=== PATIENT | female | born 1940 | race Caucasian/White ===

== ENCOUNTER 2022-02-05 18:43 | Inpatient (IN) | payer OTHER ==
--- OUTSIDE RECORDS SUMMARY | 2022-02-05 19:01 | XMS REPORT | Continuity of Care Document ---
:1940 Author Organization [facility] t Address [address] [place] [address] Care Team Providers Name Role Phone Ashwin MURRY, Vadim Aaron Primary Care Physician [phone] Mally MURRY, Nidia Attending Clinician Doctor Unassigned, [place] Attending Clinician Unavailable Marysol Adamson RN Attending Clinician Unavailable ALBER MON Attending Clinician Unavailable Nadine Pate Attending Clinician Alber Mon MD Attending Clinician Frederick MURRY, Loren Attending Clinician Tyler Correa DO Attending Clinician TARI VÁZQUEZ Attending Clinician Unavailable Tari Vázquez DO Attending Clinician Yuval DIAMOND, Latha Cardona Attending Clinician CHERELLE COVARRUBIAS Attending Clinician Unavailable Giovanny Joseph DO Attending Clinician Cherelle Covarrubias MD Attending Clinician MARY ELLEN MAHMOOD K.HYassine Attending Clinician Unavailable Ela MURRY, Mary Ellen K.H. Attending Clinician Darrick DIAMOND, Salty Graves Attending Clinician Unavailable Delon Moralez MD Attending Clinician Navneet MURRY, Omar Attending Clinician Miller_S_AH Attending Clinician Unavailable Jennifer MURRY, Tray Attending Clinician Rangel DIAMOND, Kaila Attending Clinician Millie MURRY, Pema Attending Clinician Damien Mejia DO Attending Clinician Anne-Mbayo_A_AH Attending Clinician Unavailable Pob, Adc Lab Main Attending Clinician Unavailable Sugey MURRY, Leroy Cardona Attending Clinician LEROY MAYES Attending Clinician Unavailable Zan DIAMOND, Kaila Attending Clinician Unavailable Arie HARBOR TUG CAPTAIN, Christina Aaron Attending Clinician Unavailable Mauricio Ochoa MD, Herman Attending Clinician Tamara MURRY, Aldo Attending Clinician SHANNAN BARRIOS Attending Clinician Unavailable Uma MURRY, Shannan Cardona Attending Clinician Rene Charles APN Attending Clinician LOREN BRADSHAW Admitting Clinician Unavailable Frederick MURRY, Loren Admitting Clinician CHERELLE COVARRUBIAS Admitting Clinician Unavailable Marci MURRY, Cherelle Admitting Clinician Navneet MURRY, Omar Admitting Clinician Miller_S_AH Admitting Clinician Unavailable Millie MURRY, Pema Admitting Clinician Anne-Addisonayo_A_AH Admitting Clinician Unavailable Tamara MURRY, Aldo Admitting Clinician Payers Payer Name Policy Type Policy Number Effective Date Expiration Date Andrew pham [employer] [place] [id number] 2018 PLUS CLASSIC/VALUE 00:00:00 [employer] [place] - [id number] 2019 [place] 00:00:00 (MEDICARE REPLACEMENT/ADVANT AGE - HMO) Problems Condition Condition Condition Status Onset Resolution Last Treating Co mments Source Name Details Category Date Date Treatment Clinician Date Compressio Compressio Disease Active U nivers n fracture n fracture 5-05 it y of of body of of [place] thoracic thoracic 00 Medica l vertebra vertebra Branch Pneumonia Pneumonia Disease Active Uni vers 2-13 ity of 00:00: [place] [facility] Hyponatrem Hyponatrem Disease Active U nivers ia ia 7-05 ity of 00:00: [place] [facility] Hypertensi Hypertensi Disease Active U nivers ve urgency ve urgency 6-01 it y of 00:00: [place] [facility] Nonobstruc Nonobstruc Disease Active U nivers tive tive 6- ity of atheroscle atheroscle 00:[place] rosis of rosis of 00 Medica l coronary coronary Branch artery artery Syncope Syncope Disease Active Univers due to due to 5-31 ity of orthostati orthostati 00:[place] c c 00 Medical hypotensio hypotensio Br anch n n 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 Purpura 1-04 Family 00:00: Practic 00 e Iron Iron Problem Active 2019-06 Village deficiency Deficiency 1-25 Fa zohra anemia Anemia 00:00: Practic 00 e 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 1-25 Family coronary Coronary 00:00: Practi c artery Artery 00 e without without angina Angina pectoris Pectoris E44.0 E44.0 Disease Active 2019-06 Univers Moderate Moderate 0-31 ity of protein protein 00:00: [place] calorie calorie 00 Medical malnutriti malnutriti Br anch on on Uncontroll Uncontroll Disease Active 2019-06 U valerieers ed ed 0-30 ity of hypertensi hypertensi 00:[place] on on 00 Medical Branch MENDEZ MENDEZ Disease Active 2019-06 Univers (dyspnea (dyspnea 0-30 ity of on on 00:00: [place] exertion) exertion) 00 [facility] tonny Branch Elevated Elevated Disease Active 2019-06 Unive rs troponin I troponin I 0-30 it y of level level 00:00: [place] 00 Medical Branch NSTEMI NSTEMI Disease Active 2019-06 Univers (non-ST (non-ST 0-30 ity of elevated elevated 00:00: [place] myocardial myocardial 00 Me dical infarction infarction Br anch ) ) Elevated Elevated Disease Active 2020-1 Unive rs brain brain 0-30 ity of natriureti natriureti 00:00: [place] c peptide c peptide 00 Medi tonny (BNP) (BNP) Branch level level Essential Essential Disease Active 2019-06 Uni vers hypertensi hypertensi 0-30 it y of on on 00:00: [place] [facility] Hypertensi Hypertensi Disease Active 2019-06 U nivers ve ve 0-29 ity of encephalop encephalop 00:[place] athy athy Medical Branch Nicotine Nicotine Problem Active [place] ge dependence Dependence 7- Fa zohra 00:00: Practic 00 e At risk At Risk Problem Active [place] for falls for Falls 01-04 Fami ly 00:00: Practic 00 e Gastroesop Gastroesop Problem Active V illage hageal hageal 5- Family reflux Reflux 00:00: Practic disease Disease 00 e without without esophagiti Esophagiti s s Hyperchole Hyperchole Problem Active V illage sterolemia sterolemia 5- Fa zohra 00:00: Practic 00 e Essential Essential Problem Active Chel joaquina hypertensi Hypertensi 5-27 Fa zohra on on 00:00: Practic 00 e 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 527 Fa zohra e lung e Lung 00:00: Practic disease Disease 00 e Anemia Anemia Disease Active Univers 8-27 ity of 00:00: [place] [facility] Closed Closed Disease Active Univers fracture fracture 12-10 ity of of right of right 00:00: [place] hip hip 00 Medical Branch Allergies, Adverse Reactions, Alerts Allergy Allergy Status Severity Reaction(s) Onset Inactive Treating Comm ents Source Name Type Date Date Clinician IODINE DRUG Active ITCHING Univers INGREDI 5-04 ity of 00:00: [place] [facility] Iodine Propensi Active Itching Univers ty to 5-04 ity of adverse 00:00: [place] reaction 00 Medical s Branch Codeine Propensi Active Unknown - hallucina U nivers ty to See comments 12-10 tions ity of adverse 00:00: [place] reaction Medical s Branch CODEINE DRUG Active Unknown-Cmnt Uni vers INGREDI 7 ity of 00:00: [place] [facility] Social History Social Habit Start Date Stop Date Quantity Comments Source History of tobacco Cigarette Smoker University of use [facility] Branch History [facility] University o f Alcohol Std Drinks [place] [facility] History [facility] University o f Alcohol Binge [place] [facility] History [facility] o f Alcohol Comment [place] [facility] Alcohol intake 2021-10-16 2021-10-16 Lifetime University of 00:00:00 00:00:00 non-drinker [facility] (finding) Branch Exposure to 2021-10-03 2021-10-13 Not sure University of SARS-CoV-2 (event) 00:00:00 13:41:[address] [facility] Education 2021-07-23 2021-07-23 11 University of 00:00:00 00:00:[address] [facility] Tobacco Comment 2020-12-12 2020-12-12 half pack a day [facility] ersity of 00:00:00 00:00:[address] [facility] Cigarettes smoked 2019-02-03 2019-02-03 Univers ity of current (pack per 00:00:00 00:00:00 [facility]) - Reported Branch Cigarette 2019-02-03 2019-02-03 University of pack-years 00:00:00 00:00:[address] [facility] Tobacco use and 2019-02-03 2019-02-03 Never used Universit y of exposure 00:00:00 00:00:[address] [facility] History SDOH 2018-12-10 2018-12-10 1 University o f Alcohol Frequency 00:00:00 00:00:00 [facility] Sex Assigned At [birth year] Universit y of 00:00:00 00:00:[address] [facility] Smoking Status Start Date Stop Date Source Heavy Tobacco Smoker [facility] Current some day smoker 2019-02-03 00:00:00 [facility] Medications Ordered Filled Start Stop Current Ordering Indication Dosage Frequency Signature Comments Components Source Medication Medication Date Date Medication? Clinician (SIG) Name Name tiotropium Yes [id number] 18ug Inhale 1 Univers 18 mcg 5-09 capsule ity of inhalation 00:00: daily. [place] [facility] polyethylen Yes [id number] 17g Take 1 Univers e glycol 5-09 Packet by ity of 3350 17 00:00: mouth [place] gram powder [address] [facility] tiotropium Yes [id number] 18ug Inhale 1 Univers 18 mcg 5-09 capsule ity of inhalation 00:00: daily. Medical [place] polyethylen Yes [id number] 17g Take 1 Univers e glycol 5-09 Packet by ity of 3350 17 00:00: mouth [place] gram powder 00 daily. [facility] Branch tiotropium Yes [id number] 18ug Inhale 1 Univers 18 mcg 5-09 capsule ity of inhalation 00:00: daily. [facility] polyethylen Yes [id number] 17g Take 1 Univers e glycol 5-09 Packet by ity of 3350 17 00:00: mouth [place] gram powder 00 daily. [facility] Branch tiotropium Yes [id number] 18ug Inhale 1 Univers 18 mcg 5-09 capsule ity of inhalation 00:00: daily. [facility] polyethylen Yes [id number] 17g Take 1 Univers e glycol 5-09 Packet by ity of 3350 17 00:00: mouth [place] gram powder [address] [facility] tiotropium Yes [id number] 18ug Inhale 1 Univers 18 mcg 5-09 capsule ity of inhalation 00:00: daily. [facility] polyethylen Yes [id number] 17g Take 1 Univers e glycol 5-09 Packet by ity of 3350 17 00:00: mouth [place] gram powder [address] [facility] tiotropium Yes [id number] 18ug Inhale 1 Univers 18 mcg 5-09 capsule ity of inhalation 00:00: daily. [facility] polyethylen Yes [id number] 17g Take 1 Univers e glycol 5-09 Packet by ity of 3350 17 00:00: mouth [place] gram powder [address] [facility] Branch omeprazole 0 Yes 40mg Take 40 mg U nivers 40 mg 5-08 by mouth ity of capsule 18:58: every [place] [address] morning. Medical Branch simvastatin 2021-0 Yes 40mg Take 40 mg Univers 40 mg 5-08 by mouth ity of tablet 18:58: at [place] [address] bedtime. Medical Branch metoprolol 2021-0 Yes 50mg Take 50 mg U nivers tartrate 50 5-08 by mouth 2 it y of mg tablet 18:58: (two) [place] [address] times Medical daily. Branch levothyroxi 2021-0 Yes 100ug Take 100 U nivers ne 100 mcg 5-08 mcg by ity of tablet 18:58: mouth. [place] [address] Medical Branch aspirin 81 2021-0 Yes Take by Univ ers mg Cap 5-08 mouth. ity of 18:58: [place] [address] Medical Branch omeprazole 2-0 Yes 40mg Take 40 mg U nivers 40 mg 5-08 by mouth ity of capsule 18:58: every [place] [address] morning. Medical Branch simvastatin 2021-0 Yes 40mg Take 40 mg Univers 40 mg 5-08 by mouth ity of tablet 18:58: at [place] [address] bedtime. Medical Branch metoprolol 2021-0 Yes 50mg Take 50 mg U nivers tartrate 50 5-08 by mouth 2 it y of mg tablet 18:58: (two) [place] [address] times Medical daily. Branch levothyroxi 2021-0 Yes 100ug Take 100 U nivers ne 100 mcg 5-08 mcg by ity of tablet 18:58: mouth. [place] [address] Medical Branch aspirin 81 0 Yes Take by Univ ers mg Cap 5-08 mouth. ity of 18:58: [place] [address] Medical Branch omeprazole 2021-0 Yes 40mg Take 40 mg U nivers 40 mg 5-08 by mouth ity of capsule 18:58: every [place] [address] morning. Medical Branch simvastatin 2-0 Yes 40mg Take 40 mg Univers 40 mg 5-08 by mouth ity of tablet 18:58: at [place] [address] bedtime. Medical Branch metoprolol 2021-0 Yes 50mg Take 50 mg U nivers tartrate 50 5-08 by mouth 2 it y of mg tablet 18:58: (two) [place] [address] times Medical daily. Branch levothyroxi 2021-0 Yes 100ug Take 100 U nivers ne 100 mcg 5-08 mcg by ity of tablet 18:58: mouth. [place] [address] Medical Branch aspirin 81 2021-0 Yes Take by Univ ers mg Cap 5-08 mouth. ity of 18:58: [place] [address] Medical Branch omeprazole 2-0 Yes 40mg Take 40 mg U nivers 40 mg 5-08 by mouth ity of capsule 18:58: every morning. Medical Branch simvastatin 2021-0 Yes 40mg Take 40 mg Univers 40 mg 5-08 by mouth ity of tablet 18:58: at [place] [address] bedtime. Medical Branch metoprolol 2021-0 Yes 50mg Take 50 mg U nivers tartrate 50 5-08 by mouth 2 it y of mg tablet 18:58: (two) [place] [address] times Medical daily. Branch levothyroxi 2021-0 Yes 100ug Take 100 U nivers ne 100 mcg 5-08 mcg by ity of tablet 18:58: mouth. Medical Branch aspirin 81 0 Yes Take by Univ ers mg Cap 5-08 mouth. ity of 18:58: Medical Branch omeprazole 2021-0 Yes 40mg Take 40 mg U nivers 40 mg 5-08 by mouth ity of capsule 18:58: every [place] [address] morning. Medical Branch simvastatin 2021-0 Yes 40mg Take 40 mg Univers 40 mg 5-08 by mouth ity of tablet 18:58: at [place] [address] bedtime. Medical Branch metoprolol 2021-0 Yes 50mg Take 50 mg U nivers tartrate 50 5-08 by mouth 2 it y of mg tablet 18:58: (two) [place] [address] times Medical daily. Branch levothyroxi 2021-0 Yes 100ug Take 100 U nivers ne 100 mcg 5-08 mcg by ity of tablet 18:58: mouth. Medical Branch aspirin 81 0 Yes Take by Univ ers mg Cap 5-08 mouth. ity of 18:58: Medical Branch omeprazole 2021-0 Yes 40mg Take 40 mg U nivers 40 mg 5-08 by mouth ity of capsule 18:58: every [place] [address] morning. Medical Branch simvastatin 2021-0 Yes 40mg Take 40 mg Univers 40 mg 5-08 by mouth ity of tablet 18:58: at [place] [address] bedtime. Medical Branch metoprolol 2-0 Yes 50mg Take 50 mg U nivers tartrate 50 5-08 by mouth 2 it y of mg tablet 18:58: (two) [place] [address] times Medical daily. Branch levothyroxi 2-0 Yes 100ug Take 100 U nivers ne 100 mcg 5-08 mcg by ity of tablet 18:58: mouth. [place] [address] Medical Branch aspirin 81 2022-0 Yes Take by Univ ers mg Cap -08 mouth. ity of 18:58: [place] 26 [facility] Branch aspirin EC 0 Yes 81mg 81 mg, Unive rs tablet 81 -08 Oral, ity of mg 14:00: DAILY, [place] 00 First dose Medical on [place] Branch 10/15/21 at 0900, Until Discontinu ed, Routine sennosides- Yes 1{tbl} 1 tablet, Univers docusate 10-15 Oral, ity of sodium 14:00: DAILY, [place] (SENOKOT-S) 00 First dose Me dical 8.6-50 mg on [place] Branch per tablet 10/15/21 at 1 tablet 0900, Until Discontinu ed, Routine polyethylen Yes 17g 17 g, Unive rs e glycol 10-15 Oral, ity of 3350 powder 14:00: DAILY, [place] 17 g 00 First dose Medical on [facility] 10/15/21 at 0900, Until Discontinu ed, Routine omeprazole Yes 40mg 40 mg, Unive rs (PRILOSEC) 10-15 Oral, ity of capsule 40 14:00: DAILY, [place] mg 00 First dose Medical on [facility] 10/15/21 at 0900, Until Discontinu ed, Routine aspirin EC 2021- No 81mg 81 mg, Univ ers tablet 81 10-15- Oral, ity of mg 14:00: 01:58 DAILY, [place] 00 :30 First dose Medical on [facility] 10/15/21 at 0900, Until Discontinu ed, Routine sennosides- 2021- No 1{tbl} 1 tablet, Univers docusate 10-15 Oral, ity of sodium 14:00: 01:58 DAILY, [place] (SENOKOT-S) 00 :30 First dose Me dical 8.6-50 mg on [place] Branch per tablet 10/15/21 at 1 tablet 0900, Until Discontinu ed, Routine polyethylen 2021- No 17g 17 g, Univ ers e glycol 10-15 Oral, ity of 3350 powder 14:00: 01:58 DAILY, [place] 17 g 00 :30 First dose Medical on [place] [facility] 10/15/21 at 0900, Until Discontinu ed, Routine omeprazole No 40mg 40 mg, Univ ers (PRILOSEC) 5-08 05-09 Oral, ity of capsule 40 14:00: 01:58 DAILY, [place] mg 00 :30 First dose Medical on [place] Branch 10/15/21 at 0900, Until Discontinu ed, Routine ferrous 2021- No 325mg Take 325 Univ ers sulfate 325 5-08 05-08 mg by ity of mg (65 mg 13:02: 00:00 mouth [place] iron) 31 :00 daily. Medical tablet Branch ferrous 2021- No 325mg Take 325 Univ ers sulfate 325 5-08 05-08 mg by ity of mg (65 mg 13:02: 00:00 mouth [place] iron) 31 :00 daily. Medical tablet Branch metoprolol Yes 50mg 50 mg, Unive rs tartrate 5-08 Oral, BID, ity o f (LOPRESSOR) 01:00: First dose [place] tablet 50 00 on Sat Medical mg 10/14/21 at [place] 1999, Until Discontinu ed, Routine metoprolol 2021- No 50mg 50 mg, Univ ers tartrate 5-08 05-09 Oral, BID, ity of (LOPRESSOR) 01:00: 01:58 First dose [place] tablet 50 00 :30 on Sat Medical mg 10/14/21 at [place] 1999, Until Discontinu ed, Routine albuterol Yes [id number] 2{puff} Inhale 2 Univers 90 5-08 Puffs ity of mcg/actuati 00:00: every 6 [place] on inhaler 00 (six) Medical hours as Branch needed for Wheezing or Shortness of Breath. gabapentin Yes [id number] 100mg Take 1 Univers 100 mg 5-08 capsule by ity of capsule 00:00: mouth 3 [place] 00 (three) Medical times Branch daily. albuterol Yes [id number] 2{puff} Inhale 2 Univers 90 5-08 Puffs ity of mcg/actuati 00:00: every 6 [place] on inhaler 00 (six) Medical hours as Branch needed for Wheezing or Shortness of Breath. gabapentin Yes [id number] 100mg Take 1 Univers 100 mg 5-08 capsule by ity of capsule 00:00: mouth 3 (three) Medical times Branch daily. albuterol 2021-0 Yes [id number] 2{puff} Inhale 2 Univers 90 5-08 Puffs ity of mcg/actuati 00:00: every 6 [place] on inhaler 00 (six) Medical hours as Branch needed for Wheezing or Shortness of Breath. gabapentin 2021-0 Yes [id number] 100mg Take 1 Univers 100 mg 5-08 capsule by ity of capsule 00:00: mouth (three) Medical times Branch daily. albuterol 2021-0 Yes [id number] 2{puff} Inhale 2 Univers 90 5-08 Puffs ity of mcg/actuati 00:00: every 6 [place] on inhaler 00 (six) Medical hours as Branch needed for Wheezing or Shortness of Breath. gabapentin 2021-0 Yes [id number] 100mg Take 1 Univers 100 mg 5-08 capsule by ity of capsule 00:00: mouth (three) Medical times Branch daily. albuterol 2021-0 Yes [id number] 2{puff} Inhale 2 Univers 90 5-08 Puffs ity of mcg/actuati 00:00: every 6 [place] on inhaler 00 (six) Medical hours as Branch needed for Wheezing or Shortness of Breath. gabapentin 2021-0 Yes [id number] 100mg Take 1 Univers 100 mg 5-08 capsule by ity of capsule 00:00: mouth (three) Medical times Branch daily. albuterol 2021-0 Yes [id number] 2{puff} Inhale 2 Univers 90 5-08 Puffs ity of mcg/actuati 00:00: every 6 [place] on inhaler 00 (six) Medical hours as Branch needed for Wheezing or Shortness of Breath. gabapentin 2021-0 Yes [id number] 100mg Take 1 Univers 100 mg 5-08 capsule by ity of capsule 00:00: mouth (three) Medical times Branch daily. acetaminoph 2021-0 2022- No [id number] 650mg Take 2 Univers en 325 mg 5-08 05-09 tablets by ity of tablet 00:00: 04:59 mouth [place] 00 :00 every 6 Medical (six) Branch hours. acetaminoph 2022- No [id number] 650mg Take 2 Univers en 325 mg 10-15 05-09 tablets by ity of tablet 00:00: 04:59 mouth [place] 00 :00 every 6 Medical (six) Branch hours. acetaminoph 2021-2022- No [id number] 650mg Take 2 Univers en 325 mg 10-15 05-09 tablets by ity of tablet 00:00: 04:59 mouth [place] 00 :00 every 6 Medical (six) Branch hours. acetaminoph 2021-0 2022- No [id number] 650mg Take 2 Univers en 325 mg 10-15 05-09 tablets by ity of tablet 00:00: 04:59 mouth [place] 00 :00 every 6 Medical (six) Branch hours. acetaminoph 2021-2022- No [id number] 650mg Take 2 Univers en 325 mg 10-15 05-09 tablets by ity of tablet 00:00: 04:59 mouth [place] 00 :00 every 6 Medical (six) Branch hours. acetaminoph 2022- No [id number] 650mg Take 2 Univers en 325 mg 10-15 05-09 tablets by ity of tablet 00:00: 04:59 mouth [place] 00 :00 every 6 Medical (six) Branch hours. acetaminoph Yes 650mg 650 mg, Un moon en -07 Oral, Q6H, ity of (TYLENOL) 17:00: First dose [place] tablet 650 00 (after Medical mg last Branch modificati on) on 10/14/21 at 1200, Until Discontinu ed, Routine acetaminoph 202- No 650mg 650 mg, U nivers en 10-14 05-09 Oral, Q6H, ity of (TYLENOL) 17:00: 01:58 First dose [place] tablet 650 00 :30 (after Medical mg last Branch modificati on) on 10/14/21 at 1200, Until Discontinu ed, Routine gabapentin 2021-0 Yes 100mg 100 mg, Uni vers (NEURONTIN) 10-14 Oral, TID, it y of capsule 100 14:30: First dose [place] mg 00 on [facility] Medical 10/14/21 at Branch 0930, Until Discontinu ed, Routine gabapentin 202-0 2022- No 100mg 100 mg, Un moon (NEURONTIN) 10-14 Oral, TID, i ty of capsule 100 14:30: 01:58 First dose [place] mg 00 :30 on [facility] 10/14/21 at Branch 0930, Until Discontinu ed, Routine iron No 300mg 300 mg, IV Unive rs sucrose 10-14 Infusion, ity of (VENOFER) 14:30: 18:27 ONCE, [place] 300 mg in 00 :00 Administer Medi tonny NaCl 0.9% over 2.5 Branch (NS) 250 mL Hours, On infusion [facility] 10/14/21 at 0930, For 1 dose lidocaine 5 2021- No Topical, U nivers % ointment 10-14 ONCE, 1 ity o f 14:15: 18:38 dose, On [place] 00 :00 [facility] 10/14/21 Medical at 0915, Branch Routine albuterol Yes 2{puff} 2 Puff, Un moon (VENTOLIN) 10-14 Inhalation ity of inhaler 2 11:45: , Q6HPRN, [place] Puff [address] [facility] 10/14/21 at 0645, Until Discontinu ed, Routine, Wheezing, Shortness of Breath albuterol 2021- No 2{puff} 2 Puff, U nivers (VENTOLIN) 10-14 Inhalation it y of inhaler 2 11:45: 01:58 , Q6HPRN, [place] Puff 00 :[address] [facility] 10/14/21 at 0645, Until [place] 10/15/21 at 2058, Routine, Wheezing, Shortness of Breath guaiFENesin Yes 400mg 400 mg, Un moon (FENESIN - Oral, Q4H, ity o f IR) tablet 17:00: First dose [place] 400 mg 00 on Sat [facility] 10/13/21 at Branch 1200, Until Discontinu ed, Routine guaiFENesin 2021- No 400mg 400 mg, U nivers (FENESIN 10-13 05-09 Oral, Q4H, ity of IR) tablet 17:00: 01:58 First dose [place] 400 mg 00 :30 on Sat Medical 10/13/21 at Branch 1200, Until Discontinu ed, Routine albuterol 2021- No 2{puff} 2 Puff, U nivers (VENTOLIN) 10-13 Inhalation it y of inhaler 2 17:00: 11:33 , Q6H, [place] Puff 00 :42 First dose Medical on Sat Branch 10/13/21 at 1200, Until Discontinu ed, Routine tiotropium Yes 18ug 18 mcg, Univ ers (SPIRIVA) 10-13 Inhalation ity of inhalation 14:45: , DAILY, [place] 18 mcg 00 First dose Medical on Sat Branch 10/13/21 at 0945, Until Discontinu ed, Routine tiotropium 2021- No 18ug 18 mcg, Uni vers (SPIRIVA) 10-1309 Inhalation ity of inhalation 14:45: 01:58 , DAILY, [place] 18 mcg 00 :30 First dose Medical on Sat Branch 10/13/21 at 0945, Until Discontinu ed, Routine pantoprazol 2021- No 40mg 40 mg, Uni vers e 10-13 Slow IV ity of (PROTONIX) 13:00: 14:28 Push, [place] injection 00 :42 Q12H, Medical 40 mg First dose Branch (after last modificati on) on Sat10/13/21 at 0800, Until Discontinu ed magnesium 2021- No 2g 2 g, IV Univ ers sulfate in 10-13 Piggyback, it y of water 2 11:30: 12:23 Administer [place] as gram/50 mL 00 :00 over 60 Medica l (4 %) Minutes, Branch infusion 2 ONCE, 1 g dose, On Sat10/13/21 at 0630, Routine iron 2021- No 300mg 300 mg, IV Unive rs sucrose 10-13 Infusion, ity of (VENOFER) 03:00: 06:00 ONCE, [place] 300 mg in 00 :00 Administer Medi tonny NaCl 0.9% over 2.5 Branch (NS) 250 mL Hours, On infusion [place] 10/12/21 at 2200, For 1 dose simvastatin Yes 40mg 40 mg, Univ ers (ZOCOR) 10-13 Oral, QHS, ity of tablet 40 02:00: First dose [place] mg 00 on [facility] 10/12/21 at Branch 2100, Until Discontinu ed, Routine simvastatin No 40mg 40 mg, Uni vers (ZOCOR) 10-13 05-09 Oral, QHS, ity o f tablet 40 02:00: 01:58 First dose [place] mg 00 :30 on [facility] 10/12/21 at Branch 2100, Until Discontinu ed, Routine morpHINE Yes 2mg 2 mg, Slow Uni vers injection 2 -05 IV Push, ity of mg 18:28: Q6HPRN, 4 [place] 39 doses, Medical Starting Branch on [facility] 10/12/21 at 1328, Until Discontinu ed, Routine, Pain (scale 7-10) morpHINE 2021- No 2mg 2 mg, Slow Un moon injection 2 10-12 05-09 IV Push, ity of mg 18:28: 01:58 Q6HPRN, 4 [place] 39 :30 doses, Medical Starting Branch on [facility] 10/12/21 at 1328, Until 10/15/21 at 2057, Routine, Pain (scale 7-10) HYDROcodone Yes 1{tbl} 1 tablet, Univers -acetaminop 5-05 Oral, ity of hen (NORCO 18:28: Q6HPRN, [place] 5) 5-325 mg 03 Starting Medi tonny tablet 1 on [facility] tablet 10/12/21 at 1328, Until Discontinu ed, Routine, Pain (scale 4-6) HYDROcodone 2021- No 1{tbl} 1 tablet, Univers -acetaminop -10 12- Oral, ity of hen (NORCO 18:28: 01:58 Q6HPRN, [place] as 5) 5-325 mg 03 :30 Starting Medi tonny tablet 1 on [facility] tablet 10/12/21 at 1328, Until 10/15/21 at 2057, Routine, Pain (scale 4-6) omeprazole 2021-2021- No 40mg 40 mg, Univ ers (PRILOSEC) 10-12- Oral, QAM, it y of capsule 40 14:00: 01:47 First dose [place] mg 00 :29 on [facility] 10/12/21 at Branch 0900, Until Discontinu ed ipratropium 2021- No 3mL 3 mL, Univ ers -albuteroL 10-12-05 Inhalation it y of (DUONEB) 13:00: 18:27 , QID, [place] 0.5 mg-3 00 :17 First dose Medic al mg(2.5 mg on [place] [facility] base)/3 mL 10/12/21 at nebulizer 0800, solution 3 Until mL Discontinu ed, Routine levothyroxi Yes 100ug 100 mcg, U nivers ne 5-05 Oral, ity of (SYNTHROID) 11:00: QAM-0600, [place] tablet 100 00 First dose Med ical mcg on [place] [facility] 10/12/21 at 0600, Until Discontinu ed, Routine levothyroxi 2021- No 100ug 100 mcg, Univers ne 10-12 05-09 Oral, ity of (SYNTHROID) 11:00: 01:58 QAM-0600, [place] tablet 100 00 :30 First dose Med ical mcg on [place] [facility] 10/12/21 at 0600, Until Discontinu ed, Routine ondansetron Yes 4mg 4 mg, Slow Univers (ZOFRAN 5-05 IV Push, ity of (PF)) 09:31: Q6HPRN, [place] injection 4 42 Nausea and Me dical mg Vomiting Branch (N/V), Starting on [facility] 10/12/21 at 0431
Do ses of ondansetro n 16 mg and above need to be administer ed via IV piggyback. For Dose >=24mg ECG monitoring is advisable.
ondansetron 2021- No 4mg 4 mg, Slow Univers (ZOFRAN 5-05 05-09 IV Push, ity of (PF)) 09:31: 01:58 Q6HPRN, [place] injection 4 42 :30 Nausea and Me dical mg Vomiting Branch (N/V), Starting on [place] 10/12/21 at 0431
Do ses of ondansetro n 16 mg and above need to be administer ed via IV piggyback. For Dose >=24mg ECG monitoring is advisable.
ondansetron No 4mg 4 mg, Slow Univers (ZOFRAN 10-12 IV Push, ity of (PF)) 03:30: 02:16 ONCE, 1 [place] injection 4 00 :00 dose, On Medi tonny mg Sat10/11/21 Branch at 2230, OSWALDO ipratropium 2021- No 3mL 3 mL, Univ ers -albuteroL 10-12 Inhalation it y of (DUONEB) 00:30: 23:33 , ONCE, 1 [place] 0.5 mg-3 00 :00 dose, On Medical mg(2.5 mg Sat10/11/21 Bran ch base)/3 mL at 1930, nebulizer Routine solution 3 mL traMADoL 2021- No 50mg 50 mg, Univer s (ULTRAM) 10-11 Oral, ity of tablet 50 21:45: 20:38 ONCE, 1 [place] mg 00 :00 dose, On Medical Sat10/11/21 Branch at 1645, Routine acetaminoph 2021- No 650mg 650 mg, U nivers en 08-28 Oral, ity of (TYLENOL) 21:00: 19:50 ONCE, 1 [place] tablet 650 00 :00 dose, On Medic al mg [facility] 08/28/21 at 1600, OSWAL[place] acetaminoph 2021- No 650mg 650 mg, U nivers en 08-28 Oral, ity of (TYLENOL) 21:00: 19:50 ONCE, 1 [place] tablet 650 00 :00 dose, On Medic al mg [facility] 08/28/21 at 1600, OSWAL[place] aspirin 81 2021- No [id number] 81mg Take 1 Univers mg chewable 2-18 - tablet by it y of tablet 00:00: 04:59 mouth [place] 00 :00 daily for Medical 30 days. Branch aspirin 81 2021- No [id number] 81mg Take 1 Univers mg chewable 2-18 - tablet by it y of tablet 00:00: 04:59 mouth [place] 00 :00 daily for Medical 30 days. Branch simvastatin 2022-0 Yes 40mg Take 40 mg Univers 40 mg 2-17 by mouth ity of tablet 17:33: at [place] 07 bedtime. Medical Branch metoprolol 2021-0 Yes 50mg Take 50 mg U nivers tartrate 50 2-17 by mouth 2 it y of mg tablet 17:33: (two) [place] 07 times Medical daily. Branch levothyroxi 2021-0 Yes 100ug Take 100 U nivers ne 100 mcg 2-17 mcg by ity of tablet 17:33: mouth. Medical Branch omeprazole 2021-0 Yes 40mg Take 40 mg U nivers 40 mg 2-17 by mouth ity of capsule 17:33: every [place] 07 morning. Medical Branch ferrous 2021-0 Yes 325mg Take 325 Unive rs sulfate 325 2-17 mg by ity of mg (65 mg 17:33: mouth [place] iron) 07 daily. Medical tablet Branch simvastatin 2021-0 Yes 40mg Take 40 mg Univers 40 mg 2-17 by mouth ity of tablet 17:33: at [place] 07 bedtime. Medical Branch metoprolol 2021-0 Yes 50mg Take 50 mg U nivers tartrate 50 2-17 by mouth 2 it y of mg tablet 17:33: (two) [place] 07 times Medical daily. Branch levothyroxi 2021-0 Yes 100ug Take 100 U nivers ne 100 mcg 2-17 mcg by ity of tablet 17:33: mouth. Medical Branch omeprazole 2021-0 Yes 40mg Take 40 mg U nivers 40 mg 2-17 by mouth ity of capsule 17:33: every [place] 07 morning. Medical Branch ferrous 2021-0 Yes 325mg Take 325 Unive rs sulfate 325 2-17 mg by ity of mg (65 mg 17:33: mouth [place] iron) 07 daily. Medical tablet Branch simvastatin 2021-0 Yes 40mg Take 40 mg Univers 40 mg 2-17 by mouth ity of tablet 17:33: at [place] 07 bedtime. Medical Branch metoprolol 2021-0 Yes 50mg Take 50 mg U nivers tartrate 50 2-17 by mouth 2 it y of mg tablet 17:33: (two) [place] 07 times Medical daily. Branch levothyroxi 2021-0 Yes 100ug Take 100 U nivers ne 100 mcg 2-17 mcg by ity of tablet 17:33: mouth. Medical Branch omeprazole Yes 40mg Take 40 mg U nivers 40 mg 2-17 by mouth ity of capsule 17:33: every [place] 07 morning. Medical Branch ferrous Yes 325mg Take 325 Unive rs sulfate 325 2-17 mg by ity of mg (65 mg 17:33: mouth [place] iron) 07 daily. Medical tablet Branch simvastatin Yes 40mg Take 40 mg Univers 40 mg 2-17 by mouth ity of tablet 17:33: at [place] 07 bedtime. Medical Branch metoprolol Yes 50mg Take 50 mg U nivers tartrate 50 2-17 by mouth 2 it y of mg tablet 17:33: (two) [place] 07 times Medical daily. Branch levothyroxi Yes 100ug Take 100 U nivers ne 100 mcg 2-17 mcg by ity of tablet 17:33: mouth. Medical Branch omeprazole Yes 40mg Take 40 mg U nivers 40 mg 2-17 by mouth ity of capsule 17:33: every [place] morning. Medical Branch ferrous Yes 325mg Take 325 Unive rs sulfate 325 2-17 mg by ity of mg (65 mg 17:33: mouth [place] iron) 07 daily. Medical tablet Branch furosemide Yes 40mg 40 mg, Unive rs (LASIX) 2-17 Oral, ity of tablet 40 15:00: DAILY, [place] mg 00 First dose Medical on [place] [facility] 07/27/21 at 0900, [facility] benzoc[facility]- Yes [id number] 1{lozen Take 1 Univers menthoL 2-17 ge} Lozenge by ity of lozenge 00:00: mouth [place] 00 every 6 Medical (six) Branch hours as needed for Sore throat. benzonatate Yes [id number] 100mg Take 1 [facility] 100 mg 2-17 capsule by ity of capsule 00:00: mouth [place] 00 every 8 Medical (eight) Branch hours. benzocaine- Yes [id number] 1{lozen Take 1 Univers menthoL 2-17 ge} Lozenge by ity of lozenge 00:00: mouth [place] 00 every 6 Medical (six) Branch hours as needed for Sore throat. benzonatate Yes [id number] 100mg Take 1 [facility] 100 mg 2-17 capsule by ity of capsule 00:00: mouth [place] 00 every 8 Medical (eight) Branch hours. benzocaine- 0 Yes [id number] 1{lozen Take 1 Univers menthoL 2-17 ge} Lozenge by ity of lozenge 00:00: mouth [place] 00 every 6 Medical (six) Branch hours as needed for Sore throat. benzonatate 0 Yes [id number] 100mg Take 1 [facility] 100 mg 2-17 capsule by ity of capsule 00:00: mouth [place] 00 every 8 Medical (eight) Branch hours. benzocaine- 0 Yes [id number] 1{lozen Take 1 Univers menthoL 2-17 ge} Lozenge by ity of lozenge 00:00: mouth [place] 00 every 6 Medical (six) Branch hours as needed for Sore throat. benzonatate Yes [id number] 100mg Take 1 Univers 100 mg 2-17 capsule by ity of capsule 00:00: mouth [place] 00 every 8 Medical (eight) Branch hours. benzocaine- 2021- No [id number] 1{lozen Take 1 Univers menthoL 2-17 05-04 ge} Lozenge by ity o f lozenge 00:00: 00:00 mouth [place] 00 :00 every 6 Medical (six) Branch hours as needed for Sore throat. benzonatate 202- No [id number] 100mg Take 1 Univers 100 mg 2-17 05-04 capsule by ity of capsule 00:00: 00:00 mouth [place] 00 :00 every 8 Medical (eight) Branch hours. benzocaine- 0 202- No [id number] 1{lozen Take 1 Univers menthoL 2-17 05-04 ge} Lozenge by ity o f lozenge 00:00: 00:00 mouth [place] 00 :00 every 6 Medical (six) Branch hours as needed for Sore throat. benzonatate 0 2022- No [id number] 100mg Take 1 Univers 100 mg 2-17 05-04 capsule by ity of capsule 00:00: 00:00 mouth [place] 00 :00 every 8 Medical (eight) Branch hours. predniSONE 2021- No [id number] Take 4 Univers 10 mg 07-27 tablets by ity of tablet 00:00: 05:59 mouth [place] 00 :00 daily for Medical 3 days, Branch THEN 3 tablets daily for 3 days, THEN 2 tablets daily for 3 days, THEN 1 tablet daily for 3 days, THEN 0.5 tablets daily for 3 days. predniSONE 2021- No [id number] Take 4 Univers 10 mg 07-27 tablets by ity of tablet 00:00: 05:59 mouth [place] 00 :00 daily for Medical 3 days, Branch THEN 3 tablets daily for 3 days, THEN 2 tablets daily for 3 days, THEN 1 tablet daily for 3 days, THEN 0.5 tablets daily for 3 days. levoFLOXaci 2021- No [id number] 750mg Take 1 Univers n 750 mg 07-27 tablet by ity o f tablet 00:00: 05:59 mouth [place] 00 :00 every 48 Medical ([facility]) hours for 12 days. levoFLOXaci 2021- No [id number] 750mg Take 1 Univers n 750 mg 07-27 tablet by ity o f tablet 00:00: 05:59 mouth [place] 00 :00 every 48 Medical ([facility]) hours for 12 days. furosemide 2021- No [id number] 20mg Take 1 Univers (LASIX) 20 07-27-25 tablet by ity of mg tablet 00:00: 05:59 mouth [place] 00 :00 daily for Medical 7 days. [place] furosemide 2021- No [id number] 20mg Take 1 Univers (LASIX) 20 07-27-25 tablet by ity of mg tablet 00:00: 05:59 mouth [place] 00 :00 daily for Medical 7 days. [place] furosemide 2021- No 40mg 40 mg, Univ ers (LASIX) 07-26 02-16 Slow IV ity of injection 15:15: 15:34 Push, [place] 40 mg 00 :00 ONCE, 1 Medical dose, On Branch 07/26/21 at 0915, Routine levoFLOXaci Yes 750mg 750 mg, Un moon n 2-16 Oral, Q48H ity of (LEVAQUIN) 15:00: ABX, First [place] tablet 750 00 dose Medical mg (after Branch last modificati on) on Sat07/26/21 at 0900, Until Discontinu ed, OSWALDO
Re ason for Anti-Infec tive: Documented Infection< br>Documen dallin Infection Site: Respirator y
Durat ion of Therapy: Other (see Comments) furosemide 2021- No 20mg 20 mg, Univ ers (LASIX) 2-15 02-15 Slow IV ity of injection 20:30: 20:11 Push, [place] 20 mg 00 :00 ONCE, 1 Medical dose, On Branch Sat07/25/21 at 1430, Routine benzonatate 0 Yes 100mg 100 mg, Un moon (TESSALON 2-15 Oral, Q8H, ity of PERLES) 17:30: First dose [place] capsule 100 00 on Medica l mg 07/25/21 at Branch 1130, Until Discontinu ed, Routine benzocaine- 0 Yes 1{lozen 1 Lozenge, Univers menthoL 2-15 ge} Oral, ity of (CEPACOL 01:51: Q6HPRN, [place] SORE THROAT 46 Starting Medi tonny (MASON-MEN)) on Sat lozenge 1 07/24/21 at Lozenge 1951, Until Discontinu ed, Routine, Sore throat predniSONE 2021-0 Yes 40mg 40 mg, Unive rs (DELTASONE) 2-14 Oral, ity of tablet 40 15:00: DAILY, [place] mg 00 First dose Medical on Sat07/24/21 at 0900, Until Discontinu ed, Routine aspirin 2021-0 Yes 81mg 81 mg, Univers chewable 2-14 Oral, ity of tablet 81 15:00: DAILY, [place] mg 00 First dose Medical on Sat07/24/21 at 0900, Until Discontinu ed, Routine omeprazole 2021-0 Yes 40mg 40 mg, Unive rs (PRILOSEC) 2-14 Oral, ity of capsule 40 15:00: DAILY, [place] mg 00 First dose Medical on Sat07/24/21 at 0900, Until Discontinu ed, Routine levoFLOXaci 2021-0 202- No 750mg 750 mg, U nivers n 2-14 02-14 Oral, ity of (LEVAQUIN) 15:00: 16:29 DAILY, [place] tablet 750 00 :55 First dose Med ical mg on [facility] 07/24/21 at 0900, Until Discontinu ed, OSWALDO
Re ason for Anti-Infec tive: Documented Infection< br>Documen dallin Infection Site: Respirator y
Durat ion of Therapy: Other (see Comments) levothyroxi 2021-0 Yes 100ug 100 mcg, U nivers ne 2-14 Oral, ity of (SYNTHROID) 12:00: QAM-0600, [place] tablet 100 00 First dose Med ical mcg on Sat [place] 07/24/21 at 0600, Until Discontinu ed, Routine simvastatin 2021-0 Yes 40mg 40 mg, Univ ers (ZOCOR) 2-14 Oral, QHS, ity of tablet 40 03:00: First dose [place] mg 00 on [facility] 07/23/21 at Branch 2100, Until Discontinu ed, Routine metoprolol 2021-0 Yes 50mg 50 mg, Unive rs tartrate 2-14 Oral, BID, ity o f (LOPRESSOR) 02:00: First dose [place] tablet 50 00 on [facility] mg 07/23/21 at Branch 2000, Until Discontinu ed, Routine ipratropium 2021-0 Yes 3mL 3 mL, Unive rs -albuteroL 2-14 Inhalation ity of (DUONEB) 00:00: , Q6H, [place] 0.5 mg-3 00 First dose Medic al mg(2.5 mg on [facility] base)/3 mL 07/23/21 at nebulizer 1800, solution 3 Until mL Discontinu ed, Routine enoxaparin 2021-0 Yes 40mg 40 mg, Unive rs (LOVENOX) 2-13 Subcutaneo ity of injection 23:00: us, DAILY, [place] 40 mg 00 First dose Medical on [facility] 07/23/21 at 1700, Until Discontinu ed, Routine methylpredn 2022-0 2022- No 60mg 60 mg, Uni vers isolone sod 2-13 -14 Slow IV ity of succ 22:00: 00:02 [place] (SOLU-MEDRO 00 :00 ONCE, 1 Medic al L) dose, On Branch injection [place] 60 mg 07/23/21 at 1600, Routine aspirin 2021- No 325mg 325 mg, Unive rs tablet 325 07-23 Oral, ity of mg 21:00: 00:02 ONCE, 1 [place] 00 :00 dose, On Medical [place] [facility] 07/23/21 at 1500, Routine ondansetron Yes 4mg 4 mg, Slow Univers (ZOFRAN 07-23 IV Push, ity of (PF)) 20:49: Q6HPRN, [place] injection 4 22 Starting Medi tonny mg on [place] Branch 07/23/21 at 1449, Until Discontinu ed, Routine, Nausea and Vomiting (N/V) acetaminoph Yes 650mg 650 mg, Un moon en 07-23 Oral, ity of (TYLENOL) 20:49: Q6HPRN, [place] tablet 650 04 Starting Medic al mg on [place] Branch 07/23/21 at 1449, Until Discontinu ed, Routine, Pain (scale 1-3), Temp > 38.5 C magnesium 2021- No 2g 2 g, IV Univ ers sulfate in 07-23 Piggyback, it y of water 2 20:45: 20:46 ONCE, 1 [place] gram/50 mL 00 :00 dose, On Medic al (4 %) [place] [facility] infusion 2 07/23/21 at g 1500, Routine azithromyci 2021- No 500mg 500 mg, IV Univers n 07-23 Piggyback, ity of (ZITHROMAX) 20:00: 21:21 Q24H ABX, [place] 500 mg in 00 :13 First dose Medi tonny NaCl 0.9% on [place] Branch (NS) 250 mL 07/23/21 at VIAL-MATE 1400, IV Until piggyback Discontinu ed, Administer over 60 Minutes, 250 mL
Reas on for Anti-Infec tive: Empiric Therapy for Suspected Infection< br>Empiric Therapy Site: Respirator y
Durat ion of therapy: 72 hours cefTRIAXone 2021- No 1000mg 1,000 mg, Univers (ROCEPHIN) 07-23 IV ity of 1,000 mg in 20:00: 19[facility] [place] NaCl 0.9% 00 :00 ONCE, 1 Medical (NS) 50 mL dose, On Bran h MINI-BAG 07/23/21 at 1400, Administer over 30 Minutes, 50 mL
Reas on for Anti-Infec tive: Empiric Therapy for Suspected Infection< br>Empiric Therapy Site: Respirator y
Durat ion of therapy: 72 hours aspirin 81 0 2020- No [id number] 81mg Take 1 [facility] mg chewable 12-15 tablet by it y of tablet 00:00: 04:59 mouth [place] 00 :00 daily for Medical 30 days. Branch cholecalcif 2020- No [id number] 5000U Take 5 [facility] [place], 12-15 tablets by ity of vitamin D3, 00:00: 04:59 mouth [place] 25 mcg 00 :00 daily for Medical (1,000 30 days. Branch unit) tablet aspirin 81 2020- No [id number] 81mg Take 1 [facility] mg chewable 12-15 tablet by it y of tablet 00:00: 04:59 mouth [place] 00 :00 daily for Medical 30 days. Branch cholecalcif 2020- No [id number] 5000U Take 5 Univers [place], 12-15 tablets by ity of vitamin D3, 00:00: 04:59 mouth [place] 25 mcg 00 :00 daily for Medical (1,000 30 days. Branch unit) tablet omeprazole Yes 40mg Take 40 mg U nivers 40 mg 7-07 by mouth ity of capsule 19:49: every [place] 41 morning. Medical Branch ferrous Yes 325mg Take 325 Unive rs sulfate 325 7-07 mg by ity of mg (65 mg 19:49: mouth [place] iron) 41 daily. Medical tablet Branch omeprazole Yes 40mg Take 40 mg U nivers 40 mg 7-07 by mouth ity of capsule 19:49: every [place] 41 morning. Medical Branch ferrous Yes 325mg Take 325 Unive rs sulfate 325 7-07 mg by ity of mg (65 mg 19:49: mouth [place] iron) 41 daily. Medical tablet Branch omeprazole 2021-0 Yes 40mg Take 40 mg U nivers 40 mg 7-07 by mouth ity of capsule 19:49: every [place] 41 morning. Medical Branch ferrous Yes 325mg Take 325 Unive rs sulfate 325 7-07 mg by ity of mg (65 mg 19:49: mouth [place] iron) 41 daily. Medical tablet Branch omeprazole Yes 40mg Take 40 mg U nivers 40 mg 7-07 by mouth ity of capsule 19:49: every [place] 41 morning. Medical Branch ferrous Yes 325mg Take 325 Unive rs sulfate 325 7-07 mg by ity of mg (65 mg 19:49: mouth [place] iron) 41 daily. Medical tablet Branch omeprazole Yes 40mg Take 40 mg U nivers 40 mg 7-07 by mouth ity of capsule 19:49: every [place] 41 morning. Medical Branch ferrous Yes 325mg Take 325 Unive rs sulfate 325 7-07 mg by ity of mg (65 mg 19:49: mouth [place] iron) 41 daily. Medical tablet Branch aspirin 81 2020- No 81mg Take 81 mg Univers mg chewable 12-14-07 by mouth ity of tablet 17:55: 00:00 daily. [place] 03 :00 Medical Branch cholecalcif Yes 5000U 5,000 Univ ers [place] 7-07 Units, ity of (vitamin 14:00: Oral, [place] D3) tablet 00 DAILY, Medical 5,000 Units First dose Br anch on Sat12/14/20 at 0900, Until Discontinu ed, Routine carvediloL Yes 6.25mg 6.25 mg, U nivers (COREG) - Oral, BID ity of tablet 6.25 13:00: MEALS, [place] mg 00 First dose Medical on Sat Branch 12/14/20 at 0800, Until Discontinu ed, Routine demeclocycl Yes 300mg 300 mg, Un moon ine 7-07 Oral, BID, ity of (DECLOMYCIN 13:00: First dose [place] ) tablet 00 (after Medical 300 mg last Branch modificati on) on Sat12/14/20 at 0800, Until Discontinu ed, OSWALDO
Re ason for Anti-Infec tive: Empiric Therapy for Suspected Infection< br>Empiric Therapy Site: Other
O ther site: n/a
Dur ation of therapy: 7 days metoprolol 2020- No 50mg 50 mg, Univ ers tartrate 12-14 Oral, BID, ity of (LOPRESSOR) 01:45: 12:08 First dose [place] tablet 50 00 :53 on Tue Medical mg 12/13/20 at Branch 2044, Until Discontinu ed, Routine levothyroxi 2020- No [id number] 125ug Take 1 Univers ne 125 mcg 12-14 tablet by ity of tablet 00:00: 04:59 mouth [place] 00 :00 every Medical morning Branch for 30 days. carvediloL 2020- No [id number] 6.25mg Take 1 Univers 6.25 mg 12-14 tablet by ity of tablet 00:00: 04:59 mouth 2 [place] 00 :00 (two) Medical times Branch daily with meals for 30 days. levothyroxi 2020- No [id number] 125ug Take 1 Univers ne 125 mcg 12-14 tablet by ity of tablet 00:00: 04:59 mouth [place] 00 :00 every Medical morning Branch for 30 days. carvediloL 2020- No [id number] 6.25mg Take 1 Univers 6.25 mg 12-14 tablet by ity of tablet 00:00: 04:59 mouth 2 [place] 00 :00 (two) Medical times Branch daily with meals for 30 days. demeclocycl 2020- No [id number] 300mg Take 1 Univers ine 300 mg 12-14 tablet by ity of tablet 00:00: 04:59 mouth 2 [place] 00 :00 (two) Medical times Branch daily for 10 days. demeclocycl 2020- No [id number] 300mg Take 1 Univers ine 300 mg 12-14 tablet by ity of tablet 00:00: 04:59 mouth 2 [place] 00 :00 (two) Medical times Branch daily for 10 days. demeclocycl 2020- No 150mg 150 mg, U nivers ine 12-13 Oral, BID, ity of (DECLOMYCIN 22:15: 12:10 First dose [place] ) tablet 00 :27 on [facility] 150 mg 12/13/20 at Branch 1715, Until Discontinu ed, OSWALDO
Re ason for Anti-Infec tive: Empiric Therapy for Suspected Infection< br>Empiric Therapy Site: Other
O ther site: n/a
Dur ation of therapy: 7 days traMADoL 0 Yes 50mg 50 mg, Univers (ULTRAM) 12-13 Oral, ity of tablet 50 19:04: Q6HPRN, [place] mg 16 Starting Medical [facility] 12/13/20 Branch at 1404, Until Discontinu ed, Routine, Pain (scale 4-6) aspirin 0 Yes 81mg 81 mg, Univers chewable 12-13 Oral, ity of tablet 81 14:00: DAILY, [place] mg 00 First dose Medical on [facility] 12/13/20 at 0900, Until Discontinu ed, Routine enoxaparin Yes 40mg 40 mg, Unive rs (LOVENOX) 12-13 Subcutaneo ity of injection 14:00: us, DAILY, [place] 40 mg 00 First dose Medical on [facility] 12/13/20 at 0900, Until Discontinu ed, Routine pantoprazol 0 Yes 40mg 40 mg, Univ ers e 12-13 Oral, ity of (PROTONIX) 14:00: DAILY, [place] EC tablet 00 First dose Medi tonny 40 mg on [facility] 12/13/20 at 0900, Until Discontinu ed, Routine losartan Yes 50mg 50 mg, Univers (COZAAR) 12-13 Oral, ity of tablet 50 14:00: DAILY, [place] mg 00 First dose Medical on [facility] 12/13/20 at 0900, Until Discontinu ed, Routine ferrous 2020-0 Yes 325mg 325 mg, Univer s sulfate 12-13 Oral, ity of tablet 325 14:00: DAILY, [place] mg 00 First dose Medical on [facility] 12/13/20 at 0900, Until Discontinu ed, Routine iron 2020-0 202- No 300mg 300 mg, IV Unive rs sucrose 12-13 07-10 Infusion, ity of (VENOFER) 14:00: 13:59 DAILY, [place] 300 mg in 00 :00 First dose Medi tonny NaCl 0.9% on Sat Branch (NS) 250 mL 12/13/20 at infusion 0900, For 4 doses levothyroxi Yes 125ug 125 mcg, U nivers ne 12-13 Oral, ity of (SYNTHROID) 11:00: QAM-0600, [place] tablet 125 00 First dose Med ical mcg on Sat [place] 12/13/20 at 0600, Until Discontinu ed, Routine atorvastati Yes 40mg 40 mg, Univ ers n (LIPITOR) 12-13 Oral, QHS, it y of tablet 40 02:00: First dose [place] mg 00 on [facility] 12/12/20 at Branch 2100, Until Discontinu ed, Routine NaCl 0.9% 2020- No 1000mL at 80 [facility] ers (NS) IV 12-13 07-06 mL/hr, IV ity of infusion 01:00: 22:21 Infusion, [place] 1,000 mL 00 :51 CONTINUOUS Medic al , Starting Branch [facility] 12/12/20 at 2000, Until Sat12/13/20 at 1721, Routine ondansetron Yes 4mg 4 mg, Slow Univers (ZOFRAN 12-13 IV Push, ity of (PF)) 00:56: Q6HPRN, [place] injection 4 14 Starting Medi tonny mg [facility] 12/12/20 Branch at 195, Until Discontinu ed, Routine, Nausea and Vomiting (N/V) acetaminoph Yes 650mg 650 mg, Un moon en 12-13 Oral, ity of (TYLENOL) 00:56: Q6HPRN, [place] tablet 650 00 Starting Medic al mg [facility] 12/12/20 Branch at 1956, Until Discontinu ed, Routine, Pain (scale 1-3) omeprazole 0 Yes 40mg Take 40 mg U nivers 40 mg 6-02 by mouth ity of capsule 23:35: every [place] 22 morning. Medical Branch ferrous 2020-0 Yes 325mg Take 325 Unive rs sulfate 325 6-02 mg by ity of mg (65 mg 23:35: mouth [place] iron) 22 daily. Medical tablet Branch omeprazole 0 Yes 40mg Take 40 mg U nivers 40 mg 6-02 by mouth ity of capsule 23:35: every [place] 22 morning. Medical Branch ferrous 0 Yes 325mg Take 325 Unive rs sulfate 325 6-02 mg by ity of mg (65 mg 23:35: mouth [place] iron) 22 daily. Medical tablet Branch omeprazole Yes 40mg Take 40 mg U nivers 40 mg 6-02 by mouth ity of capsule 23:35: every [place] 22 morning. Medical Branch ferrous 0 Yes 325mg Take 325 Unive rs sulfate 325 6-02 mg by ity of mg (65 mg 23:35: mouth [place] iron) 22 daily. Medical tablet Branch omeprazole Yes 40mg Take 40 mg U nivers 40 mg 6-02 by mouth ity of capsule 23:35: every [place] 22 morning. Medical Branch ferrous Yes 325mg Take 325 Unive rs sulfate 325 6-02 mg by ity of mg (65 mg 23:35: mouth [place] iron) 22 daily. Medical tablet Branch atorvastati Yes 40mg 40 mg, Univ ers n (LIPITOR) 11-09 Oral, QHS, it y of tablet 40 02:00: First dose [place] mg 00 on [facility] 11/08/20 at Branch 2100, Until Discontinu ed, Routine albuterol Yes 2.5mg 2.5 mg, Univ ers (PROVENTIL) 11-09 Inhalation it y of 2.5 mg /3 01:00: , QID, [place] mL (0.083 00 First dose Medi tonny %) on [facility] nebulizer 11/08/20 at solution 2000, 2.5 mg Until Discontinu ed, Routine ipratropium 2020- No .5mg 0.5 mg, Un moon (ATROVENT) 11-09 06-02 Inhalation it y of 0.02 % 00:15: 01:16 , ONCE, 1 [place] nebulizer 00 :00 dose, [facility] al solution 11/08/20 at [place] 0.5 mg 1915, Routine omeprazole Yes 40mg 40 mg, Unive rs (PRILOSEC) 11-08 Oral, QAM, ity of capsule 40 14:00: First dose [place] mg 00 on [facility] 11/08/20 at Branch 0900, Until Discontinu ed losartan Yes 50mg 50 mg, Univers (COZAAR) 11-08 Oral, ity of tablet 50 14:00: DAILY, [place] mg 00 First dose Medical on [facility] 11/08/20 at 0900, Until Discontinu ed, Routine enoxaparin Yes 40mg 40 mg, Unive rs (LOVENOX) 11-08 Subcutaneo ity of injection 14:00: us, DAILY, [place] 40 mg 00 First dose Medical on [facility] 11/08/20 at 0900, Until Discontinu ed, Routine metoprolol Yes [facility]mg [facility] Oral, BID, ity o f (LOPRESSOR) 13:00: First dose [place] tablet 25 00 on [facility] mg 11/08/20 at Branch 0800, Until Discontinu ed, Routine levothyroxi Yes 125ug 125 mcg, U nivers ne 11-08 Oral, ity of (SYNTHROID) 11:00: QAM-0600, [place] tablet 125 00 First dose Med ical mcg on [facility] 11/08/20 at 0600, Until Discontinu ed, Routine NaCl 0.9% 2020- No 1000mL at 100 Uni vers (NS) IV 11-08 0601 mL/hr, IV ity of infusion 05:45: 07:13 Infusion, [place] as 1,000 mL 00 :00 ONCE, 1 Medical dose, [facility] 11/08/20 at 0045, Routine ondansetron Yes 4mg 4 mg, Slow Univers (ZOFRAN 11-08 IV Push, ity of (PF)) 03:03: Q6HPRN, [place] injection 4 33 Starting Medi tonny mg [facility] 11/07/20 at 2203, Until Discontinu ed, Routine, Nausea and Vomiting (N/V) acetaminoph Yes 650mg 650 mg, Un moon en 11-08 Oral, ity of (TYLENOL) 03:03: Q6HPRN, [place] tablet 650 11 Starting Medic al mg [facility] 11/07/20 at 2203, Until Discontinu ed, Routine, Pain (scale 1-3) NaCl 0.9% 2020- No 500mL at 999 Univ ers (NS) bolus 11-08 mL/hr, 500 it y of infusion 02:30: 02:00 mL, IV [place] 500 mL 00 :00 Infusion, Medical ONCE, 1 Branch dose, [facility] 11/07/20 at 2130, STAT ondansetron 2020- No 4mg 4 mg, Slow Univers (ZOFRAN 11-08 IV Push, ity of (PF)) 00:30: 23:47 ONCE, 1 [place] injection 4 00 :00 dose, Mon Med ical mg 11/07/20 at Branch 1930, OSWALDO hydralAZINE 2020- No 10mg 10 mg, Uni vers (APRESOLINE 11-08 Slow IV ity of ) injection 00:30: 23:46 [place] 10 mg 00 :00 ONCE, 1 Medical dose, [facility] 11/07/20 at 1930, Routine
Indicatio n: Hypertensi ve Emergency losartan 50 Yes [id number] 50mg Take 1 [facility] mg tablet 5-17 tablet by ity o f 00:00: mouth [place] 00 daily. Medical Branch losartan 50 0 Yes [id number] 50mg Take 1 [facility] mg tablet 5-17 tablet by ity o f 00:00: mouth [place] 00 daily. Medical Branch losartan 50 0 Yes [id number] 50mg Take 1 [facility] mg tablet 5-17 tablet by ity o f 00:00: mouth [place] 00 daily. Medical Branch losartan 50 0 Yes [id number] 50mg Take 1 [facility] mg tablet 5-17 tablet by ity o f 00:00: mouth [place] 00 daily. Medical Branch losartan 50 0 Yes [id number] 50mg Take 1 [facility] mg tablet 5-17 tablet by ity o f 00:00: mouth [place] 00 daily. Medical Branch losartan 50 0 Yes [id number] 50mg Take 1 [facility] mg tablet 5-17 tablet by ity o f 00:00: mouth [place] 00 daily. Medical Branch losartan 50 0 Yes [id number] 50mg Take 1 [facility] mg tablet 5-17 tablet by ity o f 00:00: mouth [place] 00 daily. Medical Branch losartan 50 0 Yes [id number] 50mg Take 1 [facility] mg tablet 5-17 tablet by ity o f 00:00: mouth [place] 00 daily. Medical Branch losartan 50 0 Yes [id number] 50mg Take 1 [facility] mg tablet 5-17 tablet by ity o f 00:00: mouth [place] 00 daily. Medical Branch losartan 50 0 Yes [id number] 50mg Take 1 [facility] mg tablet 5-17 tablet by ity o f 00:00: mouth [place] 00 daily. Medical Branch losartan 50 0 Yes [id number] 50mg Take 1 [facility] mg tablet 5-17 tablet by ity o f 00:00: mouth [place] 00 daily. Medical Branch losartan 50 0 Yes [id number] 50mg Take 1 [facility] mg tablet 5-17 tablet by ity o f 00:00: mouth [place] 00 daily. Medical Branch losartan 50 0 2021- No [id number] 50mg Take 1 [facility] mg tablet 5-17 02-17 tablet by ity of 00:00: 00:00 mouth [place] 00 :00 daily. Medical Branch omeprazole Yes 40mg Take 40 mg U nivers 40 mg 4-20 by mouth ity of capsule 18:47: every [place] 59 morning. Medical Branch ferrous Yes 325mg Take 325 Unive rs sulfate 325 4-20 mg by ity of mg (65 mg 18:47: mouth [place] iron) 59 daily. Medical tablet Branch omeprazole 0 Yes 40mg Take 40 mg U nivers 40 mg 4-20 by mouth ity of capsule 18:47: every [place] 59 morning. Medical Branch ferrous Yes 325mg Take 325 Unive rs sulfate 325 4-20 mg by ity of mg (65 mg 18:47: mouth [place] iron) 59 daily. Medical tablet Branch omeprazole 0 Yes 40mg Take 40 mg U nivers 40 mg 4-20 by mouth ity of capsule 18:47: every [place] 59 morning. Medical Branch ferrous 0 Yes 325mg Take 325 Unive rs sulfate 325 4-20 mg by ity of mg (65 mg 18:47: mouth [place] iron) 59 daily. Medical tablet Branch omeprazole 0 Yes 40mg Take 40 mg U nivers 40 mg 4-20 by mouth ity of capsule 18:47: every [place] 59 morning. Medical Branch ferrous 0 Yes 325mg Take 325 Unive rs sulfate 325 4-20 mg by ity of mg (65 mg 18:47: mouth [place] iron) 59 daily. Medical tablet Branch omeprazole Yes 40mg Take 40 mg U nivers 40 mg 4-20 by mouth ity of capsule 18:47: every [place] 59 morning. Medical Branch ferrous Yes 325mg Take 325 Unive rs sulfate 325 4-20 mg by ity of mg (65 mg 18:47: mouth [place] iron) 59 daily. Medical tablet Branch omeprazole Yes 40mg Take 40 mg U nivers 40 mg 4-20 by mouth ity of capsule 18:47: every [place] 59 morning. Medical Branch ferrous Yes 325mg Take 325 Unive rs sulfate 325 4-20 mg by ity of mg (65 mg 18:47: mouth [place] iron) 59 daily. Medical tablet Branch omeprazole Yes 40mg Take 40 mg U nivers 40 mg 4-20 by mouth ity of capsule 18:47: every [place] 59 morning. Medical Branch ferrous Yes 325mg Take 325 Unive rs sulfate 325 4-20 mg by ity of mg (65 mg 18:47: mouth [place] iron) 59 daily. Medical tablet Branch omeprazole Yes 40mg Take 40 mg U nivers 40 mg 4-20 by mouth ity of capsule 18:47: every [place] 59 morning. Medical Branch ferrous Yes 325mg Take 325 Unive rs sulfate 325 4-20 mg by ity of mg (65 mg 18:47: mouth [place] iron) 59 daily. Medical tablet Branch omeprazole Yes 40mg Take 40 mg U nivers 40 mg 4-20 by mouth ity of capsule 18:47: every [place] 59 morning. Medical Branch ferrous Yes 325mg Take 325 Unive rs sulfate 325 4-20 mg by ity of mg (65 mg 18:47: mouth [place] iron) 59 daily. Medical tablet Branch omeprazole 0 Yes 40mg Take 40 mg U nivers 40 mg 4-20 by mouth ity of capsule 18:47: every [place] 59 morning. Medical Branch ferrous Yes 325mg Take 325 Unive rs sulfate 325 4-20 mg by ity of mg (65 mg 18:47: mouth [place] iron) 59 daily. Medical tablet Branch omeprazole 2021-0 Yes 40mg Take 40 mg U nivers 40 mg 4-20 by mouth ity of capsule 18:47: every [place] 59 morning. Medical Branch ferrous Yes 325mg Take 325 Unive rs sulfate 325 4-20 mg by ity of mg (65 mg 18:47: mouth [place] iron) 59 daily. Medical tablet Branch ferrous 2019-06 Yes 325mg Take 325 Unive rs sulfate 325 2-11 mg by ity of mg (65 mg 19:41: mouth [place] iron) 00 daily. Medical tablet Branch omeprazole 2019-06 Yes 40mg Take 40 mg U nivers 40 mg 2-11 by mouth ity of capsule 19:41: every [place] 00 morning. Medical Branch ferrous 2019-06 Yes 325mg Take 325 Unive rs sulfate 325 2-11 mg by ity of mg (65 mg 19:41: mouth [place] iron) 00 daily. Medical tablet Branch omeprazole 2019-06 Yes 40mg Take 40 mg U nivers 40 mg 2-11 by mouth ity of capsule 19:41: every [place] 00 morning. Medical Branch ferrous 2019-06 Yes 325mg Take 325 Unive rs sulfate 325 2-11 mg by ity of mg (65 mg 19:41: mouth [place] iron) 00 daily. Medical tablet Branch omeprazole 2019-06 Yes 40mg Take 40 mg U nivers 40 mg 2-11 by mouth ity of capsule 19:41: every [place] 00 morning. Medical Branch ferrous 2019-06 Yes 325mg Take 325 Unive rs sulfate 325 2-11 mg by ity of mg (65 mg 19:41: mouth [place] iron) 00 daily. Medical tablet Branch omeprazole 2019-06 Yes 40mg Take 40 mg U nivers 40 mg 2-11 by mouth ity of capsule 19:41: every [place] 00 morning. Medical Branch ferrous 2019-06 Yes 325mg Take 325 Unive rs sulfate 325 2-11 mg by ity of mg (65 mg 19:41: mouth [place] iron) 00 daily. Medical tablet Branch omeprazole 2019-06 Yes 40mg Take 40 mg U nivers 40 mg 2-11 by mouth ity of capsule 19:41: every [place] 00 morning. Medical Branch amLODIPine 2019-06 Yes [id number] 10mg Take 1 U nivers 10 mg 1-04 tablet by ity of tablet 00:00: mouth [place] 00 daily. Medical Branch aspirin 81 2019-06 Yes [id number] 81mg Take 1 U nivers mg EC 1-04 tablet by ity of tablet 00:00: mouth [place] 00 daily. Medical Branch losartan 50 2019-06 Yes [id number] 50mg Take 1 [facility] mg tablet 1-04 tablet by ity o f 00:00: mouth [place] 00 daily. Medical Branch predniSONE 2019-06 Yes [id number] 40mg Take 2 U nivers 20 mg 1-04 tablets by ity of tablet 00:00: mouth [place] 00 daily. Medical Branch amLODIPine 2019-06 Yes [id number] 10mg Take 1 U nivers 10 mg 1-04 tablet by ity of tablet 00:00: mouth [place] 00 daily. Medical Branch aspirin 81 2019-06 Yes [id number] 81mg Take 1 U nivers mg EC 1-04 tablet by ity of tablet 00:00: mouth [place] 00 daily. Medical Branch losartan 50 2019-06 Yes [id number] 50mg Take 1 [facility] mg tablet 1-04 tablet by ity o f 00:00: mouth [place] 00 daily. Medical Branch predniSONE 2019-06 Yes [id number] 40mg Take 2 U nivers 20 mg 1-04 tablets by ity of tablet 00:00: mouth [place] 00 daily. Medical Branch amLODIPine 2019-06 Yes [id number] 10mg Take 1 U nivers 10 mg 1-04 tablet by ity of tablet 00:00: mouth [place] 00 daily. Medical Branch aspirin 81 2019-06 Yes [id number] 81mg Take 1 U nivers mg EC 1-04 tablet by ity of tablet 00:00: mouth [place] 00 daily. Medical Branch losartan 50 2019-06 Yes [id number] 50mg Take 1 [facility] mg tablet 1-04 tablet by ity o f 00:00: mouth [place] 00 daily. Medical Branch predniSONE 2019-06 Yes [id number] 40mg Take 2 U nivers 20 mg 1-04 tablets by ity of tablet 00:00: mouth [place] 00 daily. Medical Branch amLODIPine 2019-06 Yes [id number] 10mg Take 1 U nivers 10 mg 1-04 tablet by ity of tablet 00:00: mouth [place] 00 daily. Medical Branch aspirin 81 2019-06 Yes [id number] 81mg Take 1 U nivers mg EC 1-04 tablet by ity of tablet 00:00: mouth [place] 00 daily. Medical Branch losartan 50 2019-06 Yes [id number] 50mg Take 1 Univers mg tablet 1-04 tablet by ity o f 00:00: mouth [place] 00 daily. Medical Branch predniSONE 2020- Yes [id number] 40mg Take 2 U nivers 20 mg 1-04 tablets by ity of tablet 00:00: mouth [place] 00 daily. Medical Branch amLODIPine 2019-06 Yes [id number] 10mg Take 1 U nivers 10 mg 1-04 tablet by ity of tablet 00:00: mouth [place] 00 daily. Medical Branch aspirin 81 2019-06 Yes [id number] 81mg Take 1 U nivers mg EC 1-04 tablet by ity of tablet 00:00: mouth [place] 00 daily. Medical Branch losartan 50 2019-06 Yes [id number] 50mg Take 1 Univers mg tablet 1-04 tablet by ity o f 00:00: mouth [place] 00 daily. Medical Branch amLODIPine 2019-06 Yes [id number] 10mg Take 1 U nivers 10 mg 1-04 tablet by ity of tablet 00:00: mouth [place] 00 daily. Medical Branch aspirin 81 2019-06 Yes [id number] 81mg Take 1 U nivers mg EC 1-04 tablet by ity of tablet 00:00: mouth [place] 00 daily. Medical Branch losartan 50 2019-06 Yes [id number] 50mg Take 1 [facility] mg tablet 1-04 tablet by ity o f 00:00: mouth [place] 00 daily. Medical Branch amLODIPine 2019-06 Yes [id number] 10mg Take 1 U nivers 10 mg 1-04 tablet by ity of tablet 00:00: mouth [place] 00 daily. Medical Branch aspirin 81 2019-06 Yes [id number] 81mg Take 1 U nivers mg EC 1-04 tablet by ity of tablet 00:00: mouth [place] 00 daily. Medical Branch losartan 50 2019-06 Yes [id number] 50mg Take 1 [facility] mg tablet 1-04 tablet by ity o f 00:00: mouth [place] 00 daily. Medical Branch amLODIPine 2019-06 Yes [id number] 10mg Take 1 U nivers 10 mg 1-04 tablet by ity of tablet 00:00: mouth [place] 00 daily. Medical Branch aspirin 81 2019-06 Yes [id number] 81mg Take 1 U nivers mg EC 1-04 tablet by ity of tablet 00:00: mouth [place] 00 daily. Medical Branch losartan 50 2019-06 Yes [id number] 50mg Take 1 [facility] mg tablet 1-04 tablet by ity o f 00:00: mouth [place] 00 daily. Medical Branch amLODIPine 2019-06 Yes [id number] 10mg Take 1 U nivers 10 mg 1-04 tablet by ity of tablet 00:00: mouth [place] 00 daily. Medical Branch aspirin 81 2019-06 Yes [id number] 81mg Take 1 U nivers mg EC 1-04 tablet by ity of tablet 00:00: mouth [place] 00 daily. Medical Branch losartan 50 2019-06 Yes [id number] 50mg Take 1 [facility] mg tablet 1-04 tablet by ity o f 00:00: mouth [place] 00 daily. Medical Branch amLODIPine 2019-06 Yes [id number] 10mg Take 1 U nivers 10 mg 1-04 tablet by ity of tablet 00:00: mouth [place] 00 daily. Medical Branch aspirin 81 2019-06 Yes [id number] 81mg Take 1 U nivers mg EC 1-04 tablet by ity of tablet 00:00: mouth [place] 00 daily. Medical Branch losartan 50 2019-06 Yes [id number] 50mg Take 1 Univers mg tablet 1-04 tablet by ity o f 00:00: mouth [place] 00 daily. Medical Branch amLODIPine 2019-06 Yes [id number] 10mg Take 1 U nivers 10 mg 1-04 tablet by ity of tablet 00:00: mouth [place] 00 daily. Medical Branch aspirin 81 2019-06 Yes [id number] 81mg Take 1 U nivers mg EC 1-04 tablet by ity of tablet 00:00: mouth [place] 00 daily. Medical Branch losartan 50 2019-06 Yes [id number] 50mg Take 1 Univers mg tablet 1-04 tablet by ity o f 00:00: mouth [place] 00 daily. Medical Branch amLODIPine 2019-06 Yes [id number] 10mg Take 1 U nivers 10 mg 1-04 tablet by ity of tablet 00:00: mouth [place] 00 daily. Medical Branch aspirin 81 2019-06 Yes [id number] 81mg Take 1 U nivers mg EC 1-04 tablet by ity of tablet 00:00: mouth [place] 00 daily. Medical Branch losartan 50 2019-06 Yes [id number] 50mg Take 1 Univers mg tablet 1-04 tablet by ity o f 00:00: mouth [place] 00 daily. Medical Branch amLODIPine 2019-06 Yes [id number] 10mg Take 1 U nivers 10 mg 1-04 tablet by ity of tablet 00:00: mouth [place] 00 daily. Medical Branch aspirin 81 2019-06 Yes [id number] 81mg Take 1 U nivers mg EC 1-04 tablet by ity of tablet 00:00: mouth [place] 00 daily. Medical Branch losartan 50 2019-06 Yes [id number] 50mg Take 1 Univers mg tablet 1-04 tablet by ity o f 00:00: mouth [place] 00 daily. Medical Branch amLODIPine 2019-06 Yes [id number] 10mg Take 1 U nivers 10 mg 1-04 tablet by ity of tablet 00:00: mouth [place] 00 daily. Medical Branch aspirin 81 2019-06 Yes [id number] 81mg Take 1 U nivers mg EC 1-04 tablet by ity of tablet 00:00: mouth [place] 00 daily. Medical Branch losartan 50 2019-06 Yes [id number] 50mg Take 1 Univers mg tablet 1-04 tablet by ity o f 00:00: mouth [place] 00 daily. Medical Branch amLODIPine 2019-06 Yes [id number] 10mg Take 1 U nivers 10 mg 1-04 tablet by ity of tablet 00:00: mouth [place] 00 daily. Medical Branch aspirin 81 2019-06 Yes [id number] 81mg Take 1 U nivers mg EC 1-04 tablet by ity of tablet 00:00: mouth [place] 00 daily. Medical Branch losartan 50 2019-06 Yes [id number] 50mg Take 1 [facility] mg tablet 1-04 tablet by ity o f 00:00: mouth [place] 00 daily. Medical Branch amLODIPine 2019-06 Yes [id number] 10mg Take 1 U nivers 10 mg 1-04 tablet by ity of tablet 00:00: mouth [place] 00 daily. Medical Branch aspirin 81 2019-06 Yes [id number] 81mg Take 1 U nivers mg EC 1-04 tablet by ity of tablet 00:00: mouth [place] 00 daily. Medical Branch losartan 50 2019-06 Yes [id number] 50mg Take 1 [facility] mg tablet 1-04 tablet by ity o f 00:00: mouth [place] 00 daily. Medical Branch amLODIPine 2019-06 Yes [id number] 10mg Take 1 U nivers 10 mg 1-04 tablet by ity of tablet 00:00: mouth [place] 00 daily. Medical Branch aspirin 81 2019-06 Yes [id number] 81mg Take 1 U nivers mg EC 1-04 tablet by ity of tablet 00:00: mouth [place] 00 daily. Medical Branch losartan 50 2019-06 Yes [id number] 50mg Take 1 [facility] mg tablet 1-04 tablet by ity o f 00:00: mouth [place] 00 daily. Medical Branch amLODIPine 2019-06 Yes [id number] 10mg Take 1 U nivers 10 mg 1-04 tablet by ity of tablet 00:00: mouth [place] 00 daily. Medical Branch aspirin 81 2019-06 Yes [id number] 81mg Take 1 U nivers mg EC 1-04 tablet by ity of tablet 00:00: mouth [place] 00 daily. Medical Branch amLODIPine 2019-06 Yes [id number] 10mg Take 1 U nivers 10 mg 1-04 tablet by ity of tablet 00:00: mouth [place] 00 daily. Medical Branch aspirin 81 2019-06 Yes [id number] 81mg Take 1 U nivers mg EC 1-04 tablet by ity of tablet 00:00: mouth [place] 00 daily. Medical Branch amLODIPine 2019-06 Yes [id number] 10mg Take 1 U nivers 10 mg 1-04 tablet by ity of tablet 00:00: mouth [place] 00 daily. Medical Branch aspirin 81 2019-06 Yes [id number] 81mg Take 1 U nivers mg EC 1-04 tablet by ity of tablet 00:00: mouth [place] 00 daily. Medical Branch amLODIPine 2019-06- No [id number] 10mg Take 1 [facility] 10 mg - 05-31 tablet by ity of tablet 00:00: 00:00 mouth [place] 00 :00 daily. Medical Branch aspirin 81 2019-06- No [id number] 81mg Take 1 [facility] mg EC -04 05-31 tablet by ity of tablet 00:00: 00:00 mouth [place] 00 :00 daily. Medical Branch losartan 50 2019-06- No [id number] 50mg Take 1 [facility] mg tablet - 05-17 tablet by ity of 00:00: 00:00 mouth [place] 00 :00 daily. [facility] Branch predniSONE 2019-06- No [id number] 40mg Take 2 [facility] 20 mg 1-04 12-11 tablets by ity of tablet 00:00: 00:00 mouth [place] 00 :00 daily. Medical Branch predniSONE 2019-06- No [id number] 40mg Take 2 [facility] 20 mg 1-04 12-11 tablets by ity of tablet 00:00: 00:00 mouth [place] 00 :00 daily. [facility] Branch predniSONE 2019-06- No [id number] 40mg Take 2 [facility] 20 mg 1-04 12-11 tablets by ity of tablet 00:00: 00:00 mouth [place] 00 :00 daily. Medical Branch predniSONE 2019-06 2020- No [id number] 40mg Take 2 [facility] 20 mg 1-04 12-11 tablets by ity of tablet 00:00: 00:00 mouth [place] 00 :00 daily. Medical Branch predniSONE 2019-06 2020- No [id number] 40mg Take 2 [facility] 20 mg 1-04 12-11 tablets by ity of tablet 00:00: 00:00 mouth [place] 00 :00 daily. Medical Branch omeprazole 2019-06 Yes 40mg Take 40 mg U nivers 40 mg 1-03 by mouth ity of capsule 21:46: every [place] 01 morning. Medical Branch ferrous 2019-06 Yes 325mg Take 325 Unive rs sulfate 325 1-03 mg by ity of mg (65 mg 21:46: mouth [place] iron) 01 daily. Medical tablet Branch omeprazole 2019-06 Yes 40mg Take 40 mg U nivers 40 mg 1-03 by mouth ity of capsule 21:46: every [place] 01 morning. Medical Branch ferrous 2019-06 Yes 325mg Take 325 Unive rs sulfate 325 1-03 mg by ity of mg (65 mg 21:46: mouth [place] iron) daily. Medical tablet Branch omeprazole 2019-06 Yes 40mg Take 40 mg U nivers 40 mg 1-03 by mouth ity of capsule 21:46: every [place] 01 morning. Medical Branch ferrous 2019-06 Yes 325mg Take 325 Unive rs sulfate 325 1-03 mg by ity of mg (65 mg 21:46: mouth [place] iron) 01 daily. Medical tablet Branch omeprazole 2019-06 Yes 40mg Take 40 mg U nivers 40 mg 1-03 by mouth ity of capsule 21:46: every [place] 01 morning. Medical Branch ferrous 2019-06 Yes 325mg Take 325 Unive rs sulfate 325 1-03 mg by ity of mg (65 mg 21:46: mouth [place] iron) 01 daily. Medical tablet Branch simvastatin 2019-06- No 40mg Take 40 mg [facility] 40 mg 06-1203 by mouth ity of tablet 16:51: 00:00 at [place] 30 :00 bedtime. Medical Branch metoprolol 2019-06- No 50mg Take 50 mg [facility] tartrate 50 06-12- by mouth 2 i ty of mg tablet 16:51: 00:00 (two) [place] 30 :00 times Medical daily. Branch Levothyroxi 2019-06- No 100ug Take 100 Univers ne 100 mcg - 11-03 mcg by ity of capsule 16:51: 00:00 mouth [place] 30 :00 every Medical morning. Branch irbesartan 2019-06- No 300mg Take 300 U nivers 150 mg - 11-03 mg by ity of tablet 16:51: 00:00 mouth [place] 30 :00 every Medical morning. Branch losartan 2019-06 Yes 50mg 50 mg, Univers (COZAAR) 1-03 Oral, ity of tablet 50 15:00: DAILY, [place] mg 00 First dose Medical (after Branch last modificati on) on Sat04/12/20 at 0900, Until Discontinu ed, Routine atorvastati 2019-06 Yes [id number] 40mg Take 1 [facility] n 40 mg 1-03 tablet by ity of tablet 00:00: mouth at [place] 00 bedtime. Medical Branch atorvastati 2019-06 Yes [id number] 40mg Take 1 [facility] n 40 mg 1-03 tablet by ity of tablet 00:00: mouth at [place] 00 bedtime. Medical Branch atorvastati 2019-06 Yes [id number] 40mg Take 1 [facility] n 40 mg 1-03 tablet by ity of tablet 00:00: mouth at [place] 00 bedtime. Medical Branch atorvastati 2019-06 Yes [id number] 40mg Take 1 [facility] n 40 mg 1-03 tablet by ity of tablet 00:00: mouth at [place] 00 bedtime. Medical Branch levothyroxi 2019-06 Yes [id number] 125ug Take 1 [facility] ne 125 mcg 1-03 tablet by ity of tablet 00:00: mouth [place] 00 every Medical morning. Branch metoprolol 2019-06 Yes [id number] 25mg Take 1 U nivers tartrate 25 1-03 tablet by ity of mg tablet 00:00: mouth 2 [place] 00 (two) Medical times Branch daily. atorvastati 2019-06 Yes [id number] 40mg Take 1 [facility] n 40 mg 1-03 tablet by ity of tablet 00:00: mouth at [place] 00 bedtime. Medical Branch levothyroxi 2019-06 Yes [id number] 125ug Take 1 [facility] ne 125 mcg 1-03 tablet by ity of tablet 00:00: mouth [place] 00 every Medical morning. Branch metoprolol 2019-06 Yes [id number] 25mg Take 1 U nivers tartrate 25 1-03 tablet by ity of mg tablet 00:00: mouth 2 (two) Medical times Branch daily. atorvastati 2019-06 Yes [id number] 40mg Take 1 [facility] n 40 mg 1-03 tablet by ity of tablet 00:00: mouth at [place] 00 bedtime. Medical Branch levothyroxi 2019- Yes [id number] 125ug Take 1 [facility] ne 125 mcg 1-03 tablet by ity of tablet 00:00: mouth [place] 00 every Medical morning. Branch metoprolol 2019-06 Yes [id number] 25mg Take 1 U nivers tartrate 25 1-03 tablet by ity of mg tablet 00:00: mouth 2 (two) Medical times Branch daily. atorvastati 2019-06 Yes [id number] 40mg Take 1 [facility] n 40 mg 1-03 tablet by ity of tablet 00:00: mouth at [place] 00 bedtime. Medical Branch levothyroxi 2019- Yes [id number] 125ug Take 1 [facility] ne 125 mcg 1-03 tablet by ity of tablet 00:00: mouth [place] 00 every Medical morning. Branch metoprolol 2019-06 Yes [id number] 25mg Take 1 U nivers tartrate 25 1-03 tablet by ity of mg tablet 00:00: mouth 2 [place] (two) Medical times Branch daily. atorvastati 2019-06 Yes [id number] 40mg Take 1 [facility] n 40 mg 1-03 tablet by ity of tablet 00:00: mouth at [place] 00 bedtime. Medical Branch levothyroxi 2019- Yes [id number] 125ug Take 1 [facility] ne 125 mcg 1-03 tablet by ity of tablet 00:00: mouth [place] 00 every Medical morning. Branch metoprolol 2019-06 Yes [id number] 25mg Take 1 U nivers tartrate 25 1-03 tablet by ity of mg tablet 00:00: mouth 2 [place] (two) Medical times Branch daily. atorvastati 2019-06 Yes [id number] 40mg Take 1 [facility] n 40 mg 1-03 tablet by ity of tablet 00:00: mouth at [place] 00 bedtime. Medical Branch levothyroxi 2019- Yes [id number] 125ug Take 1 [facility] ne 125 mcg 1-03 tablet by ity of tablet 00:00: mouth [place] 00 every Medical morning. Branch metoprolol 2019- Yes [id number] 25mg Take 1 U nivers tartrate 25 1-03 tablet by ity of mg tablet 00:00: mouth 2 (two) Medical times Branch daily. atorvastati 2019-06 Yes [id number] 40mg Take 1 [facility] n 40 mg 1-03 tablet by ity of tablet 00:00: mouth at [place] 00 bedtime. Medical Branch levothyroxi 2019- Yes [id number] 125ug Take 1 [facility] ne 125 mcg 1-03 tablet by ity of tablet 00:00: mouth [place] 00 every Medical morning. Branch metoprolol 2019-06 Yes [id number] 25mg Take 1 U nivers tartrate 25 1-03 tablet by ity of mg tablet 00:00: mouth 2 [place] (two) Medical times Branch daily. atorvastati 2019-06 Yes [id number] 40mg Take 1 [facility] n 40 mg 1-03 tablet by ity of tablet 00:00: mouth at [place] 00 bedtime. Medical Branch levothyroxi 2019- Yes [id number] 125ug Take 1 [facility] ne 125 mcg 1-03 tablet by ity of tablet 00:00: mouth [place] 00 every Medical morning. Branch metoprolol 2019-06 Yes [id number] 25mg Take 1 U nivers tartrate 25 1-03 tablet by ity of mg tablet 00:00: mouth 2 [place] (two) Medical times Branch daily. atorvastati 2019-06 Yes [id number] 40mg Take 1 [facility] n 40 mg 1-03 tablet by ity of tablet 00:00: mouth at [place] 00 bedtime. Medical Branch levothyroxi 2019- Yes [id number] 125ug Take 1 [facility] ne 125 mcg 1-03 tablet by ity of tablet 00:00: mouth [place] 00 every Medical morning. Branch metoprolol 2019-06 Yes [id number] 25mg Take 1 U nivers tartrate 25 1-03 tablet by ity of mg tablet 00:00: mouth 2 [place] (two) Medical times Branch daily. atorvastati 2019-06 Yes [id number] 40mg Take 1 [facility] n 40 mg 1-03 tablet by ity of tablet 00:00: mouth at [place] 00 bedtime. Medical Branch levothyroxi 2019- Yes [id number] 125ug Take 1 [facility] ne 125 mcg 1-03 tablet by ity of tablet 00:00: mouth [place] 00 every Medical morning. Branch metoprolol 2019- Yes [id number] 25mg Take 1 U nivers tartrate 25 1-03 tablet by ity of mg tablet 00:00: mouth 2 (two) Medical times Branch daily. atorvastati 2019- Yes [id number] 40mg Take 1 [facility] n 40 mg 1-03 tablet by ity of tablet 00:00: mouth at [place] 00 bedtime. Medical Branch levothyroxi 2019- Yes [id number] 125ug Take 1 [facility] ne 125 mcg 1-03 tablet by ity of tablet 00:00: mouth [place] 00 every Medical morning. Branch metoprolol 2019- Yes [id number] 25mg Take 1 U nivers tartrate 25 1-03 tablet by ity of mg tablet 00:00: mouth 2 (two) Medical times Branch daily. atorvastati 2019-06 Yes [id number] 40mg Take 1 [facility] n 40 mg 1-03 tablet by ity of tablet 00:00: mouth at [place] 00 bedtime. Medical Branch levothyroxi 2019- Yes [id number] 125ug Take 1 [facility] ne 125 mcg 1-03 tablet by ity of tablet 00:00: mouth [place] 00 every Medical morning. Branch metoprolol 2019-06 Yes [id number] 25mg Take 1 U nivers tartrate 25 1-03 tablet by ity of mg tablet 00:00: mouth 2 [place] (two) Medical times Branch daily. atorvastati 2019-06 Yes [id number] 40mg Take 1 [facility] n 40 mg 1-03 tablet by ity of tablet 00:00: mouth at [place] 00 bedtime. Medical Branch levothyroxi 2019- Yes [id number] 125ug Take 1 [facility] ne 125 mcg 1-03 tablet by ity of tablet 00:00: mouth [place] 00 every Medical morning. Branch metoprolol 2019-06 Yes [id number] 25mg Take 1 U nivers tartrate 25 1-03 tablet by ity of mg tablet 00:00: mouth 2 [place] (two) Medical times Branch daily. atorvastati 2019- Yes [id number] 40mg Take 1 [facility] n 40 mg 1-03 tablet by ity of tablet 00:00: mouth at [place] 00 bedtime. Medical Branch levothyroxi 2019- Yes [id number] 125ug Take 1 [facility] ne 125 mcg 1-03 tablet by ity of tablet 00:00: mouth [place] 00 every Medical morning. Branch metoprolol 2019- Yes [id number] 25mg Take 1 U nivers tartrate 25 1-03 tablet by ity of mg tablet 00:00: mouth 2 (two) Medical times Branch daily. atorvastati 2019-06 Yes [id number] 40mg Take 1 [facility] n 40 mg 1-03 tablet by ity of tablet 00:00: mouth at [place] 00 bedtime. Medical Branch levothyroxi 2019- Yes [id number] 125ug Take 1 [facility] ne 125 mcg 1-03 tablet by ity of tablet 00:00: mouth [place] 00 every Medical morning. Branch metoprolol 2019-06 Yes [id number] 25mg Take 1 U nivers tartrate 25 1-03 tablet by ity of mg tablet 00:00: mouth 2 [place] (two) Medical times Branch daily. atorvastati 2019-06 Yes [id number] 40mg Take 1 [facility] n 40 mg 1-03 tablet by ity of tablet 00:00: mouth at [place] 00 bedtime. Medical Branch levothyroxi 2019- Yes [id number] 125ug Take 1 [facility] ne 125 mcg 1-03 tablet by ity of tablet 00:00: mouth [place] 00 every Medical morning. Branch metoprolol 2019-06 Yes [id number] 25mg Take 1 U nivers tartrate 25 1-03 tablet by ity of mg tablet 00:00: mouth 2 [place] (two) Medical times Branch daily. atorvastati 2019-06 Yes [id number] 40mg Take 1 [facility] n 40 mg 1-03 tablet by ity of tablet 00:00: mouth at [place] 00 bedtime. Medical Branch levothyroxi 2019- Yes [id number] 125ug Take 1 [facility] ne 125 mcg 1-03 tablet by ity of tablet 00:00: mouth [place] 00 every Medical morning. Branch metoprolol 2019-06 Yes [id number] 25mg Take 1 U nivers tartrate 25 1-03 tablet by ity of mg tablet 00:00: mouth 2 [place] (two) Medical times Branch daily. atorvastati 2019-06 Yes [id number] 40mg Take 1 [facility] n 40 mg 1-03 tablet by ity of tablet 00:00: mouth at [place] 00 bedtime. Medical Branch levothyroxi 2019- Yes [id number] 125ug Take 1 [facility] ne 125 mcg 1-03 tablet by ity of tablet 00:00: mouth [place] 00 every Medical morning. Branch metoprolol 2020- Yes [id number] 25mg Take 1 U nivers tartrate 25 1-03 tablet by ity of mg tablet 00:00: mouth 2 (two) Medical times Branch daily. atorvastati 2020- Yes [id number] 40mg Take 1 [facility] n 40 mg 1-03 tablet by ity of tablet 00:00: mouth at [place] 00 bedtime. Medical Branch levothyroxi 2020- Yes [id number] 125ug Take 1 [facility] ne 125 mcg 1-03 tablet by ity of tablet 00:00: mouth [place] 00 every Medical morning. Branch metoprolol 2019- Yes [id number] 25mg Take 1 U nivers tartrate 25 1-03 tablet by ity of mg tablet 00:00: mouth 2 [place] (two) Medical times Branch daily. atorvastati 2019- Yes [id number] 40mg Take 1 [facility] n 40 mg 1-03 tablet by ity of tablet 00:00: mouth at [place] 00 bedtime. Medical Branch levothyroxi 2020- Yes [id number] 125ug Take 1 [facility] ne 125 mcg 1-03 tablet by ity of tablet 00:00: mouth [place] 00 every Medical morning. Branch metoprolol 2019- Yes [id number] 25mg Take 1 U nivers tartrate 25 1-03 tablet by ity of mg tablet 00:00: mouth 2 [place] (two) Medical times Branch daily. atorvastati 2019- Yes [id number] 40mg Take 1 [facility] n 40 mg 1-03 tablet by ity of tablet 00:00: mouth at [place] 00 bedtime. Medical Branch levothyroxi 2020- Yes [id number] 125ug Take 1 [facility] ne 125 mcg 1-03 tablet by ity of tablet 00:00: mouth [place] 00 every Medical morning. Branch metoprolol 2020- Yes [id number] 25mg Take 1 U nivers tartrate 25 1-03 tablet by ity of mg tablet 00:00: mouth 2 [place] (two) Medical times Branch daily. atorvastati 2020- Yes [id number] 40mg Take 1 [facility] n 40 mg 1-03 tablet by ity of tablet 00:00: mouth at [place] 00 bedtime. Medical Branch levothyroxi 2020- Yes [id number] 125ug Take 1 [facility] ne 125 mcg 1-03 tablet by ity of tablet 00:00: mouth [place] every Medical morning. Branch metoprolol 2019-06 Yes [id number] 25mg Take 1 U nivers tartrate 25 1-03 tablet by ity of mg tablet 00:00: mouth 2 (two) Medical times Branch daily. atorvastati 2019-06 Yes [id number] 40mg Take 1 [facility] n 40 mg 1-03 tablet by ity of tablet 00:00: mouth at [place] bedtime. Medical Branch levothyroxi 2019- Yes [id number] 125ug Take 1 [facility] ne 125 mcg 1-03 tablet by ity of tablet 00:00: mouth every Medical morning. Branch metoprolol 2019-06 Yes [id number] 25mg Take 1 U nivers tartrate 25 1-03 tablet by ity of mg tablet 00:00: mouth 2 (two) Medical times Branch daily. atorvastati 2019-06 Yes [id number] 40mg Take 1 [facility] n 40 mg 1-03 tablet by ity of tablet 00:00: mouth at [place] [address] bedtime. Medical Branch levothyroxi 2019- Yes [id number] 125ug Take 1 [facility] ne 125 mcg 1-03 tablet by ity of tablet 00:00: mouth [place] every Medical morning. Branch metoprolol 2019-06 Yes [id number] 25mg Take 1 U nivers tartrate 25 1-03 tablet by ity of mg tablet 00:00: mouth 2 [place] (two) Medical times Branch daily. atorvastati 2019- Yes [id number] 40mg Take 1 [facility] n 40 mg 1-03 tablet by ity of tablet 00:00: mouth at [place] [address] bedtime. Medical Branch atorvastati 2019- Yes [id number] 40mg Take 1 [facility] n 40 mg 1-03 tablet by ity of tablet 00:00: mouth at [place] [address] bedtime. Medical Branch atorvastati 2019- Yes [id number] 40mg Take 1 [facility] n 40 mg 1-03 tablet by ity of tablet 00:00: mouth at [place] [address] bedtime. Medical Branch atorvastati 2019- Yes [id number] 40mg Take 1 [facility] n 40 mg 1-03 tablet by ity of tablet 00:00: mouth at [place] [address] bedtime. Medical Branch atorvastati 2019 Yes [id number] 40mg Take 1 [facility] n 40 mg -03 tablet by ity of tablet 00:00: mouth at [place] 00 bedtime. Medical Branch atorvastati 2019-06 Yes [id number] 40mg Take 1 [facility] n 40 mg 1-03 tablet by ity of tablet 00:00: mouth at [place] 00 bedtime. Medical Branch atorvastati 2019-06- No [id number] 40mg Take 1 [facility] n 40 mg 06-12-04 tablet by ity of tablet 00:00: 00:00 mouth at [place] 00 :00 bedtime. Medical Branch atorvastati 2019-06- No [id number] 40mg Take 1 [facility] n 40 mg 06-12- tablet by ity of tablet 00:00: 00:00 mouth at [place] 00 :00 bedtime. Medical Branch levothyroxi 2019-06- No [id number] 125ug Take 1 [facility] ne 125 mcg 06-12 tablet by ity of tablet 00:00: 00:00 mouth [place] 00 :00 every Medical morning. Branch metoprolol 2019-06- No [id number] 25mg Take 1 [facility] tartrate 25 06-12 tablet by it y of mg tablet 00:00: 00:00 mouth 2 [place] 00 :[place] (two) Medical times Branch daily. NaCl 0.9% 2019-06- No 1000mL at 75 Univ ers (NS) IV 06-11 mL/hr, IV ity of infusion 18:00: 23:59 Infusion, [place] 1,000 mL 00 :00 CONTINUOUS Medic al , Starting Branch Sat04/11/20 at 1200, Until Sat04/11/20 at 1759, Routine lidocaine 2019-06- No Infiltrati U nivers 1% (PF) 06-11 on, ity of (XYLOCAINE) 17:06: 17:06 TITRATE - [place] injection 19 :19 FOR Medical PROCEDURE Branch USE, 1 dose, Starting Sat04/11/20 at 1106, Until Sat04/11/20 at 1106, Routine FENTanyl PF 2019-06- No Slow IV Un moon (SUBLIMAZE 06-11 Push, ity of (PF)) 17:03: 17:03 TITRATE - [place] injection 56 :56 FOR Medical PROCEDURE Branch USE, 1 dose, Starting Sat04/11/20 at 1103, Until Sat04/11/20 at 1103, Routine midazolam 2019-06 2020- No IV Push, Uni vers (VERSED) 06-11 TITRATE - ity o f injection 17:03: 17:03 FOR [place] 39 :39 PROCEDURE Medical USE, 1 Branch dose, Starting Sat04/11/20 at 1103, Until Sat04/11/20 at 1103, Routine amLODIPine 2019-06 Yes 10mg 10 mg, Unive rs (NORVASC) 06-11 Oral, ity of tablet 10 15:00: DAILY, [place] mg 00 First dose Medical (after Branch last modificati on) on Sat04/11/20 at 0900, Until Discontinu ed, Routine predniSONE 2019-06- No 40mg 40 mg, Univ ers (DELTASONE) 06-11 Oral, ity of tablet 40 15:00: 14:59 DAILY, 3 [place] mg 00 :00 doses, Medical First dose Branch on Sat04/11/20 at 0900, Last dose on Sat04/13/20 at 0900, Routine enoxaparin 2019-06 Yes 40mg 40 mg, Unive rs (LOVENOX) 06-11 Subcutaneo ity of injection 02:00: us, Q12H, [place] 40 mg 00 First dose Medical (after Branch last modificati on) on [place] 04/10/20 at 2000, Until Discontinu ed, Routine amLODIPine 2019-06 2020- No 5mg 5 mg, Unive rs (NORVASC) 06-10 Oral, ONCE ity of tablet 5 mg 17:00: 18:05 NOW, 1 [place] 00 :00 dose, [facility] 04/10/20 at Branch 1100, Routine atorvastati 2019-06 Yes 40mg 40 mg, Univ ers n (LIPITOR) 06-10 Oral, QHS, it y of tablet 40 02:00: First dose [place] mg 00 on [facility] Medical 04/09/20 Branch at 2100, Until Discontinu ed, Routine metoprolol 2019-06 Yes 25mg 25 mg, Unive rs tartrate 0-31 Oral, BID, ity o f (LOPRESSOR) 17:15: First dose [place] tablet 25 00 on [facility] Medical mg 04/09/20 Branch at 1215, Until Discontinu ed, Routine aspirin EC 2019-06 Yes 81mg 81 mg, Unive rs tablet 81 Oral, ity of mg 14:45: DAILY, [place] 00 First dose Medical on Sat Branch 04/09/20 at 0945, Until Discontinu ed, Routine losartan 2019-06 No 50mg 50 mg, Univer s (COZAAR) 03 Oral, ity of tablet 50 14:00: 13:58 DAILY, [place] mg 00 :37 First dose Medical (after Branch last modificati on) on 04/09/20 at 0900, Until Discontinu ed, Routine levothyroxi 2019-06 Yes 125ug 125 mcg, U nivers ne Oral, ity of (SYNTHROID) 11:00: QAM-0600, [place] tablet 125 00 First dose Med ical mcg (after Branch last modificati on) on 04/09/20 at 0600, Until Discontinu ed cefTRIAXone 2019-06 No 1000mg 1,000 mg, Univers (ROCEPHIN) 04-11 IV ity of 1,000 mg in 04:15: 16:10 [facility], [place] NaCl 0.9% 00 :35 Q24H ABX, Medic al (NS) 50 mL 7 doses, Branc h MINI-BAG First dose on Sat04/08/20 at 2315, Last dose on [place] 04/14/20 at 2315, 50 mL
Reas on for Anti-Infec tive: Documented Infection< br>Documen dallin Infection Site: Urine
D uration of Therapy: 7 days magnesium 2019-06 2g 2 g, IV Univ ers sulfate in 04-09 Piggyback, it y of water 2 03:15: 04:10 ONCE, 1 [place] gram/50 mL 00 :00 dose, Fri Medi tonny (4 %) 04/08/20 Branch infusion 2 at 2215, g Routine methylPREDN 2019-06 No 40mg 40 mg, Uni vers ISolone sod 04-11 Slow IV ity of succ 03:00: 14:31 Push, Q8H, [place] (SOLU-MEDRO 00 :44 First dose Me dical L (PF)) on Sat Branch injection 04/08/20 40 mg at 2200, Until Discontinu ed, Routine ipratropium 2019-06 Yes 3mL 3 mL, Unive rs -albuteroL 0-31 Inhalation ity of (DUONEB) 02:15: , Q6HPRN, [place] 0.5 mg-3 01 Starting Medical mg(2.5 mg Sat Branch base)/3 mL 04/08/20 nebulizer at 2115, solution 3 Until mL Discontinu ed, Routine, Wheezing, Shortness of Breath, Bronchospa sm, Chest tightness proCHLORper 2019-06 Yes 10mg 10 mg, Univ ers azine 0-31 Slow IV ity of (COMPAZINE) 02:14: Push, [place] injection 00 Q6HPRN, Medical 10 mg Starting Branch Sat04/08/20 at 2114, Until Discontinu ed, Routine, Nausea and Vomiting (N/V) aspirin 2019-06- No 325mg 325 mg, Unive rs tablet 325 0-30 10-30 Oral, ity of mg 17:00: 16:07 ONCE, 1 00 :00 dose, Sat Medical 04/08/20 Branch at 1200, Routine heparin 2019-06 2020- No 12U/kg/ 12 Univer s 25,000 0-30 11-01 h Units/kg/h ity of Units/250 16:56: 15:55 r ?52 kg [place] mL 28 :24 (6.24 Medical (Premixed mL/hr), IV Bran ch Bag) in Infusion, 0.45 % NS TITRATE, Parameters in Admin. Instr., Starting Sat04/08/20 at 1156
CA UTION - If LMWH given in ER, AVOID bolus and start next dose/drip 12 hrs after ER dosage.&nb sp; M ust program rate using programmab le infusion pump.&nbsp ; [place] ck with the ordering provider first prior to any administra tion should the patient be on existing/a dditional anticoagul ant therapy. Rang e, Dosing and Testing: &nbs p;[facility], AND [facility] ONLY &nbs p; - aPTT < 35: & nbsp;Bolus 5000 units, increase rate 300 units/hr&n bsp; - aPTT 35-44:&nbs p; Ankur valente 3000 units, increase rate 200 units/hr&a mp;nbsp; - aPTT 45-54:&nbs p; In crease rate 100 units/hr&n bsp; - aPTT 55-85:&nbs p;&nbs p;NO CHANGE&nbs p; - aPTT 86-95:&nbs p; De crease rate 100 units/hr&n bsp; - aPTT 96-120:&nb sp; H old 30 minutes, decrease rate 150 units/hr&n bsp; - aPTT > 120: Hold 60 minutes, decrease rate 200 units/hr&n bsp; Check aPTT 6 hours after initiation , then Q6H after every change, aPTT Q12H once therapeuti c levels are reached.&a mp;nbsp;&n bsp; ____ &nbs p; [facility] ONLY - aPTT < 40: & nbsp;Bolus 5000 units, increase rate 300 units/hr&n bsp; - aPTT 40-49:&nbs p; Ankur valente 3000 units, increase rate 200 units/hr&n bsp; - aPTT 50-59:&nbs p; In crease rate 100 units/hr&n bsp; - aPTT 60-85:&nbs p; NO CHANGE&nbs p; - aPTT 86-95:&nbs p; De crease rate 100 units/hr&n bsp; - aPTT 96-120:&nb sp; H old 30 minutes, decrease rate 150 units/hr&n bsp; - aPTT > 120: Hold 60 minutes, decrease rate 200 units/hr&n bsp; Check aPTT 6 hours after initiation , then Q6H after every change, aPTT Q12H once therapeuti c levels are reached.&n bsp; DO NOT ADJUST INITIAL BOLUS OR INITIAL INFUSION RATE.
heparin 2019-06- No 60U/kg 3,120 Univer s 1000 0-30 10-30 Units (60 ity of unit/mL 16:00: 16:08 Units/kg [place] injection 00 :00 ?52 kg), Medica l Soln 3,120 IV Push, Branc h Units ONCE, 1 dose, 04/08/20 at 1100, Routine heparin 2019-06- No 3000U FOR Univers (1,000 0-30 04-10 REBOLUSING ity of unit/mL, 10 15:56: 15:55 , Starting [place] mL vial) 28 :24 Fri Medical for 04/08/20 Branch Rebolusing at 1056, Until 04/10/20 at 0955, Routine
Dosing based on aPTT testing parameters (refer to continuous heparin drip order).
omeprazole 2019-06 Yes 40mg 40 mg, Unive rs (PRILOSEC) 0-30 Oral, QAM, ity of capsule 40 14:00: First dose [place] mg 00 on Fri Medical 04/08/20 Branch at 0900, Until Discontinu ed ferrous 2019-06 Yes 325mg 325 mg, Univer s sulfate 0-30 Oral, ity of tablet 325 14:00: DAILY, [place] mg 00 First dose Medical on Sat Branch 04/08/20 at 0900, Until Discontinu ed, Routine levothyroxi 2019-06 2020- No 100ug 100 mcg, Univers ne 0-30 31 Oral, ity of (SYNTHROID) 11:00: 02:18 QAM-0600, [place] tablet 100 00 :05 First dose Med ical mcg on Fri Branch 04/08/20 at 0600, Until Discontinu ed losartan 2019-06 No 50mg 50 mg, Univer s (COZAAR) 030 Oral, BID, ity of tablet 50 01:00: 17:38 First dose [place] mg 00 :12 (after Medical last Branch modificati on) on [facility] 04/07/20 at 2000, Until Discontinu ed, Routine amLODIPine 2019-06 No 5mg 5 mg, Unive rs (NORVASC) 0 11 Oral, ity of tablet 5 mg 00:30: 15:50 DAILY, [place] 00 :49 First dose Medical on [facility] Branch 04/07/20 at 1930, Until Discontinu ed, Routine hydralAZINE 2019-06 No 20mg 20 mg, Uni vers (APRESOLINE 004-09 Slow IV ity of ) injection 00:25: 22:56 Push, [place] 20 mg 07 :17 Q4HPRN, Medical Starting Branch [facility] 04/07/20 at 1925, Until 04/09/20 at 1756, Routine, DBP=>100; SBP=>180<b r>Indicati on: Hypertensi ve Emergency ipratropium 2019-06 No 3mL 3 mL, Univ ers -albuteroL 04-09 Inhalation it y of (DUONEB) 00:00: 02:17 , TID, 9 [place] 0.5 mg-3 00 :01 doses, Medical mg(2.5 mg First dose Bran ch base)/3 mL on [facility] nebulizer 04/07/20 solution 3 at 1900, mL Last dose on 04/10/20 at 0800, Routine acetaminoph 2019-06 Yes 650mg 650 mg, Un moon en 0 Oral, ity of (TYLENOL) 23:04: Q6HPRN, [place] tablet 650 54 Starting Medic al mg [facility] Branch 04/07/20 at 1804, Until Discontinu ed, Routine, Pain (scale 1-3) hydralAZINE 2019-06 No 10mg 10 mg, Uni vers (APRESOLINE 030 Slow IV ity of ) injection 22:57: 00:25 Push, [place] 10 mg 17 :28 Q4HPRN, Medical Starting Branch [facility] 04/07/20 at 1757, Until [facility] 04/07/20 at 1925, Routine, DBP=>100; SBP=>180<b r>Indicati on: Hypertensi ve Emergency ondansetron 2019-06 2020- No 4mg 4 mg, Slow Univers (ZOFRAN 0-29 10-30 IV Push, ity of (PF)) 21:45: 04:41 ONCE, 1 [place] injection 4 00 :00 dose, [facility] Med ical mg 04/07/20 Branch at 1645, OSWALDO omeprazole 2019-0 Yes 40mg Take 40 mg U nivers 40 mg 8-29 by mouth ity of capsule 18:17: every [place] 19 morning. Medical Branch simvastatin 2019-0 Yes 40mg Take 40 mg Univers 40 mg 8-29 by mouth ity of tablet 18:17: at [place] 19 bedtime. Medical Branch ferrous 2018- Yes 325mg Take 325 Unive rs sulfate 325 8-29 mg by ity of mg (65 mg 18:17: mouth [place] iron) 19 daily. Medical tablet Branch metoprolol 0 Yes 50mg Take 50 mg U nivers tartrate 50 8-29 by mouth 2 it y of mg tablet 18:17: (two) [place] 19 times Medical daily. Branch Levothyroxi 0 Yes 100ug Take 100 U nivers ne 100 mcg 8-29 mcg by ity of capsule 18:17: mouth [place] 19 every Medical morning. Branch omeprazole Yes 40mg Take 40 mg U nivers 40 mg 8-29 by mouth ity of capsule 18:17: every [place] 19 morning. Medical Branch simvastatin 2019-0 Yes 40mg Take 40 mg Univers 40 mg 8-29 by mouth ity of tablet 18:17: at [place] 19 bedtime. Medical Branch ferrous 2019-0 Yes 325mg Take 325 Unive rs sulfate 325 8-29 mg by ity of mg (65 mg 18:17: mouth [place] iron) 19 daily. Medical tablet Branch metoprolol 0 Yes 50mg Take 50 mg U nivers tartrate 50 8-29 by mouth 2 it y of mg tablet 18:17: (two) [place] 19 times Medical daily. Branch Levothyroxi 2019 Yes 100ug Take 100 U nivers ne 100 mcg 8-29 mcg by ity of capsule 18:17: mouth [place] 19 every Medical morning. Branch omeprazole Yes 40mg Take 40 mg U nivers 40 mg 8-29 by mouth ity of capsule 18:17: every [place] 19 morning. Medical Branch simvastatin 2019-0 Yes 40mg Take 40 mg Univers 40 mg 8-29 by mouth ity of tablet 18:17: at [place] 19 bedtime. Medical Branch ferrous 2019-0 Yes 325mg Take 325 Unive rs sulfate 325 8-29 mg by ity of mg (65 mg 18:17: mouth [place] iron) 19 daily. Medical tablet Branch metoprolol 2018-0 Yes 50mg Take 50 mg U nivers tartrate 50 8-29 by mouth 2 it y of mg tablet 18:17: (two) [place] 19 times Medical daily. Branch Levothyroxi 0 Yes 100ug Take 100 U nivers ne 100 mcg 8-29 mcg by ity of capsule 18:17: mouth [place] 19 every Medical morning. Branch omeprazole Yes 40mg Take 40 mg U nivers 40 mg 8-29 by mouth ity of capsule 18:17: every [place] 19 morning. Medical Branch simvastatin 2018- Yes 40mg Take 40 mg Univers 40 mg 8-29 by mouth ity of tablet 18:17: at [place] 19 bedtime. Medical Branch ferrous 2018- Yes 325mg Take 325 Unive rs sulfate 325 8-29 mg by ity of mg (65 mg 18:17: mouth [place] iron) 19 daily. Medical tablet Branch metoprolol Yes 50mg Take 50 mg U nivers tartrate 50 8-29 by mouth 2 it y of mg tablet 18:17: (two) [place] 19 times Medical daily. Branch Levothyroxi Yes 100ug Take 100 U nivers ne 100 mcg 8-29 mcg by ity of capsule 18:17: mouth [place] 19 every Medical morning. Branch omeprazole 0 Yes 40mg 40 mg, Unive rs (PRILOSEC) 8-29 Oral, ity of capsule 40 16:30: DAILY, [place] mg 00 First dose Medical on [place] Branch 02/05/19 at 1130, Until Discontinu ed, Routine iohexol 2018- 2019- No 50mL 50 mL, Univers (OMNIPAQUE 02-04 Intravenou it y of 300-50 mL)) 20:45: 20:45 s, ONCE, 1 [place] injection 00 :00 dose, Wed Medic al 50 mL 02/04/19 at Branch 1545, Routine ferrous 2019- Yes 325mg 325 mg, Univer s sulfate 02-04 Oral, ity of tablet 325 14:00: DAILY, [place] mg 00 First dose Medical on Sat [place] 02/04/19 at 0900, Until Discontinu ed, Routine lactated 2019- No 1000mL at 20 [facility] rs ringers IV 02-04 mL/hr, ity of infusion 14:00: 13:49 1,000 mL, [place] 1,000 mL 00 :00 IV Medical Infusion, [place] ONCE, 1 dose, Sat02/04/19 at 0900, Routine, DSU Pre-op levothyroxi 2018- Yes 100ug 100 mcg, U nivers ne 02-04 Oral, ity of (SYNTHROID) 11:00: QAM-0600, [place] tablet 100 00 First dose Med ical mcg on Sat [place] 02/04/19 at 0600, Until Discontinu ed simvastatin 2018- Yes 40mg 40 mg, Univ ers (ZOCOR) 02-04 Oral, QHS, ity of tablet 40 02:00: First dose [place] mg 00 on [facility] 02/03/19 at Branch 2100, Until Discontinu ed, Routine metoprolol Yes 50mg 50 mg, [facility] rs tartrate 02-04 Oral, BID, ity o f (LOPRESSOR) 01:00: First dose [place] tablet 50 00 on [facility] mg 02/03/19 at Branch 2000, Until Discontinu ed, Routine aspirin 81 2019- No 81mg Take 81 mg Univers mg chewable 02-03 by mouth ity of tablet 19:27: 00:00 daily. [place] 35 :00 [facility] ondansetron 2018- Yes 4mg 4 mg, Slow Univers (ZOFRAN 02-03 IV Push, ity of (PF)) 19:15: Q6HPRN, [place] injection 4 38 Starting Medi tonny mg [facility] 02/03/19 at 1415, Until Discontinu ed, Routine, Nausea and Vomiting (N/V) acetaminoph 2018- Yes 650mg 650 mg, Un moon en 02-03 Oral, ity of (TYLENOL) 19:15: Q6HPRN, [place] tablet 650 05 Starting Medic al mg Tue Branch 02/03/19 at 1415, Until Discontinu ed, Routine, Pain (scale 1-3) pantoprazol 2019- No 8mg/h 8 mg/hr U nivers e 02-03 (50 ity of (PROTONIX) 18:15: 17:10 mL/hr), IV [place] 80 mg in 00 :38 Piggyback, Medic al NaCl 0.9% CONTINUOUS Bran ch (NS) 500 mL , Starting infusion 02/03/19 at 1315, Until 02/04/19 at 1210, 500 mL pantoprazol 2018- No 80mg 80 mg, IV Univers e 02-03 Push, ity of (PROTONIX) 18:15: 17:41 ONCE, 1 [place] 80 mg in 00 :00 dose, Tue Medica l NaCl 0.9% 02/03/19 at Bran ch (NS) 20 mL 1315, 20 syringe mL proMETHazin 2018- No 12.5mg 12.5 mg, Univers e 02-03 IV ity of (PHENERGAN) 17:00: 17:00 Piggyback, [place] 12.5 mg in 00 :00 ONCE, 1 Medica l [facility].9[facility] 02/03/19 at piggyback 1200, 50 mL NaCl 0.9% 2019- No 500mL at 999 Univ ers (NS) bolus 02-03 mL/hr, 500 it y of infusion 17:00: 16:10 mL, IV [place] 500 mL 00 :00 Infusion, Medical ONCE, 1 Branch dose, [facility] 02/03/19 at 1200, STAT hydroCHLORO 2019- No 12.5mg Take 1 U nivers thiazide 12-16 capsule by ity of 12.5 mg 00:00: 00:00 mouth [place] capsule 00 :00 daily. Medical Branch lisinopril 2019- No 2.5mg Take 1 Uni vers 2.5 mg 12-16 tablet by ity of tablet 00:00: 00:00 mouth [place] 00 :00 daily. Medical Branch traMADOL 50 2019- No 50mg Take 1 Uni vers mg tablet 12-15 tablet by ity of 00:00: 00:00 mouth [place] 00 :00 every 6 Medical (six) Branch hours as needed for Pain (scale 1-3). albuterol albuterol No 2puff(s Q4H albuterol [facility] sulf 90 sulf 90 ) sulf 90 Family mcg/actuati mcg/actuati mcg/actuat Pract[facility] on breath on breath ion breath e activated activated activated powder powder powder inhaler,sen inhaler,sen inhaler,se sor Inhale sor Inhale nsor 2 puffs 2 puffs Inhale 2 every 4 every 4 puffs hours by hours by every 4 inhalation inhalation hours by route. route. inhalation route. amlodipine amlodipine No 1 Q1D amlodipine [facility] 10 mg 10 mg 10 mg Family tablet Take tablet Take tablet Practic 1 tablet 1 tablet Take 1 e every day every day tablet by oral by oral every day route. route. by oral route. Asprin Ec Asprin Ec No 1 Q1D Asprin Ec [facility] Low Dose 81 Low Dose 81 Low Dose Family mg mg 81 mg Practic tablet,mae tablet,mae tablet,del e yed release yed release ayed Take 1 Take 1 release tablet tablet Take 1 every day every day tablet by oral by oral every day route. route. by oral route. atorvastati atorvastati No 1 Q1D atorvastat [facility] n 40 mg n 40 mg in 40 mg Famil y tablet Take tablet Take tablet Practic 1 tablet 1 tablet Take 1 e every day every day tablet by oral by oral every day route. route. by oral route. ferrous ferrous No 1mg Q1D ferrous [place] sulfate 325 sulfate 325 sulfate Family mg (65 mg mg (65 mg 325 mg (65 Practic iron) iron) mg iron) e tablet,mae tablet,mae tablet,del yed release yed release ayed Take 1 mg Take 1 mg release every day every day Take 1 mg by oral by oral every day route. route. by oral route. levothyroxi levothyroxi No 1 Q1D levothyrox [facility] ne 125 mcg ne 125 mcg ine 125 Family tablet Take tablet Take mcg tablet [facility] 1 tablet 1 tablet Take 1 e every day every day tablet by oral by oral every day route. route. by oral route. losartan 50 losartan 50 No 1 Q1D losartan [place] mg tablet mg tablet 50 mg Fami ly Take 1 Take 1 tablet Practic tablet tablet Take 1 e every day every day tablet by oral by oral every day route. route. by oral route. metoprolol metoprolol No 1 BID metoprolol [place] tartrate 25 tartrate 25 tartrate Family mg tablet mg tablet 25 mg Prac tic Take 1 Take 1 tablet e tablet tablet Take 1 twice a day twice a day tablet by oral by oral twice a route. route. day by oral route. omeprazole omeprazole No 1capsul Q1D omeprazole [facility] 40 mg 40 mg e(s) 40 mg Family capsule,del capsule,del capsule,de Practic ayed ayed layed e release release release Take 1 Take 1 Take 1 capsule capsule capsule every day every day every day by oral by oral by oral route. route. route. simvastatin simvastatin No 1 Q1D simvastati [facility] 40 mg 40 mg n 40 mg Family tablet Take tablet Take tablet Practic 1 tablet 1 tablet Take 1 e every day every day tablet by oral by oral every day route. route. by oral route. Immunizations Ordered Filled Immunization Date Status Comments [facility] e Immunization Name Name Influenza High Dose 2020-05-20 Completed [facility] 00[facility] [facility] Influenza High Dose 2020-05-20 Completed [facility] 00:[facility] [facility] Influenza High Dose 2020-05-20 Completed [facility] 00[facility]00:[address] [facility] Influenza High Dose 2020-05-20 Completed [facility] 00:00:[address] [facility] Influenza High Dose 2020-05-20 Completed [facility] 00:00:[address] [facility] Influenza High Dose 2020-05-20 Completed [facility] 00[facility]00:[address] [facility] Influenza High Dose 2020-05-20 Completed [facility] 00:00:[address] [facility] Influenza High Dose 2020-05-20 Completed [facility] 00[facility]00:[address] [facility] Influenza High Dose 2020-05-20 Completed [facility] 00:00:[address] [facility] Influenza High Dose 2020-05-20 Completed [facility] 00:00:[address] [facility] Influenza High Dose 2020-05-20 Completed [facility] 00:00:[address] [facility] Influenza High Dose 2020-05-20 Completed [facility] 00:00:00 [facility] Influenza High Dose 2020-05-20 Completed [facility] 00:00:00 [facility] Influenza High Dose 2020-05-20 Completed [facility] 00:00:00 [facility] Influenza High Dose 2020-05-20 Completed [facility] 00:00:00 [facility] Influenza High Dose 2020-05-20 Completed [facility] 00:00:00 [facility] Influenza High Dose 2020-05-20 Completed [facility] 00:00:00 [facility] Influenza High Dose 2020-05-20 Completed [facility] 00:00:00 [facility] Influenza High Dose 2020-05-20 Completed [facility] 00:00:00 [facility] Influenza High Dose 2020-05-20 Completed [facility] 00:00:00 [facility] Influenza High Dose 2020-05-20 Completed [facility] 00:00:[address] [facility] Influenza High Dose 2020-05-20 Completed [facility] 00:00:00 [facility] Influenza High Dose 2020-05-20 Completed [facility] 00:00:00 [facility] Influenza High Dose 2020-05-20 Completed [facility] 00:00:00 [facility] Influenza High Dose 2020-05-20 Completed [facility] 00:00:00 [facility] Influenza High Dose 2020-05-20 Completed [facility] 00:00:[address] [facility] Influenza High Dose 2020-05-20 Completed [facility] 00:00:00 [facility] Influenza High Dose 2020-05-20 Completed [facility] 00:00:00 [facility] Influenza High Dose 2020-05-20 Completed [facility] 00:00:00 [facility] Influenza High Dose 2020-05-20 Completed [facility] 00:00:00 [facility] Influenza High Dose 2020-05-20 Completed [facility] 00:00:00 [facility] Influenza High Dose 2020-05-20 Completed [facility] 00:00:00 [facility] Influenza High Dose 2020-05-20 Completed [facility] 00:00:00 [facility] Influenza High Dose 2020-05-20 Completed [facility] 00:00:[address] [facility] Influenza High Dose 2020-05-20 Completed [facility] 00:00:[address] [facility] Vital Signs Vital Name Observation Time Observation Value Comments Source Systolic blood 2021-10-15 21:03:00 150 mm[Hg] [facility] Diastolic blood 2021-10-15 21:03:00 68 mm[Hg] [facility] rsity of pressure [facility] Heart rate 2021-10-15 21:03:00 57 /min [facility] Body temperature 2021-10-15 21:03:00 35.94 Thao [facility] Respiratory rate 2021-10-15 21:03:00 18 /min [facility] Oxygen saturation in 2021-10-15 21:03:00 92 /min [facility] blood by [place] [employer] Pulse [facility]xim[facility] Body height 2021-10-13 18:53:00 165.1 cm [facility] Body weight 2021-10-13 18:53:00 46.267 kg [facility] BMI 2021-10-13 18:53:00 16.97 kg/m2 [facility] Systolic blood 2021-10-13 17:44:00 180 mm[Hg] Univer [facility]ity of pressure [facility] Diastolic blood 2021-10-13 17:44:00 76 mm[Hg] [facility] pressure [facility] Heart rate 2021-10-13 17:44:00 63 /min [facility] Body temperature 2021-10-13 17:44:00 36.28 Thao [facility] Respiratory rate 2021-10-13 17:44:00 18 /min [facility] Oxygen saturation in 2021-10-13 17:44:00 97 /min [facility] [place] [employer] Pulse oximetry Branch Body height 2021-10-12 04:06:00 165.1 cm [facility] Body weight 2021-10-12 04:06:00 46.494 kg [facility] BMI 2021-10-12 04:06:00 16.97 kg/m2 [facility] Systolic blood 2021-08-28 19:00:00 123 mm[Hg] [facility] pressure [facility] Diastolic blood 2021-08-28 19:00:00 55 mm[Hg] [facility] pressure [facility] Heart rate 2021-08-28 19:00:00 60 /min [facility] Respiratory rate 2021-08-28 19:00:00 22 /min [facility] Oxygen saturation in 2021-08-28 19:00:00 94 /min [facility] [place] [employer] Pulse oximetry [facility] Body temperature 2021-08-28 17:52:00 36.72 Thao [facility] Body weight 2021-08-28 17:52:00 50.349 kg [facility] BMI 2021-08-28 17:52:00 18.47 kg/m2 [facility] Systolic blood 2021-07-27 21:53:00 116 mm[Hg] [facility] Diastolic blood 2021-07-27 21:53:00 62 mm[Hg] [facility] of pressure [facility] Heart rate 2021-07-27 21:53:00 88 /min [facility] Body temperature 2021-07-27 21:53:00 36.06 Thao [facility] Respiratory rate 2021-07-27 21:53:00 16 /min [facility] Oxygen saturation in 2021-07-27 21:53:00 93 /min [facility] [place] [employer] Pulse oxim[facility] Body weight 2021-07-27 09:24:00 49.986 kg [facility] BMI 2021-07-27 09:24:00 18.34 kg/m2 [facility] Body height 2021-07-24 17:27:00 165.1 cm [facility] Systolic blood 2020-12-14 16:00:00 142 mm[Hg] [facility] pressure [facility] Diastolic blood 2020-12-14 16:00:00 64 mm[Hg] [facility] pressure [facility] Heart rate 2020-12-14 16:00:00 56 /min [facility] Body temperature 2020-12-14 16:00:00 36.44 Thao [facility] Respiratory rate 2020-12-14 16:00:00 18 /min [facility] Oxygen saturation in 2020-12-14 16:00:00 92 /min [facility]terial blood by [facility] Pulse oximetry Branch Body weight 2020-12-14 08:39:00 50.485 kg [facility] BMI 2020-12-14 08:39:00 18.52 kg/m2 [facility] Respiratory rate 2020-11-09 20:44:00 20 /min [facility] Oxygen saturation in 2020-11-09 20:44:00 94 /min [facility]terial blood by [facility] Pulse oximetry Branch Systolic blood 2020-11-09 16:51:00 171 mm[Hg] [facility] of pressure [facility] Diastolic blood 2020-11-09 16:51:00 68 mm[Hg] [facility] pressure [facility] Heart rate 2020-11-09 16:51:00 70 /min [facility] Body temperature 2020-11-09 16:51:00 36.67 Thao [facility] Body weight 2020-11-09 08:25:00 52.98 kg [facility] BMI 2020-11-09 08:25:00 19.44 kg/m2 [facility] Body height 2020-11-07 23:25:00 165.1 cm [facility] Height 2020-11-01 00:00:00 65 [in_i] [facility] Systolic blood 2020-09-27 18:50:00 154 mm[Hg] [facility]iver [facility] of pressure [facility] Diastolic blood 2020-09-27 18:50:00 77 mm[Hg] [facility] pressure [facility] Heart rate 2020-09-27 18:50:00 56 /min [facility] Respiratory rate 2020-09-27 18:45:00 19 /min [facility] Body height 2020-09-27 18:45:00 165.1 cm [facility] Body weight 2020-09-27 18:45:00 51.03 kg [facility] BMI 2020-09-27 18:45:00 18.72 kg/m2 [facility] Oxygen saturation in 2020-09-27 18:45:00 90 /min [facility] blood by [facility] Pulse oximetry Branch Systolic blood 2020-05-20 19:39:00 145 mm[Hg] [facility] pressure [facility] Diastolic blood 2020-05-20 19:39:00 68 mm[Hg] [facility] pressure [facility] Heart rate 2020-05-20 19:39:00 69 /min [facility] Body height 2020-05-20 19:39:00 165.1 cm [facility] Body weight 2020-05-20 19:39:00 51.801 kg [facility] BMI 2020-05-20 19:39:00 19.00 kg/m2 [facility] Oxygen saturation in 2020-05-20 19:39:00 97 /min [facility]terial blood by [facility] Pulse oximetry Branch Height 2020-05-04 00:00:00 65 [in_i] [facility] BMI (Body Mass 2020-05-04 00:00:00 20 kg/m2 [facility] Body Weight 2020-05-04 00:00:00 120 [lb_av] [facility] Systolic blood 2020-04-12 16:53:00 135 mm[Hg] Univer [facility]ity of pressure [facility] Diastolic blood 2020-04-12 16:53:00 65 mm[Hg] Unive rsity of pressure [facility] Heart rate 2020-04-12 16:53:00 60 /min [facility] Body temperature 2020-04-12 16:53:00 36.61 Thao [facility] Respiratory rate 2020-04-12 16:53:00 17 /min [facility] Oxygen saturation in 2020-04-12 16:53:00 92 /min [facility] blood by [facility] Pulse oximetry Branch Body weight 2020-04-12 02:00:00 56.654 kg [facility] BMI 2020-04-12 02:00:00 20.78 kg/m2 [facility] Body height 2020-04-11 16:26:30 165.1 cm Universi ty of [facility] Height 2020-01-06 00:00:00 65 [in_i] [facility] Height 2019-11-04 00:00:00 65 [in_i] [facility] Practice BMI (Body Mass 2019-11-04 00:00:00 21.6 kg/m2 [facility] Body Weight 2019-11-04 00:00:00 130 [lb_av] [facility] Systolic blood 2019-02-05 17:00:00 172 mm[Hg] Univer sity of pressure [facility] Diastolic blood 2019-02-05 17:00:00 74 mm[Hg] Unive rsity of pressure [facility] Heart rate 2019-02-05 17:00:00 54 /min [facility] Body temperature 2019-02-05 17:00:00 36.78 Thao [facility] Respiratory rate 2019-02-05 17:00:00 18 /min [facility] Oxygen saturation in 2019-02-05 17:00:00 94 /min [facility] Arterial blood by [facility] Pulse oximetry [place] Body height 2019-02-03 18:58:00 165.1 cm Universi ty [facility] Body weight 2019-02-03 18:58:00 52.98 kg [facility] BMI 2019-02-03 18:58:00 19.44 kg/m2 General acute hospital Procedures Procedure Date / Time Performing Source Performed Clinician DNR 2021-10-31 [facility] 05:01:00 Unassigned, No [facility] INTACT PTH CALCIUM GROUP 2021-10-14 Mally [facility] sity of 20:36:[address] [facility] INTACT PTH CALCIUM GROUP 2021-10-14 [facility] sity of 20:36:[address] [facility] VITAMIN D, 25-OH 2021-10-14 Mally [facility] of 20:36:[address] [facility] CBC WITH DIFF 2021-10-14 Mally [facility] of 11:08:[address] [facility] CBC WITH DIFF 2021-10-14 Mally [facility] of 11:08:[address] [facility] OSMOLALITY URINE 2021-10-14 Mckinley Gamez [facility] of 08:45:[address] [facility] OSMOLALITY URINE 2021-10-14 Franco [facility] of 08:45:[address] [facility] ESOPHAGOGASTRODUODENOSCOPY 2021-10-13 Tyler Correa [facility] ersity of 18:58:[address] [facility] MAGNESIUM 2021-10-13 Franco [facility] of 09:38:[address] [facility] BASIC METABOLIC PANEL (NA, K, CL, 2021-10-13 Franco, [facility] of CO2, GLUCOSE, BUN, CREATININE, CA) 09:38:[address] [facility] CBC WITH DIFF 2021-10-13 Franco [facility] of 09:38:[address] [facility] MAGNESIUM 2021-10-13 Franco, [facility] of 09:38:[address] [facility] BASIC METABOLIC PANEL (NA, K, CL, 2021-10-13 Franco, [facility] of CO2, GLUCOSE, BUN, CREATININE, CA) 09:38:[address] [facility] CBC WITH DIFF 2021-10-13 Franco [facility] of 09:38:[address] [facility] CBC WITH DIFF 2021-10-13 Franco [facility] of 02:00:[address] [facility] CBC WITH DIFF 2021-10-13 Franco [facility] of 02:00:[address] [facility] PREPARE PACKED RBC 2021-10-12 Karon [facility] of 18:08:[address] [facility] PREPARE PACKED RBC 2021-10-12 [facility] of 18:08:[address] [facility] COVID-19 (ID NOW RAPID TESTING) 2021-10-12 Jacky Gomez [facility] of 16:49:[address] [facility] LAB ONLY COVID INTERPRETATION 2021-10-12 Jacky Gomez iversity of 16:49:[address] [facility] COVID-19 (ID NOW RAPID TESTING) 2021-10-12 Jacky Gomez [facility] of 16:49:[address] [facility] LAB ONLY COVID INTERPRETATION 2021-10-12 Jacky Gomez iversity of 16:49:[address] [facility] HB ABO GROUPING 2021-10-12 Karon [facility] of 11:12:[address] [facility] HB ABO GROUPING 2021-10-12 Karon [facility] of 11:12:[address] [facility] MAGNESIUM 2021-10-12 Karon [facility] of 08:38:[address] [facility] FERRITIN SERUM 2021-10-12 [facility] of 08:38:[address] [facility] OSMOLALITY, SERUM OR PLASMA 2021-10-12 Mckinley Gamez [facility] ersity of 08:38:[address] [facility] THYROID STIMULATING HORMONE 2021-10-12 [facility] ersity of 08:38:[address] [facility] BASIC METABOLIC PANEL (NA, K, CL, 2021-10-12 [facility] of CO2, GLUCOSE, BUN, CREATININE, CA) 08:38:[address] [facility] CBC WITH DIFF 2021-10-12 [facility] of 08:38:[address] [facility] MAGNESIUM 2021-10-12 [facility] of 08:38:[address] [facility] FERRITIN SERUM 2021-10-12 Karon [facility] of 08:38:[address] [facility] OSMOLALITY, SERUM OR PLASMA 2021-10-12 Franco [facility] ersity of 08:38:[address] [facility] THYROID STIMULATING HORMONE 2021-10-12 Karon [facility] ersity of 08:38:[address] [facility] BASIC METABOLIC PANEL (NA, K, CL, 2021-10-12 [facility] of CO2, GLUCOSE, BUN, CREATININE, CA) 08:38:[address] [facility] CBC WITH DIFF 2021-10-12 Karon [facility] of 08:38:[address] [facility] DUPLEX VENOUS LEGS BILATERAL - BY 2021-10-12 Nadine Crow [facility] VASCULAR LAB 00:46:[address] [facility] DUPLEX VENOUS LEGS BILATERAL - BY 2021-10-12 Nadine Crow [facility] VASCULAR LAB 00:46:[address] [facility] HB ECG ROUTINE & RHYTHM STRIP 2021-10-11 Nadine Crow Un iversity of 21:53:[address] [facility] HB ECG ROUTINE & RHYTHM STRIP 2021-10-11 Nadine Crow Un iversity of 21:53:[address] [facility] URINALYSIS 2021-10-11 Nadine Crow [facility] of 21:45:[address] [facility] SODIUM, URINE RANDOM 2021-10-11 Franco [facility] of 21:45:[address] [facility] URINALYSIS 2021-10-11 Nadine Crow [facility] of 21:45:[address] [facility] SODIUM, URINE RANDOM 2021-10-11 Mckinley Gamez [facility] of 21:45:[address] [facility] XR CHEST 1 VW 2021-10-11 Nadine Crow [facility] of 21:37:[address] [facility] XR CHEST 1 VW 2021-10-11 Nadine Crow [facility] of 21:37:[address] [facility] CT LUMBAR SPINE WO CONTRAST 2021-10-11 Nadine Crow [facility] ersity of 21:30:[address] [facility] CT THORACIC SPINE WO CONTRAST 2021-10-11 Nadine Crow Un iversity of 21:30:[address] [facility] CT LUMBAR SPINE WO CONTRAST 2021-10-11 Nadine Crow [facility] ersity of 21:30:[address] [facility] CT THORACIC SPINE WO CONTRAST 2021-10-11 Nadine Crow Un iversity of 21:30:[address] [facility] MAGNESIUM 2021-10-11 Nadine Crow [facility] of 20:52:[address] [facility] TROPONIN I 2021-10-11 Nadine Crow [facility] of 20:52:[address] [facility] FREE T4 2021-10-11 Karon [facility] of 20:52:[address] [facility] COMP. METABOLIC PANEL (63362) 2021-10-11 Nadine Crow Un iversity of 20:52:[address] [facility] IRON PANEL 2021-10-11 Karon [facility] of 20:52:[address] [facility] CBC WITH DIFF 2021-10-11 Nadine Crow [facility] of 20:52:[address] [facility] N-TERMINAL PRO-BNP 2021-10-11 Nadine Crow [facility] of 20:52:[address] [facility] MAGNESIUM 2021-10-11 Nadine Crow [facility] of 20:52:[address] [facility] TROPONIN I 2021-10-11 Nadine Crow [facility] of 20:52:[address] [facility] FREE T4 2021-10-11 Karon [facility] of 20:52:[address] [facility] COMP. METABOLIC PANEL ([id number]) 2021-10-11 Nadine Crow iversity of 20:52:[address] [facility] IRON PANEL 2021-10-11 Lesa Brantley [facility] of 20:52:[address] [facility] CBC WITH DIFF 2021-10-11 Nadine Crow [facility] of 20:52:[address] [facility] N-TERMINAL PRO-BNP 2021-10-11 Nadine Crow [facility] of 20:52:[address] [facility] HOSPITAL ADMISSION 2021-10-11 [facility] of 05:01:00 Unassigned, No [facility] HOSPITAL ADMISSION 2021-10-11 [facility] of 05:01:00 Unassigned, No [facility] TROPONIN I 2021-08-28 Tari Vázquez [facility] of 18:14:00 [facility] COMP. METABOLIC PANEL ([id number]) 2021-08-28 Tari Vázquez [facility] of 18:14:00 [facility] CBC WITH DIFF 2021-08-28 Tari Vázquez [facility] of 18:14:00 [facility] N-TERMINAL PRO-BNP 2021-08-28 Gurpreet Tari [facility] f 18:14:00 [facility] BASIC METABOLIC PANEL (NA, K, CL, 2021-07-27 Carlo Martinez [facility] of CO2, GLUCOSE, BUN, CREATININE, CA) 09:38:[address] [facility] CBC WITH DIFF 2021-07-27 Fly Martinez [facility] of 09:38:[address] [facility] N-TERMINAL PRO-BNP 2021-07-27 Ela [facility] of 09:38:[address] [facility] BASIC METABOLIC PANEL (NA, K, CL, 2021-07-26 Tamara Lew [facility] of CO2, GLUCOSE, BUN, CREATININE, CA) 09:43:00 [facility] N-TERMINAL PRO-BNP 2021-07-26 Tamara Lew [facility] of 09:43:00 [facility] BASIC METABOLIC PANEL (NA, K, CL, 2021-07-25 Tamara Lew [facility] of CO2, GLUCOSE, BUN, CREATININE, CA) 10:03:00 [facility] CBC WITH DIFF 2021-07-25 Tamara Lew [facility] of 10:03:00 [facility] N-TERMINAL PRO-BNP 2021-07-25 [facility] of 10:03:[address] [facility] BASIC METABOLIC PANEL (NA, K, CL, 2021-07-24 [facility] of CO2, GLUCOSE, BUN, CREATININE, CA) 18:31:[address] [facility] N-TERMINAL PRO-BNP 2021-07-24 [facility] of 18:31:[address] [facility] LEGIONELLA URINARY ANTIGEN TST 2021-07-24 [facility] niversity of 18:13:[address] [facility] PNEUMOCOCCAL ANTIGEN 2021-07-24 [facility] of 18:12:[address] [facility] SPUTUM CULTURE 2021-07-24 [facility] of 18:10:[address] [facility] TRANSTHORACIC ECHO (TTE) COMPLETE 2021-07-24 [facility] of 16:12:[address] [facility] MAGNESIUM 2021-07-24 [facility] 10:05:[address] [facility] [facility] TROPONIN I 2021-07-24 [facility] 10:05:[address] [facility] BASIC METABOLIC PANEL (NA, K, CL, 2021-07-24 [facility] of CO2, GLUCOSE, BUN, CREATININE, CA) 10:05:[address] [facility] LIPID PANEL (79852)(TOTAL 2021-07-24 [facility] sit of CHOLESTEROL, TRIGLYCERIDES, HDL) 10:05:[address] [facility] CBC WITH DIFF 2021-07-24 [facility] of 10:05:[address] [facility] TROPONIN I 2021-07-24 [facility] 03:01:[address] [facility] CT THORAX WO CONTRAST 2021-07-24 [facility] of 02:56:[address] [facility] URINALYSIS 2021-07-23 Joseph, [facility] of 23:39:[address] [facility] EKG-12 LEAD 2021-07-23 Singer [facility] of 20:45:[address] [facility] COVID-19 (ID NOW RAPID TESTING) 2021-07-23 Singer Giovannymark Arauz of 19:21:[address] [facility] LAB ONLY COVID INTERPRETATION 2021-07-23 Giovanny Joseph iversity of 19:21:[address] [facility] XR HUMERUS 2 VW RIGHT 2021-07-23 Singer [facility] of 18:41:[address] [facility] XR CHEST 1 VW 2021-07-23 Singer [facility] of 18:40:[address] [facility] HB ECG ROUTINE & RHYTHM STRIP 2021-07-23 Giovanny Joseph iversity of 18:19:[address] [facility] MAGNESIUM 2021-07-23 Singer [facility] of 18:19:[address] [facility] TROPONIN I 2021-07-23 Singer [facility] of 18:19:[address] [facility] THYROID STIMULATING HORMONE 2021-07-23 Cherelle Covarr[facility]ias [facility] ersity of 18:19:[address] [facility] COMP. METABOLIC PANEL (25080) 2021-07-23 Giovanny Joseph iversity of 18:19:[address] [facility] CBC WITH DIFF 2021-07-23 Singer [facility] of 18:19:[address] [facility] GLYCOSYLATED HEMOGLOBIN (A1C) 2021-07-23 Cehrelle Covarrubias iversity of 18:19:[address] [facility] N-TERMINAL PRO-BNP 2021-07-23 Singer [facility] of 18:19:[address] [facility] EMERGENCY DEPARTMENT DOCUMENTS 2021-07-23 Doctor Yasmin niversity of 06:01:00 Unassigned, No [facility] HOSPITAL ADMISSION MISC - MEDICARE 2021-07-23 [place] of PATIENTS RIGHTS IMPORTANT MESSAGE 06:01:00 Unassigned, No [facility] CONSENT/REFUSAL FOR DIAGNOSIS AND 2021-01-26 [place] of TREATMENT 15:57:53 Unassigned, No [facility] POCT GLUCOSE (AUTOMATED) 2020-12-14 Omar Toth ity of 12:36:[address] [facility] COMP. METABOLIC PANEL (34726) 2020-12-14 Oly Barrett iversity of 09:48:[address] [facility] CBC WITH DIFF 2020-12-14 Oly Barrett of 09:48:[address] [facility] URIC ACID 2020-12-13 Mika Herrera of 19:26:[address] [facility] OSMOLALITY, SERUM OR PLASMA 2020-12-13 [facility] ersity of 19:26:[address] [facility] OSMOLALITY URINE 2020-12-13 [facility] of 19:26:[address] [facility] TROPONIN I 2020-12-13 [facility] of 19:26:[address] [facility] ELECTROLYTES PANEL ([id number])(NA, K, 2020-12-13 [facility], [facility] of CL, CO2) 19:26:[address] [facility] N-TERMINAL PRO-BNP 2020-12-13 [facility] of 19:26:[address] [facility] CREATININE, URINE RANDOM 2020-12-13 [facility], [facility] ity of :26:[address] [facility] POTASSIUM, URINE RANDOM 2020-12-13 [facility], [facility] ty of 19:26:[address] [facility] SODIUM, URINE RANDOM 2020-12-13 [facility], [facility] of 19:26:[address] [facility] URIC ACID, URIC RANDOM 2020-12-13 [facility]:26[facility] [facility] URINALYSIS 2020-12-13 Delon Moralez [place] of 19:01:[address] [facility] CORTISOL AM 2020-12-13 [facility] of 10:04:[address] [facility] VITAMIN B12, LEVEL 2020-12-13 [facility] of 10:04:[address] [facility] FOLATE 2020-12-13 [facility] of 10:04:[address] [facility] HEPATIC FUNCTION PANEL ([id number]) 2020-12-13 Cherelle Covarrubias niversity of (ALB,T.PRO,BILI 10:04:00 [facility],BU/BC,ALT,AST,ALK PHOS) Branch BASIC METABOLIC PANEL (NA, K, CL, 2020-12-13 [facility] of CO2, GLUCOSE, BUN, CREATININE, CA) 10:04:[address] [facility] LIPID PANEL ([id number])(TOTAL 2020-12-13 Cherelle Covarrubias [facility] sity of CHOLESTEROL, TRIGLYCERIDES, HDL) 10:04:[address] [facility] IRON PANEL 2020-12-13 [facility] of 10:04:[address] [facility] CBC WITHOUT DIFF 2020-12-13 Cherelle Covarrubias of 10:04:[address] [facility] GLYCOSYLATED HEMOGLOBIN (A1C) 2020-12-13 Cherelle Covarrubias iversity of 10:04:[address] [facility] VITAMIN D, 25-OH 2020-12-13 Omar Toth [place] of 10:04:[address] [facility] HB ECG ROUTINE & RHYTHM STRIP 2020-12-12 Delon Moralez iversity of 23:30:[address] [facility] CT HEAD WO CONTRAST 2020-12-12 Delon Moralez o f 23:22:[address] [facility] FERRITIN SERUM 2020-12-12 Navneet [facility] of 23:07:[address] [facility] TROPONIN I 2020-12-12 Delon Moralez of 23:07:[address] [facility] THYROID STIMULATING HORMONE 2020-12-12 Koby [facility] ersity of 23:07:[address] [facility] HEPATIC FUNCTION PANEL ([id number]) 2020-12-12 Delon Moralez niversity of (ALB,T.PRO,BILI 23:07:00 [facility],BU/BC,ALT,AST,ALK PHOS) [place] BASIC METABOLIC PANEL (NA, K, CL, 2020-12-12 Eric Moralez [place] of CO2, GLUCOSE, BUN, CREATININE, CA) 23:07:[address] [facility] DIFF CONSULT INTERPRETATION 2020-12-12 Omar Toth [facility] ersity of 23:07:[address] [facility] CBC WITH DIFF 2020-12-12 Delon Moralez of 23:07:[address] [facility] RETICULOCYTES AUTOMATED 2020-12-12 [facility] of 23:07:[address] [facility] COVID-19 (ID NOW RAPID TESTING) 2020-12-12 Delon Moralez [place] of 23:07:[address] [facility] LAB ONLY COVID INTERPRETATION 2020-12-12 Delon Moralez iversity of 23:07:[address] [facility] BASIC METABOLIC PANEL (NA, K, CL, 2020-11-09 Tamara Lew [place] of CO2, GLUCOSE, BUN, CREATININE, CA) 08:31:[address] [facility] CAROTID DUPLEX BILATERAL - BY 2020-11-08 Edionwe, [facility] iversity of VASCULAR LAB 20:18:[address] [facility] US ABDOMEN LIMITED 2020-11-08 [facility] of 16:56:[address] [facility] HEPATITIS B SURFACE ANTIBODY 2020-11-08 [facility] versity of 15:37:[address] [facility] HEPATITIS B SURFACE ANTIGEN 2020-11-08 [facility] ersity of 15:37:[address] [facility] HCV ANTIBODY 2020-11-08 [facility] of 15:37:[address] [facility] HEPATITIS B CORE ANTIBODY IGM 2020-11-08 [facility] Un iversity of 15:37:[address] [facility] TRANSTHORACIC ECHO (TTE) COMPLETE 2020-11-08 [facility] of 15:16:[address] [facility] HEPATIC FUNCTION PANEL ([id number]) 2020-11-08 [facility] niversity of (ALB,T.PRO,BILI 07:13:00 [facility],BU/BC,ALT,AST,ALK PHOS) [place] BASIC METABOLIC PANEL (NA, K, CL, 2020-11-08 [facility] of CO2, GLUCOSE, BUN, CREATININE, CA) 07:13:[address] [facility] CBC WITH DIFF 2020-11-08 [facility] of 07:13:[address] [facility] HB ECG ROUTINE & RHYTHM STRIP 2020-11-08 Nadine Crow Un iversity of 01:44:[address] [facility] COVID-19 (ID NOW RAPID TESTING) 2020-11-08 Nadine Crow [place] of 01:11:[address] [facility] LAB ONLY COVID INTERPRETATION 2020-11-08 Nadine Crow Un iversity of 01:11:[address] [facility] URINALYSIS 2020-11-08 Nadine Crow of 01:05:[address] [facility] CT HEAD WO CONTRAST 2020-11-08 Nadine Crow o f 00:03:[address] [facility] XR CHEST 1 VW 2020-11-07 Nadine Crow of 23:47:[address] [facility] MAGNESIUM 2020-11-07 Nadine Crow of 23:35:[address] [facility] TROPONIN I 2020-11-07 Nadine Crow [place] of 23:35:[address] [facility] COMP. METABOLIC PANEL (08039) 2020-11-07 Nadine Crow Un iversity of 23:35:[address] [facility] CBC WITH DIFF 2020-11-07 Nadine Crow [facility] 23:35:[address] [facility] PHYSICIAN ORDERS 2020-10-27 [facility] 05:01:00 Unassigned, No [facility] FLU VACC(),65+ 2020-05-20 Ela, [facility] of YRS,IM,HIGH DOSE QUAD 19:44:12 K.HYassine [facility] OSMOLALITY SERUM 2020-04-12 [facility] 15:06:[address] [facility] BASIC METABOLIC PANEL (NA, K, CL, 2020-04-12 [facility] of CO2, GLUCOSE, BUN, CREATININE, CA) 15:06:[address] [facility] CATH PROCEDURE LOG 2020-04-11 [facility] 17:06:59 Unassigned, No [facility] BASIC METABOLIC PANEL (NA, K, CL, 2020-04-11 [facility] of CO2, GLUCOSE, BUN, CREATININE, CA) 15:20:[address] [facility] CBC WITH DIFF 2020-04-11 [facility] 15:20:[address] [facility] MAGNESIUM 2020-04-[address] [facility] 11:05:[address] [facility] BASIC METABOLIC PANEL (NA, K, CL, 2020-04-10 ArnoldFernanda jimenez [facility] of CO2, GLUCOSE, BUN, CREATININE, CA) 11:05:[address] [facility] LIPID PANEL ([id number])(TOTAL 2020-04-10 Caprice'Josi Lewis of CHOLESTEROL, TRIGLYCERIDES, HDL) 11:05:[address] [facility] CBC WITH DIFF 2020-04-10 Arnold [facility] of 11:05:[address] [facility] ACTIVATED PARTIAL THRMPLAS SIMON 2020-04-10 Omar Toth niversity of 11:05:[address] [facility] N-TERMINAL PRO-BNP 2020-04-10 Arnold [facility] of 11:05:[address] [facility] ACTIVATED PARTIAL THRMPLAS SIMON 2020-04-10 Abdullah, Omar U niversity of 05:12:[address] [facility] TROPONIN I 2020-04-10 [facility] 02:23:00 [facility] BASIC METABOLIC PANEL (NA, K, CL, 2020-04-10 [facility] CO2, GLUCOSE, BUN, CREATININE, CA) 02:23:00 [facility] HEMOGLOBIN 2020-04-10 [facility] 02:23:00 [facility] ACTIVATED PARTIAL THRMPLAS SIMON 2020-04-09 [facility] niversity of 22:06:00 [facility] SODIUM, URINE RANDOM 2020-04-09 [facility] 21:08:00 [facility] OSMOLALITY SERUM 2020-04-09 [facility] 20:46:00 [facility] PROLACTIN 2020-04-09 [facility] 20:41:00 [facility] PHOSPHORUS 2020-04-09 Terrie Barrettherine [facility] 10:29: [facility] CREATINE KINASE 2020-04-09 [facility] 10:29:00 [facility] MAGNESIUM 2020-04-[address] [facility] 10:29:[address] [facility] TROPONIN I 2020-04-09 Cody [facility] 10:29: [facility] BASIC METABOLIC PANEL (NA, K, CL, 2020-04-09 Fernanda Barrett [facility] CO2, GLUCOSE, BUN, CREATININE, CA) 10:29:[address] [facility] CBC WITH DIFF 2020-04-09 Oly Barrett [facility] 10:29:[address] [facility] ACTIVATED PARTIAL THRMPLAS SIMON 2020-04-09 Omar Toth U niversity of 10:29: [facility] N-TERMINAL PRO-BNP 2020-04-09 Oly Barrett [facility] 10:29: [facility] TROPONIN I 2020-04-09 Cody [facility] 04:05: [facility] HEMOGLOBIN 2020-04-09 Cody [facility] 04:05:[address] [facility] MRSA / MSSA SCREEN BY THEA BROWNE 2020-04-09 Cody [facility] 04:05:[address] [facility] HB ECG ROUTINE & RHYTHM STRIP 2020-04-09 Mauricio Ochoa Un iversity of 00:47:[address] [facility] TROPONIN I 2020-04-08 [facility] of 22:29:[address] [facility] ACTIVATED PARTIAL THRMPLAS SIMON 2020-04-08 Omar Toth niversity of 22:28:[address] [facility] TROPONIN I 2020-04-08 Koby [facility] of 18:50:[address] [facility] RENAL ARTERY DUPLEX BY VASCULAR 2020-04-08 [facility] of LAB 16:40:[address] [facility] CAROTID DUPLEX BILATERAL BY 2020-04-08 [facility], [facility] ersity of VASCULAR LAB 16:14:[address] [facility] ECHO ROUTINE W/DOPPLER COLOR 2020-04-08 [facility], [facility] versity of 14:36:[address] [facility] TROPONIN I 2020-04-08 [facility] of 14:09:[address] [facility] HB ECG ROUTINE & RHYTHM STRIP 2020-04-08 Pema Pinto Un iversity of 11:07:[address] [facility] PHOSPHORUS 2020-04-08 Arnold [facility] of 07:38:[address] [facility] MAGNESIUM 2020-04-08 Arnold, [facility] of 07:38:[address] [facility] TROPONIN I 2020-04-08 Arnold, [facility] of 07:38:[address] [facility] THYROID STIMULATING HORMONE 2020-04-08 [facility] ersity of 07:38:[address] [facility] BASIC METABOLIC PANEL (NA, K, CL, 2020-04-08 Fernanda Barrett [facility] CO2, GLUCOSE, BUN, CREATININE, CA) 07:38:[address] [facility] CBC WITH DIFF 2020-04-08 Arnold, [facility] of 07:38:[address] [facility] N-TERMINAL PRO-BNP 2020-04-08 Arnold, [facility] of 07:38:[address] [facility] PHOSPHORUS 2020-04-08 Arnold [facility] of 01:46:[address] [facility] TROPONIN I 2020-04-08 Arnold, [facility] of 01:46:[address] [facility] HB ECG ROUTINE & RHYTHM STRIP 2020-04-07 Delon Moralez Un iversity of 22:24:[address] [facility] URINALYSIS 2020-04-07 Delon Moralez of 22:12:[address] [facility] XR CHEST 1 VW 2020-04-07 Delon Moralez [place] of 21:19:[address] [facility] CT HEAD WO CONTRAST 2020-04-07 Delon Moralez o f 21:19:[address] [facility] COVID-19 (ID NOW RAPID TESTING) 2020-04-07 Delon Moralez of 20:53:[address] [facility] LIPASE 2020-04-07 Delon Moralez [place] of 20:52:[address] [facility] TROPONIN I 2020-04-07 Delon Moralez [place] of 20:52:[address] [facility] HEPATIC FUNCTION PANEL ([id number]) 2020-04-07 Delon Moralez niversity of (ALB,T.PRO,BILI 20:52:00 [facility],BU/BC,ALT,AST,ALK PHOS) [place] BASIC METABOLIC PANEL (NA, K, CL, 2020-04-07 Eric Moralez [place] of CO2, GLUCOSE, BUN, CREATININE, CA) 20:52:[address] [facility] CBC WITH DIFF 2020-04-07 Delon Moralez [place] of 20:52:[address] [facility] PROTHROMBIN TIME / INR 2020-04-07 [facility] 20:52:[address] [facility] ACTIVATED PARTIAL THRMPLAS SIMON 2020-04-07 Delon Moralez niversity of 20:52:[address] [facility] N-TERMINAL PRO-BNP 2020-04-07 Delon Moralez of 20:52:[address] [facility] EMERGENCY DEPARTMENT DOCUMENTS 2020-04-07 niversity of 05:01:00 Unassigned, No [facility] HOSPITAL ADMISSION 2020-04-07 [facility] of 05:01:00 Unassigned, No [facility] CONSENT/REFUSAL FOR DIAGNOSIS AND 2020-01-19 [facility] of TREATMENT 17:42:42 Unassigned, No [facility] BASIC METABOLIC PANEL (NA, K, CL, 2019-02-05 Tamara Lew [place] of CO2, GLUCOSE, BUN, CREATININE, CA) 10:00:00 [facility] CBC WITH DIFFERENTIAL 2019-02-05 Tamara Lew [place] of 10:00:00 [facility] IR IVC FILTER INSERTION 2019-02-04 Omar Toth [facility] ty of 20:33:[address] [facility] EGD (ENDO) 2019-02-04 [facility] 15:53:[address] [facility] ESOPHAGOGASTRODUODENOSCOPY 2019-02-04 [facility] of 15:51:[address] [facility] BASIC METABOLIC PANEL (NA, K, CL, 2019-02-04 [facility] of CO2, GLUCOSE, BUN, CREATININE, CA) 09:58:00 [facility] CBC WITH DIFFERENTIAL 2019-02-04 [facility] of 09:58:00 [facility] TRANSFUSE PACKED RBC 2019-02-04 Rene Charles [facility] 06:30:[address] [facility] TRANSFUSE PACKED RBC 2019-02-04 Rene Charles [facility] 03:19:[address] [facility] PREPARE PACKED RBC 2019-02-04 Mildred Godfrey [place] of 03:11:[address] [facility] HEMOGLOBIN 2019-02-04 [facility] of 01:30:[address] [facility] PREPARE PACKED RBC 2019-02-03 Rene Charles [place] o f 21:38:[address] [facility] URINALYSIS 2019-02-03 Rene Charles [facility] 17:58:[address] [facility] TYPE AND SCREEN 2019-02-03 eRne Charles [facility] 17:22:[address] [facility] EKG-12 LEAD 2019-02-03 Rene Charles [facility] 16:25:[address] [facility] CT HEAD WO CONTRAST 2019-02-03 Rene Charles [facility] 16:22:[address] [facility] XR CHEST 1 VW 2019-02-03 Rene Charels [facility] 16:13:[address] [facility] MAGNESIUM 2019-02-03 [facility] of 16:09:00 [facility] TROPONIN I 2019-02-03 Rene Charles [facility] 16:09:[address] [facility] THYROID STIMULATING HORMONE 2019-02-03 [facility] ersity of 16:09:[address] [facility] COMP. METABOLIC PANEL (08033) 2019-02-03 Rene Charles U niversity of 16:09:[address] [facility] CBC WITH DIFFERENTIAL 2019-02-03 Rene Charles Universit y of 16:09:[address] [facility] EKG-12 LEAD 2019-02-03 Rene Charles University of 15:51:[address] [facility] EMERGENCY DEPARTMENT DOCUMENTS 2019-02-03 Doctor Yasmin wyman of 05:01:00 Unassigned, No [facility] Plan of Care Planned Activity Planned Date Details Comments Source Instructions [facility] Practice Encounters Start End Encounter Admission Attending Care Care Encounter Source Date/Time Date/Time Type Type Clinicians Facility Department ID 2021-04-10 Emergency [facility] [id number] Univers 06:06:[address] [facility] 2021-04-09 Emergency [facility] [id number] Univers 22:14:[address] [facility] 2021-04-08 Emergency [facility] [id number] Univers 01:55:[address] [facility] 2021-11-07 2021-11-07 [facility] [id number] Univers 00:00:00 00:00:00 Nidia PRIMARY [id number] it y [id number] [id number] [facility] [address] [place] 2021-10-31 2021-10-31 Orders Doctor HOFF [id number] Univers 00:00:00 00:00:00 Only Unassigned, MARLYN [id number] ity of [place] [facility] [id number] [place] as [id number] [place] [id number] [place] 2021-10-23 2021-10-23 [facility] [id number] Univers 00:00:00 00:00:00 Nidia PRIMARY [id number] it y of [id number] [id number] Vt dicct [address] 2021-10-17 2021-10-17 Transition KHUSHBU Adamson [id number] Univers 00:00:00 00:00:00 of Care Marysol B ADKINS [id number] it y [id number] [id number] [facility] [address] 2021-10-11 2021-10-15 Outpatient [facility] [id number] Univers 14:47:00 18:45:00 ALBER ity [facility] 2021-10-11 2021-10-15 [facility] Tristin, K Giuliana LOPEZ [id number] Univers 14:47:00 18:45:00 Encounter lGennmartín Alber Caitlin CLINE [id number] 10 ity of [facility] [id number] [place] [phone] [facility] [address] 2021-10-13 2021-10-13 Surgery Madeline [facility] [id number] Univers 13:00:00 13:38:00 Tyler FERNANDESL [id number] ity of SCIENCES [id number] [place] as BLDG [id number] [facility] [address] 2021-08-28 2021-08-28 Emergency X [facility] ERT [id number] Univers 12:47:00 15:08:00 TARI [facility] 2021-08-28 2021-08-28 Emergency [facility] [id number] Univers 12:47:00 15:08:00 Tari MERINO [id number] ity of [id number] [id number] [facility] [address] 2021-07-28 2021-07-28 Transition KHUSHBU Barakat [id number] Univers 00:00:00 00:00:00 of Care Latha ADKINS [id number] i ty of [id number] [id number] [facility] [address] 2021-07-23 2021-07-27 Outpatient X MARCI [facility] CLARITA [id number] Univers 12:03:00 17:30:00 [facility]23 2021-07-27 [facility] Giovanny Joseph [facility] 1.2.840.1 14 [id number] Univers 12:03:00 17:30:00 Encounter Cherelle Covarrubias 350.1.13.10 ity of [place] [phone] [facility] [address] 2021-02-01 2021-02-01 [facility] [id number] -20 Univers 11:30:00 11:30:00 SENDIL [id number] ity [facility] 2021-02-01 2021-02-01 Outpatient R [facility] [id number] Univers 11:30:00 11:30:00 SENDIL ity [facility] 2021-01-31 2021-01-31 Telephone [facility] 1.2.981.399 [id number] Univers 00:00:00 00:00:00 Sendil Jon Merino 350.1.13.10 ity [facility] 4.2.7.2.686 [facility] [phone] Vt dical [facility] 059 [facility] 2021-01-26 2021-01-26 Outpatient R [facility] [id number] -20 Univers 11:00:00 11:00:00 SENDIL [id number] ity [facility] 2021-01-26 2021-01-26 Outpatient R [facility] [id number] Univers 11:00:00 11:00:00 SENDIL ity [facility] 2021-01-26 2021-01-26 Orders Doctor KAVYA 1.2.840.114 [id number] Univers 00:00:00 00:00:00 Only Unassigned, MARLYN 350.1.13.10 ity of [place] [facility] 4.2.7.2.686 [place] [phone] [facility] [address] 2020-12-15 2020-12-15 Transition Khushbu Hollingsworth 1.2.840.114 [id number] Univers 00:00:00 00:00:00 of Care Salty Adkins 350.1.13.10 [place] [phone] [facility] [address] 2020-12-12 2020-12-14 Emergency KirtDelon [facility] 1.2.840. 114 [id number] Univers 17:07:00 14:40:00 Omar Toth 350.1.13.10 [place] [id number] [facility] [address] 2020-11-29 2020-11-29 Outpatient Miller_S_AH VFP VFP 798 [facility]202 [facility] 04:30:00 04:30:00 [id number] Family Practic e 2020-11-24 2020-11-24 Outpatient Galen [facility] [id number] -20 Univers 11:00:00 11:00:00 SENDIL [id number] [facility] 2020-11-24 2020-11-24 Outpatient Galen [facility] [id number] Univers 11:00:00 11:00:00 SENDIL [facility] 2020-11-22 2020-11-22 [facility]dan [facility] 1.2.840.114 [id number] Univers 00:00:00 00:00:00 [facility] 350.1.13.10 it y [place] [phone] [address] ([facility]) 2020-11-22 2020-11-22 Sol [facility] 1.2.840.114 [id number] Univers 00:00:00 00:00:00 [facility] 350.1.13.10 it [place] [id number] [address] ([facility]) 2020-11-11 2020-11-11 Transition Khushbu Multani 1.2.840.114 [id number] Univers 00:00:00 00:00:00 of Care Kailarachell Streetery 350.1.13.10 it y of [place] [id number] [facility] [address] 2020-11-07 2020-11-09 Emergency Nadine Crow [facility] 1.2.840. 114 [id number] Univers 18:20:00 18:35:00 JasbirPema burgos Yunier 350.1.13.10 ity of [place] 4.2.7.2.686 [facility] [phone] [facility] [address] [place] 2020-11-03 2020-11-03 Outpatient Anne-Mbayo VFP VFP 798 400-202 [place] 06:41:00 06:41:00 _A_AH 87544 Family Practic e 2020-11-02 2020-11-02 Outpatient Anne-Mbayo VFP VFP 798 400-202 [facility] 09:16:00 09:16:00 _A_AH 59707 Family Practic e 2020-11-01 2020-11-01 Marybeth VF [place] - [id number] V illage 00:00:00 00:00:00 Anne-Romana [facility] Fam benny o, CRUSHER TENDER: Medical - Practi c [address] [email or web address]_V@H_ e [facility], [address] [address], [place] [address] , Ph. 2020-10-27 2020-10-27 Technical Sales Representative Andrew, Miriam Lab Main [facility] 1.2.8 40.114 [id number] Univers 09:50:51 10:05:51 Visit Leroy Mayes 350.1.13.10 ity sindy [place] 4.2.7.2.686 Flaco Boyer [id number] Vt dical [facility] 353 [facility] 2020-10-27 2020-10-27 Outpatient R [facility] [id number] -20 Univers 09:45:00 09:45:00 [id number] ity [facility] 2020-10-27 2020-10-27 Outpatient R SUGEY [facility] [id number] Univers 09:45:00 09:45:00 LEROY ity [facility] 2020-10-27 2020-10-27 Orders Doctor HOFF 1.2.840.114 [id number] Univers 00:00:00 00:00:00 Only Unassigned, MARLYN 350.1.13.10 ity of [place] [facility] 4.2.7.2.686 [place] as [phone] [facility] [address] 2020-10-22 2020-10-22 Outpatient Kenneth [facility] 798 400202 [facility] 07:48:00 07:48:00 _A_ 06529 Family Practic e 2020-10-21 2020-10-21 Telephone Shahramdiaz NEADDISON 1.2.840.114 [id number] Univers 00:00:00 00:00:00 Kaila Merino 350.1.13.10 i ty [place] [phone] Vt dical [facility] 059 [facility] 2020-10-17 2020-10-17 Refjourdan Rodriguez, UTADDISON 1.2.840.114 [id number] Univers 00:00:00 00:00:00 [facility] 350.1.13.10 it [place]2.[place] [id number] [facility] [address] [place] ([facility]) 2020-10-17 2020-10-17 Case Khushbu Sargent 1.2.840.114 [id number] Univers 00:00:00 00:00:00 Management Christina Adkins 350.1.13.10 it[place] of [place].7.2.[place] [id number] [facility] [address] 2020-10-11 2020-10-11 Refjourdan Rodriguez, NEADDISON 1.2.840.114 [id number] Univers 00:00:00 00:00:00 [facility] 350.1.13.10 it [place] [phone] [address] ([facility]) 2020-10-07 2020-10-07 Refill Jennifer, NEADDISON 1.2.840.114 [id number] Univers 00:00:00 00:00:00 [facility] 350.1.13.10 it [place] [id number] [address] ([facility]) 2020-10-07 2020-10-07 Refill [facility] 1.2.840.114 [id number] Univers 00:00:00 00:00:00 [facility] 350.1.13.10 it [place] of [place].2.[place] [phone] [address] ([facility]) 2020-10-07 2020-10-07 Ref[facility]dan [facility] 1.2.840.114 [id number] Univers 00:00:00 00:00:00 [facility] 350.1.13.10 it [place] [phone] [address] ([facility]) 2020-09-27 2020-09-27 Office [facility] 1.2.840.114 [id number] Univers 13:13:31 14:07:08 Visit Mary Ellen Merino 350.1.13.10 it[place] [phone] [address] 2020-09-27 2020-09-27 Outpatient R [facility] [id number] -[id number] Univers 13:30:00 13:30:00 SENDIL [id number] [facility] 2020-09-27 2020-09-27 Outpatient R [facility] [id number] Univers 13:30:00 13:30:00 SENDIL [facility] 2020-07-11 2020-07-11 [facility] 798 400-202 [facility] 10:07:00 10:07:00 _A_ 00959 Family Practic e 2020-05-20 2020-05-20 Office [facility] 1.2.840.114 [id number] Univers 13:22:49 14:00:53 Visit Mary Ellen Merino 350.1.13.10 [place] [id number] Vt dicct nal 9 [facility] 2020-05-20 2020-05-20 Outpatient R [facility] [id number] -20 Univers 13:30:00 13:30:00 SENDIL [id number] ity of [facility] 2020-05-20 2020-05-20 Outpatient R ELA [facility] [id number] Univers 13:30:00 13:30:00 SENDIL ity of [facility] 2020-05-09 2020-05-09 Outpatient Anne[facility] 798 400-202 [place] 09:42:00 09:42:00 _A_ [id number] Family Practic e 2020-05-04 2020-05-04 [facility] [place] - [id number] V illage 00:00:00 00:00:00 Isabel Rivera Famil y CRUSHER TENDER: 9235 Medical - Pract ic Nida Garcia, VM_HOU_V@_ e [address], [facility] [address] , Ph. 2020-04-25 2020-04-25 Refill [facility] 1.2.840.114 [id number] Univers 00:00:00 00:00:00 Sendil Jon Merino 350.1.13.10 [place] [phone] Vt dical nal 9 [facility] 2020-04-15 2020-04-15 Telephone Ela [facility] 1.2.068.948 [id number] Univers 00:00:00 00:00:00 Sendil Jon Merino 350.1.13.10 it[place] [phone] Vt dical nal [address] [place] [address] 2020-04-14 2020-04-14 Transition Khushbu Multani 1.2.840.114 [id number] Univers 00:00:00 00:00:00 of Care Kaila Adkins 350.1.13.10 it y of [place].2.[place] [id number] [place] [address] [address] 2020-04-07 2020-04-12 [facility] Delon Moralez [facility] 1.2.840.1 14 [id number] Univers 15:33:00 15:35:00 Encounter Omar Toth [facility] 350.1.13.10 ity of [place] 4.2.7.2.686 Tray Alexandre [phone] [facility] [address] ([facility]) 2020-02-12 2020-02-12 Outpatient R [facility] [id number] -20 Univers 13:15:00 13:15:[id number] of [facility] 2020-01-22 2020-01-22 Outpatient [facility] 798 400-202 [facility] 09:45:00 09:45:00 _A_AH 40338 Family Practic e 2020-01-19 2020-01-19 Outpatient R MOEJaidaSHANNAN [facility] [id number] Univers 13:00:00 13:00:[address] [facility] 2020-01-19 2020-01-19 Technical Sales Representative Andrew, Miriam [facility] Main [facility] 1.2.8 40.114 [id number] Univers 12:41:50 12:56:50 Visit Shannan Barrioston 350.1.13.10 it[place] of [place] [phone] Vt dical [facility] 353 [facility] 2020-01-19 2020-01-19 Orders Doctor KAVYA 1.2.840.114 [id number] Univers 00:00:00 00:00:00 Only Unassigned, MARLYN 350.1.13.10 ity of [place] [facility] 4.2.7.2.686 [place] as [phone] [address] 2020-01-12 2020-01-12 Outpatient Anne-Romanao [facility] 798 400-202 [facility] 09:32:00 09:32:00 _A_AH 18516 Family Practic e 2020-01-06 2020-01-06 Marybeth [facility] [place] - [id number] V illage 00:00:00 00:00:00 [facility] Mat castellanos CRUSHER TENDER: Medical - Practi javier [address] VM_HOU_V@_ e [facility], [place] [address], [place] [address] , Ph. 2019-12-02 2019-12-02 Outpatient Kenneth P [facility] 798 400-202 [facility] 09:05:00 09:05:00 _A_AH 15228 Family Practic e 2019-11-10 2019-11-10 Outpatient Kenneth P P [phone] [facility] 06:55:00 06:55:00 _A_AH 48694 Family Practic e 2019-11-04 2019-11-04 Marybeth P [place] - [id number] V illage 00:00:00 00:00:00 Milli [facility] Fam benny castellanos, CRUSHER TENDER: Medical - Practi c [address] VM_HOU_V@H_ e [facility], [address], [place] [address] , Ph. 2019-09-25 2019-09-25 Outpatient Kenneth P [facility] 798 [id number] [facility] 11:15:00 11:15:00 _A_AH 17971 Family Practic e 2019-02-06 2019-02-06 Transition Khushbu Barakat 1.2.840.114 [id number] Univers 00:00:00 00:00:00 of Care Latha Adkins 350.1.13.10 i ty of [place] 4.2.7.2.686 [facility] [phone] [place] [address] Branch 2019-02-03 2019-02-05 Hospital Rene Charles [facility] 1.2.840. 114 [id number] Univers 10:49:49 12:38:00 Encounter Omar Toth 350.1.13.10 ity of [place] 4.2.7.2.686 [facility] [phone] [address] Results Test Description Test Time Test Comments Results Result Comments Source VITAMIN D, 25-OH 2021-10-16 15:38:59 Test Item Value Reference Range Interpretation Comme nts VIT D 25OH (test code = 02410-7) 37 ng/mL 25-80 ZELALEM (test code = ZELALEM) Deficiency: <20 ng/mLInsufficiency: 20-24 ng/mLOptimal: 25-80 ng/mL Lab Interpretation (test code = 53473-9) [facility] [id number] 00:24:13 Test Item Value Reference Range Interpretation Comments PTH-INTACT (test code = 99.2 pg/mL 12.0-88.0 H 1639149869) PTH-CA Interpretation Furthe r clinical (test code = 3484608645) jennifer a needed for interpretation. CALCIUM (test code = 8.8 mg/dL 8.6-10.6 7346425480) Lab Interpretation (test Abnormal code = 81518-2) [facility] [id number] 00:24:13 Test Item Value Reference Range Interpretation Comments PTH-INTACT (test code = 99.2 pg/mL 12.0-88.0 H 8808950635) PTH-CA Interpretation Furthe r clinical (test code = 7348689063) jennifer a needed for interpretation. CALCIUM (test code = 8.8 mg/dL 8.6-10.6 9425584397) Lab Interpretation (test Abnormal code = 00118-5) [facility] WITH [id number] 11:33:06 Test Item Value Reference Range Interpretation Comments WBC (test code = See_Comment [Automated 6690-2) message] The sy stem which generated this result transmitted reference range : 4.30 - 11.10 10*3/?L. The reference range was not used to interpret this result as normal/abnormal . RBC (test code = See_Comment L [Automated 789-8) message] The sy stem which generated this result transmitted reference range : 3.93 - 5.25 10*6/?L. The reference range was not used to interpret this result as normal/abnormal . HGB (test code = 7.6 g/dL 11.6-15.0 L 718-7) HCT (test code = 25.4 % 35.7-45.2 L 4544-3) MCV (test code = 79.4 fL 80.6-95.5 L 787-2) MCH (test code = 23.8 pg 25.9-32.8 L 785-6) MCHC (test code = 29.9 g/dL 31.6-35.1 L 786-4) RDW-SD (test code = 47.9 fL 39.0-49.9 72179-9) RDW-CV (test code = 16.5 % 12.0-15.5 H 788-0) PLT (test code = See_Comment [Automated 777-3) message] The sy stem which generated this result transmitted reference range : 166 - 358 10*3/ ?L. The reference r alison was not used to interpret this result as normal/abnormal . MPV (test code = 9.2 fL 9.5-12.9 L 04832-4) NRBC/100 WBC (test See_Comment [Automat ed code = 7228327364) message] The system which generated this result transmitted reference range : 0.0 - 10.0 /100 WBCs. The refer ence range was not u sed to interpret th is result as normal/abnormal . NRBC x10^3 (test code <0.01 See_Comment [Auto mated = 4733192377) message] The s ystem which generated this result transmitted reference range : 10*3/?L. The reference range was not used to interpret this result as normal/abnormal . GRAN MAT (NEUT) % 61.5 % (test code = 770-8) IMM GRAN % (test code 0.20 % = 4598252313) LYMPH % (test code = 17.1 % 736-9) MONO % (test code = 16.5 % 5905-5) EOS % (test code = 3.6 % 713-8) BASO % (test code = 1.1 % 706-2) GRAN MAT x10^3(ANC) 2.76 10*3/uL 1.88-7.09 (test code = 1033556811) IMM GRAN x10^3 (test <0.03 0.00-0.06 code = 9441172221) LYMPH x10^3 (test code 0.77 10*3/uL 1.32-3.29 L = 731-0) MONO x10^3 (test code 0.74 10*3/uL 0.33-0.92 = 742-7) EOS x10^3 (test code = 0.16 10*3/uL 0.03-0.39 711-2) BASO x10^3 (test code 0.05 10*3/uL 0.01-0.07 = 704-7) Lab Interpretation Abnormal (test code = 79865-6) [facility] WITH [id number] 11:33:06 Test Item Value Reference Range Interpretation Comments WBC (test code = See_Comment [Automated 6690-2) message] The sy stem which generated this result transmitted reference range : 4.30 - 11.10 10*3/?L. The reference range was not used to interpret this result as normal/abnormal . RBC (test code = See_Comment L [Automated 789-8) message] The sy stem which generated this result transmitted reference range : 3.93 - 5.25 10*6/?L. The reference range was not used to interpret this result as normal/abnormal . HGB (test code = 7.6 g/dL 11.6-15.0 L 718-7) HCT (test code = 25.4 % 35.7-45.2 L 4544-3) MCV (test code = 79.4 fL 80.6-95.5 L 787-2) MCH (test code = 23.8 pg 25.9-32.8 L 785-6) MCHC (test code = 29.9 g/dL 31.6-35.1 L 786-4) RDW-SD (test code = 47.9 fL 39.0-49.9 37210-9) RDW-CV (test code = 16.5 % 12.0-15.5 H 788-0) PLT (test code = See_Comment [Automated 777-3) message] The sy stem which generated this result transmitted reference range : 166 - 358 10*3/ ?L. The reference r alison was not used to interpret this result as normal/abnormal . MPV (test code = 9.2 fL 9.5-12.9 L 69303-5) NRBC/100 WBC (test See_Comment [Automat ed code = 8012389925) message] The system which generated this result transmitted reference range : 0.0 - 10.0 /100 WBCs. The refer ence range was not u sed to interpret th is result as normal/abnormal . NRBC x10^3 (test code <0.01 See_Comment [Auto mated = 1288961306) message] The s ystem which generated this result transmitted reference range : 10*3/?L. The reference range was not used to interpret this result as normal/abnormal . GRAN MAT (NEUT) % 61.5 % (test code = 770-8) IMM GRAN % (test code 0.20 % = 9618719116) LYMPH % (test code = 17.1 % 736-9) MONO % (test code = 16.5 % 5905-5) EOS % (test code = 3.6 % 713-8) BASO % (test code = 1.1 % 706-2) GRAN MAT x10^3(ANC) 2.76 10*3/uL 1.88-7.09 (test code = 6244270580) IMM GRAN x10^3 (test <0.03 0.00-0.06 code = 4051871947) LYMPH x10^3 (test code 0.77 10*3/uL 1.32-3.29 L = 731-0) MONO x10^3 (test code 0.74 10*3/uL 0.33-0.92 = 742-7) EOS x10^3 (test code = 0.16 10*3/uL 0.03-0.39 711-2) BASO x10^3 (test code 0.05 10*3/uL 0.01-0.07 = 704-7) Lab Interpretation Abnormal (test code = 14464-5) [facility] METABOLIC PANEL (NA, K, CL, CO2, GLUCOSE, BUN, CREATININE, CA)2021-10-13 10:22:44 Test Item Value Reference Range Interpretation Comments NA (test code = 128 mmol/L 135-145 L 9680921534) K (test code = 4.8 mmol/L 3.5-5.0 1003839490) CL (test code = 101 mmol/L 98-108 2263508059) CO2 TOTAL (test code = 27 mmol/L 23-31 7435644164) AGAP (test code = <1 2-16 L 7181748786) BUN (test code = 14 mg/dL 7-23 6608844016) GLUCOSE (test code = 93 mg/dL 70-110 4131509069) CREATININE (test code = 0.71 mg/dL 0.50-1.04 8557984955) CALCIUM (test code = 8.5 mg/dL 8.6-10.6 L 0889233821) eGFR (test code = mL/min/1.73m2 9636441152) ZELALEM (test code = ZELALEM) Association of Glomerular Filtration Rate (GFR) and Staging of Kidney Disease* + --+ --+ ------+| GFR (mL/min/1.73 m2) ?| With Kidney Damage ?| ?Without Kidney Damage+ --------+ --------+ +| ?>90 ?| ?Stage one ?| ? Normal ?+ ---+ ---+ -------+| ?60-89 ?| ?Stage two ?| ? Decreased GFR ? + --+ --+ ------+| ?30-59 ?| ?Stage three ?| ? Stage three ? + --+ --+ ------+| ?15-29 ?| ?Stage four ? | ? Stage four ?+ ---+ ---+ -------+| ?<15 (or dialysis) ? ?| ?Stage five ? | ? Stage five ?+ ---+ ---+ -------+ *Each stage assumes the associated GFR level has been in effect for at least three months. ?Stages 1 to 5, with or without kidney disease, indicate chronic kidney disease. Notes: Determination of stages one and two (with eGFR >59mL/min/1.73 m2) requires estimation of kidney damage for at least three months as defined by structural or functional abnormalities of the kidney, manifested by either:Pathological abnormalities or Markers of kidney damage (including abnormalities in the composition of the blood or urine or abnormalities in imaging tests). Lab Interpretation Abnormal (test code = 37224-3) [facility] (NA, K, CL, CO2, GLUCOSE, BUN, CREATININE, CA)2021-10-13 10:22:44 Test Item Value Reference Range Interpretation Comments NA (test code = 128 mmol/L 135-145 L 1509426169) K (test code = 4.8 mmol/L 3.5-5.0 9256016949) CL (test code = 101 mmol/L 98-108 6359701855) CO2 TOTAL (test code = 27 mmol/L 23-31 1041865600) AGAP (test code = <1 2-16 L 1472162983) BUN (test code = 14 mg/dL 7-23 3612435737) GLUCOSE (test code = 93 mg/dL 70-110 4792300338) CREATININE (test code = 0.71 mg/dL 0.50-1.04 7173040567) CALCIUM (test code = 8.5 mg/dL 8.6-10.6 L 6691736096) eGFR (test code = mL/min/1.73m2 6575535895) ZELALEM (test code = ZELALEM) Association of Glomerular Filtration Rate (GFR) and Staging of Kidney Disease* + --+ --+ ------+| GFR (mL/min/1.73 m2) ?| With Kidney Damage ?| ?Without Kidney Damage+ --------+ --------+ +| ?>90 ?| ?Stage one ?| ? Normal ?+ ---+ ---+ -------+| ?60-89 ?| ?Stage two ?| ? Decreased GFR ? + --+ --+ ------+| ?30-59 ?| ?Stage three ?| ? Stage three ? + --+ --+ ------+| ?15-29 ?| ?Stage four ? | ? Stage four ?+ ---+ ---+ -------+| ?<15 (or dialysis) ? ?| ?Stage five ? | ? Stage five ?+ ---+ ---+ -------+ *Each stage assumes the associated GFR level has been in effect for at least three months. ?Stages 1 to 5, with or without kidney disease, indicate chronic kidney disease. Notes: Determination of stages one and two (with eGFR >59mL/min/1.73 m2) requires estimation of kidney damage for at least three months as defined by structural or functional abnormalities of the kidney, manifested by either:Pathological abnormalities or Markers of kidney damage (including abnormalities in the composition of the blood or urine or abnormalities in imaging tests). Lab Interpretation Abnormal (test code = 65016-6) [facility]2022-05-06 10:10:00 Test Item Value Reference Range Interpretation Comments MAGNESIUM (test code = 4401273313) 1.8 mg/dL 1.7-2.4 Lab Interpretation (test code = Normal 50914-6) [facility]2022-05-06 10:10:00 Test Item Value Reference Range Interpretation Comments MAGNESIUM (test code = 9477169390) 1.8 mg/dL 1.7-2.4 Lab Interpretation (test code = Normal 49974-3) [facility] WITH [id number] 09:59:22 Test Item Value Reference Range Interpretation Comments WBC (test code = See_Comment [Automated 6690-2) message] The sy stem which generated this result transmitted reference range : 4.30 - 11.10 10*3/?L. The reference range was not used to interpret this result as normal/abnormal . RBC (test code = See_Comment L [Automated 789-8) message] The sy stem which generated this result transmitted reference range : 3.93 - 5.25 10*6/?L. The reference range was not used to interpret this result as normal/abnormal . HGB (test code = 8.2 g/dL 11.6-15.0 L 718-7) HCT (test code = 27.2 % 35.7-45.2 L 4544-3) MCV (test code = 78.8 fL 80.6-95.5 L 787-2) MCH (test code = 23.8 pg 25.9-32.8 L 785-6) MCHC (test code = 30.1 g/dL 31.6-35.1 L 786-4) RDW-SD (test code = 46.1 fL 39.0-49.9 09014-4) RDW-CV (test code = 16.1 % 12.0-15.5 H 788-0) PLT (test code = See_Comment H [Automated 777-3) message] The sy stem which generated this result transmitted reference range : 166 - 358 10*3/ ?L. The reference r alison was not used to interpret this result as normal/abnormal . MPV (test code = 8.8 fL 9.5-12.9 L 52992-9) NRBC/100 WBC (test See_Comment [Automat ed code = [id number]) message] The system which generated this result transmitted reference range : 0.0 - 10.0 /100 WBCs. The refer ence range was not u sed to interpret th is result as normal/abnormal . NRBC x10^3 (test code <0.01 See_Comment [Auto mated = [id number]) message] The s ystem which generated this result transmitted reference range : 10*3/?L. The reference range was not used to interpret this result as normal/abnormal . GRAN MAT (NEUT) % 68.2 % (test code = 770-8) IMM GRAN % (test code 0.20 % = [id number]) LYMPH % (test code = 15.0 % 736-9) MONO % (test code = 13.1 % 5905-5) EOS % (test code = 2.4 % 713-8) BASO % (test code = 1.1 % 706-2) GRAN MAT x10^3(ANC) 3.18 10*3/uL 1.88-7.09 (test code = [id number]) IMM GRAN x10^3 (test <0.03 0.00-0.06 code = [id number]) LYMPH x10^3 (test code 0.70 10*3/uL 1.32-3.29 L = 731-0) MONO x10^3 (test code 0.61 10*3/uL 0.33-0.92 = 742-7) EOS x10^3 (test code = 0.11 10*3/uL 0.03-0.39 711-2) BASO x10^3 (test code 0.05 10*3/uL 0.01-0.07 = 704-7) Lab Interpretation Abnormal (test code = 46493-5) [facility] WITH [id number] 09:59:22 Test Item Value Reference Range Interpretation Comments WBC (test code = See_Comment [Automated 0368-2) message] The sy stem which generated this result transmitted reference range : 4.30 - 11.10 10*3/?L. The reference range was not used to interpret this result as normal/abnormal . RBC (test code = See_Comment L [Automated 976-8) message] The sy stem which generated this result transmitted reference range : 3.93 - 5.25 10*6/?L. The reference range was not used to interpret this result as normal/abnormal . HGB (test code = 8.2 g/dL 11.6-15.0 L 718-7) HCT (test code = 27.2 % 35.7-45.2 L 4544-3) MCV (test code = 78.8 fL 80.6-95.5 L 787-2) MCH (test code = 23.8 pg 25.9-32.8 L 785-6) MCHC (test code = 30.1 g/dL 31.6-35.1 L 786-4) RDW-SD (test code = 46.1 fL 39.0-49.9 04918-4) RDW-CV (test code = 16.1 % 12.0-15.5 H 788-0) PLT (test code = See_Comment H [Automated 777-3) message] The sy stem which generated this result transmitted reference range : 166 - 358 10*3/ ?L. The reference r alison was not used to interpret this result as normal/abnormal . MPV (test code = 8.8 fL 9.5-12.9 L 09516-0) NRBC/100 WBC (test See_Comment [Automat ed code = 1062002798) message] The system which generated this result transmitted reference range : 0.0 - 10.0 /100 WBCs. The refer ence range was not u sed to interpret th is result as normal/abnormal . NRBC x10^3 (test code <0.01 See_Comment [Auto mated = 2826221579) message] The s ystem which generated this result transmitted reference range : 10*3/?L. The reference range was not used to interpret this result as normal/abnormal . GRAN MAT (NEUT) % 68.2 % (test code = 770-8) IMM GRAN % (test code 0.20 % = 8478542211) LYMPH % (test code = 15.0 % 736-9) MONO % (test code = 13.1 % 5905-5) EOS % (test code = 2.4 % 713-8) BASO % (test code = 1.1 % 706-2) GRAN MAT x10^3(ANC) 3.18 10*3/uL 1.88-7.09 (test code = 3112137298) IMM GRAN x10^3 (test <0.03 0.00-0.06 code = 2433775016) LYMPH x10^3 (test code 0.70 10*3/uL 1.32-3.29 L = 731-0) MONO x10^3 (test code 0.61 10*3/uL 0.33-0.92 = 742-7) EOS x10^3 (test code = 0.11 10*3/uL 0.03-0.39 711-2) BASO x10^3 (test code 0.05 10*3/uL 0.01-0.07 = 704-7) Lab Interpretation Abnormal (test code = 80049-2) [facility] WITH [id number] 02:14:48 Test Item Value Reference Range Interpretation Comments WBC (test code = See_Comment [Automated 6690-2) message] The sy stem which generated this result transmitted reference range : 4.30 - 11.10 10*3/?L. The reference range was not used to interpret this result as normal/abnormal . RBC (test code = See_Comment L [Automated 789-8) message] The sy stem which generated this result transmitted reference range : 3.93 - 5.25 10*6/?L. The reference range was not used to interpret this result as normal/abnormal . HGB (test code = 7.7 g/dL 11.6-15.0 L 718-7) HCT (test code = 25.5 % 35.7-45.2 L 4544-3) MCV (test code = 78.7 fL 80.6-95.5 L 787-2) MCH (test code = 23.8 pg 25.9-32.8 L 785-6) MCHC (test code = 30.2 g/dL 31.6-35.1 L 786-4) RDW-SD (test code = 45.2 fL 39.0-49.9 59195-7) RDW-CV (test code = 15.9 % 12.0-15.5 H 788-0) PLT (test code = See_Comment H [Automated 777-3) message] The sy stem which generated this result transmitted reference range : 166 - 358 10*3/ ?L. The reference r alison was not used to interpret this result as normal/abnormal . MPV (test code = 9.2 fL 9.5-12.9 L 43848-6) NRBC/100 WBC (test See_Comment [Automat ed code = 0882704922) message] The system which generated this result transmitted reference range : 0.0 - 10.0 /100 WBCs. The refer ence range was not u sed to interpret th is result as normal/abnormal . NRBC x10^3 (test code <0.01 See_Comment [Auto mated = 4685349840) message] The s ystem which generated this result transmitted reference range : 10*3/?L. The reference range was not used to interpret this result as normal/abnormal . GRAN MAT (NEUT) % 66.4 % (test code = 770-8) IMM GRAN % (test code 0.40 % = 7049414119) LYMPH % (test code = 15.9 % 736-9) MONO % (test code = 14.3 % 5905-5) EOS % (test code = 1.9 % 713-8) BASO % (test code = 1.1 % 706-2) GRAN MAT x10^3(ANC) 3.59 10*3/uL 1.88-7.09 (test code = 6707631805) IMM GRAN x10^3 (test <0.03 0.00-0.06 code = 1620135823) LYMPH x10^3 (test code 0.86 10*3/uL 1.32-3.29 L = 731-0) MONO x10^3 (test code 0.77 10*3/uL 0.33-0.92 = 742-7) EOS x10^3 (test code = 0.10 10*3/uL 0.03-0.39 711-2) BASO x10^3 (test code 0.06 10*3/uL 0.01-0.07 = 704-7) Lab Interpretation Abnormal (test code = 21045-3) [facility] WITH [id number] 02:14:48 Test Item Value Reference Range Interpretation Comments WBC (test code = See_Comment [Automated 1890-2) message] The sy stem which generated this result transmitted reference range : 4.30 - 11.10 10*3/?L. The reference range was not used to interpret this result as normal/abnormal . RBC (test code = See_Comment L [Automated 789-8) message] The sy stem which generated this result transmitted reference range : 3.93 - 5.25 10*6/?L. The reference range was not used to interpret this result as normal/abnormal . HGB (test code = 7.7 g/dL 11.6-15.0 L 718-7) HCT (test code = 25.5 % 35.7-45.2 L 4544-3) MCV (test code = 78.7 fL 80.6-95.5 L 787-2) MCH (test code = 23.8 pg 25.9-32.8 L 785-6) MCHC (test code = 30.2 g/dL 31.6-35.1 L 786-4) RDW-SD (test code = 45.2 fL 39.0-49.9 33628-5) RDW-CV (test code = 15.9 % 12.0-15.5 H 788-0) PLT (test code = See_Comment H [Automated 777-3) message] The sy stem which generated this result transmitted reference range : 166 - 358 10*3/ ?L. The reference r alison was not used to interpret this result as normal/abnormal . MPV (test code = 9.2 fL 9.5-12.9 L 21226-9) NRBC/100 WBC (test See_Comment [Automat ed code = 2384319043) message] The system which generated this result transmitted reference range : 0.0 - 10.0 /100 WBCs. The refer ence range was not u sed to interpret th is result as normal/abnormal . NRBC x10^3 (test code <0.01 See_Comment [Auto mated = 5825440716) message] The s ystem which generated this result transmitted reference range : 10*3/?L. The reference range was not used to interpret this result as normal/abnormal . GRAN MAT (NEUT) % 66.4 % (test code = 770-8) IMM GRAN % (test code 0.40 % = 7903097456) LYMPH % (test code = 15.9 % 736-9) MONO % (test code = 14.3 % 5905-5) EOS % (test code = 1.9 % 713-8) BASO % (test code = 1.1 % 706-2) GRAN MAT x10^3(ANC) 3.59 10*3/uL 1.88-7.09 (test code = 1817383362) IMM GRAN x10^3 (test <0.03 0.00-0.06 code = 3225967389) LYMPH x10^3 (test code 0.86 10*3/uL 1.32-3.29 L = 731-0) MONO x10^3 (test code 0.77 10*3/uL 0.33-0.92 = 742-7) EOS x10^3 (test code = 0.10 10*3/uL 0.03-0.39 711-2) BASO x10^3 (test code 0.06 10*3/uL 0.01-0.07 = 704-7) Lab Interpretation Abnormal (test code = 12355-5) [facility], SERUM OR [id number] 19:42:19 Test Item Value Reference Range Interpretation Comments OSMOLALITY (test code = See_Comment L [Au tomated message] 2692-2) The system [employer] generated this result transmitted ref erence range: 278 - 30 5 mOsm/kg. The reference range was not used to int erpret this result as normal/abnormal . Lab Interpretation (test Abnormal code = 99328-5) [facility], SERUM OR [id number] 19:42:19 Test Item Value Reference Range Interpretation Comments OSMOLALITY (test code = See_Comment L [Au tomated message] 2692-2) The system [employer] generated this result transmitted ref erence range: 278 - 30 5 mOsm/kg. The reference range was not used to int erpret this result as normal/abnormal . Lab Interpretation (test Abnormal code = 02348-1) [facility] Packed RBC (in units), 1 Units 2021-10-12 18:08:49 Test Item Value Reference Range Interpretation Comments Cross Match Result Compatible (test code = 4409) ISBT Blood Type Code (test code = 516347) Unit Blood Type (test A Pos code = 4410) Unit Number (test [id number] code = 4411) Blood Expiration Date & Time (test code = 712975) Status Information Issued (test code = 4412) Product Red Blood Cells Identification (test code = 4413) Product Code (test K9917O14 Performed at [facility] code = 4414) Laboratory [facility] Blood [address] [address]Rqvx Free: [phone] A No. [id number] [facility] (in units), 1 Units 2021-10-12 18:08:49 Test Item Value Reference Range Interpretation Comments Cross Match Result Compatible (test code = 4409) ISBT Blood Type Code (test code = 669652) Unit Blood Type (test A Pos code = 4410) Unit Number (test [id number] code = 4411) Blood Expiration Date & Time (test code = 346080) Status Information Issued (test code = 4412) Product Red Blood Cells Identification (test code = 4413) Product Code (test V8079E25 Performed at [facility] code = 4414) Laboratory [facility] Blood [address] [address]Bwdf Free: [phone] A No. [id number] [facility] and Screen - ONCE [id number] 12:09:28 Test Item Value Reference Range Interpretation Comments ABO & RH (test code A POSITIVE Performe d at [facility] = 20) Laboratory [facility] Blood [address] [address]Nnol Free: [phone] A No. [id number] IAT (test code = Negative Performed a t [facility] 1185) Laboratory [facility] Blood [address] [address]Xoxz Free: [phone] A No. [id number] [facility] and Screen - ONCE [id number] 12:09:28 Test Item Value Reference Range Interpretation Comments ABO & RH (test code A POSITIVE Performe d at [facility] = 20) Laboratory [facility] Blood [facility] [address] [place] [address] s [address]Oecu Free: [phone] A No. [id number] IAT (test code = Negative Performed a t [facility] 1185) Laboratory [facility] Blood [address] [place], [place] [address]suri santoyo [address]Yklg Free: [phone] A No. [id number] [facility] [id number] 12:09:08 Test Item Value Reference Range Interpretation Comments FREE T4 (test code = See_Comment [Autom ated message] 8514007617) The system [employer] generated this result transmitted ref erence range: 0.78 - 2 .20 ng/dL:. The ref erence range was not u sed to interpret this result as normal/abnor mal. Lab Interpretation (test Normal code = 36113-2) [facility] [id number] 12:09:08 Test Item Value Reference Range Interpretation Comments FREE T4 (test code = See_Comment [Autom ated message] 0890820234) The system [employer] generated this result transmitted ref erence range: 0.78 - 2 .20 ng/dL:. The ref erence range was not u sed to interpret this result as normal/abnor mal. Lab Interpretation (test Normal code = 17722-2) [facility] [id number] 12:06:27 Test Item Value Reference Range Interpretation Comments FERRITIN (test code = 13.7 ng/mL 11.0-264.0 8818158386) ZELALEM (test code = ZELALEM) Biotin has been reported to cause a negative bias, interpret results relative to patient's use of biotin. Lab Interpretation (test Normal code = 81140-2) [facility] [id number] 12:06:27 Test Item Value Reference Range Interpretation Comments FERRITIN (test code = 13.7 ng/mL 11.0-264.0 0794396931) ZELALEM (test code = ZELALEM) Biotin has been reported to cause a negative bias, interpret results relative to patient's use of biotin. Lab Interpretation (test Normal code = 75827-9) [facility] [id number] 12:02:45 Test Item Value Reference Range Interpretation Comments TSH (test code = See_Comment Biotin has been 5005652771) reported to cau se a negative bias, interpret resul ts relative to pat ient's use of biotin. [Automated mess age] The system [employer] generated this result transmitted ref erence range: 0.45 - 4 .70 mIU/L. The refe rence range was not u sed to interpret this result as normal/abnor mal. Lab Interpretation (test Normal code = 08947-4) [facility] [id number] 12:02:45 Test Item Value Reference Range Interpretation Comments TSH (test code = See_Comment Biotin has been 3503609926) reported to cau se a negative bias, interpret resul ts relative to pat ient's use of biotin. [Automated mess age] The system [employer] generated this result transmitted ref erence range: 0.45 - 4 .70 mIU/L. The refe rence range was not u sed to interpret this result as normal/abnor mal. Lab Interpretation (test Normal code = 70451-4) [facility] [id number] 11:59:27 Test Item Value Reference Range Interpretation Comments IRON (test code = 2441799237) 67 ug/dL 50-160 TIBC (test code = 5897535536) 436 ug/dL 250-410 H % FE SAT (test code = 5179916493) 15 % 20-50 L Lab Interpretation (test code = Abnormal 68212-8) [facility] [id number] 11:59:27 Test Item Value Reference Range Interpretation Comments IRON (test code = 4104413835) 67 ug/dL 50-160 TIBC (test code = 0571472639) 436 ug/dL 250-410 H % FE SAT (test code = 9860977521) 15 % 20-50 L Lab Interpretation (test code = Abnormal 17924-4) [facility] Metabolic Panel (NA, K, CL, CO2, GLUCOSE, BUN, CREATININE, CA)2021-10-12 09:16:42 Test Item Value Reference Range Interpretation Comments NA (test code = 128 mmol/L 135-145 L 0273205260) K (test code = 5.0 mmol/L 3.5-5.0 3338515314) CL (test code = 98 mmol/L 98-108 8294800953) CO2 TOTAL (test code = 26 mmol/L 23-31 7733018603) AGAP (test code = 2-16 4263382905) BUN (test code = 20 mg/dL 7-23 5405946497) GLUCOSE (test code = 98 mg/dL 70-110 8164463884) CREATININE (test code = 0.66 mg/dL 0.50-1.04 1453270406) CALCIUM (test code = 9.2 mg/dL 8.6-10.6 3798584183) eGFR (test code = mL/min/1.73m2 7251640143) ZELALEM (test code = ZELALEM) Association of Glomerular Filtration Rate (GFR) and Staging of Kidney Disease* + --+ --+ ------+| GFR (mL/min/1.73 m2) ?| With Kidney Damage ?| ?Without Kidney Damage+ --------+ --------+ +| ?>90 ?| ?Stage one ?| ? Normal ?+ ---+ ---+ -------+| ?60-89 ?| ?Stage two ?| ? Decreased GFR ? + --+ --+ ------+| ?30-59 ?| ?Stage three ?| ? Stage three ? + --+ --+ ------+| ?15-29 ?| ?Stage four ? | ? Stage four ?+ ---+ ---+ -------+| ?<15 (or dialysis) ? ?| ?Stage five ? | ? Stage five ?+ ---+ ---+ -------+ *Each stage assumes the associated GFR level has been in effect for at least three months. ?Stages 1 to 5, with or without kidney disease, indicate chronic kidney disease. Notes: Determination of stages one and two (with eGFR >59mL/min/1.73 m2) requires estimation of kidney damage for at least three months as defined by structural or functional abnormalities of the kidney, manifested by either:Pathological abnormalities or Markers of kidney damage (including abnormalities in the composition of the blood or urine or abnormalities in imaging tests). Lab Interpretation Abnormal (test code = 41651-5) [facility] [id number] 09:16:42 Test Item Value Reference Range Interpretation Comments MAGNESIUM (test code = 1579211533) 1.9 mg/dL 1.7-2.4 Lab Interpretation (test code = Normal 65654-2) [facility] Metabolic Panel (NA, K, CL, CO2, GLUCOSE, BUN, CREATININE, CA)2021-10-12 09:16:42 Test Item Value Reference Range Interpretation Comments NA (test code = 128 mmol/L 135-145 L 2638869958) K (test code = 5.0 mmol/L 3.5-5.0 8254893274) CL (test code = 98 mmol/L 98-108 8378364952) CO2 TOTAL (test code = 26 mmol/L 23-31 1145981145) AGAP (test code = 2-16 8521366533) BUN (test code = 20 mg/dL 7-23 9489557835) GLUCOSE (test code = 98 mg/dL 70-110 9917287784) CREATININE (test code = 0.66 mg/dL 0.50-1.04 1672246865) CALCIUM (test code = 9.2 mg/dL 8.6-10.6 2518384146) eGFR (test code = mL/min/1.73m2 0540331602) ZELALEM (test code = ZELALEM) Association of Glomerular Filtration Rate (GFR) and Staging of Kidney Disease* + --+ --+ ------+| GFR (mL/min/1.73 m2) ?| With Kidney Damage ?| ?Without Kidney Damage+ --------+ --------+ +| ?>90 ?| ?Stage one ?| ? Normal ?+ ---+ ---+ -------+| ?60-89 ?| ?Stage two ?| ? Decreased GFR ? + --+ --+ ------+| ?30-59 ?| ?Stage three ?| ? Stage three ? + --+ --+ ------+| ?15-29 ?| ?Stage four ? | ? Stage four ?+ ---+ ---+ -------+| ?<15 (or dialysis) ? ?| ?Stage five ? | ? Stage five ?+ ---+ ---+ -------+ *Each stage assumes the associated GFR level has been in effect for at least three months. ?Stages 1 to 5, with or without kidney disease, indicate chronic kidney disease. Notes: Determination of stages one and two (with eGFR >59mL/min/1.73 m2) requires estimation of kidney damage for at least three months as defined by structural or functional abnormalities of the kidney, manifested by either:Pathological abnormalities or Markers of kidney damage (including abnormalities in the composition of the blood or urine or abnormalities in imaging tests). Lab Interpretation Abnormal (test code = 01803-3) [facility] [id number] 09:16:42 Test Item Value Reference Range Interpretation Comments MAGNESIUM (test code = 1294503613) 1.9 mg/dL 1.7-2.4 Lab Interpretation (test code = Normal 94819-2) [facility] with [id number] 08:50:39 Test Item Value Reference Range Interpretation Comments WBC (test code = See_Comment [Automated 6690-2) message] The sy stem which generated this result transmitted reference range : 4.30 - 11.10 10*3/?L. The reference range was not used to interpret this result as normal/abnormal . RBC (test code = See_Comment L [Automated 789-8) message] The sy stem which generated this result transmitted reference range : 3.93 - 5.25 10*6/?L. The reference range was not used to interpret this result as normal/abnormal . HGB (test code = 6.8 g/dL 11.6-15.0 L 718-7) HCT (test code = 23.5 % 35.7-45.2 L 4544-3) MCV (test code = 78.6 fL 80.6-95.5 L 787-2) MCH (test code = 22.7 pg 25.9-32.8 L 785-6) MCHC (test code = 28.9 g/dL 31.6-35.1 L 786-4) RDW-SD (test code = 45.2 fL 39.0-49.9 57578-7) RDW-CV (test code = 15.8 % 12.0-15.5 H 788-0) PLT (test code = See_Comment H [Automated 777-3) message] The sy stem which generated this result transmitted reference range : 166 - 358 10*3/ ?L. The reference r alison was not used to interpret this result as normal/abnormal . MPV (test code = 9.0 fL 9.5-12.9 L 14129-9) NRBC/100 WBC (test See_Comment [Automat ed code = 8073618453) message] The system which generated this result transmitted reference range : 0.0 - 10.0 /100 WBCs. The refer ence range was not u sed to interpret th is result as normal/abnormal . NRBC x10^3 (test code <0.01 See_Comment [Auto mated = 9982450143) message] The s ystem which generated this result transmitted reference range : 10*3/?L. The reference range was not used to interpret this result as normal/abnormal . GRAN MAT (NEUT) % 77.5 % (test code = 770-8) IMM GRAN % (test code 0.50 % = 0768707312) LYMPH % (test code = 11.5 % 736-9) MONO % (test code = 8.9 % 5905-5) EOS % (test code = 0.7 % 713-8) BASO % (test code = 0.9 % 706-2) GRAN MAT x10^3(ANC) 4.24 10*3/uL 1.88-7.09 (test code = 7682024382) IMM GRAN x10^3 (test 0.03 10*3/uL 0.00-0.06 code = 0148018574) LYMPH x10^3 (test code 0.63 10*3/uL 1.32-3.29 L = 731-0) MONO x10^3 (test code 0.49 10*3/uL 0.33-0.92 = 742-7) EOS x10^3 (test code = 0.04 10*3/uL 0.03-0.39 711-2) BASO x10^3 (test code 0.05 10*3/uL 0.01-0.07 = 704-7) Lab Interpretation Abnormal (test code = 16592-6) [facility] with [id number] 08:50:39 Test Item Value Reference Range Interpretation Comments WBC (test code = See_Comment [Automated 6690-2) message] The sy stem which generated this result transmitted reference range : 4.30 - 11.10 10*3/?L. The reference range was not used to interpret this result as normal/abnormal . RBC (test code = See_Comment L [Automated 789-8) message] The sy stem which generated this result transmitted reference range : 3.93 - 5.25 10*6/?L. The reference range was not used to interpret this result as normal/abnormal . HGB (test code = 6.8 g/dL 11.6-15.0 L 718-7) HCT (test code = 23.5 % 35.7-45.2 L 4544-3) MCV (test code = 78.6 fL 80.6-95.5 L 787-2) MCH (test code = 22.7 pg 25.9-32.8 L 785-6) MCHC (test code = 28.9 g/dL 31.6-35.1 L 786-4) RDW-SD (test code = 45.2 fL 39.0-49.9 43121-6) RDW-CV (test code = 15.8 % 12.0-15.5 H 788-0) PLT (test code = See_Comment H [Automated 777-3) message] The sy stem which generated this result transmitted reference range : 166 - 358 10*3/ ?L. The reference r alison was not used to interpret this result as normal/abnormal . MPV (test code = 9.0 fL 9.5-12.9 L 42560-1) NRBC/100 WBC (test See_Comment [Automat ed code = 0208125637) message] The system which generated this result transmitted reference range : 0.0 - 10.0 /100 WBCs. The refer ence range was not u sed to interpret th is result as normal/abnormal . NRBC x10^3 (test code <0.01 See_Comment [Auto mated = 5031159449) message] The s ystem which generated this result transmitted reference range : 10*3/?L. The reference range was not used to interpret this result as normal/abnormal . GRAN MAT (NEUT) % 77.5 % (test code = 770-8) IMM GRAN % (test code 0.50 % = 0726930727) LYMPH % (test code = 11.5 % 736-9) MONO % (test code = 8.9 % 5905-5) EOS % (test code = 0.7 % 713-8) BASO % (test code = 0.9 % 706-2) GRAN MAT x10^3(ANC) 4.24 10*3/uL 1.88-7.09 (test code = 7325800393) IMM GRAN x10^3 (test 0.03 10*3/uL 0.00-0.06 code = 8641569210) LYMPH x10^3 (test code 0.63 10*3/uL 1.32-3.29 L = 731-0) MONO x10^3 (test code 0.49 10*3/uL 0.33-0.92 = 742-7) EOS x10^3 (test code = 0.04 10*3/uL 0.03-0.39 711-2) BASO x10^3 (test code 0.05 10*3/uL 0.01-0.07 = 704-7) Lab Interpretation Abnormal (test code = 84649-7) [facility] [id number] 21:30:22 Test Item Value Reference Interpretation Comments Range TROPONIN I (test 0.004 ng/mL See_Comment [Automated code = 7132063828) message] The system which generated this result transmitted reference range : <=0.034. The reference range was not used to interpret this result as normal/abnormal . ZELALEM (test code = Reference (Normal) ZELALEM) Range (defined by the 99th percentile reference limit): <= 0.034 ng/mL Note: Cardiac troponin begins to rise 3-4 hours after the onset of ischemia. Repeat in 4-6 hours if the sample was drawn within 3-4 hours of the onset of the symptom and found normal. Diagnosis of myocardial injury is made with acute changes in cTn concentrations with at least one serial sample above the 99th percentile upper reference limit (URL), taken together with the patient's clinical presentation. Biotin has been reported to cause a negative bias, interpret results relative to patient's use of biotin. Lab Interpretation Normal (test code = 09549-4) [facility] [id number] 21:30:22 Test Item Value Reference Interpretation Comments Range TROPONIN I (test 0.004 ng/mL See_Comment [Automated code = 7563190703) message] The system which generated this result transmitted reference range : <=0.034. The reference range was not used to interpret this result as normal/abnormal . ZELALEM (test code = Reference (Normal) ZELALEM) Range (defined by the 99th percentile reference limit): <= 0.034 ng/mL Note: Cardiac troponin begins to rise 3-4 hours after the onset of ischemia. Repeat in 4-6 hours if the sample was drawn within 3-4 hours of the onset of the symptom and found normal. Diagnosis of myocardial injury is made with acute changes in cTn concentrations with at least one serial sample above the 99th percentile upper reference limit (URL), taken together with the patient's clinical presentation. Biotin has been reported to cause a negative bias, interpret results relative to patient's use of biotin. Lab Interpretation Normal (test code = 70239-8) [id number] 21:27:03 Test Item Value Reference Range Interpretation Comments NT-proBNP (test code 777 pg/mL See_Comment H [Autom ated = 5053260313) message] The system which generated this result transmitted reference range : <=450. The reference range was not used to interpret this result as normal/abnormal . ZELALEM (test code = ZELALEM) Biotin has been reported to cause a negative bias, interpret results relative to patient's use of biotin. Lab Interpretation Abnormal (test code = 82584-7) [id number]:03 Test Item Value Reference Range Interpretation Comments NT-proBNP (test code 777 pg/mL See_Comment H [Autom ated = 5023414213) message] The system which generated this result transmitted reference range : <=450. The reference range was not used to interpret this result as normal/abnormal . ZELALEM (test code = ZELALEM) Biotin has been reported to cause a negative bias, interpret results relative to patient's use of biotin. Lab Interpretation Abnormal (test code = 94409-8) [facility]. METABOLIC PANEL ([id number])2021-10-11 21:18:18 Test Item Value Reference Range Interpretation Comments NA (test code = 126 mmol/L 135-145 L 1205970211) K (test code = 5.2 mmol/L 3.5-5.0 H 2276961557) CL (test code = 96 mmol/L 98-108 L 1929298759) CO2 TOTAL (test code = 23 mmol/L 23-31 5270410138) AGAP (test code = 2-16 5289679288) BUN (test code = 19 mg/dL 7-23 7571556455) GLUCOSE (test code = 88 mg/dL 70-110 8098771079) CREATININE (test code = 0.62 mg/dL 0.50-1.04 5919636927) TOTAL BILI (test code = 0.4 mg/dL 0.1-1.5 9705467781) CALCIUM (test code = 9.2 mg/dL 8.6-10.6 5688180163) T PROTEIN (test code = 6.9 g/dL 6.3-8.2 7141481911) ALBUMIN (test code = 3.5 g/dL 3.5-5.0 9779626232) ALK PHOS (test code = 123 U/L 34-122 H 3023277617) ALTv (test code = 62 U/L 5-35 H 1742-6) AST(SGOT) (test code = 87 U/L 13-40 H 6212848650) eGFR (test code = mL/min/1.73m2 1992577780) ZELALEM (test code = ZELALEM) Association of Glomerular Filtration Rate (GFR) and Staging of Kidney Disease* + --+ --+ ------+| GFR (mL/min/1.73 m2) ?| With Kidney Damage ?| ?Without Kidney Damage+ --------+ --------+ +| ?>90 ?| ?Stage one ?| ? Normal ?+ ---+ ---+ -------+| ?60-89 ?| ?Stage two ?| ? Decreased GFR ? + --+ --+ ------+| ?30-59 ?| ?Stage three ?| ? Stage three ? + --+ --+ ------+| ?15-29 ?| ?Stage four ? | ? Stage four ?+ ---+ ---+ -------+| ?<15 (or dialysis) ? ?| ?Stage five ? | ? Stage five ?+ ---+ ---+ -------+ *Each stage assumes the associated GFR level has been in effect for at least three months. ?Stages 1 to 5, with or without kidney disease, indicate chronic kidney disease. Notes: Determination of stages one and two (with eGFR >59mL/min/1.73 m2) requires estimation of kidney damage for at least three months as defined by structural or functional abnormalities of the kidney, manifested by either:Pathological abnormalities or Markers of kidney damage (including abnormalities in the composition of the blood or urine or abnormalities in imaging tests). Lab Interpretation Abnormal (test code = 61960-4) [facility] Test Item Value Reference Range Interpretation Comments MAGNESIUM (test code = 8785673515) 1.8 mg/dL 1.7-2.4 Lab Interpretation (test code = Normal 05797-3) [facility] ([id number])2021-10-11 21:18:18 Test Item Value Reference Range Interpretation Comments NA (test code = 126 mmol/L 135-145 L 4981514543) K (test code = 5.2 mmol/L 3.5-5.0 H 9600129504) CL (test code = 96 mmol/L 98-108 L 4532439448) CO2 TOTAL (test code = 23 mmol/L 23-31 7468310283) AGAP (test code = 2-16 2151253270) BUN (test code = 19 mg/dL 7-23 3687062693) GLUCOSE (test code = 88 mg/dL 70-110 1684821404) CREATININE (test code = 0.62 mg/dL 0.50-1.04 4214581773) TOTAL BILI (test code = 0.4 mg/dL 0.1-1.3 1226976048) CALCIUM (test code = 9.2 mg/dL 8.6-10.6 0766322314) T PROTEIN (test code = 6.9 g/dL 6.3-8.2 8775351139) ALBUMIN (test code = 3.5 g/dL 3.5-5.0 4093276642) ALK PHOS (test code = 123 U/L 34-122 H 2314095240) ALTv (test code = 62 U/L 5-35 H 1742-6) AST(SGOT) (test code = 87 U/L 13-40 H 4672800369) eGFR (test code = mL/min/1.73m2 2777246289) ZELALEM (test code = ZELALEM) Association of Glomerular Filtration Rate (GFR) and Staging of Kidney Disease* + --+ --+ ------+| GFR (mL/min/1.73 m2) ?| With Kidney Damage ?| ?Without Kidney Damage+ --------+ --------+ +| ?>90 ?| ?Stage one ?| ? Normal ?+ ---+ ---+ -------+| ?60-89 ?| ?Stage two ?| ? Decreased GFR ? + --+ --+ ------+| ?30-59 ?| ?Stage three ?| ? Stage three ? + --+ --+ ------+| ?15-29 ?| ?Stage four ? | ? Stage four ?+ ---+ ---+ -------+| ?<15 (or dialysis) ? ?| ?Stage five ? | ? Stage five ?+ ---+ ---+ -------+ *Each stage assumes the associated GFR level has been in effect for at least three months. ?Stages 1 to 5, with or without kidney disease, indicate chronic kidney disease. Notes: Determination of stages one and two (with eGFR >59mL/min/1.73 m2) requires estimation of kidney damage for at least three months as defined by structural or functional abnormalities of the kidney, manifested by either:Pathological abnormalities or Markers of kidney damage (including abnormalities in the composition of the blood or urine or abnormalities in imaging tests). Lab Interpretation Abnormal (test code = 03997-6) [facility]18 Test Item Value Reference Range Interpretation Comments MAGNESIUM (test code = 4753714619) 1.8 mg/dL 1.7-2.4 Lab Interpretation (test code = Normal 03375-2) [facility] WITH [id number] 21:07:15 Test Item Value Reference Range Interpretation Comments WBC (test code = See_Comment [Automated 6190-2) message] The sy stem which generated this result transmitted reference range : 4.30 - 11.10 10*3/?L. The reference range was not used to interpret this result as normal/abnormal . RBC (test code = See_Comment L [Automated 789-8) message] The sy stem which generated this result transmitted reference range : 3.93 - 5.25 10*6/?L. The reference range was not used to interpret this result as normal/abnormal . HGB (test code = 7.4 g/dL 11.6-15.0 L 718-7) HCT (test code = 26.0 % 35.7-45.2 L 4544-3) MCV (test code = 78.1 fL 80.6-95.5 L 787-2) MCH (test code = 22.2 pg 25.9-32.8 L 785-6) MCHC (test code = 28.5 g/dL 31.6-35.1 L 786-4) RDW-SD (test code = 45.4 fL 39.0-49.9 47422-2) RDW-CV (test code = 15.9 % 12.0-15.5 H 788-0) PLT (test code = See_Comment H [Automated 777-3) message] The sy stem which generated this result transmitted reference range : 166 - 358 10*3/ ?L. The reference r alison was not used to interpret this result as normal/abnormal . MPV (test code = 9.0 fL 9.5-12.9 L 47435-7) NRBC/100 WBC (test See_Comment [Automat ed code = 7841213160) message] The system which generated this result transmitted reference range : 0.0 - 10.0 /100 WBCs. The refer ence range was not u sed to interpret th is result as normal/abnormal . NRBC x10^3 (test code <0.01 See_Comment [Auto mated = 8149405008) message] The s ystem which generated this result transmitted reference range : 10*3/?L. The reference range was not used to interpret this result as normal/abnormal . GRAN MAT (NEUT) % 63.5 % (test code = 770-8) IMM GRAN % (test code 0.20 % = 4160306494) LYMPH % (test code = 18.2 % 736-9) MONO % (test code = 14.6 % 5905-5) EOS % (test code = 2.1 % 713-8) BASO % (test code = 1.4 % 706-2) GRAN MAT x10^3(ANC) 3.25 10*3/uL 1.88-7.09 (test code = 5690463640) IMM GRAN x10^3 (test <0.03 0.00-0.06 code = 5102944508) LYMPH x10^3 (test code 0.93 10*3/uL 1.32-3.29 L = 731-0) MONO x10^3 (test code 0.75 10*3/uL 0.33-0.92 = 742-7) EOS x10^3 (test code = 0.11 10*3/uL 0.03-0.39 711-2) BASO x10^3 (test code 0.07 10*3/uL 0.01-0.07 = 704-7) Lab Interpretation Abnormal (test code = 82245-3) [facility] WITH [id number] 21:07:15 Test Item Value Reference Range Interpretation Comments WBC (test code = See_Comment [Automated 6690-2) message] The sy stem which generated this result transmitted reference range : 4.30 - 11.10 10*3/?L. The reference range was not used to interpret this result as normal/abnormal . RBC (test code = See_Comment L [Automated 789-8) message] The sy stem which generated this result transmitted reference range : 3.93 - 5.25 10*6/?L. The reference range was not used to interpret this result as normal/abnormal . HGB (test code = 7.4 g/dL 11.6-15.0 L 718-7) HCT (test code = 26.0 % 35.7-45.2 L 4544-3) MCV (test code = 78.1 fL 80.6-95.5 L 787-2) MCH (test code = 22.2 pg 25.9-32.8 L 785-6) MCHC (test code = 28.5 g/dL 31.6-35.1 L 786-4) RDW-SD (test code = 45.4 fL 39.0-49.9 43850-0) RDW-CV (test code = 15.9 % 12.0-15.5 H 788-0) PLT (test code = See_Comment H [Automated 777-3) message] The sy stem which generated this result transmitted reference range : 166 - 358 10*3/ ?L. The reference r alison was not used to interpret this result as normal/abnormal . MPV (test code = 9.0 fL 9.5-12.9 L 38654-5) NRBC/100 WBC (test See_Comment [Automat ed code = 8803912306) message] The system which generated this result transmitted reference range : 0.0 - 10.0 /100 WBCs. The refer ence range was not u sed to interpret th is result as normal/abnormal . NRBC x10^3 (test code <0.01 See_Comment [Auto mated = 6062435180) message] The s ystem which generated this result transmitted reference range : 10*3/?L. The reference range was not used to interpret this result as normal/abnormal . GRAN MAT (NEUT) % 63.5 % (test code = 770-8) IMM GRAN % (test code 0.20 % = 5863663867) LYMPH % (test code = 18.2 % 736-9) MONO % (test code = 14.6 % 5905-5) EOS % (test code = 2.1 % 713-8) BASO % (test code = 1.4 % 706-2) GRAN MAT x10^3(ANC) 3.25 10*3/uL 1.88-7.09 (test code = 2715972425) IMM GRAN x10^3 (test <0.03 0.00-0.06 code = 8011563939) LYMPH x10^3 (test code 0.93 10*3/uL 1.32-3.29 L = 731-0) MONO x10^3 (test code 0.75 10*3/uL 0.33-0.92 = 742-7) EOS x10^3 (test code = 0.11 10*3/uL 0.03-0.39 711-2) BASO x10^3 (test code 0.07 10*3/uL 0.01-0.07 = 704-7) Lab Interpretation Abnormal (test code = 06019-4) [facility] [id number] 19:07:24 Test Item Value Reference Interpretation Comments Range TROPONIN I (test 0.002 ng/mL See_Comment [Automated code = 9107513281) message] The system which generated this result transmitted reference range : <=0.034. The reference range was not used to interpret this result as normal/abnormal . ZELALEM (test code = Reference (Normal) ZELALEM) Range (defined by the 99th percentile reference limit): <= 0.034 ng/mL Note: Cardiac troponin begins to rise 3-4 hours after the onset of ischemia. Repeat in 4-6 hours if the sample was drawn within 3-4 hours of the onset of the symptom and found normal. Diagnosis of myocardial injury is made with acute changes in cTn concentrations with at least one serial sample above the 99th percentile upper reference limit (URL), taken together with the patient's clinical presentation. Biotin has been reported to cause a negative bias, interpret results relative to patient's use of biotin. Lab Interpretation Normal (test code = 47482-7) [facility] [id number] 19:07:24 Test Item Value Reference Interpretation Comments Range TROPONIN I (test 0.002 ng/mL See_Comment [Automated code = 9089140550) message] The system which generated this result transmitted reference range : <=0.034. The reference range was not used to interpret this result as normal/abnormal . ZELALEM (test code = Reference (Normal) ZELALEM) Range (defined by the 99th percentile reference limit): <= 0.034 ng/mL Note: Cardiac troponin begins to rise 3-4 hours after the onset of ischemia. Repeat in 4-6 hours if the sample was drawn within 3-4 hours of the onset of the symptom and found normal. Diagnosis of myocardial injury is made with acute changes in cTn concentrations with at least one serial sample above the 99th percentile upper reference limit (URL), taken together with the patient's clinical presentation. Biotin has been reported to cause a negative bias, interpret results relative to patient's use of biotin. Lab Interpretation Normal (test code = 57961-8) [id number] 19:04:03 Test Item Value Reference Range Interpretation Comments NT-proBNP (test code 844 pg/mL See_Comment H [Autom ated = 1382246447) message] The system which generated this result transmitted reference range : <=450. The reference range was not used to interpret this result as normal/abnormal . ZELALEM (test code = ZELALEM) Biotin has been reported to cause a negative bias, interpret results relative to patient's use of biotin. Lab Interpretation Abnormal (test code = 73900-8) [facility] [id number] 19:04:03 Test Item Value Reference Range Interpretation Comments NT-proBNP (test code 844 pg/mL See_Comment H [Autom ated = 2753001406) message] The system which generated this result transmitted reference range : <=450. The reference range was not used to interpret this result as normal/abnormal . ZELALEM (test code = ZELALEM) Biotin has been reported to cause a negative bias, interpret results relative to patient's use of biotin. Lab Interpretation Abnormal (test code = 50162-0) [facility] ([id number])2021-08-28 18:55:44 Test Item Value Reference Range Interpretation Comments NA (test code = 130 mmol/L 135-145 L 9287204239) K (test code = 4.5 mmol/L 3.5-5.0 8967224681) CL (test code = 99 mmol/L 98-108 4610435279) CO2 TOTAL (test code = 28 mmol/L 23-31 3900704696) AGAP (test code = 2-16 2772209893) BUN (test code = 17 mg/dL 7-23 2048914062) GLUCOSE (test code = 80 mg/dL 70-110 7186302265) CREATININE (test code = 0.62 mg/dL 0.50-1.04 7530793785) TOTAL BILI (test code = 0.3 mg/dL 0.1-1.9 6657912124) CALCIUM (test code = 9.1 mg/dL 8.6-10.6 5929315067) T PROTEIN (test code = 6.7 g/dL 6.3-8.2 4011871158) ALBUMIN (test code = 3.5 g/dL 3.5-5.0 3096300316) ALK PHOS (test code = 76 U/L 34-122 1473856660) ALTv (test code = 13 U/L 5-35 1742-6) AST(SGOT) (test code = 33 U/L 13-40 6449730671) eGFR (test code = mL/min/1.73m2 3309116988) ZELALEM (test code = ZELALEM) Association of Glomerular Filtration Rate (GFR) and Staging of Kidney Disease* + --+ --+ ------+| GFR (mL/min/1.73 m2) ?| With Kidney Damage ?| ?Without Kidney Damage+ --------+ --------+ +| ?>90 ?| ?Stage one ?| ? Normal ?+ ---+ ---+ -------+| ?60-89 ?| ?Stage two ?| ? Decreased GFR ? + --+ --+ ------+| ?30-59 ?| ?Stage three ?| ? Stage three ? + --+ --+ ------+| ?15-29 ?| ?Stage four ? | ? Stage four ?+ ---+ ---+ -------+| ?<15 (or dialysis) ? ?| ?Stage five ? | ? Stage five ?+ ---+ ---+ -------+ *Each stage assumes the associated GFR level has been in effect for at least three months. ?Stages 1 to 5, with or without kidney disease, indicate chronic kidney disease. Notes: Determination of stages one and two (with eGFR >59mL/min/1.73 m2) requires estimation of kidney damage for at least three months as defined by structural or functional abnormalities of the kidney, manifested by either:Pathological abnormalities or Markers of kidney damage (including abnormalities in the composition of the blood or urine or abnormalities in imaging tests). Lab Interpretation Abnormal (test code = 09685-0) [facility]. METABOLIC PANEL ([id number])2021-08-28 18:55:44 Test Item Value Reference Range Interpretation Comments NA (test code = 130 mmol/L 135-145 L 2268773192) K (test code = 4.5 mmol/L 3.5-5.0 1010406651) CL (test code = 99 mmol/L 98-108 0083147293) CO2 TOTAL (test code = 28 mmol/L 23-31 4945341319) AGAP (test code = 2-16 9679548532) BUN (test code = 17 mg/dL 7-23 2765153445) GLUCOSE (test code = 80 mg/dL 70-110 8435821475) CREATININE (test code = 0.62 mg/dL 0.50-1.04 2346547141) TOTAL BILI (test code = 0.3 mg/dL 0.1-1.8 6273567716) CALCIUM (test code = 9.1 mg/dL 8.6-10.6 4898854331) T PROTEIN (test code = 6.7 g/dL 6.3-8.2 1093201194) ALBUMIN (test code = 3.5 g/dL 3.5-5.0 5925598446) ALK PHOS (test code = 76 U/L 34-122 2610027231) ALTv (test code = 13 U/L 5-35 2-6) AST(SGOT) (test code = 33 U/L 13-40 0801081194) eGFR (test code = mL/min/1.73m2 8811932495) ZELALEM (test code = ZELALEM) Association of Glomerular Filtration Rate (GFR) and Staging of Kidney Disease* + --+ --+ ------+| GFR (mL/min/1.73 m2) ?| With Kidney Damage ?| ?Without Kidney Damage+ --------+ --------+ +| ?>90 ?| ?Stage one ?| ? Normal ?+ ---+ ---+ -------+| ?60-89 ?| ?Stage two ?| ? Decreased GFR ? + --+ --+ ------+| ?30-59 ?| ?Stage three ?| ? Stage three ? + --+ --+ ------+| ?15-29 ?| ?Stage four ? | ? Stage four ?+ ---+ ---+ -------+| ?<15 (or dialysis) ? ?| ?Stage five ? | ? Stage five ?+ ---+ ---+ -------+ *Each stage assumes the associated GFR level has been in effect for at least three months. ?Stages 1 to 5, with or without kidney disease, indicate chronic kidney disease. Notes: Determination of stages one and two (with eGFR >59mL/min/1.73 m2) requires estimation of kidney damage for at least three months as defined by structural or functional abnormalities of the kidney, manifested by either:Pathological abnormalities or Markers of kidney damage (including abnormalities in the composition of the blood or urine or abnormalities in imaging tests). Lab Interpretation Abnormal (test code = 02062-7) [facility] WITH [id number] 18:39:22 Test Item Value Reference Range Interpretation Comments WBC (test code = See_Comment [Automated 6690-2) message] The sy stem which generated this result transmitted reference range : 4.30 - 11.10 10*3/?L. The reference range was not used to interpret this result as normal/abnormal . RBC (test code = See_Comment L [Automated 789-8) message] The sy stem which generated this result transmitted reference range : 3.93 - 5.25 10*6/?L. The reference range was not used to interpret this result as normal/abnormal . HGB (test code = 8.6 g/dL 11.6-15.0 L 718-7) HCT (test code = 28.3 % 35.7-45.2 L 4544-3) MCV (test code = 86.3 fL 80.6-95.5 787-2) MCH (test code = 26.2 pg 25.9-32.8 785-6) MCHC (test code = 30.4 g/dL 31.6-35.1 L 786-4) RDW-SD (test code = 48.5 fL 39.0-49.9 56934-1) RDW-CV (test code = 15.4 % 12.0-15.5 788-0) PLT (test code = See_Comment H [Automated 777-3) message] The sy stem which generated this result transmitted reference range : 166 - 358 10*3/ ?L. The reference r alison was not used to interpret this result as normal/abnormal . MPV (test code = 9.1 fL 9.5-12.9 L 96274-6) NRBC/100 WBC (test See_Comment [Automat ed code = 0165331362) message] The system which generated this result transmitted reference range : 0.0 - 10.0 /100 WBCs. The refer ence range was not u sed to interpret th is result as normal/abnormal . NRBC x10^3 (test code <0.01 See_Comment [Auto mated = 3373173807) message] The s ystem which generated this result transmitted reference range : 10*3/?L. The reference range was not used to interpret this result as normal/abnormal . GRAN MAT (NEUT) % 61.6 % (test code = 770-8) IMM GRAN % (test code 1.10 % = 9926089535) LYMPH % (test code = 20.8 % 736-9) MONO % (test code = 14.9 % 5905-5) EOS % (test code = 0.7 % 713-8) BASO % (test code = 0.9 % 706-2) GRAN MAT x10^3(ANC) 3.31 10*3/uL 1.88-7.09 (test code = 8094494232) IMM GRAN x10^3 (test 0.06 10*3/uL 0.00-0.06 code = 9748532389) LYMPH x10^3 (test code 1.12 10*3/uL 1.32-3.29 L = 731-0) MONO x10^3 (test code 0.80 10*3/uL 0.33-0.92 = 742-7) EOS x10^3 (test code = 0.04 10*3/uL 0.03-0.39 711-2) BASO x10^3 (test code 0.05 10*3/uL 0.01-0.07 = 704-7) Lab Interpretation Abnormal (test code = 90944-5) [facility] WITH [id number] 18:39:22 Test Item Value Reference Range Interpretation Comments WBC (test code = See_Comment [Automated 5390-2) message] The sy stem which generated this result transmitted reference range : 4.30 - 11.10 10*3/?L. The reference range was not used to interpret this result as normal/abnormal . RBC (test code = See_Comment L [Automated 959-8) message] The sy stem which generated this result transmitted reference range : 3.93 - 5.25 10*6/?L. The reference range was not used to interpret this result as normal/abnormal . HGB (test code = 8.6 g/dL 11.6-15.0 L 718-7) HCT (test code = 28.3 % 35.7-45.2 L 4544-3) MCV (test code = 86.3 fL 80.6-95.5 787-2) MCH (test code = 26.2 pg 25.9-32.8 785-6) MCHC (test code = 30.4 g/dL 31.6-35.1 L 786-4) RDW-SD (test code = 48.5 fL 39.0-49.9 35998-2) RDW-CV (test code = 15.4 % 12.0-15.5 788-0) PLT (test code = See_Comment H [Automated 777-3) message] The sy stem which generated this result transmitted reference range : 166 - 358 10*3/ ?L. The reference r alison was not used to interpret this result as normal/abnormal . MPV (test code = 9.1 fL 9.5-12.9 L 46472-3) NRBC/100 WBC (test See_Comment [Automat ed code = 1508742814) message] The system which generated this result transmitted reference range : 0.0 - 10.0 /100 WBCs. The refer ence range was not u sed to interpret th is result as normal/abnormal . NRBC x10^3 (test code <0.01 See_Comment [Auto mated = 0413100950) message] The s ystem which generated this result transmitted reference range : 10*3/?L. The reference range was not used to interpret this result as normal/abnormal . GRAN MAT (NEUT) % 61.6 % (test code = 770-8) IMM GRAN % (test code 1.10 % = 8553865652) LYMPH % (test code = 20.8 % 736-9) MONO % (test code = 14.9 % 5905-5) EOS % (test code = 0.7 % 713-8) BASO % (test code = 0.9 % 706-2) GRAN MAT x10^3(ANC) 3.31 10*3/uL 1.88-7.09 (test code = 5529212162) IMM GRAN x10^3 (test 0.06 10*3/uL 0.00-0.06 code = 5310814784) LYMPH x10^3 (test code 1.12 10*3/uL 1.32-3.29 L = 731-0) MONO x10^3 (test code 0.80 10*3/uL 0.33-0.92 = 742-7) EOS x10^3 (test code = 0.04 10*3/uL 0.03-0.39 711-2) BASO x10^3 (test code 0.05 10*3/uL 0.01-0.07 = 704-7) Lab Interpretation Abnormal (test code = 31081-3) [id number] 10:32:35 Test Item Value Reference Range Interpretation Comments NT-proBNP (test code 4750 pg/mL See_Comment H [Autom ated = 4719015633) message] The system which generated this result transmitted reference range : <=450. The reference range was not used to interpret this result as normal/abnormal . ZELALEM (test code = ZELALEM) Biotin has been reported to cause a negative bias, interpret results relative to patient's use of biotin. Lab Interpretation Abnormal (test code = 55320-5) [facility] (NA, K, CL, CO2, GLUCOSE, BUN, CREATININE, CA)2021-07-27 10:24:12 Test Item Value Reference Range Interpretation Comments NA (test code = 128 mmol/L 135-145 L 0659516457) K (test code = 4.8 mmol/L 3.5-5.0 9829277264) CL (test code = 100 mmol/L 98-108 1408521243) CO2 TOTAL (test code = 27 mmol/L 23-31 0257197942) AGAP (test code = 2-16 L 9681703204) BUN (test code = 41 mg/dL 7-23 H 4423627060) GLUCOSE (test code = 107 mg/dL 70-110 5422208374) CREATININE (test code = 0.95 mg/dL 0.50-1.04 3598068311) CALCIUM (test code = 9.3 mg/dL 8.6-10.6 2287132566) eGFR (test code = mL/min/1.73m2 4205090278) ZELALEM (test code = ZELALEM) Association of Glomerular Filtration Rate (GFR) and Staging of Kidney Disease* + --+ --+ ------+| GFR (mL/min/1.73 m2) ?| With Kidney Damage ?| ?Without Kidney Damage+ --------+ --------+ +| ?>90 ?| ?Stage one ?| ? Normal ?+ ---+ ---+ -------+| ?60-89 ?| ?Stage two ?| ? Decreased GFR ? + --+ --+ ------+| ?30-59 ?| ?Stage three ?| ? Stage three ? + --+ --+ ------+| ?15-29 ?| ?Stage four ? | ? Stage four ?+ ---+ ---+ -------+| ?<15 (or dialysis) ? ?| ?Stage five ? | ? Stage five ?+ ---+ ---+ -------+ *Each stage assumes the associated GFR level has been in effect for at least three months. ?Stages 1 to 5, with or without kidney disease, indicate chronic kidney disease. Notes: Determination of stages one and two (with eGFR >59mL/min/1.73 m2) requires estimation of kidney damage for at least three months as defined by structural or functional abnormalities of the kidney, manifested by either:Pathological abnormalities or Markers of kidney damage (including abnormalities in the composition of the blood or urine or abnormalities in imaging tests). Lab Interpretation Abnormal (test code = 65838-1) [facility] WITH [id number] 10:16:49 Test Item Value Reference Range Interpretation Comments WBC (test code = See_Comment [Automated 2778-2) message] The sy stem which generated this result transmitted reference range : 4.30 - 11.10 10*3/?L. The reference range was not used to interpret this result as normal/abnormal . RBC (test code = See_Comment L [Automated 042-4) message] The sy stem which generated this result transmitted reference range : 3.93 - 5.25 10*6/?L. The reference range was not used to interpret this result as normal/abnormal . HGB (test code = 10.6 g/dL 11.6-15.0 L 718-7) HCT (test code = 32.7 % 35.7-45.2 L 4544-3) MCV (test code = 86.1 fL 80.6-95.5 787-2) MCH (test code = 27.9 pg 25.9-32.8 785-6) MCHC (test code = 32.4 g/dL 31.6-35.1 786-4) RDW-SD (test code = 45.7 fL 39.0-49.9 66005-3) RDW-CV (test code = 14.6 % 12.0-15.5 788-0) PLT (test code = See_Comment H [Automated 777-3) message] The sy stem which generated this result transmitted reference range : 166 - 358 10*3/ ?L. The reference r alison was not used to interpret this result as normal/abnormal . MPV (test code = 9.2 fL 9.5-12.9 L 27296-7) NRBC/100 WBC (test See_Comment [Automat ed code = 3444333994) message] The system which generated this result transmitted reference range : 0.0 - 10.0 /100 WBCs. The refer ence range was not u sed to interpret th is result as normal/abnormal . NRBC x10^3 (test code <0.01 See_Comment [Auto mated = 8242979332) message] The s ystem which generated this result transmitted reference range : 10*3/?L. The reference range was not used to interpret this result as normal/abnormal . GRAN MAT (NEUT) % 80.2 % (test code = 770-8) IMM GRAN % (test code 0.70 % = 3031195750) LYMPH % (test code = 7.9 % 736-9) MONO % (test code = 11.1 % 5905-5) EOS % (test code = 0.0 % 713-8) BASO % (test code = 0.1 % 706-2) GRAN MAT x10^3(ANC) 6.64 10*3/uL 1.88-7.09 (test code = 9952797878) IMM GRAN x10^3 (test 0.06 10*3/uL 0.00-0.06 code = 8545452543) LYMPH x10^3 (test code 0.65 10*3/uL 1.32-3.29 L = 731-0) MONO x10^3 (test code 0.92 10*3/uL 0.33-0.92 = 742-7) EOS x10^3 (test code = <0.03 0.03-0.39 L 711-2) BASO x10^3 (test code <0.03 0.01-0.07 = 704-7) Lab Interpretation Abnormal (test code = 20409-4) [facility] METABOLIC PANEL (NA, K, CL, CO2, GLUCOSE, BUN, CREATININE, CA)2021-07-26 12:08:31 Test Item Value Reference Range Interpretation Comments NA (test code = 130 mmol/L 135-145 L 8975864931) K (test code = 4.2 mmol/L 3.5-5.0 4050774147) CL (test code = 99 mmol/L 98-108 6254790270) CO2 TOTAL (test code = 28 mmol/L 23-31 1632143181) AGAP (test code = 2-16 3005205737) BUN (test code = 36 mg/dL 7-23 H 1399476706) GLUCOSE (test code = 98 mg/dL 70-110 8932158803) CREATININE (test code = 0.96 mg/dL 0.50-1.04 6643600510) CALCIUM (test code = 9.4 mg/dL 8.6-10.6 0799830320) eGFR (test code = mL/min/1.73m2 2111411272) ZELALEM (test code = ZELALEM) Association of Glomerular Filtration Rate (GFR) and Staging of Kidney Disease* + --+ --+ ------+| GFR (mL/min/1.73 m2) ?| With Kidney Damage ?| ?Without Kidney Damage+ --------+ --------+ +| ?>90 ?| ?Stage one ?| ? Normal ?+ ---+ ---+ -------+| ?60-89 ?| ?Stage two ?| ? Decreased GFR ? + --+ --+ ------+| ?30-59 ?| ?Stage three ?| ? Stage three ? + --+ --+ ------+| ?15-29 ?| ?Stage four ? | ? Stage four ?+ ---+ ---+ -------+| ?<15 (or dialysis) ? ?| ?Stage five ? | ? Stage five ?+ ---+ ---+ -------+ *Each stage assumes the associated GFR level has been in effect for at least three months. ?Stages 1 to 5, with or without kidney disease, indicate chronic kidney disease. Notes: Determination of stages one and two (with eGFR >59mL/min/1.73 m2) requires estimation of kidney damage for at least three months as defined by structural or functional abnormalities of the kidney, manifested by either:Pathological abnormalities or Markers of kidney damage (including abnormalities in the composition of the blood or urine or abnormalities in imaging tests). Lab Interpretation Abnormal (test code = 42054-3) [id number] 11:37:30 Test Item Value Reference Range Interpretation Comments NT-proBNP (test code 6010 pg/mL See_Comment H [Autom ated = 3040919230) message] The system which generated this result transmitted reference range : <=450. The reference range was not used to interpret this result as normal/abnormal . ZELALEM (test code = ZELALEM) Biotin has been reported to cause a negative bias, interpret results relative to patient's use of biotin. Lab Interpretation Abnormal (test code = 09956-6) [facility]-TERMIN[facility] [id number] 04:47:30 Test Item Value Reference Range Interpretation Comments NT-proBNP (test code 6150 pg/mL See_Comment H [Autom ated = 0652538376) message] The system which generated this result transmitted reference range : <=450. The reference range was not used to interpret this result as normal/abnormal . ZELALEM (test code = ZELALEM) Biotin has been reported to cause a negative bias, interpret results relative to patient's use of biotin. Lab Interpretation Abnormal (test code = 64914-0) [facility]-TERMINAL [id number] 16:33:32 Test Item Value Reference Range Interpretation Comments NT-proBNP (test code 5570 pg/mL See_Comment H [Autom ated = 6412983665) message] The system which generated this result transmitted reference range : <=450. The reference range was not used to interpret this result as normal/abnormal . ZELALEM (test code = ZELALEM) Biotin has been reported to cause a negative bias, interpret results relative to patient's use of biotin. Lab Interpretation Abnormal (test code = 36142-1) [facility] WITH [id number] 14:39:19 Test Item Value Reference Range Interpretation Comments WBC (test code = See_Comment [Automated 6690-2) message] The sy stem which generated this result transmitted reference range : 4.30 - 11.10 10*3/?L. The reference range was not used to interpret this result as normal/abnormal . RBC (test code = See_Comment L [Automated 789-8) message] The sy stem which generated this result transmitted reference range : 3.93 - 5.25 10*6/?L. The reference range was not used to interpret this result as normal/abnormal . HGB (test code = 9.7 g/dL 11.6-15.0 L 718-7) HCT (test code = 30.3 % 35.7-45.2 L 4544-3) MCV (test code = 87.8 fL 80.6-95.5 787-2) MCH (test code = 28.1 pg 25.9-32.8 785-6) MCHC (test code = 32.0 g/dL 31.6-35.1 786-4) RDW-SD (test code = 46.6 fL 39.0-49.9 76806-1) RDW-CV (test code = 14.6 % 12.0-15.5 788-0) PLT (test code = See_Comment [Automated 777-3) message] The sy stem which generated this result transmitted reference range : 166 - 358 10*3/ ?L. The reference r alison was not used to interpret this result as normal/abnormal . MPV (test code = 10.6 fL 9.5-12.9 52192-1) NRBC/100 WBC (test See_Comment [Automat ed code = 5926376526) message] The system which generated this result transmitted reference range : 0.0 - 10.0 /100 WBCs. The refer ence range was not u sed to interpret th is result as normal/abnormal . NRBC x10^3 (test code <0.01 See_Comment [Auto mated = 9254421415) message] The s ystem which generated this result transmitted reference range : 10*3/?L. The reference range was not used to interpret this result as normal/abnormal . GRAN MAT (NEUT) % 87.9 % (test code = 770-8) IMM GRAN % (test code 0.50 % = 5056553294) LYMPH % (test code = 4.4 % 736-9) MONO % (test code = 6.9 % 5905-5) EOS % (test code = 0.2 % 713-8) BASO % (test code = 0.1 % 706-2) GRAN MAT x10^3(ANC) 9.53 10*3/uL 1.88-7.09 H (test code = 2386727363) IMM GRAN x10^3 (test 0.05 10*3/uL 0.00-0.06 code = 5554766125) LYMPH x10^3 (test code 0.48 10*3/uL 1.32-3.29 L = 731-0) MONO x10^3 (test code 0.75 10*3/uL 0.33-0.92 = 742-7) EOS x10^3 (test code = <0.03 0.03-0.39 L 711-2) BASO x10^3 (test code <0.03 0.01-0.07 = 704-7) ALANA CELLS (test code 2+ See_Comment A [Auto mated = 8808-3) message] The sy stem which generated this result transmitted reference range : (none). The reference range was not used to interpret this result as normal/abnormal . PLT ESTIMATE (test Normal Normal code = 9317-9) Lab Interpretation Abnormal (test code = 83920-8) [facility] METABOLIC PANEL (NA, K, CL, CO2, GLUCOSE, BUN, CREATININE, CA)2021-07-25 13:30:35 Test Item Value Reference Range Interpretation Comments NA (test code = 126 mmol/L 135-145 L 4928101778) K (test code = 4.3 mmol/L 3.5-5.0 1090422571) CL (test code = 100 mmol/L 98-108 5866519251) CO2 TOTAL (test code = 25 mmol/L 23-31 0495955284) AGAP (test code = 2-16 L 5929941663) BUN (test code = 32 mg/dL 7-23 H 7248053726) GLUCOSE (test code = 108 mg/dL 70-110 7343786631) CREATININE (test code = 0.72 mg/dL 0.50-1.04 8779271327) CALCIUM (test code = 9.2 mg/dL 8.6-10.6 8335129289) eGFR (test code = mL/min/1.73m2 1512501083) ZELALEM (test code = ZELALEM) Association of Glomerular Filtration Rate (GFR) and Staging of Kidney Disease* + --+ --+ ------+| GFR (mL/min/1.73 m2) ?| With Kidney Damage ?| ?Without Kidney Damage+ --------+ --------+ +| ?>90 ?| ?Stage one ?| ? Normal ?+ ---+ ---+ -------+| ?60-89 ?| ?Stage two ?| ? Decreased GFR ? + --+ --+ ------+| ?30-59 ?| ?Stage three ?| ? Stage three ? + --+ --+ ------+| ?15-29 ?| ?Stage four ? | ? Stage four ?+ ---+ ---+ -------+| ?<15 (or dialysis) ? ?| ?Stage five ? | ? Stage five ?+ ---+ ---+ -------+ *Each stage assumes the associated GFR level has been in effect for at least three months. ?Stages 1 to 5, with or without kidney disease, indicate chronic kidney disease. Notes: Determination of stages one and two (with eGFR >59mL/min/1.73 m2) requires estimation of kidney damage for at least three months as defined by structural or functional abnormalities of the kidney, manifested by either:Pathological abnormalities or Markers of kidney damage (including abnormalities in the composition of the blood or urine or abnormalities in imaging tests). Lab Interpretation Abnormal (test code = 27426-0) [id number] 01:34:51 Test Item Value Reference Range Interpretation Comments SPUTUM CULTURE (test Specimen cellular code = 622-1) elements do not represent lower respiratory tract. Specimen rejected for routine bacterial culture. Suggest reorder and recollection. Gram stain (test code Moderate Epithelial = 664-3) cells [facility]20[facility] 22:57:32 Test Item Value Reference Range Interpretation Comments EF(Teich) (test code = 60.10 % 9592209188) LVIDD (test code = 2.80 cm 5874991806) LVIDS (test code = 1.93 cm 4168602327) LVPWD (test code = 1.35 cm 5295191449) LVOT diameter (test code 1.90 cm = 0139742262) FS (test code = 31 % 3596389065) LA size (test code = 3.9 cm 3233754192) Ao root annulus (test 3.3 cm code = 9941493038) Ao root diam (test code = 3.30 cm 9873015997) Aortic root (test code = 3.3 cm 4486639008) PW (test code = 1.35 cm 0.6-1.3 3545947002) EF - 2D (test code = 60.10 % 88420894) IVS (test code = 1.35 cm 3760479706) Interventricular Septum 1.35 cm Diastolic Thickness by 2D (test code = 1585801) TR Peak Blaine (test code = 241.5 cm/s 6267732010) Triscuspid Valve mmHg Regurgitation Peak Gradient (test code = 1839139565) LAV(MOD-sp4) (test code = 47.10 mL 6563183362) MV Peak E Blaine (test code 135.4 cm/s = 7688043709) E wave decelartion time 0.17 s (test code = 5905086416) MV stenosis pressure 1/2 47.2 ms time (test code = 2577720580) MV Peak A Blaine (test code 71.1 cm/s = 9777927398) E/A ratio (test code = ratio 7947690668) MV Prop V (test code = 84.80 cm/s 0815965776) MV E/e' septal (test code 9.1 cm/s = 3880851684) Tapse (test code = 0.96 cm 7572969844) LVOT stroke volume (test 68.60 cm3 code = 2217229324) LVOT peak blaine (test code 182.5 cm/s = 8447735981) LVOT mn grad (test code = mmHg 2389946384) AV LVOT peak gradient mmHg (test code = 4218112200) LVOT peak VTI (test code 24.2 cm = 0366858599) LV V1 mean (test code = 140.80 cm/s 0804588554) Aortic valve mean 156.8 cm/s velocity (test code = 9279897808) Ao peak blaine (test code = 244.3 cm/s 1067808861) Ao VTI (test code = 32.3 cm 0666657794) AV area by cont VTI (test 2.1 cm2 code = 3348183766) AV area peak blaine (test 2.1 cm2 code = 8604308156) Ao max PG (test code = 23.90 mm[Hg] 5371668241) AV peak gradient (test mmHg code = 5809333908) AV valve area (test code 2.12 cm2 = 2938702291) AV mean gradient (test mmHg code = 6244124741) LA Volume Index (BP) 28.8 mL/m2 (test code = 6920882542) LA volume (BP) (test code 42.8 mL = 9669222927) LAV(MOD-sp2) (test code = 27.80 mL 9973717299) Radiology Study observation (narrative) (test code = 60089-1) ZELALEM (test code = ZELALEM) ?Left ventricle is normal in size and function. Mildly increased wall thickness. ?Right ventricular systolic pressure is normal. VitalsHeight Weight BSA (Calculated - sq m) BP Pulse 5' 5" (1.651 m) 102 lb (46.3 kg) 1.46 sq meters 127/75 102 [facility] METABOLIC PANEL (NA, K, CL, CO2, GLUCOSE, BUN, CREATININE, CA)2021-07-24 19:02:42 Test Item Value Reference Range Interpretation Comments NA (test code = 127 mmol/L 135-145 L 5136401399) K (test code = 4.5 mmol/L 3.5-5.0 4298736547) CL (test code = 100 mmol/L 98-108 0512377653) CO2 TOTAL (test code = 24 mmol/L 23-31 5595910102) AGAP (test code = 2-16 5558775499) BUN (test code = 34 mg/dL 7-23 H 6807038619) GLUCOSE (test code = 132 mg/dL 70-110 H 3807476293) CREATININE (test code = 0.78 mg/dL 0.50-1.04 3152904537) CALCIUM (test code = 9.1 mg/dL 8.6-10.6 5154465616) eGFR (test code = mL/min/1.73m2 6403101573) ZELALEM (test code = ZELALEM) Association of Glomerular Filtration Rate (GFR) and Staging of Kidney Disease* + --+ --+ ------+| GFR (mL/min/1.73 m2) ?| With Kidney Damage ?| ?Without Kidney Damage+ --------+ --------+ +| ?>90 ?| ?Stage one ?| ? Normal ?+ ---+ ---+ -------+| ?60-89 ?| ?Stage two ?| ? Decreased GFR ? + --+ --+ ------+| ?30-59 ?| ?Stage three ?| ? Stage three ? + --+ --+ ------+| ?15-29 ?| ?Stage four ? | ? Stage four ?+ ---+ ---+ -------+| ?<15 (or dialysis) ? ?| ?Stage five ? | ? Stage five ?+ ---+ ---+ -------+ *Each stage assumes the associated GFR level has been in effect for at least three months. ?Stages 1 to 5, with or without kidney disease, indicate chronic kidney disease. Notes: Determination of stages one and two (with eGFR >59mL/min/1.73 m2) requires estimation of kidney damage for at least three months as defined by structural or functional abnormalities of the kidney, manifested by either:Pathological abnormalities or Markers of kidney damage (including abnormalities in the composition of the blood or urine or abnormalities in imaging tests). Lab Interpretation Abnormal (test code = 48452-2) [facility] [id number] 10:39:11 Test Item Value Reference Interpretation Comments Range TROPONIN I (test 0.033 ng/mL See_Comment [Automated code = 9498029392) message] The system which generated this result transmitted reference range : <=0.034. The reference range was not used to interpret this result as normal/abnormal . ZELALEM (test code = Reference (Normal) ZELALEM) Range (defined by the 99th percentile reference limit): <= 0.034 ng/mL Note: Cardiac troponin begins to rise 3-4 hours after the onset of ischemia. Repeat in 4-6 hours if the sample was drawn within 3-4 hours of the onset of the symptom and found normal. Diagnosis of myocardial injury is made with acute changes in cTn concentrations with at least one serial sample above the 99th percentile upper reference limit (URL), taken together with the patient's clinical presentation. Biotin has been reported to cause a negative bias, interpret results relative to patient's use of biotin. Lab Interpretation Normal (test code = 73149-1) [facility] (Total Cholesterol, Triglycerides, HDL)2021-07-24 10:28:48 Test Item Value Reference Range Interpretation Comments CHOL (test code = 144 mg/dL 120-200 3658958152) HDL (test code = 28 mg/dL >50 L 1786082399) HDLC RATIO (test code = See_Comment H [Au tomated message] 0885615149) The system [employer] generated this result transmit dallin reference range : <=4.5. The refe rence range was not u sed to interpret th is result as normal/abnormal . TRIG (test code = 62 mg/dL 30-170 5753458704) LDL CHOL (test code = 104 mg/dL See_Comment [Auto mated message] 07528-1) The system [employer] generated this result transmit dallin reference range : <=160. The refe rence range was not u sed to interpret th is result as normal/abnormal . VLDL (test code = 12 mg/dL 5-60 3670071677) Lab Interpretation (test Abnormal code = 03112-0) [facility] (NA, K, CL, CO2, GLUCOSE, BUN, CREATININE, CA)2021-07-24 10:28:28 Test Item Value Reference Range Interpretation Comments NA (test code = 128 mmol/L 135-145 L 0937659719) K (test code = 4.5 mmol/L 3.5-5.0 1992042664) CL (test code = 98 mmol/L 98-108 3051266295) CO2 TOTAL (test code = 29 mmol/L 23-31 0122695495) AGAP (test code = 2-16 L 9784494122) BUN (test code = 28 mg/dL 7-23 H 2550933698) GLUCOSE (test code = 167 mg/dL 70-110 H 2307933352) CREATININE (test code = 0.85 mg/dL 0.50-1.04 8302637735) CALCIUM (test code = 9.1 mg/dL 8.6-10.6 1878224391) eGFR (test code = mL/min/1.73m2 5789140741) ZELALEM (test code = ZELALEM) Association of Glomerular Filtration Rate (GFR) and Staging of Kidney Disease* + --+ --+ ------+| GFR (mL/min/1.73 m2) ?| With Kidney Damage ?| ?Without Kidney Damage+ --------+ --------+ +| ?>90 ?| ?Stage one ?| ? Normal ?+ ---+ ---+ -------+| ?60-89 ?| ?Stage two ?| ? Decreased GFR ? + --+ --+ ------+| ?30-59 ?| ?Stage three ?| ? Stage three ? + --+ --+ ------+| ?15-29 ?| ?Stage four ? | ? Stage four ?+ ---+ ---+ -------+| ?<15 (or dialysis) ? ?| ?Stage five ? | ? Stage five ?+ ---+ ---+ -------+ *Each stage assumes the associated GFR level has been in effect for at least three months. ?Stages 1 to 5, with or without kidney disease, indicate chronic kidney disease. Notes: Determination of stages one and two (with eGFR >59mL/min/1.73 m2) requires estimation of kidney damage for at least three months as defined by structural or functional abnormalities of the kidney, manifested by either:Pathological abnormalities or Markers of kidney damage (including abnormalities in the composition of the blood or urine or abnormalities in imaging tests). Lab Interpretation Abnormal (test code = 15230-5) [facility] [id number] 10:28:28 Test Item Value Reference Range Interpretation Comments MAGNESIUM (test code = 5456941958) 2.0 mg/dL 1.7-2.4 Lab Interpretation (test code = Normal 70148-1) [facility] with [id number] 10:22:10 Test Item Value Reference Range Interpretation Comments WBC (test code = See_Comment H [Automated 6690-2) message] The system which generated this result transmit dallin reference range : 4.30 - 11.10 10*3/?L. The reference range was not used to interpret this result as normal/abnormal . RBC (test code = See_Comment L [Automated 789-8) message] The system which generated this result transmit dallin reference range : 3.93 - 5.25 10*6/?L. The reference range was not used to interpret this result as normal/abnormal . HGB (test code = 10.9 g/dL 11.6-15.0 L 718-7) HCT (test code = 32.6 % 35.7-45.2 L 4544-3) MCV (test code = 86.0 fL 80.6-95.5 787-2) MCH (test code = 28.8 pg 25.9-32.8 785-6) MCHC (test code = 33.4 g/dL 31.6-35.1 786-4) RDW-SD (test code = 44.9 fL 39.0-49.9 92136-9) RDW-CV (test code = 14.4 % 12.0-15.5 788-0) PLT (test code = See_Comment [Automated 777-3) message] The system which generated this result transmit dallin reference range : 166 - 358 10*3/ ?L. The reference range was not u sed to interpret th is result as normal/abnormal . MPV (test code = 9.3 fL 9.5-12.9 L 33310-2) NRBC/100 WBC (test See_Comment [Automat ed code = 6964133626) message] The system which generated this result transmit dallin reference range : 0.0 - 10.0 /100 WBCs. The reference range was not used to interpret this result as normal/abnormal . NRBC x10^3 (test code <0.01 See_Comment [Auto mated = 5712770005) message] The system which generated this result transmit dallin reference range : 10*3/?L. The reference range was not used to interpret this result as normal/abnormal . GRAN MAT (NEUT) % 94.6 % (test code = 770-8) IMM GRAN % (test code 1.20 % = 1595312982) LYMPH % (test code = 2.2 % 736-9) MONO % (test code = 1.8 % 5905-5) EOS % (test code = 0.0 % 713-8) BASO % (test code = 0.2 % 706-2) GRAN MAT x10^3(ANC) 11.64 10*3/uL 1.88-7.09 H (test code = 2342707718) IMM GRAN x10^3 (test 0.15 10*3/uL 0.00-0.06 H code = 6313411191) LYMPH x10^3 (test code 0.27 10*3/uL 1.32-3.29 L = 731-0) MONO x10^3 (test code 0.22 10*3/uL 0.33-0.92 L = 742-7) EOS x10^3 (test code = <0.03 0.03-0.39 L 711-2) BASO x10^3 (test code <0.03 0.01-0.07 = 704-7) Lab Interpretation Abnormal (test code = 84225-0) [facility] [id number] 04:07:44 Test Item Value Reference Interpretation Comments Range TROPONIN I (test 0.016 ng/mL See_Comment [Automated code = 1556111447) message] The system which generated this result transmitted reference range : <=0.034. The reference range was not used to interpret this result as normal/abnormal . ZELALEM (test code = Reference (Normal) ZELALEM) Range (defined by the 99th percentile reference limit): <= 0.034 ng/mL Note: Cardiac troponin begins to rise 3-4 hours after the onset of ischemia. Repeat in 4-6 hours if the sample was drawn within 3-4 hours of the onset of the symptom and found normal. Diagnosis of myocardial injury is made with acute changes in cTn concentrations with at least one serial sample above the 99th percentile upper reference limit (URL), taken together with the patient's clinical presentation. Biotin has been reported to cause a negative bias, interpret results relative to patient's use of biotin. Lab Interpretation Normal (test code = 63453-4) [facility] Brook[facility]yroid Stimulating Hormone (TSH)2021-07-23 22:55:09 Test Item Value Reference Range Interpretation Comments TSH (test code = See_Comment [Automated message] 4926591988) The system [employer] generated this result transmitted ref erence range: 0.45 - 4 .70 mIU/L. The refe rence range was not u sed to interpret this result as normal/abnor mal. Lab Interpretation (test Normal code = 72057-3) [facility]cosylated Hemoglobin (A1C)2021-07-23 21:46:28 Test Item Value Reference Range Interpretation Comments HGB A1C (test code = 5.3 % 4.0-5.7 4548-4) ZELALEM (test code = ZELALEM) Reference RangesNormal: <5.7%Prediabetes: 5.7 - 6.4%Diabetes: > 6.5% Lab Interpretation (test Normal code = 74750-3) [facility]TR[facility] [id number] 19:16:56 Test Item Value Reference Interpretation Comments Range TROPONIN I (test 0.052 ng/mL See_Comment H [Automated code = 0541877044) message] The system which generated this result transmitted reference range : <=0.034. The reference range was not used to interpret this result as normal/abnormal . ZELALEM (test code = Reference (Normal) ZELALEM) Range (defined by the 99th percentile reference limit): <= 0.034 ng/mL Note: Cardiac troponin begins to rise 3-4 hours after the onset of ischemia. Repeat in 4-6 hours if the sample was drawn within 3-4 hours of the onset of the symptom and found normal. Diagnosis of myocardial injury is made with acute changes in cTn concentrations with at least one serial sample above the 99th percentile upper reference limit (URL), taken together with the patient's clinical presentation. Biotin has been reported to cause a negative bias, interpret results relative to patient's use of biotin. Lab Interpretation Abnormal (test code = 15705-9) [facility] [id number] 19:13:54 Test Item Value Reference Range Interpretation Comments NT-proBNP (test code 2870 pg/mL See_Comment H [Autom ated = 2333606101) message] The system which generated this result transmitted reference range : <=450. The reference range was not used to interpret this result as normal/abnormal . ZELALEM (test code = ZELALEM) Biotin has been reported to cause a negative bias, interpret results relative to patient's use of biotin. Lab Interpretation Abnormal (test code = 02676-7) [facility] WITH [id number] 19:13:04 Test Item Value Reference Range Interpretation Comments WBC (test code = See_Comment H [Automated 6690-2) message] The system which generated this result transmit dallin reference range : 4.30 - 11.10 10*3/?L. The reference range was not used to interpret this result as normal/abnormal . RBC (test code = See_Comment L [Automated 789-8) message] The system which generated this result transmit dallin reference range : 3.93 - 5.25 10*6/?L. The reference range was not used to interpret this result as normal/abnormal . HGB (test code = 10.9 g/dL 11.6-15.0 L 718-7) HCT (test code = 32.9 % 35.7-45.2 L 4544-3) MCV (test code = 87.5 fL 80.6-95.5 787-2) MCH (test code = 29.0 pg 25.9-32.8 785-6) MCHC (test code = 33.1 g/dL 31.6-35.1 786-4) RDW-SD (test code = 45.0 fL 39.0-49.9 12639-0) RDW-CV (test code = 14.2 % 12.0-15.5 788-0) PLT (test code = See_Comment [Automated 777-3) message] The system which generated this result transmit dallin reference range : 166 - 358 10*3/ ?L. The reference range was not u sed to interpret th is result as normal/abnormal . MPV (test code = 9.0 fL 9.5-12.9 L 40514-1) NRBC/100 WBC (test See_Comment [Automat ed code = 2513482982) message] The system which generated this result transmit dallin reference range : 0.0 - 10.0 /100 WBCs. The reference range was not used to interpret this result as normal/abnormal . NRBC x10^3 (test code <0.01 See_Comment [Auto mated = 1681718104) message] The system which generated this result transmit dallin reference range : 10*3/?L. The reference range was not used to interpret this result as normal/abnormal . GRAN MAT (NEUT) % 88.6 % (test code = 770-8) IMM GRAN % (test code 1.20 % = 7733663558) LYMPH % (test code = 2.2 % 736-9) MONO % (test code = 7.8 % 5905-5) EOS % (test code = 0.0 % 713-8) BASO % (test code = 0.2 % 706-2) GRAN MAT x10^3(ANC) 15.90 10*3/uL 1.88-7.09 H (test code = 4168606428) IMM GRAN x10^3 (test 0.22 10*3/uL 0.00-0.06 H code = 9522141171) LYMPH x10^3 (test code 0.39 10*3/uL 1.32-3.29 L = 731-0) MONO x10^3 (test code 1.39 10*3/uL 0.33-0.92 H = 742-7) EOS x10^3 (test code = <0.03 0.03-0.39 L 711-2) BASO x10^3 (test code 0.03 10*3/uL 0.01-0.07 = 704-7) TOXIC CHANGES (test Present A code = 803-7) Lab Interpretation Abnormal (test code = 05740-9) [facility] Test Item Value Reference Range Interpretation Comments MAGNESIUM (test code = 2886220062) 1.6 mg/dL 1.7-2.4 L Lab Interpretation (test code = Abnormal 17292-8) [facility] METABOLIC PAN[facility] ([id number])2021-07-23 19:05:17 Test Item Value Reference Range Interpretation Comments NA (test code = 125 mmol/L 135-145 L 6317554882) K (test code = 4.4 mmol/L 3.5-5.0 7012413773) CL (test code = 97 mmol/L 98-108 L 0871980529) CO2 TOTAL (test code = 27 mmol/L 23-31 1887581269) AGAP (test code = 2-16 L 5070065863) BUN (test code = 17 mg/dL 7-23 3511621112) GLUCOSE (test code = 102 mg/dL 70-110 1801655333) CREATININE (test code = 0.59 mg/dL 0.50-1.04 8558359070) TOTAL BILI (test code = 0.5 mg/dL 0.1-1.9 0746872322) CALCIUM (test code = 9.2 mg/dL 8.6-10.6 1073955712) T PROTEIN (test code = 6.8 g/dL 6.3-8.2 3368414018) ALBUMIN (test code = 3.2 g/dL 3.5-5.0 L 8916532596) ALK PHOS (test code = 90 U/L 34-122 4713792152) ALTv (test code = 23 U/L 5-35 1742-6) AST(SGOT) (test code = 32 U/L 13-40 5202989740) eGFR (test code = mL/min/1.73m2 4444256801) ZELALEM (test code = ZELALEM) Association of Glomerular Filtration Rate (GFR) and Staging of Kidney Disease* + --+ --+ ------+| GFR (mL/min/1.73 m2) ?| With Kidney Damage ?| ?Without Kidney Damage+ --------+ --------+ +| ?>90 ?| ?Stage one ?| ? Normal ?+ ---+ ---+ -------+| ?60-89 ?| ?Stage two ?| ? Decreased GFR ? + --+ --+ ------+| ?30-59 ?| ?Stage three ?| ? Stage three ? + --+ --+ ------+| ?15-29 ?| ?Stage four ? | ? Stage four ?+ ---+ ---+ -------+| ?<15 (or dialysis) ? ?| ?Stage five ? | ? Stage five ?+ ---+ ---+ -------+ *Each stage assumes the associated GFR level has been in effect for at least three months. ?Stages 1 to 5, with or without kidney disease, indicate chronic kidney disease. Notes: Determination of stages one and two (with eGFR >59mL/min/1.73 m2) requires estimation of kidney damage for at least three months as defined by structural or functional abnormalities of the kidney, manifested by either:Pathological abnormalities or Markers of kidney damage (including abnormalities in the composition of the blood or urine or abnormalities in imaging tests). Lab Interpretation Abnormal (test code = 25881-1) [facility] [id number] 15:24:42 LEUKOCYTES IN NORMAL AMOUNT AND MORPHOLOGY. 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 PLATELETS ADEQUATE. [facility] BrookPOWI GLUCOSE (AUTOMATED)2020-12-14 13:50:23 Test Item Value Reference Range Interpretation Comments POCT GLU (test code = 8268513331) 94 mg/dL 70-110 Lab Interpretation (test code = Normal 67954-4) [facility]. METABOLIC PANEL ([id number])2020-12-14 11:02:10 Test Item Value Reference Range Interpretation Comments NA (test code = 129 mmol/L 135-145 L 1534576927) K (test code = 4.5 mmol/L 3.5-5.0 4914854564) CL (test code = 99 mmol/L 98-108 5823436332) CO2 TOTAL (test code = 26 mmol/L 23-31 2729223401) AGAP (test code = 2-16 9026399358) BUN (test code = 15 mg/dL 7-23 8532413756) GLUCOSE (test code = 91 mg/dL 70-110 7426587607) CREATININE (test code = 0.59 mg/dL 0.50-1.04 7924654385) TOTAL BILI (test code = 0.3 mg/dL 0.1-1.2 8575535311) CALCIUM (test code = 9.6 mg/dL 8.6-10.6 6765293947) T PROTEIN (test code = 6.3 g/dL 6.3-8.2 5755068631) ALBUMIN (test code = 2.9 g/dL 3.5-5.0 L 7909052963) ALK PHOS (test code = 147 U/L 34-122 H 3890352163) ALTv (test code = 52 U/L 5-35 H 2-6) AST(SGOT) (test code = 67 U/L 13-40 H 8985814368) eGFR (test code = mL/min/1.73m2 2982830607) ZELALEM (test code = ZELALEM) Association of Glomerular Filtration Rate (GFR) and Staging of Kidney Disease* + --+ --+ ------+| GFR (mL/min/1.73 m2) ?| With Kidney Damage ?| ?Without Kidney Damage+ --------+ --------+ +| ?>90 ?| ?Stage one ?| ? Normal ?+ ---+ ---+ -------+| ?60-89 ?| ?Stage two ?| ? Decreased GFR ? + --+ --+ ------+| ?30-59 ?| ?Stage three ?| ? Stage three ? + --+ --+ ------+| ?15-29 ?| ?Stage four ? | ? Stage four ?+ ---+ ---+ -------+| ?<15 (or dialysis) ? ?| ?Stage five ? | ? Stage five ?+ ---+ ---+ -------+ *Each stage assumes the associated GFR level has been in effect for at least three months. ?Stages 1 to 5, with or without kidney disease, indicate chronic kidney disease. Notes: Determination of stages one and two (with eGFR >59mL/min/1.73 m2) requires estimation of kidney damage for at least three months as defined by structural or functional abnormalities of the kidney, manifested by either:Pathological abnormalities or Markers of kidney damage (including abnormalities in the composition of the blood or urine or abnormalities in imaging tests). Lab Interpretation Abnormal (test code = 21507-3) [facility] WITH [id number] 10:21:48 Test Item Value Reference Range Interpretation Comments WBC (test code = See_Comment [Automated 6690-2) message] The sy stem which generated this result transmitted reference range : 4.30 - 11.10 10*3/?L. The reference range was not used to interpret this result as normal/abnormal . RBC (test code = See_Comment L [Automated 789-8) message] The sy stem which generated this result transmitted reference range : 3.93 - 5.25 10*6/?L. The reference range was not used to interpret this result as normal/abnormal . HGB (test code = 8.9 g/dL 11.6-15.0 L 718-7) HCT (test code = 27.9 % 35.7-45.2 L 4544-3) MCV (test code = 90.3 fL 80.6-95.5 787-2) MCH (test code = 28.8 pg 25.9-32.8 785-6) MCHC (test code = 31.9 g/dL 31.6-35.1 786-4) RDW-SD (test code = 53.4 fL 39.0-49.9 H 47270-7) RDW-CV (test code = 16.0 % 12.0-15.5 H 788-0) PLT (test code = See_Comment H [Automated 777-3) message] The sy stem which generated this result transmitted reference range : 166 - 358 10*3/ ?L. The reference r alison was not used to interpret this result as normal/abnormal . MPV (test code = 9.4 fL 9.5-12.9 L 26111-0) NRBC/100 WBC (test See_Comment [Automat ed code = 5501383434) message] The system which generated this result transmitted reference range : 0.0 - 10.0 /100 WBCs. The refer ence range was not u sed to interpret th is result as normal/abnormal . NRBC x10^3 (test code <0.01 See_Comment [Auto mated = 5339841734) message] The s ystem which generated this result transmitted reference range : 10*3/?L. The reference range was not used to interpret this result as normal/abnormal . GRAN MAT (NEUT) % 70.0 % (test code = 770-8) IMM GRAN % (test code 0.40 % = 2803635502) LYMPH % (test code = 13.0 % 736-9) MONO % (test code = 13.7 % 5905-5) EOS % (test code = 1.7 % 713-8) BASO % (test code = 1.2 % 706-2) GRAN MAT x10^3(ANC) 3.38 10*3/uL 1.88-7.09 (test code = 8279078999) IMM GRAN x10^3 (test <0.03 0.00-0.06 code = 9232113948) LYMPH x10^3 (test code 0.63 10*3/uL 1.32-3.29 L = 731-0) MONO x10^3 (test code 0.66 10*3/uL 0.33-0.92 = 742-7) EOS x10^3 (test code = 0.08 10*3/uL 0.03-0.39 711-2) BASO x10^3 (test code 0.06 10*3/uL 0.01-0.07 = 704-7) Lab Interpretation Abnormal (test code = 66422-7) [facility] ACID, URIC [id number] 00:16:31 Test Item Value Reference Range Interpretation Comments URIC AC U (test code = 0679794688) 27.7 mg/dL [facility] BrookOSMOLALITY [id number] 23:10:44 Test Item Value Reference Range Interpretation Comments OSMO U (test code = See_Comment [Automa dallin message] 9480611173) The system [employer] generated this result transmitted ref erence range: 50-1,100 mOsm/kg. The re ference range was not u sed to interpret this result as normal/abnor mal. Lab Interpretation (test Normal code = 35285-1) [facility] BrookOSMOLALITY, SERUM OR [id number] 23:10:29 Test Item Value Reference Range Interpretation Comments OSMOLALITY (test code = See_Comment L [Au tomated message] 3063811958) The system [employer] generated this result transmitted ref erence range: 278 - 30 5 mOsm/kg. The reference range was not used to int erpret this result as normal/abnormal . Lab Interpretation (test Abnormal code = 81843-9) [facility] BrookCREATININE, URINE [id number] 20:29:23 Test Item Value Reference Range Interpretation Comments CREAT U (test code = 0133868707) 37.2 mg/dL [facility] BrookTROPONIN [id number] 20:29:02 Test Item Value Reference Interpretation Comments Range TROPONIN I (test 0.001 ng/mL See_Comment [Automated code = 1002578981) message] The system which generated this result transmitted reference range : <=0.034. The reference range was not used to interpret this result as normal/abnormal . ZELALEM (test code = Reference (Normal) ZELALEM) Range (defined by the 99th percentile reference limit): <= 0.034 ng/mL Note: Cardiac troponin begins to rise 3-4 hours after the onset of ischemia. Repeat in 4-6 hours if the sample was drawn within 3-4 hours of the onset of the symptom and found normal. Diagnosis of myocardial injury is made with acute changes in cTn concentrations with at least one serial sample above the 99th percentile upper reference limit (URL), taken together with the patient's clinical presentation. Biotin has been reported to cause a negative bias, interpret results relative to patient's use of biotin. Lab Interpretation Normal (test code = 70826-6) [facility] BrookURINALYSIS2021-07-06 20:26:16 Test Item Value Reference Range Interpretation Comments APPEARANCE (test code = Clear Clear 6685559490) COLOR (test code = Yellow Yellow 5628400769) PH (test code = 4.8-8.0 3468571885) SP GRAVITY (test code = 1.003-1.030 2423741007) GLU U QUAL (test code = Normal Normal 0766568461) BLOOD (test code = 2+ Negative A 3632255594) KETONES (test code = Negative Negative 6848470738) PROTEIN (test code = Negative Negative 2887-8) UROBILIN (test code = Normal Normal 9512282535) BILIRUBIN (test code = Negative Negative 2754624731) NITRITE (test code = Negative Negative 9007956625) LEUK DARBY (test code = Negative Negative 4372251748) RBC/HPF (test code = See_Comment [Autom ated message] 9048508110) The system [employer] generated this result transmitted ref erence range: 0 - 3 HP F. The reference range was not used to int erpret this result as normal/abnormal . WBC/HPF (test code = See_Comment [Autom ated message] 8638447196) The system [employer] generated this result transmitted ref erence range: 0 - 5 HP F. The reference range was not used to int erpret this result as normal/abnormal . BACTERIA (test code = Few Negative A 7394229487) SQ EPITH (test code = HPF 4848483119) Lab Interpretation (test Abnormal code = 67158-6) [facility] BrookN-TERMINAL [id number] 20:25:40 Test Item Value Reference Range Interpretation Comments NT-proBNP (test code 535 pg/mL See_Comment H [Autom ated = 3742983420) message] The system which generated this result transmitted reference range : <=450. The reference range was not used to interpret this result as normal/abnormal . ZELALEM (test code = ZELALEM) Biotin has been reported to cause a negative bias, interpret results relative to patient's use of biotin. Lab Interpretation Abnormal (test code = 90684-7) [facility] BrookPOTASSIUM, URINE [id number] 20:25:20 Test Item Value Reference Range Interpretation Comments K URINE (test code = 8995149616) 16.4 mmol/L [facility] BrookSODIUM, URINE [id number] 20:25:20 Test Item Value Reference Range Interpretation Comments NA URINE (test code = 5596258755) 65 mmol/L [facility] BrookELECTROLYTES PANEL (36912)(NA, K, CL, CO2) 2020-12-13 20:21:10 Test Item Value Reference Range Interpretation Comments NA (test code = 3226978853) 129 mmol/L 135-145 L K (test code = 2740927817) 4.2 mmol/L 3.5-5.0 CL (test code = 3551713483) 98 mmol/L 98-108 CO2 TOTAL (test code = 3379608937) 26 mmol/L 23-31 AGAP (test code = 2022699436) 2-16 Lab Interpretation (test code = Abnormal 64563-6) [facility] BrookURIC [id number] 20:16:38 Test Item Value Reference Range Interpretation Comments URIC ACID (test code = 8734818969) 3.6 mg/dL 2.9-6.0 Lab Interpretation (test code = Normal 33755-7) [facility] BrookVITAMIN B12, [id number] 18:54:01 Test Item Value Reference Range Interpretation Comments VIT B12 (test code = 655 pg/mL 240-930 2751773624) ZELALEM (test code = ZELALEM) Biotin has been reported to cause a positive bias, interpret results relative to patient's use of biotin. Lab Interpretation (test Normal code = 15532-9) [facility] BrookCORTISOL [id number] 18:35:56 Test Item Value Reference Range Interpretation Comments INES AM (test code = 15.6 ug/dL 4.5-23.0 8480895595) ZELALEM (test code = ZELALEM) Biotin has been reported to cause a positive bias, interpret results relative to patient's use of biotin. Lab Interpretation (test Normal code = 82962-3) [facility] BrookFOLATE2021-07-06 16:31:34 Test Item Value Reference Range Interpretation Comments FOLATE SER (test code = 10.2 ng/mL 3.0-20.0 Biot in has been 4954884365) reported to cau se a positive bias, interpret resul ts relative to patient's use o f biotin. Lab Interpretation (test Normal code = 25434-0) [facility] BrookVITAMIN D, [id number] 15:41:11 Test Item Value Reference Range Interpretation Comments VIT D 25OH (test code = 14 ng/mL 25-80 L 52135-3) ZELALEM (test code = ZELALEM) Deficiency: <20 ng/mLInsufficiency: 20-24 ng/mLOptimal: 25-80 ng/mL Lab Interpretation (test Abnormal code = 47700-1) [facility] ONLY COVID [id number] 15:16:20COVID DMT InterpretationInterpretation/Recommendations:Molecular NAAT Tests for Active Infection with the SARS-CoV-2 Virus:The patient has currently tested negative for the SARS-CoV-2 virus that causesCOVID-19 illness. This most likely indicates that the patient does not have an active infection withthe SARS-CoV-2 virus. However, infection is not completely ruled out as the false negative rate for molecular NAAT testing using a nasopharyngeal sample can be up to 30%, mostly dependent on the timingof sample collection in relation to illness onset and any deficiencies in sampling techniques. If the patient has symptoms concerning for COVID-19 illness, a repeat NAAT test (PCR, Rapid ID Now, etc.) should be performed, at which time the SARS-CoV-2 virus - if present - may have reached a detectable viral load (usually peaking by the end of the first week of symptoms). Tests for IgM and/or IgG Antibodies to the SARS-CoV-2 Virus:If the patient develops COVID-19 illness in the future, testing for IgMand IgG antibodies approximately 3 weeks after illness onset will likely indicate if the patient hasproduced antibodies to the SARS-CoV-2 virus. However, some patients may take longer to develop detectable antibodies, while some patients who were infected with SARS-CoV-2 may never develop antibodies.While antibodies to SARS-CoV-2 may provide some degree of immunity, at this time the strength and duration of the antibody response is unknown. Interpretation Result Comments:These interpretation comments are based upon all COVID-19 testing the patient has had at [facility], including molecular NAAT testing (more commonly known as PCRtesting and Rapid ID Now testing) and antibody testing. It does not take into account any testing that a patient has had outside of the [facility] medical record. [facility] LABORATORY SERVICESCOVID [id number] Rapid ID NOW (no units) ? ? Date ? Value ? 12/12/2020 ?Not Detected ? ? ? 11/07/2020 ? Not Detected ? ? ? 04/07/2020 ? Not Detected? [facility] SERVICESUn[facility] AzleGLYCOSYLATED HEMOGLOBIN (A1C)2020-12-13 15:13:51 Test Item Value Reference Range Interpretation Comments HGB A1C (test code = 4.9 % 4.0-5.7 4548-4) ZELALEM (test code = ZELALEM) Reference RangesNormal: <5.7%Prediabetes: 5.7 - 6.4%Diabetes: > 6.5% Lab Interpretation (test Normal code = 04205-1) [facility] BrookLIPID PANEL (15875)(TOTAL CHOLESTEROL, TRIGLYCERIDES, HDL)2020-12-13 14:09:16 Test Item Value Reference Range Interpretation Comments CHOL (test code = 99 mg/dL 120-200 L 0557360361) HDL (test code = 27 mg/dL >50 L 5413826835) HDLC RATIO (test code = See_Comment [Au tomated message] 1389608507) The system [employer] generated this result transmitted ref erence range: <=4.5. T he reference range was not used to int erpret this result as normal/abnormal . TRIG (test code = 81 mg/dL 30-170 9783708219) LDL CHOL (test code = 56 mg/dL See_Comment [Auto mated message] 67111-6) The system [employer] generated this result transmitted ref erence range: <=160. T he reference range was not used to int erpret this result as normal/abnormal . VLDL (test code = 16 mg/dL 5-60 0533637904) Lab Interpretation (test Abnormal code = 32881-3) [facility] BrookIRON [id number] 11:47:09 Test Item Value Reference Range Interpretation Comments IRON (test code = 1533778677) 40 ug/dL 50-160 L TIBC (test code = 3630719623) 362 ug/dL 250-410 % FE SAT (test code = 3130902814) 11 % 20-50 L Lab Interpretation (test code = Abnormal 09326-5) [facility] BrookHEPATIC FUNCTION PANEL (41165) (ALB,T.PRO,BILI T,BU/BC,ALT,AST,ALK PHOS)2020-12-13 11:38:29 Test Item Value Reference Range Interpretation Comments TOTAL BILI (test code = 0647505516) 0.5 mg/dL 0.1-1.1 BILI UNCON (test code = 6877713584) 0.2 mg/dL 0.1-1.1 BILI CONJ (test code = 1003817409) 0.0 mg/dL 0.0-0.3 T PROTEIN (test code = 9267749931) 6.4 g/dL 6.3-8.2 ALBUMIN (test code = 8886780849) 2.8 g/dL 3.5-5.0 L ALK PHOS (test code = 2507728331) 129 U/L 34-122 H ALTv (test code = 1742-6) 43 U/L 5-35 H AST(SGOT) (test code = 9734717728) 71 U/L 13-40 H Lab Interpretation (test code = Abnormal 61339-0) [facility] Metabolic Panel (NA, K, CL, CO2, GLUCOSE, BUN, CREATININE, CA)2020-12-13 11:38:04 Test Item Value Reference Range Interpretation Comments NA (test code = 128 mmol/L 135-145 L 8743085924) K (test code = 5.0 mmol/L 3.5-5.0 9808689628) CL (test code = 98 mmol/L 98-108 2960918064) CO2 TOTAL (test code = 26 mmol/L 23-31 5014478308) AGAP (test code = 2-16 1879583925) BUN (test code = 18 mg/dL 7-23 2003793310) GLUCOSE (test code = 86 mg/dL 70-110 4050555664) CREATININE (test code = 0.54 mg/dL 0.50-1.04 8838554466) CALCIUM (test code = 9.3 mg/dL 8.6-10.6 4880100063) eGFR (test code = mL/min/1.73m2 9949510571) ZELALEM (test code = ZELALEM) Association of Glomerular Filtration Rate (GFR) and Staging of Kidney Disease* + --+ --+ ------+| GFR (mL/min/1.73 m2) ?| With Kidney Damage ?| ?Without Kidney Damage+ --------+ --------+ +| ?>90 ?| ?Stage one ?| ? Normal ?+ ---+ ---+ -------+| ?60-89 ?| ?Stage two ?| ? Decreased GFR ? + --+ --+ ------+| ?30-59 ?| ?Stage three ?| ? Stage three ? + --+ --+ ------+| ?15-29 ?| ?Stage four ? | ? Stage four ?+ ---+ ---+ -------+| ?<15 (or dialysis) ? ?| ?Stage five ? | ? Stage five ?+ ---+ ---+ -------+ *Each stage assumes the associated GFR level has been in effect for at least three months. ?Stages 1 to 5, with or without kidney disease, indicate chronic kidney disease. Notes: Determination of stages one and two (with eGFR >59mL/min/1.73 m2) requires estimation of kidney damage for at least three months as defined by structural or functional abnormalities of the kidney, manifested by either:Pathological abnormalities or Markers of kidney damage (including abnormalities in the composition of the blood or urine or abnormalities in imaging tests). Lab Interpretation Abnormal (test code = 72208-3) [facility] WITHOUT [id number] 10:55:03 Test Item Value Reference Range Interpretation Comments WBC (test code = 6690-2) See_Comment [A utomated message] The system [employer] generated this result transmit dallin reference range : 4.30 - 11.10 10*3/?L. The reference range was not used to interpret this result as normal/abnormal . RBC (test code = 789-8) See_Comment L [Au tomated message] The system [employer] generated this result transmit dallin reference range : 3.93 - 5.25 10* 6/?L. The reference r alison was not used to interpret this result as normal/abnormal . HGB (test code = 718-7) 8.8 g/dL 11.6-15.0 L HCT (test code = 4544-3) 26.6 % 35.7-45.2 L MCH (test code = 785-6) 29.4 pg 25.9-32.8 MCV (test code = 787-2) 89.0 fL 80.6-95.5 MCHC (test code = 786-4) 33.1 g/dL 31.6-35.1 PLT (test code = 777-3) See_Comment [Au tomated message] The system [employer] generated this result transmit dallin reference range : 166 - 358 10*3/?L. The reference range was not used to interpret this result as normal/abnormal . MPV (test code = 9.7 fL 9.5-12.9 19851-6) RDW-CV (test code = 16.0 % 12.0-15.5 H 788-0) RDW-SD (test code = 52.2 fL 39.0-49.9 H 47637-1) NRBC x10^3 (test code = <0.01 See_Comment [Au tomated message] 8785394734) The system [employer] generated this result transmit dallin reference range : 10*3/?L. The reference range was not used to interpret this result as normal/abnormal . NRBC/100 WBC (test code See_Comment [Au tomated message] = 7834094245) The system [facility] generated this result transmit dallin reference range : 0.0 - 10.0 /100 WBC s. The reference r alison was not used to interpret this result as normal/abnormal . IPF % (test code = 7905397938) Lab Interpretation (test Abnormal code = 70733-0) [facility] BrookFERRITIN [id number] 01:24:57 Test Item Value Reference Range Interpretation Comments FERRITIN (test code = 17.3 ng/mL 11.0-264.0 6056625621) ZELALEM (test code = ZELALEM) Biotin has been reported to cause a negative bias, interpret results relative to patient's use of biotin. Lab Interpretation (test Normal code = 61902-4) [facility]UL[facility] [id number] 01:20:58 Test Item Value Reference Range Interpretation Comments TSH (test code = See_Comment Biotin has been [id number]) reported to cau se a negative bias, interpret resul ts relative to pat ient's use of biotin. [Automated mess age] The system [employer] generated this result transmitted ref erence range: 0.45 - 4 .70 mIU/L. The refe rence range was not u sed to interpret this result as normal/abnor mal. Lab Interpretation (test Normal code = 38492-2) [facility] BrookRETICULOCYTES [id number] 00:43:09 Test Item Value Reference Range Interpretation Comments RETIC Count Automated 2.17 % 0.51-1.90 H (test code = 1073656649) RETIC Absolute Count See_Comment [Autom ated message] (test code = 5248924949) The system which generated this result transmitted ref erence range: 0.0230 - 0.0950 10*6/?L. The reference range was not used to int erpret this result as normal/abnormal . IRF % (test code = 14.20 % 2.10-12.60 H 0029105992) RETIC-HE (test code = 33.7 pg 28.1-35.8 4721003239) Lab Interpretation (test Abnormal code = 37571-5) [facility] HEAD WO [id number] 00:35:53 No acute intracranial abnormality. Grossly unchanged 2.2 cm left superior frontoparietal convexity calcifiedmeningioma. Paranasal inflammatory changes in the left anterior ethmoid air cells andleft frontal sinus. Preliminary Report Dictated by Resident: Jay Bermudez MD., have reviewed this study and agree with theabove report.CT HEAD WO CONTRAST HISTORY: Headache, new or worsening (Age >= 50y) COMPARISON: 11/07/2020 TECHNIQUE: Noncontrast CT of the brain was obtained with coronal andsagittal reconstructions. FINDINGS: The ventricles and cerebral sulci are normal in caliber and configuration.No hydrocephalus, midline shift or pathological extra-axial fluidcollection is pre sent. The basal cisterns are unremarkable. There is no acute intraparenchymal hemorrhage or significant mass effect.Periventricular/deep white matter hypodensities are nonspecific, but likelysmall vessel ischemic changes. Intracranial atherosclerosis. Unchanged calcified left parietal meningioma measuring 2.2 x 1.1 cm. Mucoperiosteal thickening/opacification of the left anterior ethmoid aircells and left frontal sinus. The sphenoid sinuses and mastoid air cellsare clear. The maxillary sinuses are not imaged. No calvarial fractures. [facility], Radiant Results Inft User - 12/12/2020 7:[address] HEAD WO CONTRASTHISTORY: Headache, new or worsening (Age >= 50y) COMPARISON: 11/07/2020TECHNIQUE: Noncontrast CT of the brain was obtained with coronal andsagittal reconstructions.FINDINGS:The ventricles and cerebral sulci are normal in caliber andconfiguration.No hydrocephalus, midline shift or pathological extra-axial fluidcollection is present. The basal cisterns are unremarkable.There is no acute intraparenchymal hemorrhage or significant mass effect.Periventricular/deep white matter hypodensities are nonspecific, but likelysmall vessel ischemic changes. Intracranial atherosclerosis. Unchanged calcified left parietal meningioma measuring 2.2 x 1.1 cm.Mucoperiosteal thickening/opacification of the left anterior ethmoid aircells and left frontal sinus. The sphenoid sinuses and mastoid air cellsare clear. The maxillary sinuses are not imaged. No calvarial fractures.IMPRESSIONNo acute intracranial abnormality.Grossly unchanged 2.2 cm left superior frontoparietal convexity calcifiedmeningioma.Paranasal inflammatory changes in the left anterior ethmoid air cells andleft frontal sinus.Preliminary Report Dictated by Resident: Jay Lynch MD., have reviewed this study and agree with theabove report.[facility] [id number] 23:39:52 Test Item Value Reference Interpretation Comments Range TROPONIN I (test 0.003 ng/mL See_Comment [Automated code = 0404353275) message] The system which generated this result transmitted reference range : <=0.034. The reference range was not used to interpret this result as normal/abnormal . ZELALEM (test code = Reference (Normal) ZELALEM) Range (defined by the 99th percentile reference limit): <= 0.034 ng/mL Note: Cardiac troponin begins to rise 3-4 hours after the onset of ischemia. Repeat in 4-6 hours if the sample was drawn within 3-4 hours of the onset of the symptom and found normal. Diagnosis of myocardial injury is made with acute changes in cTn concentrations with at least one serial sample above the 99th percentile upper reference limit (URL), taken together with the patient's clinical presentation. Biotin has been reported to cause a negative bias, interpret results relative to patient's use of biotin. Lab Interpretation Normal (test code = 29144-1) [facility] (ID NOW RAPID TESTING)2020-12-12 23:31:10 Test Item Value Reference Range Interpretation Comments SARS-CoV-2 Rapid ID NOW Not Detected Not Detected (test code = 43085-1) ZELALEM (test code = ZELALEM) ID NOW COVID-19 Assay is an isothermal nucleic acid amplification test intended for the qualitative detection of nucleic acid from SARS-CoV-2 viral RNA in nasopharyngeal (CRUS[employer]ER) specimens. It is used under Emergency Use Authorization (EUA) by FDA. The limit of detection (LOD) of the assay is 125 Genome Equivalents/mL. A positive result is indicative of the presence of SARS-CoV-2 RNA. ?Clinical correlation with patient history and other diagnostic information is necessary to determine patient infection status. A negative (Not Detected) result does not preclude SARS-CoV-2 infection. In patients with clinical symptoms and other tests that are consistent with SARS-CoV-2 infection, negative results should be treated as presumptive negative and a new specimen should be tested with alternative PCR molecular test. Invalid: Please collect a new specimen for repeat patient testing if clinically indicated. Lab Interpretation Normal (test code = 14047-4) [facility] Metabolic Panel (NA, K, CL, CO2, GLUCOSE, BUN, CREATININE, CA)2020-12-12 23:30:13 Test Item Value Reference Range Interpretation Comments NA (test code = 124 mmol/L 135-145 L 3306313870) K (test code = 4.4 mmol/L 3.5-5.0 9435850129) CL (test code = 94 mmol/L 98-108 L 4649086158) CO2 TOTAL (test code = 25 mmol/L 23-31 6283842650) AGAP (test code = 2-16 0070798103) BUN (test code = 19 mg/dL 7-23 9738497149) GLUCOSE (test code = 92 mg/dL 70-110 0775045539) CREATININE (test code = 0.58 mg/dL 0.50-1.04 9292353141) CALCIUM (test code = 9.4 mg/dL 8.6-10.6 1874994830) eGFR (test code = mL/min/1.73m2 5512237334) ZELALEM (test code = ZELALEM) Association of Glomerular Filtration Rate (GFR) and Staging of Kidney Disease* + --+ --+ ------+| GFR (mL/min/1.73 m2) ?| With Kidney Damage ?| ?Without Kidney Damage+ --------+ --------+ +| ?>90 ?| ?Stage one ?| ? Normal ?+ ---+ ---+ -------+| ?60-89 ?| ?Stage two ?| ? Decreased GFR ? + --+ --+ ------+| ?30-59 ?| ?Stage three ?| ? Stage three ? + --+ --+ ------+| ?15-29 ?| ?Stage four ? | ? Stage four ?+ ---+ ---+ -------+| ?<15 (or dialysis) ? ?| ?Stage five ? | ? Stage five ?+ ---+ ---+ -------+ *Each stage assumes the associated GFR level has been in effect for at least three months. ?Stages 1 to 5, with or without kidney disease, indicate chronic kidney disease. Notes: Determination of stages one and two (with eGFR >59mL/min/1.73 m2) requires estimation of kidney damage for at least three months as defined by structural or functional abnormalities of the kidney, manifested by either:Pathological abnormalities or Markers of kidney damage (including abnormalities in the composition of the blood or urine or abnormalities in imaging tests). Lab Interpretation Abnormal (test code = 76165-3) [facility] (ALB, T.PRO, BILI T, BU/BC, ALT, AST, ALK PHOS)2020-12-12 23:30:13 Test Item Value Reference Range Interpretation Comments TOTAL BILI (test code = 6709896441) 0.3 mg/dL 0.1-1.1 BILI UNCON (test code = 8069653975) 0.1 mg/dL 0.1-1.1 BILI CONJ (test code = 6619102719) 0.0 mg/dL 0.0-0.3 T PROTEIN (test code = 2879369039) 6.9 g/dL 6.3-8.2 ALBUMIN (test code = 9601026984) 3.3 g/dL 3.5-5.0 L ALK PHOS (test code = 9876300883) 159 U/L 34-122 H ALTv (test code = 1742-6) 48 U/L 5-35 H AST(SGOT) (test code = 8755782412) 69 U/L 13-40 H Lab Interpretation (test code = Abnormal 63895-6) [facility] with [id number] 23:16:07 Test Item Value Reference Range Interpretation Comments WBC (test code = See_Comment [Automated 6690-2) message] The sy stem which generated this result transmitted reference range : 4.30 - 11.10 10*3/?L. The reference range was not used to interpret this result as normal/abnormal . RBC (test code = See_Comment L [Automated 789-8) message] The sy stem which generated this result transmitted reference range : 3.93 - 5.25 10*6/?L. The reference range was not used to interpret this result as normal/abnormal . HGB (test code = 8.9 g/dL 11.6-15.0 L 718-7) HCT (test code = 27.2 % 35.7-45.2 L 4544-3) MCV (test code = 88.3 fL 80.6-95.5 787-2) MCH (test code = 28.9 pg 25.9-32.8 785-6) MCHC (test code = 32.7 g/dL 31.6-35.1 786-4) RDW-SD (test code = 51.5 fL 39.0-49.9 H 41836-3) RDW-CV (test code = 15.9 % 12.0-15.5 H 788-0) PLT (test code = See_Comment [Automated 777-3) message] The sy stem which generated this result transmitted reference range : 166 - 358 10*3/ ?L. The reference r alison was not used to interpret this result as normal/abnormal . MPV (test code = 8.6 fL 9.5-12.9 L 43394-2) NRBC/100 WBC (test See_Comment [Automat ed code = 0391285451) message] The system which generated this result transmitted reference range : 0.0 - 10.0 /100 WBCs. The refer ence range was not u sed to interpret th is result as normal/abnormal . NRBC x10^3 (test code <0.01 See_Comment [Auto mated = 5342817591) message] The s ystem which generated this result transmitted reference range : 10*3/?L. The reference range was not used to interpret this result as normal/abnormal . GRAN MAT (NEUT) % 67.3 % (test code = 770-8) IMM GRAN % (test code 0.60 % = 7993770468) LYMPH % (test code = 15.4 % 736-9) MONO % (test code = 14.7 % 5905-5) EOS % (test code = 0.9 % 713-8) BASO % (test code = 1.1 % 706-2) GRAN MAT x10^3(ANC) 3.57 10*3/uL 1.88-7.09 (test code = 6215688002) IMM GRAN x10^3 (test 0.03 10*3/uL 0.00-0.06 code = 0606383312) LYMPH x10^3 (test code 0.82 10*3/uL 1.32-3.29 L = 731-0) MONO x10^3 (test code 0.78 10*3/uL 0.33-0.92 = 742-7) EOS x10^3 (test code = 0.05 10*3/uL 0.03-0.39 711-2) BASO x10^3 (test code 0.06 10*3/uL 0.01-0.07 = 704-7) Lab Interpretation Abnormal (test code = 15861-0) [facility] METABOLIC PANEL (NA, K, CL, CO2, GLUCOSE, BUN, CREATININE, CA)2020-11-09 08:59:46 Test Item Value Reference Range Interpretation Comments NA (test code = 130 mmol/L 135-145 L 5962425214) K (test code = 4.6 mmol/L 3.5-5.0 2607677965) CL (test code = 101 mmol/L 98-108 9579499473) CO2 TOTAL (test code = 27 mmol/L 23-31 3310644934) AGAP (test code = 2-16 0408163230) BUN (test code = 18 mg/dL 7-23 4217363452) GLUCOSE (test code = 90 mg/dL 70-110 3059290267) CREATININE (test code = 0.59 mg/dL 0.50-1.04 2561130800) CALCIUM (test code = 9.1 mg/dL 8.6-10.6 3261855222) eGFR (test code = mL/min/1.73m2 1077725116) ZELALEM (test code = ZELALEM) Association of Glomerular Filtration Rate (GFR) and Staging of Kidney Disease* + --+ --+ ------+| GFR (mL/min/1.73 m2) ?| With Kidney Damage ?| ?Without Kidney Damage+ --------+ --------+ +| ?>90 ?| ?Stage one ?| ? Normal ?+ ---+ ---+ -------+| ?60-89 ?| ?Stage two ?| ? Decreased GFR ? + --+ --+ ------+| ?30-59 ?| ?Stage three ?| ? Stage three ? + --+ --+ ------+| ?15-29 ?| ?Stage four ? | ? Stage four ?+ ---+ ---+ -------+| ?<15 (or dialysis) ? ?| ?Stage five ? | ? Stage five ?+ ---+ ---+ -------+ *Each stage assumes the associated GFR level has been in effect for at least three months. ?Stages 1 to 5, with or without kidney disease, indicate chronic kidney disease. Notes: Determination of stages one and two (with eGFR >59mL/min/1.73 m2) requires estimation of kidney damage for at least three months as defined by structural or functional abnormalities of the kidney, manifested by either:Pathological abnormalities or Markers of kidney damage (including abnormalities in the composition of the blood or urine or abnormalities in imaging tests). Lab Interpretation Abnormal (test code = 16217-4) [facility] COVID [id number] 07:52:14COVID DMT InterpretationInterpretation/Recommendations: Molecular NAAT Tests for Active Infection with the SARS-CoV-2 Virus: The patient has currently tested negative for the SARS-CoV-2 virus that causes COVID-19 illness. This most likely indicates that the patient does not have an active infection with the SARS-CoV-2 virus. However, infection is not completely ruled out as the false negative rate for molecular NAAT testing using a nasopharyngeal sample can be up to 30%, mostly dependent on the timing of sample collection in relation to illness onset and any deficiencies in sampling techniques. If the patient has symptoms concerning for COVID-19 illness, a repeat NAAT test (PCR, Rapid ID Now, etc.) should be performed, at which time the SARS-CoV-2 virus - if present - may have reached a detectable viral load (usually peaking by the end of the first week of symptoms). Tests for IgM and/or IgG Antibodies to the SARS-CoV-2 Virus: If the patient develops COVID-19 illness in the future, testing for IgM and IgG antibodies approximately 3 weeks after illness onset will likely indicate if the patient has produced antibodies to the SARS-CoV-2 virus. However, some patients may take longer to develop detectable antibodies, while some patients who were infected with SARS-CoV-2 may never develop antibodies. While antibodies to SARS-CoV-2 may provide some degree of immunity, at this time the strength and duration of the antibody response is unknown. Interpretation Result Comments:These interpretation comments are based upon all COVID-19 testing the patient has had at [facility], including molecular NAAT testing (more commonly known as PCR testing and Rapid ID Now testing) and antibody testing. It does not take into account any testingthat a patient has had outside of the [facility] medical record. [facility] LABORATORY SERVICESCOVID SfbfpciFWWQ-WfR-1 Rapid ID NOW (no units) ? ? Date ? Value ? 11/07/2020 ? Not Detected ? ? ? 04/07/2020 ? Not Detected ? [facility]Un[facility] SURFACE [id number] 21:40:17 Test Item Value Reference Range Interpretation Comments HBsAB (test code = Negative 4736052249) HBsAb mIU/mL Semi-Quantitative (test code = 5309559126) ZELALEM (test code = Interpretation: ZELALEM) ?Hepatitis B Surface Antibody ? Negative - Patient is considered to be not immune to infection with HBV. ? ? Positive - Anti-HBs detected at greater than or equal to 12 mIU/mL. ?Patient is considered to be immune to infection with HBV. ? [facility] BrookHCV [id number] 21:40:17 Test Item Value Reference Range Interpretation Comments HCV Ab (test code = 80532-3) Negative HCV Semi-Quantitative (test code = 63167-0) [facility] BrookHEPATITIS B CORE ANTIBODY [id number] 21:29:30 Test Item Value Reference Range Interpretation Comments HBCM Negative Semi-Quantitative (test code = 84181-9) ZELALEM (test code = Biotin has been reported ZELALEM) to cause a negative bias, interpret results relative to patient's use of biotin. [facility] B SURFACE [id number] 21:29:30 Test Item Value Reference Range Interpretation Comments HBsAg Semi-Quantitative (test code = Negative Negative 5195-3) [facility]US ABDOMEN [id number] 17:12:45HISTORY: Transaminitis. COMPARISON: None TECHNIQUE: Liver was evaluated in multiple planes without and with colorimaging. FINDINGS: Liver is approximately 16.10 cm and showed normal homogeneousechotexture. Hepatic/portal venous systems appear patent with hepatopedalportal venous flow confirmed. No fluid is seen in the right upper abdomen.No dilatation of the intrahepatic biliary ducts. Gallbladder has been removed. Common hepatic duct is 4.2 mm. Incidentalnote of moderate atherosclerosis in the upper abdominal aorta. Right kidneyshowed no gross pathology. CONCLUSIONS: Normal ultrasound study of theliver.[facility], Radiant Results Inft User - 11/08/2020 12:13 PM CDT HISTORY: Transaminitis.COMPARISON: NoneTECHNIQUE: Liver was evaluated in multiple planes without and with colorimaging.FINDINGS: Liver is approximately 16.10 cm and showed normalhomogeneousechotexture. Hepatic/portal venous systems appear patent with hepatopedalportal venous flow confirmed. No fluid is seen in the right upper abdomen.No dilatation of the intrahepatic biliary ducts.Gallbladder has been removed. Common hepatic duct is 4.2 mm. Incidentalnote of moderate atherosclerosis in the upper abdominal aorta. Right kidneyshowed no gross pathology.CONCLUSIONS: Normal ultrasound study of the liver.[facility] WO [id number] 13:58:05 No acute intracranial abnormality. Left occipital scalp hematoma measures up to 1.0 cm in thickness. Preliminary Report Dictated by Resident: Shon Skinner MD., have reviewed this study and agree with theabove report.CT HEAD WO CONTRAST HISTORY: Head trauma, mod-severe COMPARISON: 04/07/2020 TECHNIQUE: Contiguous axial imaging to the base of skull was obtained with2.5 mm sliceswithout intravenous contrast. 5 mm axial, coronal, andsagittal reformats were obtained. FINDINGS: The ventricles and cerebral sulci are normal in caliber and configuration.No hydrocephalus, midline shift or pathological extra-axial fluidcollection is present. The basal cisterns are unremarkable. Thereis no acute intracranial hemorrhage or significant mass effect. Deepwhite matter and periventricularhypoattenuating foci are present, likelyrepresent small vessel ischemic changes. . The bhandari-white matterdifferentiation is preserved. Partial opacification of the left frontal sinus and left ethmoidal a ircells. Left occipital scalp mixed density hematoma. Calcified left parietalmeningioma measures 2.2x 1.2 cm (6:16). The calvarium and central skullbase are unremarkable. [facility], Radiant Results Inft User - 11/08/2020 8:[address] HEAD WO CON TRASTHISTORY: Head trauma, mod-severe COMPARISON: 04/07/2020TECHNIQUE: Contiguous axial imaging to the base of skull was obtained with2.5 mm slices without intravenous contrast. 5 mm axial, coronal, andsagittal reformats were obtained.FINDINGS:The ventricles and cerebral sulci are normal in caliber and configuration.No hydrocephalus, midline shift or pathological extra-axial fluidcollection is present. The basal cisterns are unremarkable.There is no acute intracranial hemorrhage or significant mass effect. Deepwhite matter and periventricular hypoattenuating foci are present, likelyrepresent small vessel ischemic changes. . The bhandari-white matterdifferentiation is preserved.Partial opacification ofthe left frontal sinus and left ethmoidal aircells. Left occipital scalp mixed density hematoma. Calcified left parietalmeningioma measures 2.2 x 1.2 cm (6:16). The calvarium and central skullbase are u nremarkable.IMPRESSIONNo acute intracranial abnormality.Left occipital scalp hematoma measures up to1.0 cm in thickness.Preliminary Report Dictated by Resident: Shon Sebastian MD., have reviewed this study and agree with theabove report.[facility] BrookXR CHEST 1 VW 2020-11-08 13:05:35 No acute cardiopulmonary abnormality. Preliminary Report Dictated by Resident: Maribel Skinner MD., have reviewed this study and agree with theabove report.EXAM: XR CHEST 1 VW CLINICAL INDICATION: syncope COMPARISON: 04/07/2020 FINDINGS: The lungs are mildly hyper inflated but clear without focal consolidation,pleural effusion, or pneumothorax. Calcified granulomas in the right lowerlobe. The cardiac silhouette is normal in size. Calcifications are seen withinthe aortic arch. No acute osseous abnormality. [facility], Radiant Results Inft User - 11/08/2020 8:06 AM CDT EXAM: XR CHEST 1 VWCLINICAL INDICATION: syncope COMPARISON: 04/07/2020FINDINGS:The lungs are mildly hyper inflated but clear without focal consolidation,pleural effusion, or pneumothorax. Calcified granulomas in the right lowerlobe.The cardiac silhouette is normal in size. Calcifications are seen withinthe aortic arch.No acute osseous abnormality. IMPRESSIONNo acute cardiopulmonary abnormality.Preliminary Report Dictated by Resident: Maribel Sebastian MD., have reviewed this study and agree with theabove report.[facility] Met[facility] Panel (NA, K, CL, CO2, GLUCOSE, BUN, CREATININE, CA) 2020-11-08 09:01:31 Test Item Value Reference Range Interpretation Comments NA (test code = 130 mmol/L 135-145 L 1363219920) K (test code = 4.6 mmol/L 3.5-5.0 2009380970) CL (test code = 98 mmol/L 98-108 6857583088) CO2 TOTAL (test code = 26 mmol/L 23-31 3230258617) AGAP (test code = 2-16 5983984336) BUN (test code = 18 mg/dL 7-23 8584811162) GLUCOSE (test code = 86 mg/dL 70-110 6181732096) CREATININE (test code = 1.12 mg/dL 0.50-1.04 H 2131224421) CALCIUM (test code = 9.3 mg/dL 8.6-10.6 5114716425) eGFR (test code = mL/min/1.73m2 1167960175) ZELALEM (test code = ZELALEM) Association of Glomerular Filtration Rate (GFR) and Staging of Kidney Disease* + --+ --+ ------+| GFR (mL/min/1.73 m2) ?| With Kidney Damage ?| ?Without Kidney Damage+ --------+ --------+ +| ?>90 ?| ?Stage one ?| ? Normal ?+ ---+ ---+ -------+| ?60-89 ?| ?Stage two ?| ? Decreased GFR ? + --+ --+ ------+| ?30-59 ?| ?Stage three ?| ? Stage three ? + --+ --+ ------+| ?15-29 ?| ?Stage four ? | ? Stage four ?+ ---+ ---+ -------+| ?<15 (or dialysis) ? ?| ?Stage five ? | ? Stage five ?+ ---+ ---+ -------+ *Each stage assumes the associated GFR level has been in effect for at least three months. ?Stages 1 to 5, with or without kidney disease, indicate chronic kidney disease. Notes: Determination of stages one and two (with eGFR >59mL/min/1.73 m2) requires estimation of kidney damage for at least three months as defined by structural or functional abnormalities of the kidney, manifested by either:Pathological abnormalities or Markers of kidney damage (including abnormalities in the composition of the blood or urine or abnormalities in imaging tests). Lab Interpretation Abnormal (test code = 92719-9) [facility]343[facility] (ALB,T.PRO,BILI T,BU/BC,ALT,AST,ALK PHOS)2020-11-08 09:01:11 Test Item Value Reference Range Interpretation Comments TOTAL BILI (test code = 9224113682) 0.3 mg/dL 0.1-1.1 BILI UNCON (test code = 4880097650) 0.2 mg/dL 0.1-1.1 BILI CONJ (test code = 5647169976) 0.0 mg/dL 0.0-0.3 T PROTEIN (test code = 6857714169) 6.7 g/dL 6.3-8.2 ALBUMIN (test code = 5186375143) 3.1 g/dL 3.5-5.0 L ALK PHOS (test code = 4569558239) 139 U/L 34-122 H ALTv (test code = 1742-6) 66 U/L 5-35 H AST(SGOT) (test code = 3701505211) 84 U/L 13-40 H Lab Interpretation (test code = Abnormal 38227-3) [facility] with [id number] 07:24:24 Test Item Value Reference Range Interpretation Comments WBC (test code = See_Comment [Automated 6590-2) message] The sy stem which generated this result transmitted reference range : 4.30 - 11.10 10*3/?L. The reference range was not used to interpret this result as normal/abnormal . RBC (test code = See_Comment L [Automated 789-8) message] The sy stem which generated this result transmitted reference range : 3.93 - 5.25 10*6/?L. The reference range was not used to interpret this result as normal/abnormal . HGB (test code = 9.1 g/dL 11.6-15.0 L 718-7) HCT (test code = 28.0 % 35.7-45.2 L 4544-3) MCV (test code = 87.5 fL 80.6-95.5 787-2) MCH (test code = 28.4 pg 25.9-32.8 785-6) MCHC (test code = 32.5 g/dL 31.6-35.1 786-4) RDW-SD (test code = 54.5 fL 39.0-49.9 H 39399-0) RDW-CV (test code = 17.2 % 12.0-15.5 H 788-0) PLT (test code = See_Comment [Automated 777-3) message] The sy stem which generated this result transmitted reference range : 166 - 358 10*3/ ?L. The reference r alison was not used to interpret this result as normal/abnormal . MPV (test code = 9.1 fL 9.5-12.9 L 07960-9) NRBC/100 WBC (test See_Comment [Automat ed code = 6095185016) message] The system which generated this result transmitted reference range : 0.0 - 10.0 /100 WBCs. The refer ence range was not u sed to interpret th is result as normal/abnormal . NRBC x10^3 (test code <0.01 See_Comment [Auto mated = 0046829913) message] The s ystem which generated this result transmitted reference range : 10*3/?L. The reference range was not used to interpret this result as normal/abnormal . GRAN MAT (NEUT) % 70.7 % (test code = 770-8) IMM GRAN % (test code 0.30 % = 7311989784) LYMPH % (test code = 11.8 % 736-9) MONO % (test code = 14.6 % 5905-5) EOS % (test code = 1.6 % 713-8) BASO % (test code = 1.0 % 706-2) GRAN MAT x10^3(ANC) 5.20 10*3/uL 1.88-7.09 (test code = 3400587513) IMM GRAN x10^3 (test <0.03 0.00-0.06 code = 5237065483) LYMPH x10^3 (test code 0.87 10*3/uL 1.32-3.29 L = 731-0) MONO x10^3 (test code 1.07 10*3/uL 0.33-0.92 H = 742-7) EOS x10^3 (test code = 0.12 10*3/uL 0.03-0.39 711-2) BASO x10^3 (test code 0.07 10*3/uL 0.01-0.07 = 704-7) Lab Interpretation Abnormal (test code = 64388-6) [facility]2020-[facility]-08 01:38:08 Test Item Value Reference Range Interpretation Comments SARS-CoV-2 Rapid ID NOW Not Detected Not Detected (test code = 98534-4) ZELALEM (test code = ZELALEM) ID NOW COVID-19 Assay is an isothermal nucleic acid amplification test intended for the qualitative detection of nucleic acid from SARS-CoV-2 viral RNA in nasopharyngeal (CRUS[employer]ER) specimens. It is used under Emergency Use Authorization (EUA) by FDA. The limit of detection (LOD) of the assay is 125 Genome Equivalents/mL. A positive result is indicative of the presence of SARS-CoV-2 RNA. ?Clinical correlation with patient history and other diagnostic information is necessary to determine patient infection status. A negative (Not Detected) result does not preclude SARS-CoV-2 infection. In patients with clinical symptoms and other tests that are consistent with SARS-CoV-2 infection, negative results should be treated as presumptive negative and a new specimen should be tested with alternative PCR molecular test. Invalid: Please collect a new specimen for repeat patient testing if clinically indicated. Lab Interpretation Normal (test code = 82422-1) [facility]19 Test Item Value Reference Range Interpretation Comments APPEARANCE (test code = Clear Clear 5690829215) COLOR (test code = Yellow Yellow 2164320231) PH (test code = 4.8-8.0 9190222350) SP GRAVITY (test code = 1.003-1.030 8455154019) GLU U QUAL (test code = Normal Normal 3864911638) BLOOD (test code = Negative Negative 8468864683) KETONES (test code = Negative Negative 0116370527) PROTEIN (test code = 30 mg/dL Negative A 2887-8) UROBILIN (test code = Normal Normal 7830639544) BILIRUBIN (test code = Negative Negative 3876211196) NITRITE (test code = Negative Negative 1846628300) LEUK DARBY (test code = Negative Negative 1809768434) RBC/HPF (test code = See_Comment [Autom ated message] 9083844243) The system [employer] generated this result transmitted ref erence range: 0 - 3 HP F. The reference range was not used to int erpret this result as normal/abnormal . WBC/HPF (test code = See_Comment [Autom ated message] 4415104351) The system [employer] generated this result transmitted ref erence range: 0 - 5 HP F. The reference range was not used to int erpret this result as normal/abnormal . BACTERIA (test code = Negative Negative 4527323997) SQ EPITH (test code = HPF 5580158665) Lab Interpretation (test Abnormal code = 95001-6) [facility] [id number] 00:26:21 Test Item Value Reference Range Interpretation Comments TROPONIN I (test 0.000 ng/mL See_Comment [Automated code = 5562725484) message] The system which generated this result transmitted reference range : <=0.034. The reference range was not used to interpret this result as normal/abnormal . ZELALEM (test code = Equal or Less than ZELALEM) 0.034 ng/ml---Normal ?Note: Cardiac troponin begins to rise 3-4 hours after the onset of ischemia. Repeat in 4-6 hours if the sample was drawn within 3-4 hours of the onset of the symptom and found normal. Between 0.035 and 0.120 ng/mL--- Borderline. Questionable myocardial injury or necrosis ? ?Note: Serial measurement may be necessary to confirm or exclude the diagnosis of myocardial injury or necrosis; Clinical correlation (symptoms, EKGs, imaging studies, and others) required; Repeat in 4-6 hours if clinically indicated. ? Equal or Higher than 0.121 ng/mL---Abnormal. Myocardial Injury or Necrosis Likely ? Biotin has been reported to cause a negative bias, interpret results relative to patient's use of biotin. ? Lab Interpretation Normal (test code = 42349-0) [facility] (10682)2020-11-08 00:17:20 Test Item Value Reference Range Interpretation Comments NA (test code = 125 mmol/L 135-145 L 4268653798) K (test code = 4.1 mmol/L 3.5-5.0 8023782291) CL (test code = 93 mmol/L 98-108 L 0739864685) CO2 TOTAL (test code = 25 mmol/L 23-31 0816610641) AGAP (test code = 2-16 3814984785) BUN (test code = 16 mg/dL 7-23 3154754078) GLUCOSE (test code = 98 mg/dL 70-110 3345242006) CREATININE (test code = 0.63 mg/dL 0.50-1.04 2488003738) TOTAL BILI (test code = 0.4 mg/dL 0.1-1.3 0139301220) CALCIUM (test code = 9.8 mg/dL 8.6-10.6 2099363014) T PROTEIN (test code = 8.1 g/dL 6.3-8.2 6732362761) ALBUMIN (test code = 4.0 g/dL 3.5-5.0 6692805889) ALK PHOS (test code = 185 U/L 34-122 H 4976066630) ALTv (test code = 82 U/L 5-35 H 1742-6) AST(SGOT) (test code = 115 U/L 13-40 H 8066581901) eGFR (test code = mL/min/1.73m2 9716341732) ZELALEM (test code = ZELALEM) Association of Glomerular Filtration Rate (GFR) and Staging of Kidney Disease* + --+ --+ ------+| GFR (mL/min/1.73 m2) ?| With Kidney Damage ?| ?Without Kidney Damage+ --------+ --------+ +| ?>90 ?| ?Stage one ?| ? Normal ?+ ---+ ---+ -------+| ?60-89 ?| ?Stage two ?| ? Decreased GFR ? + --+ --+ ------+| ?30-59 ?| ?Stage three ?| ? Stage three ? + --+ --+ ------+| ?15-29 ?| ?Stage four ? | ? Stage four ?+ ---+ ---+ -------+| ?<15 (or dialysis) ? ?| ?Stage five ? | ? Stage five ?+ ---+ ---+ -------+ *Each stage assumes the associated GFR level has been in effect for at least three months. ?Stages 1 to 5, with or without kidney disease, indicate chronic kidney disease. Notes: Determination of stages one and two (with eGFR >59mL/min/1.73 m2) requires estimation of kidney damage for at least three months as defined by structural or functional abnormalities of the kidney, manifested by either:Pathological abnormalities or Markers of kidney damage (including abnormalities in the composition of the blood or urine or abnormalities in imaging tests). Lab Interpretation Abnormal (test code = 08760-4) [facility]:17:20 Test Item Value Reference Range Interpretation Comments MAGNESIUM (test code = 5249325050) 1.7 mg/dL 1.7-2.4 Lab Interpretation (test code = Normal 65622-4) [facility] WITH [id number] 23:50:37 Test Item Value Reference Range Interpretation Comments WBC (test code = See_Comment [Automated 6690-2) message] The sy stem which generated this result transmitted reference range : 4.30 - 11.10 10*3/?L. The reference range was not used to interpret this result as normal/abnormal . RBC (test code = See_Comment L [Automated 789-8) message] The sy stem which generated this result transmitted reference range : 3.93 - 5.25 10*6/?L. The reference range was not used to interpret this result as normal/abnormal . HGB (test code = 10.0 g/dL 11.6-15.0 L 718-7) HCT (test code = 31.4 % 35.7-45.2 L 4544-3) MCV (test code = 87.5 fL 80.6-95.5 787-2) MCH (test code = 27.9 pg 25.9-32.8 785-6) MCHC (test code = 31.8 g/dL 31.6-35.1 786-4) RDW-SD (test code = 54.5 fL 39.0-49.9 H 60442-6) RDW-CV (test code = 16.9 % 12.0-15.5 H 788-0) PLT (test code = See_Comment H [Automated 777-3) message] The sy stem which generated this result transmitted reference range : 166 - 358 10*3/ ?L. The reference r alison was not used to interpret this result as normal/abnormal . MPV (test code = 8.9 fL 9.5-12.9 L 89697-7) NRBC/100 WBC (test See_Comment [Automat ed code = 0469966459) message] The system which generated this result transmitted reference range : 0.0 - 10.0 /100 WBCs. The refer ence range was not u sed to interpret th is result as normal/abnormal . NRBC x10^3 (test code <0.01 See_Comment [Auto mated = 8055029280) message] The s ystem which generated this result transmitted reference range : 10*3/?L. The reference range was not used to interpret this result as normal/abnormal . GRAN MAT (NEUT) % 63.5 % (test code = 770-8) IMM GRAN % (test code 0.50 % = 8431278086) LYMPH % (test code = 16.6 % 736-9) MONO % (test code = 15.5 % 5905-5) EOS % (test code = 2.6 % 713-8) BASO % (test code = 1.3 % 706-2) GRAN MAT x10^3(ANC) 3.85 10*3/uL 1.88-7.09 (test code = 4082291529) IMM GRAN x10^3 (test 0.03 10*3/uL 0.00-0.06 code = 2407350631) LYMPH x10^3 (test code 1.01 10*3/uL 1.32-3.29 L = 731-0) MONO x10^3 (test code 0.94 10*3/uL 0.33-0.92 H = 742-7) EOS x10^3 (test code = 0.16 10*3/uL 0.03-0.39 711-2) BASO x10^3 (test code 0.08 10*3/uL 0.01-0.07 H = 704-7) Lab Interpretation Abnormal (test code = 16156-5) [facility]MOLAL[facility] [id number] 20:56:00 Test Item Value Reference Range Interpretation Comments OSMOLALITY (test code = See_Comment [Au tomated message] 7140287941) The system whic h generated this result transmitted ref erence range: 278 - 30 5 mOsm/kg. The re ference range was not u sed to interpret this result as normal/abnor mal. Lab Interpretation (test Normal code = 16133-8) [facility] METABOLIC PANEL (NA, K, CL, CO2, GLUCOSE, BUN, CREATININE, CA)2020-04-12 16:37:00 Test Item Value Reference Range Interpretation Comments NA (test code = 127 mmol/L 135-145 L 6653357098) K (test code = 4.6 mmol/L 3.5-5 Slight 1509326315) hemolysis CL (test code = 96 mmol/L 98-108 L 2275551542) CO2 TOTAL (test code 24 mmol/L 23-31 = 7527713854) AGAP (test code = 2-16 9646578823) BUN (test code = 31 mg/dL 7-23 H Slight 5725961226) hemolysis GLUCOSE (test code = 119 mg/dL 70-110 H 3928356080) CREATININE (test code 0.73 mg/dL 0.5-1.04 = 9101831382) CALCIUM (test code = 9.9 mg/dL 8.6-10.6 0516687770) eGFR Calculation mL/min/1.73m2 (Non-) (test code = 9748951206) eGFR Calculation mL/min/1.73m2 () (test code = 9664248706) ZELALEM (test code = ZELALEM) Association of Glomerular Filtration Rate (GFR) and Staging of Kidney Disease* + -----+ --------+ +| GFR (mL/min/1.73 m2) ?| With Kidney Damage ?| ?Without Kidney Damage+ +------- +---- --+| ?>90 ?| ?Stage one ?| ? Normal ?+ ------+ ---------+--------- +| ?60-89 ?| ?Stage two ?| ? Decreased GFR ? + -----+ --------+ +| ?30-59 ?| ?Stage three ?| ? Stage three ? + -----+ --------+ +| ?15-29 ?| ?Stage four ? | ? Stage four ?+ ------+ ---------+--------- +| ?<15 (or dialysis) ? ?| ?Stage five ? | ? Stage five ?+ ------+ ---------+--------- + *Each stage assumes the associated GFR level has been in effect for at least three months. ?Stages 1 to 5, with or without kidney disease, indicate chronic kidney disease. Notes: Determination of stages one and two (with eGFR >59mL/min/1.73 m2) requires estimation of kidney damage for at least three months as defined by structural or functional abnormalities of the kidney, manifested by either:Pathological abnormalities or Markers of kidney damage (including abnormalities in the composition of the blood or urine or abnormalities in imaging tests). Lab Interpretation Abnormal (test code = 14405-1) [facility] METABOLIC PANEL (NA, K, CL, CO2, GLUCOSE, BUN, CREATININE, CA)2020-04-11 15:36:00 Test Item Value Reference Range Interpretation Comments NA (test code = 127 mmol/L 135-145 L 7380041811) K (test code = 5.2 mmol/L 3.5-5 H 6185355952) CL (test code = 98 mmol/L 98-108 0136564723) CO2 TOTAL (test code = 26 mmol/L 23-31 7896168354) AGAP (test code = 2-16 9716156721) BUN (test code = 34 mg/dL 7-23 H 5693711426) GLUCOSE (test code = 106 mg/dL 70-110 1857968899) CREATININE (test code = 0.77 mg/dL 0.5-1.04 9003504070) CALCIUM (test code = 9.6 mg/dL 8.6-10.6 6493930574) eGFR Calculation mL/min/1.73m2 (Non-) (test code = 9680855050) eGFR Calculation mL/min/1.73m2 () (test code = 6915855668) ZELALEM (test code = ZELALEM) Association of Glomerular Filtration Rate (GFR) and Staging of Kidney Disease* + --+ --+ ------+| GFR (mL/min/1.73 m2) ?| With Kidney Damage ?| ?Without Kidney Damage+ --------+ --------+ +| ?>90 ?| ?Stage one ?| ? Normal ?+ ---+ ---+ -------+| ?60-89 ?| ?Stage two ?| ? Decreased GFR ? + --+ --+ ------+| ?30-59 ?| ?Stage three ?| ? Stage three ? + --+ --+ ------+| ?15-29 ?| ?Stage four ? | ? Stage four ?+ ---+ ---+ -------+| ?<15 (or dialysis) ? ?| ?Stage five ? | ? Stage five ?+ ---+ ---+ -------+ *Each stage assumes the associated GFR level has been in effect for at least three months. ?Stages 1 to 5, with or without kidney disease, indicate chronic kidney disease. Notes: Determination of stages one and two (with eGFR >59mL/min/1.73 m2) requires estimation of kidney damage for at least three months as defined by structural or functional abnormalities of the kidney, manifested by either:Pathological abnormalities or Markers of kidney damage (including abnormalities in the composition of the blood or urine or abnormalities in imaging tests). Lab Interpretation Abnormal (test code = 88231-8) [facility] WITH [id number] 15:25:00 Test Item Value Reference Range Interpretation Comments WBC (test code = See_Comment [Automated 2169-2) message] The system which generated this result transmit dallin reference range : 4.30 - 11.10 10*3/?L. The reference range was not used to interpret this result as normal/abnormal . RBC (test code = See_Comment [Automated 669-8) message] The system which generated this result transmit dallin reference range : 3.93 - 5.25 10*6/?L. The reference range was not used to interpret this result as normal/abnormal . HGB (test code = 11.8 g/dL 11.6-15 718-7) HCT (test code = 36.2 % 35.7-45.2 4544-3) MCV (test code = 91.2 fL 80.6-95.5 787-2) MCH (test code = 29.7 pg 25.9-32.8 785-6) MCHC (test code = 32.6 g/dL 31.6-35.1 786-4) RDW-SD (test code = 47.2 fL 39-49.9 00671-2) RDW-CV (test code = 14.0 % 12-15.5 788-0) PLT (test code = See_Comment H [Automated 097-3) message] The system which generated this result transmit dallin reference range : 166 - 358 10*3/ ?L. The reference range was not u sed to interpret th is result as normal/abnormal . MPV (test code = 8.6 fL 9.5-12.9 L 92762-2) NRBC/100 WBC (test See_Comment [Automat ed code = 8122339787) message] The system which generated this result transmit dallin reference range : 0.0 - 10.0 /100 WBCs. The reference range was not used to interpret this result as normal/abnormal . NRBC x10^3 (test code <0.01 See_Comment [Auto mated = 2356903275) message] The system which generated this result transmit dallin reference range : 10*3/?L. The reference range was not used to interpret this result as normal/abnormal . GRAN MAT (NEUT) % 94.0 % (test code = 770-8) IMM GRAN % (test code 0.40 % = 0552460431) LYMPH % (test code = 2.5 % 736-9) MONO % (test code = 2.9 % 5905-5) EOS % (test code = 0.1 % 713-8) BASO % (test code = 0.1 % 706-2) GRAN MAT x10^3(ANC) 10.35 10*3/uL 1.88-7.09 H (test code = 9501425371) IMM GRAN x10^3 (test 0.04 10*3/uL 0-0.06 code = 3865247658) LYMPH x10^3 (test code 0.27 10*3/uL 1.32-3.29 L = 731-0) MONO x10^3 (test code 0.32 10*3/uL 0.33-0.92 L = 742-7) EOS x10^3 (test code = <0.03 0.03-0.39 L 711-2) BASO x10^3 (test code <0.03 0.01-0.07 = 704-7) Lab Interpretation Abnormal (test code = 82890-8) [facility] (38832)(TOTAL CHOLESTEROL, TRIGLYCERIDES, HDL)2020-04-10 17:08:00 Test Item Value Reference Range Interpretation Comments CHOL (test code = 166 mg/dL 120-200 7129642267) HDL (test code = 39 mg/dL >50 L 5219565079) HDLC RATIO (test code = See_Comment [Au tomated message] 0852370587) The system [employer] generated this result transmit dallin reference range : <=4.5. The refe rence range was not u sed to interpret th is result as normal/abnormal . TRIG (test code = 66 mg/dL 30-170 8402236462) LDL CHOL (test code = 114 mg/dL See_Comment [Auto mated message] 94400-7) The system [employer] generated this result transmit dallin reference range : <=160. The refe rence range was not u sed to interpret th is result as normal/abnormal . VLDL (test code = 13 mg/dL 5-60 0858357648) Lab Interpretation (test Abnormal code = 21963-0) [facility]AL [id number] 11:38:00 Test Item Value Reference Range Interpretation Comments NT-proBNP (test code 1670 pg/mL See_Comment H [Autom ated = 6158813583) message] The system which generated this result transmitted reference range : <=450. The reference range was not used to interpret this result as normal/abnormal . ZELALEM (test code = ZELALEM) Biotin has been reported to cause a negative bias, interpret results relative to patient's use of biotin. Lab Interpretation Abnormal (test code = 33229-5) [facility] (NA, K, CL, CO2, GLUCOSE, BUN, CREATININE, CA)2020-04-10 11:30:00 Test Item Value Reference Range Interpretation Comments NA (test code = 125 mmol/L 135-145 L 7017408421) K (test code = 4.8 mmol/L 3.5-5 4756237239) CL (test code = 98 mmol/L 98-108 3399717317) CO2 TOTAL (test code = 24 mmol/L 23-31 2130529401) AGAP (test code = 2-16 3305039853) BUN (test code = 36 mg/dL 7-23 H 5375129606) GLUCOSE (test code = 131 mg/dL 70-110 H 0611222767) CREATININE (test code = 0.96 mg/dL 0.5-1.04 0061884152) CALCIUM (test code = 9.6 mg/dL 8.6-10.6 3854011111) eGFR Calculation mL/min/1.73m2 (Non-) (test code = 5449017550) eGFR Calculation mL/min/1.73m2 () (test code = 0005102659) ZELALEM (test code = ZELALEM) Association of Glomerular Filtration Rate (GFR) and Staging of Kidney Disease* + --+ --+ ------+| GFR (mL/min/1.73 m2) ?| With Kidney Damage ?| ?Without Kidney Damage+ --------+ --------+ +| ?>90 ?| ?Stage one ?| ? Normal ?+ ---+ ---+ -------+| ?60-89 ?| ?Stage two ?| ? Decreased GFR ? + --+ --+ ------+| ?30-59 ?| ?Stage three ?| ? Stage three ? + --+ --+ ------+| ?15-29 ?| ?Stage four ? | ? Stage four ?+ ---+ ---+ -------+| ?<15 (or dialysis) ? ?| ?Stage five ? | ? Stage five ?+ ---+ ---+ -------+ *Each stage assumes the associated GFR level has been in effect for at least three months. ?Stages 1 to 5, with or without kidney disease, indicate chronic kidney disease. Notes: Determination of stages one and two (with eGFR >59mL/min/1.73 m2) requires estimation of kidney damage for at least three months as defined by structural or functional abnormalities of the kidney, manifested by either:Pathological abnormalities or Markers of kidney damage (including abnormalities in the composition of the blood or urine or abnormalities in imaging tests). Lab Interpretation Abnormal (test code = 51975-4) [facility] Brook[facility]esium [id number] 11:30:00 Test Item Value Reference Range Interpretation Comments MAGNESIUM (test code = 4058026413) 2.0 mg/dL 1.7-2.4 Lab Interpretation (test code = Normal 50998-4) [facility] BrookaPTT (for use with Heparin Drip)2020-04-10 11:29:00 Test Item Value Reference Range Interpretation Comments APTT Patient (test code See_Comment HH [Au tomated message] = 3173-2) The system [employer] generated this result transmitted ref erence range: 26 - 36 Seconds. The reference range was not used to int erpret this result as normal/abnormal . Lab Interpretation (test Abnormal code = 40860-2) [facility] with [id number] 11:12:00 Test Item Value Reference Range Interpretation Comments WBC (test code = See_Comment H [Automated 4690-2) message] The system which generated this result transmit dallin reference range : 4.30 - 11.10 10*3/?L. The reference range was not used to interpret this result as normal/abnormal . RBC (test code = See_Comment L [Automated 789-8) message] The system which generated this result transmit dallin reference range : 3.93 - 5.25 10*6/?L. The reference range was not used to interpret this result as normal/abnormal . HGB (test code = 11.2 g/dL 11.6-15 L 718-7) HCT (test code = 33.5 % 35.7-45.2 L 4544-3) MCV (test code = 90.1 fL 80.6-95.5 787-2) MCH (test code = 30.1 pg 25.9-32.8 785-6) MCHC (test code = 33.4 g/dL 31.6-35.1 786-4) RDW-SD (test code = 46.3 fL 39-49.9 53974-4) RDW-CV (test code = 13.9 % 12-15.5 788-0) PLT (test code = See_Comment [Automated 777-3) message] The system which generated this result transmit dallin reference range : 166 - 358 10*3/ ?L. The reference range was not u sed to interpret th is result as normal/abnormal . MPV (test code = 8.8 fL 9.5-12.9 L 44214-0) NRBC/100 WBC (test See_Comment [Automat ed code = 2117332285) message] The system which generated this result transmit dallin reference range : 0.0 - 10.0 /100 WBCs. The reference range was not used to interpret this result as normal/abnormal . NRBC x10^3 (test code <0.01 See_Comment [Auto mated = 3514256271) message] The system which generated this result transmit dallin reference range : 10*3/?L. The reference range was not used to interpret this result as normal/abnormal . GRAN MAT (NEUT) % 92.0 % (test code = 770-8) IMM GRAN % (test code 0.50 % = 2948152898) LYMPH % (test code = 3.0 % 736-9) MONO % (test code = 4.3 % 5905-5) EOS % (test code = 0.0 % 713-8) BASO % (test code = 0.2 % 706-2) GRAN MAT x10^3(ANC) 11.83 10*3/uL 1.88-7.09 H (test code = 2999752188) IMM GRAN x10^3 (test 0.07 10*3/uL 0-0.06 H code = 4318700470) LYMPH x10^3 (test code 0.38 10*3/uL 1.32-3.29 L = 731-0) MONO x10^3 (test code 0.55 10*3/uL 0.33-0.92 = 742-7) EOS x10^3 (test code = <0.03 0.03-0.39 L 711-2) BASO x10^3 (test code <0.03 0.01-0.07 = 704-7) Lab Interpretation Abnormal (test code = 41087-1) [facility] use [facility] Heparin Drip[facility]2020-04-10 05:42:00 Test Item Value Reference Range Interpretation Comments APTT Patient (test code >150 See_Comment HH [Au tomated message] = 3173-2) The system whic h generated this result transmitted ref erence range: 26 - 36 Seconds. The reference range was not used to int erpret this result as normal/abnormal . Lab Interpretation (test Abnormal code = 99119-1) [facility]2020-[facility] 04:07:00 Test Item Value Reference Range Interpretation Comments PROLACTIN (test code = 4586942506) 7.4 ng/mL 2.7-19.6 Lab Interpretation (test code = Normal 23957-7) [facility]TR[facility] [id number] 02:51:00 Test Item Value Reference Range Interpretation Comments TROPONIN I (test 0.508 ng/mL See_Comment H [Automated code = 9277424259) message] The system which generated this result transmitted reference range : <=0.034. The reference range was not used to interpret this result as normal/abnormal . ZELALEM (test code = Equal or Less than ZELALEM) 0.034 ng/ml---Normal ?Note: Cardiac troponin begins to rise 3-4 hours after the onset of ischemia. Repeat in 4-6 hours if the sample was drawn within 3-4 hours of the onset of the symptom and found normal. Between 0.035 and 0.120 ng/mL--- Borderline. Questionable myocardial injury or necrosis ? ?Note: Serial measurement may be necessary to confirm or exclude the diagnosis of myocardial injury or necrosis; Clinical correlation (symptoms, EKGs, imaging studies, and others) required; Repeat in 4-6 hours if clinically indicated. ? Equal or Higher than 0.121 ng/mL---Abnormal. Myocardial Injury or Necrosis Likely ? Biotin has been reported to cause a negative bias, interpret results relative to patient's use of biotin. ? Lab Interpretation Abnormal (test code = 70075-3) [facility] (NA, K, CL, CO2, GLUCOSE, BUN, CREATININE, CA)2020-04-10 02:39:00 Test Item Value Reference Range Interpretation Comments NA (test code = 124 mmol/L 135-145 L 2407896708) K (test code = 5.3 mmol/L 3.5-5 H 4265755200) CL (test code = 96 mmol/L 98-108 L 4812343074) CO2 TOTAL (test code = 24 mmol/L 23-31 2087980500) AGAP (test code = 2-16 0783761995) BUN (test code = 39 mg/dL 7-23 H 6502004933) GLUCOSE (test code = 141 mg/dL 70-110 H 8741351453) CREATININE (test code = 1.21 mg/dL 0.5-1.04 H 6095878821) CALCIUM (test code = 9.7 mg/dL 8.6-10.6 9072816286) eGFR Calculation mL/min/1.73m2 (Non-) (test code = 6441814917) eGFR Calculation mL/min/1.73m2 () (test code = 7480397698) ZELALEM (test code = ZELALEM) Association of Glomerular Filtration Rate (GFR) and Staging of Kidney Disease* + --+ --+ ------+| GFR (mL/min/1.73 m2) ?| With Kidney Damage ?| ?Without Kidney Damage+ --------+ --------+ +| ?>90 ?| ?Stage one ?| ? Normal ?+ ---+ ---+ -------+| ?60-89 ?| ?Stage two ?| ? Decreased GFR ? + --+ --+ ------+| ?30-59 ?| ?Stage three ?| ? Stage three ? + --+ --+ ------+| ?15-29 ?| ?Stage four ? | ? Stage four ?+ ---+ ---+ -------+| ?<15 (or dialysis) ? ?| ?Stage five ? | ? Stage five ?+ ---+ ---+ -------+ *Each stage assumes the associated GFR level has been in effect for at least three months. ?Stages 1 to 5, with or without kidney disease, indicate chronic kidney disease. Notes: Determination of stages one and two (with eGFR >59mL/min/1.73 m2) requires estimation of kidney damage for at least three months as defined by structural or functional abnormalities of the kidney, manifested by either:Pathological abnormalities or Markers of kidney damage (including abnormalities in the composition of the blood or urine or abnormalities in imaging tests). Lab Interpretation Abnormal (test code = 63889-2) [facility]2020-[facility]-01 02:34:00 Test Item Value Reference Range Interpretation Comments HGB (test code = 718-7) 11.2 g/dL 11.6-15 L Lab Interpretation (test code = Abnormal 92121-5) [facility] BrookOSMOLALITY [id number] 01:22:00 Test Item Value Reference Range Interpretation Comments OSMOLALITY (test code = See_Comment [Au tomated message] 9013233849) The system [employer] generated this result transmitted ref erence range: 278 - 30 5 mOsm/kg. The re ference range was not u sed to interpret this result as normal/abnor mal. Lab Interpretation (test Normal code = 88807-1) [facility]ACTIV[facility] PARTIAL THRMPLAS [id number] 22:26:00 Test Item Value Reference Range Interpretation Comments APTT Patient (test code = See_Comment [ Automated message] 3173-2) The system [employer] generated this result transmitted ref erence range: 26 - 36 Seconds. The re ference range was not u sed to interpret this result as normal/abnor mal. Lab Interpretation (test Normal code = 39766-4) [facility] BrookSODIUM, URINE [id number] 21:42:00 Test Item Value Reference Range Interpretation Comments NA URINE (test code = 6667513249) 21 mmol/L [facility] BrookMRSA / MSSA SCREEN BY PCR, [id number] 19:39:00 Test Item Value Reference Range Interpretation Comments MSSA Screen by PCRZelalemes (test code Negative Negative = 45551-0) MRSA/MSSA Positive? (test code = No No 6787719918) Lab Interpretation (test code = Normal 61220-2) [facility] BrookCREATINE [id number] 17:56:00 Test Item Value Reference Range Interpretation Comments CK (test code = 0111214163) 63 U/L 33-194 Lab Interpretation (test code = Normal 87476-0) [facility] BrookN-TERMINAL [id number] 11:00:00 Test Item Value Reference Range Interpretation Comments NT-proBNP (test code 2740 pg/mL See_Comment H [Autom ated = 3831216915) message] The system which generated this result transmitted reference range : <=450. The reference range was not used to interpret this result as normal/abnormal . ZELALEM (test code = ZELALEM) Biotin has been reported to cause a negative bias, interpret results relative to patient's use of biotin. Lab Interpretation Abnormal (test code = 80819-8) [facility] BrookTROPONIN [id number] 11:00:00 Test Item Value Reference Range Interpretation Comments TROPONIN I (test 0.812 ng/mL See_Comment H [Automated code = 3406952650) message] The system which generated this result transmitted reference range : <=0.034. The reference range was not used to interpret this result as normal/abnormal . ZELALEM (test code = Equal or Less than ZELALEM) 0.034 ng/ml---Normal ?Note: Cardiac troponin begins to rise 3-4 hours after the onset of ischemia. Repeat in 4-6 hours if the sample was drawn within 3-4 hours of the onset of the symptom and found normal. Between 0.035 and 0.120 ng/mL--- Borderline. Questionable myocardial injury or necrosis ? ?Note: Serial measurement may be necessary to confirm or exclude the diagnosis of myocardial injury or necrosis; Clinical correlation (symptoms, EKGs, imaging studies, and others) required; Repeat in 4-6 hours if clinically indicated. ? Equal or Higher than 0.121 ng/mL---Abnormal. Myocardial Injury or Necrosis Likely ? Biotin has been reported to cause a negative bias, interpret results relative to patient's use of biotin. ? Lab Interpretation Abnormal (test code = 33354-1) [facility] (NA, K, CL, CO2, GLUCOSE, BUN, CREATININE, CA)2020-04-09 10:49:00 Test Item Value Reference Range Interpretation Comments NA (test code = 128 mmol/L 135-145 L 9901085857) K (test code = 5.1 mmol/L 3.5-5 H 9625622289) CL (test code = 98 mmol/L 98-108 6947711113) CO2 TOTAL (test code = 25 mmol/L 2392292350) AGAP (test code = 2-16 1864428166) BUN (test code = 35 mg/dL 7-23 H 6131884334) GLUCOSE (test code = 136 mg/dL 70-110 H 6628717060) CREATININE (test code = 1.17 mg/dL 0.5-1.04 H 3151050511) CALCIUM (test code = 9.9 mg/dL 8.6-10.6 0280204986) eGFR Calculation mL/min/1.73m2 (Non-) (test code = 5323447043) eGFR Calculation mL/min/1.73m2 () (test code = 5028590375) ZELALEM (test code = ZELALEM) Association of Glomerular Filtration Rate (GFR) and Staging of Kidney Disease* + --+ --+ ------+| GFR (mL/min/1.73 m2) ?| With Kidney Damage ?| ?Without Kidney Damage+ --------+ --------+ +| ?>90 ?| ?Stage one ?| ? Normal ?+ ---+ ---+ -------+| ?60-89 ?| ?Stage two ?| ? Decreased GFR ? + --+ --+ ------+| ?30-59 ?| ?Stage three ?| ? Stage three ? + --+ --+ ------+| ?15-29 ?| ?Stage four ? | ? Stage four ?+ ---+ ---+ -------+| ?<15 (or dialysis) ? ?| ?Stage five ? | ? Stage five ?+ ---+ ---+ -------+ *Each stage assumes the associated GFR level has been in effect for at least three months. ?Stages 1 to 5, with or without kidney disease, indicate chronic kidney disease. Notes: Determination of stages one and two (with eGFR >59mL/min/1.73 m2) requires estimation of kidney damage for at least three months as defined by structural or functional abnormalities of the kidney, manifested by either:Pathological abnormalities or Markers of kidney damage (including abnormalities in the composition of the blood or urine or abnormalities in imaging tests). Lab Interpretation Abnormal (test code = 51585-5) [facility] BrookMagnesium [id number] 10:49:00 Test Item Value Reference Range Interpretation Comments MAGNESIUM (test code = 4922824105) 2.7 mg/dL 1.7-2.4 H Lab Interpretation (test code = Abnormal 35998-0) [facility] BrookPhosphorus [id number] 10:49:00 Test Item Value Reference Range Interpretation Comments PHOSPHORUS (test code = 7631595301) 4.4 mg/dL 2.5-5 Lab Interpretation (test code = Normal 82987-4) [facility] BrookaPTT (for use with Heparin Drip)2020-04-09 10:46:00 Test Item Value Reference Range Interpretation Comments APTT Patient (test code See_Comment H [Au tomated message] = 3173-2) The system [employer] generated this result transmitted ref erence range: 26 - 36 Seconds. The reference range was not used to int erpret this result as normal/abnormal . Lab Interpretation (test Abnormal code = 18398-6) [facility] BrookCB with [id number] 10:37:00 Test Item Value Reference Range Interpretation Comments WBC (test code = See_Comment [Automated 6690-2) message] The sy stem which generated this result transmitted reference range : 4.30 - 11.10 10*3/?L. The reference range was not used to interpret this result as normal/abnormal . RBC (test code = See_Comment L [Automated 789-8) message] The sy stem which generated this result transmitted reference range : 3.93 - 5.25 10*6/?L. The reference range was not used to interpret this result as normal/abnormal . HGB (test code = 11.3 g/dL 11.6-15 L 718-7) HCT (test code = 34.4 % 35.7-45.2 L 4544-3) MCV (test code = 91.2 fL 80.6-95.5 787-2) MCH (test code = 30.0 pg 25.9-32.8 785-6) MCHC (test code = 32.8 g/dL 31.6-35.1 786-4) RDW-SD (test code = 48.1 fL 39-49.9 80453-7) RDW-CV (test code = 14.3 % 12-15.5 788-0) PLT (test code = See_Comment [Automated 777-3) message] The sy stem which generated this result transmitted reference range : 166 - 358 10*3/ ?L. The reference r alison was not used to interpret this result as normal/abnormal . MPV (test code = 8.7 fL 9.5-12.9 L 82039-6) NRBC/100 WBC (test See_Comment [Automat ed code = 1560466186) message] The system which generated this result transmitted reference range : 0.0 - 10.0 /100 WBCs. The refer ence range was not u sed to interpret th is result as normal/abnormal . NRBC x10^3 (test code <0.01 See_Comment [Auto mated = 3156807945) message] The s ystem which generated this result transmitted reference range : 10*3/?L. The reference range was not used to interpret this result as normal/abnormal . GRAN MAT (NEUT) % 92.2 % (test code = 770-8) IMM GRAN % (test code 0.30 % = 6066633645) LYMPH % (test code = 5.1 % 736-9) MONO % (test code = 1.9 % 5905-5) EOS % (test code = 0.2 % 713-8) BASO % (test code = 0.3 % 706-2) GRAN MAT x10^3(ANC) 5.37 10*3/uL 1.88-7.09 (test code = 0499014046) IMM GRAN x10^3 (test <0.03 0-0.06 code = 7490998572) LYMPH x10^3 (test code 0.30 10*3/uL 1.32-3.29 L = 731-0) MONO x10^3 (test code 0.11 10*3/uL 0.33-0.92 L = 742-7) EOS x10^3 (test code = <0.03 0.03-0.39 L 711-2) BASO x10^3 (test code <0.03 0.01-0.07 = 704-7) Lab Interpretation Abnormal (test code = 77389-0) [facility] EDLUPILLO [id number] 04:36:00 Test Item Value Reference Range Interpretation Comments TROPONIN I (test 1.350 ng/mL See_Comment H [Automated code = 8456075511) message] The system which generated this result transmitted reference range : <=0.034. The reference range was not used to interpret this result as normal/abnormal . ZELALEM (test code = Equal or Less than ZELALEM) 0.034 ng/ml---Normal ?Note: Cardiac troponin begins to rise 3-4 hours after the onset of ischemia. Repeat in 4-6 hours if the sample was drawn within 3-4 hours of the onset of the symptom and found normal. Between 0.035 and 0.120 ng/mL--- Borderline. Questionable myocardial injury or necrosis ? ?Note: Serial measurement may be necessary to confirm or exclude the diagnosis of myocardial injury or necrosis; Clinical correlation (symptoms, EKGs, imaging studies, and others) required; Repeat in 4-6 hours if clinically indicated. ? Equal or Higher than 0.121 ng/mL---Abnormal. Myocardial Injury or Necrosis Likely ? Biotin has been reported to cause a negative bias, interpret results relative to patient's use of biotin. ? Lab Interpretation Abnormal (test code = 99695-1) [facility]MOGLOBIN2020-10-31 04:11:00 Test Item Value Reference Range Interpretation Comments HGB (test code = 718-7) 10.9 g/dL 11.6-15 L Lab Interpretation (test code = Abnormal 92649-4) [facility] BrookTROPONIN [id number] 23:07:00 Test Item Value Reference Range Interpretation Comments TROPONIN I (test 1.890 ng/mL See_Comment H [Automated code = 7438173337) message] The system which generated this result transmitted reference range : <=0.034. The reference range was not used to interpret this result as normal/abnormal . ZELALEM (test code = Equal or Less than ZELALEM) 0.034 ng/ml---Normal ?Note: Cardiac troponin begins to rise 3-4 hours after the onset of ischemia. Repeat in 4-6 hours if the sample was drawn within 3-4 hours of the onset of the symptom and found normal. Between 0.035 and 0.120 ng/mL--- Borderline. Questionable myocardial injury or necrosis ? ?Note: Serial measurement may be necessary to confirm or exclude the diagnosis of myocardial injury or necrosis; Clinical correlation (symptoms, EKGs, imaging studies, and others) required; Repeat in 4-6 hours if clinically indicated. ? Equal or Higher than 0.121 ng/mL---Abnormal. Myocardial Injury or Necrosis Likely ? Biotin has been reported to cause a negative bias, interpret results relative to patient's use of biotin. ? Lab Interpretation Abnormal (test code = 98426-7) [facility]ACTIV[facility] PARTIAL THRMPLAS [id number] 22:48:00 Test Item Value Reference Range Interpretation Comments APTT Patient (test See_Comment H [Automat ed code = 3173-2) message] The system which generated this result transmitted reference range : 23 - 38 Seconds . The reference range was not used to interpr et this result as normal/abnormal . ZELALEM (test code = ZELALEM) The [facility] patient population mean normal value for aPTT is 30 seconds. Lab Interpretation Abnormal (test code = 77801-8) [facility] BrookTHYROID STIMULATING [id number] 21:09:00 Test Item Value Reference Range Interpretation Comments TSH (test code = See_Comment H Biotin has been 0242715554) reported to cau se a negative bias, interpret resul ts relative to pat mindi's use of biotin. [Automated mess age] The system [employer] generated this result transmitted ref erence range: 0.45 - 4 .70 mIU/L. The refe rence range was not u sed to interpret this result as normal/abnor mal. Lab Interpretation (test Abnormal code = 59751-9) [facility] BrookTROPONIN [id number] 19:26:00 Test Item Value Reference Range Interpretation Comments TROPONIN I (test 2.280 ng/mL See_Comment H [Automated code = 6561843870) message] The system which generated this result transmitted reference range : <=0.034. The reference range was not used to interpret this result as normal/abnormal . ZELALEM (test code = Equal or Less than ZELALEM) 0.034 ng/ml---Normal ?Note: Cardiac troponin begins to rise 3-4 hours after the onset of ischemia. Repeat in 4-6 hours if the sample was drawn within 3-4 hours of the onset of the symptom and found normal. Between 0.035 and 0.120 ng/mL--- Borderline. Questionable myocardial injury or necrosis ? ?Note: Serial measurement may be necessary to confirm or exclude the diagnosis of myocardial injury or necrosis; Clinical correlation (symptoms, EKGs, imaging studies, and others) required; Repeat in 4-6 hours if clinically indicated. ? Equal or Higher than 0.121 ng/mL---Abnormal. Myocardial Injury or Necrosis Likely ? Biotin has been reported to cause a negative bias, interpret results relative to patient's use of biotin. ? Lab Interpretation Abnormal (test code = 88972-6) [facility] BrookBAIRONMARKUS [id number] 15:31:00 Test Item Value Reference Range Interpretation Comments TROPONIN I (test 1.940 ng/mL See_Comment H [Automated code = 5444996716) message] The system which generated this result transmitted reference range : <=0.034. The reference range was not used to interpret this result as normal/abnormal . ZELALEM (test code = Equal or Less than ZELALEM) 0.034 ng/ml---Normal ?Note: Cardiac troponin begins to rise 3-4 hours after the onset of ischemia. Repeat in 4-6 hours if the sample was drawn within 3-4 hours of the onset of the symptom and found normal. Between 0.035 and 0.120 ng/mL--- Borderline. Questionable myocardial injury or necrosis ? ?Note: Serial measurement may be necessary to confirm or exclude the diagnosis of myocardial injury or necrosis; Clinical correlation (symptoms, EKGs, imaging studies, and others) required; Repeat in 4-6 hours if clinically indicated. ? Equal or Higher than 0.121 ng/mL---Abnormal. Myocardial Injury or Necrosis Likely ? Biotin has been reported to cause a negative bias, interpret results relative to patient's use of biotin. ? Lab Interpretation Abnormal (test code = 26324-2) [facility] BrookTROPONIN [id number] 08:38:00 Test Item Value Reference Range Interpretation Comments TROPONIN I (test 0.077 ng/mL See_Comment H [Automated code = 7852646462) message] The system which generated this result transmitted reference range : <=0.034. The reference range was not used to interpret this result as normal/abnormal . ZELALEM (test code = Equal or Less than ZELALEM) 0.034 ng/ml---Normal ?Note: Cardiac troponin begins to rise 3-4 hours after the onset of ischemia. Repeat in 4-6 hours if the sample was drawn within 3-4 hours of the onset of the symptom and found normal. Between 0.035 and 0.120 ng/mL--- Borderline. Questionable myocardial injury or necrosis ? ?Note: Serial measurement may be necessary to confirm or exclude the diagnosis of myocardial injury or necrosis; Clinical correlation (symptoms, EKGs, imaging studies, and others) required; Repeat in 4-6 hours if clinically indicated. ? Equal or Higher than 0.121 ng/mL---Abnormal. Myocardial Injury or Necrosis Likely ? Biotin has been reported to cause a negative bias, interpret results relative to patient's use of biotin. ? Lab Interpretation Abnormal (test code = 74036-7) [facility] BrookN-TERMINAL [id number] 08:35:00 Test Item Value Reference Range Interpretation Comments NT-proBNP (test code 1560 pg/mL See_Comment H [Autom ated = 0097186395) message] The system which generated this result transmitted reference range : <=450. The reference range was not used to interpret this result as normal/abnormal . ZELALEM (test code = ZELALEM) Biotin has been reported to cause a negative bias, interpret results relative to patient's use of biotin. Lab Interpretation Abnormal (test code = 52260-7) [facility] BrookBasi Metabolic Panel (NA, K, CL, CO2, GLUCOSE, BUN, CREATININE, CA)2020-04-08 08:26:00 Test Item Value Reference Range Interpretation Comments NA (test code = 127 mmol/L 135-145 L 3106744924) K (test code = 4.6 mmol/L 3.5-5 5553488656) CL (test code = 97 mmol/L 98-108 L 7225476766) CO2 TOTAL (test code = 24 mmol/L 23-31 7368762694) AGAP (test code = 2-16 1282378449) BUN (test code = 23 mg/dL 7-23 1372478431) GLUCOSE (test code = 115 mg/dL 70-110 H 1281127263) CREATININE (test code = 1.29 mg/dL 0.5-1.04 H 8687016956) CALCIUM (test code = 9.8 mg/dL 8.6-10.6 5189472573) eGFR Calculation mL/min/1.73m2 (Non-) (test code = 6679933966) eGFR Calculation mL/min/1.73m2 () (test code = 5892542998) ZELALEM (test code = ZELALEM) Association of Glomerular Filtration Rate (GFR) and Staging of Kidney Disease* + --+ --+ ------+| GFR (mL/min/1.73 m2) ?| With Kidney Damage ?| ?Without Kidney Damage+ --------+ --------+ +| ?>90 ?| ?Stage one ?| ? Normal ?+ ---+ ---+ -------+| ?60-89 ?| ?Stage two ?| ? Decreased GFR ? + --+ --+ ------+| ?30-59 ?| ?Stage three ?| ? Stage three ? + --+ --+ ------+| ?15-29 ?| ?Stage four ? | ? Stage four ?+ ---+ ---+ -------+| ?<15 (or dialysis) ? ?| ?Stage five ? | ? Stage five ?+ ---+ ---+ -------+ *Each stage assumes the associated GFR level has been in effect for at least three months. ?Stages 1 to 5, with or without kidney disease, indicate chronic kidney disease. Notes: Determination of stages one and two (with eGFR >59mL/min/1.73 m2) requires estimation of kidney damage for at least three months as defined by structural or functional abnormalities of the kidney, manifested by either:Pathological abnormalities or Markers of kidney damage (including abnormalities in the composition of the blood or urine or abnormalities in imaging tests). Lab Interpretation Abnormal (test code = 64235-1) [facility] BrookMagn[facility] [id number] 08:26:00 Test Item Value Reference Range Interpretation Comments MAGNESIUM (test code = 2357483459) 1.9 mg/dL 1.7-2.4 Lab Interpretation (test code = Normal 92997-2) [facility] BrookPhosphorus [id number] 08:26:00 Test Item Value Reference Range Interpretation Comments PHOSPHORUS (test code = 1760684143) 2.9 mg/dL 2.5-5 Lab Interpretation (test code = Normal 91023-1) [facility]CB with [id number] 08:00:00 Test Item Value Reference Range Interpretation Comments WBC (test code = See_Comment [Automated 1690-2) message] The sy stem which generated this result transmitted reference range : 4.30 - 11.10 10*3/?L. The reference range was not used to interpret this result as normal/abnormal . RBC (test code = See_Comment [Automated 219-8) message] The sy stem which generated this result transmitted reference range : 3.93 - 5.25 10*6/?L. The reference range was not used to interpret this result as normal/abnormal . HGB (test code = 12.1 g/dL 11.6-15 718-7) HCT (test code = 36.0 % 35.7-45.2 4544-3) MCV (test code = 90.2 fL 80.6-95.5 787-2) MCH (test code = 30.3 pg 25.9-32.8 785-6) MCHC (test code = 33.6 g/dL 31.6-35.1 786-4) RDW-SD (test code = 44.8 fL 39-49.9 37664-6) RDW-CV (test code = 13.5 % 12-15.5 788-0) PLT (test code = See_Comment H [Automated 497-3) message] The sy stem which generated this result transmitted reference range : 166 - 358 10*3/ ?L. The reference r alison was not used to interpret this result as normal/abnormal . MPV (test code = 8.9 fL 9.5-12.9 L 92573-6) NRBC/100 WBC (test See_Comment [Automat ed code = 5059302982) message] The system which generated this result transmitted reference range : 0.0 - 10.0 /100 WBCs. The refer ence range was not u sed to interpret th is result as normal/abnormal . NRBC x10^3 (test code <0.01 See_Comment [Auto mated = 2331496460) message] The s ystem which generated this result transmitted reference range : 10*3/?L. The reference range was not used to interpret this result as normal/abnormal . GRAN MAT (NEUT) % 84.3 % (test code = 770-8) IMM GRAN % (test code 0.50 % = 7023479766) LYMPH % (test code = 5.6 % 736-9) MONO % (test code = 7.9 % 5905-5) EOS % (test code = 0.9 % 713-8) BASO % (test code = 0.8 % 706-2) GRAN MAT x10^3(ANC) 8.88 10*3/uL 1.88-7.09 H (test code = 3824556079) IMM GRAN x10^3 (test 0.05 10*3/uL 0-0.06 code = 4822958233) LYMPH x10^3 (test code 0.59 10*3/uL 1.32-3.29 L = 731-0) MONO x10^3 (test code 0.83 10*3/uL 0.33-0.92 = 742-7) EOS x10^3 (test code = 0.10 10*3/uL 0.03-0.39 711-2) BASO x10^3 (test code 0.08 10*3/uL 0.01-0.07 H = 704-7) Lab Interpretation Abnormal (test code = 62010-9) [facility] BrookBRIANA [id number] 03:23:00 Test Item Value Reference Range Interpretation Comments TROPONIN I (test <0.012 See_Comment [Automated code = 8342077527) message] The system which generated this result transmitted reference range : <=0.034 ng/mL. The reference range was not used to interpr et this result as normal/abnormal . ZELALEM (test code = Equal or Less than ZELALEM) 0.034 ng/ml---Normal ?Note: Cardiac troponin begins to rise 3-4 hours after the onset of ischemia. Repeat in 4-6 hours if the sample was drawn within 3-4 hours of the onset of the symptom and found normal. Between 0.035 and 0.120 ng/mL--- Borderline. Questionable myocardial injury or necrosis ? ?Note: Serial measurement may be necessary to confirm or exclude the diagnosis of myocardial injury or necrosis; Clinical correlation (symptoms, EKGs, imaging studies, and others) required; Repeat in 4-6 hours if clinically indicated. ? Equal or Higher than 0.121 ng/mL---Abnormal. Myocardial Injury or Necrosis Likely ? Biotin has been reported to cause a negative bias, interpret results relative to patient's use of biotin. ? Lab Interpretation Normal (test code = 02965-3) [facility] BrookPhosphorus [id number] 03:13:00 Test Item Value Reference Range Interpretation Comments PHOSPHORUS (test code = 0737344682) 2.7 mg/dL 2.5-5 Lab Interpretation (test code = Normal 48810-4) [facility] [id number] 23:00:32 No acute intracranial hemorrhage or mass effect. Unchanged left superior frontal extra-axial partially calcified dural-basedmass, likely meningioma. Mildly prominent pituitary gland noting this study is not tailored toassess the sella. Further assessment with sella protocol MRI of the brainwith and without contrast can be obtained on a non emergent basis. 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 Coronal and sagittal reformats were provided. FINDINGS: No acute intracranial hemorrhage. Periventricular and deep white matterhypodensities are noted, non specific but likely sequela of small vesselischemic changes. The bhandari-white matter differentiation is preserved. Mildly prominent pituitary gland. Unchanged extra-axial partially calcifiedlikely dural based mass superior to the left superior frontal lobe notedmeasuring 2.2 x 1.1 cm (6:18), likely partially calcified meningioma. Nos ignificant mass effect or midline shift. The ventricles and cerebral sulci are normal in caliber andconfiguration.No hydrocephalus or pathological extra-axial fluid collection is present.The basal cisterns are unremarkable. Partial opacification of the left frontal sinus and ethmoid air cells. Themastoid air cells are clear. The calvarium and central skull base areunremarkable. Intracranial atherosclerosis. Right temporomandibular jointdegeneration. [facility], Radiant Results Inft User - 04/07/2020 6:11PM CDTCT HEAD WO CONTRASTHISTORY: Cerebral hemorrhage suspected Aneurysm of precerebral arteries COMPARISON: 02/03/2019TECHNIQUE: Contiguous axial CT images of the head were obtained without theuse of intravenous contrast. Coronal and sagittal reformats were provided.FINDINGS:No acute intracranial hemorrhage. Periventricular and deep white matterhypodensities are noted, non specific but likely sequelaof small vesselischemic changes. The bhandari-white matter differentiation is preserved.Mildly prominentpituitary gland. Unchanged extra-axial partially calcifiedlikely dural based mass superior to the left superior frontal lobe notedmeasuring 2.2 x 1.1 cm (6:18), likely partially calcified meningioma. No significant mass effect or midline shift. The ventricles and cerebral sulci are normal in caliber and configuration.No hydrocephalus or pathological extra-axial fluid collection is present.The basal cisterns are unremarkable.Partial opacification of the left frontal sinus and ethmoid air cells. Themastoid air cells are clear. The calvarium and central skull base areunremarkable. Intracranial atherosclerosis. Right temporomandibular jointdegeneration. IMPRESSIONNo acute intracranial hemorrhage or mass effect.Unchanged left superior frontal extra-axial partially calcified dural-basedmass, likely menin gioma.Mildly prominent pituitary gland noting this study is not tailored toassess the sella. Furtherassessment with sella protocol MRI of the brainwith and without contrast can be obtained on a non emergent basis. Preliminary Report Dictated by Resident: Jay Bansal MD.,have reviewed this study and agree with theabove report.[facility]inalysis2020-10-29 22:46:00 Test Item Value Reference Range Interpretation Comments APPEARANCE (test code = Clear Clear 1618903752) COLOR (test code = Yellow Yellow 4244013777) PH (test code = 4.8-8.0 3447642420) SP GRAVITY (test code = 1.003-1.030 9589347256) GLU U QUAL (test code = Normal Normal 1659277073) BLOOD (test code = Negative Negative 8943614888) KETONES (test code = Negative Negative 6587448535) PROTEIN (test code = Negative Negative 2887-8) UROBILIN (test code = Normal Normal 6409194037) BILIRUBIN (test code = Negative Negative 3933432807) NITRITE (test code = Positive Negative A 2458549082) LEUK DARBY (test code = 25/uL Negative A 6683368823) RBC/HPF (test code = See_Comment [Autom ated message] 3888900604) The system [employer] generated this result transmitted ref erence range: 0 - 3 HP F. The reference range was not used to int erpret this result as normal/abnormal . WBC/HPF (test code = See_Comment [Autom ated message] 3710868365) The system [employer] generated this result transmitted ref erence range: 0 - 5 HP F. The reference range was not used to int erpret this result as normal/abnormal . BACTERIA (test code = Moderate Negative A 9606213695) MUCOUS (test code = Slight Negative LPF A 0777863597) SQ EPITH (test code = <1 HPF 4593396457) Lab Interpretation (test Abnormal code = 61925-6) [facility] (ID NOW RAPID TESTING)2020-04-07 21:42:00 Test Item Value Reference Range Interpretation Comments SARS-CoV-2 Rapid ID NOW Not Detected Not Detected (test code = 97128-2) ZELALME (test code = ZELALEM) ID NOW COVID-19 Assay is an isothermal nucleic acid amplification test intended for the qualitative detection of nucleic acid from SARS-CoV-2 viral RNA in nasopharyngeal (CRUSHER TENDER) specimens. It is used under Emergency Use Authorization (EUA) by FDA. The limit of detection (LOD) of the assay is 125 Genome Equivalents/mL. A positive result is indicative of the presence of SARS-CoV-2 RNA. ?Clinical correlation with patient history and other diagnostic information is necessary to determine patient infection status. A negative (Not Detected) result does not preclude SARS-CoV-2 infection. In patients with clinical symptoms and other tests that are consistent with SARS-CoV-2 infection, negative results should be treated as presumptive negative and a new specimen should be tested with alternative PCR molecular test. Invalid: Please collect a new specimen for repeat patient testing if clinically indicated. Lab Interpretation Normal (test code = 11681-0) [facility] Brook[facility]riana [id number] 21:29:00 Test Item Value Reference Range Interpretation Comments TROPONIN I (test 0.013 ng/mL See_Comment [Automated code = 6803005408) message] The system which generated this result transmitted reference range : <=0.034. The reference range was not used to interpret this result as normal/abnormal . ZELALEM (test code = Equal or Less than ZELALEM) 0.034 ng/ml---Normal ?Note: Cardiac troponin begins to rise 3-4 hours after the onset of ischemia. Repeat in 4-6 hours if the sample was drawn within 3-4 hours of the onset of the symptom and found normal. Between 0.035 and 0.120 ng/mL--- Borderline. Questionable myocardial injury or necrosis ? ?Note: Serial measurement may be necessary to confirm or exclude the diagnosis of myocardial injury or necrosis; Clinical correlation (symptoms, EKGs, imaging studies, and others) required; Repeat in 4-6 hours if clinically indicated. ? Equal or Higher than 0.121 ng/mL---Abnormal. Myocardial Injury or Necrosis Likely ? Biotin has been reported to cause a negative bias, interpret results relative to patient's use of biotin. ? Lab Interpretation Normal (test code = 78655-6) [facility]-TERMINAL [id number] 21:26:00 Test Item Value Reference Range Interpretation Comments NT-proBNP (test code 548 pg/mL See_Comment H [Autom ated = 6221233907) message] The system which generated this result transmitted reference range : <=450. The reference range was not used to interpret this result as normal/abnormal . ZELALEM (test code = ZELALEM) Biotin has been reported to cause a negative bias, interpret results relative to patient's use of biotin. Lab Interpretation Abnormal (test code = 65221-0) [facility] 1 [id number] 21:20:57HISTORY: Hypertension. TECHNIQUE: Portable AP erect view of the chest is obtained. Comparison madewith 02/03/2019 study. FINDINGS: Mild generalized obstructive lung disease, minimal fibrosis inthe retrocardiac left lower lung and a calcified granuloma in the rightlower lung noted. No acute pneumonia. No pneumothorax or pleural effusionor pulmonary congestion detected. Cardiac size is within upper normallimits. CONCLUSIONS: No signs of acute cardiopulmonary disease.[facility], Radiant Results Inft User - 04/07/2020 4:22 PM CDTHISTORY: Hypertension.TECHNIQUE: Portable AP erect view of the chest is obtained. Comparison madewith 02/03/2019 study.FINDINGS: Mild generalized obstructive lung disease, minimal fibrosis inthe retrocardiac left lower lung and a calcified granuloma in the rightlower lung noted. No acute pneumonia. No pneumothorax or pleural effusionor pulmonary congestion detected. Cardiac size is within upper normallimits. CONCLUSIONS: No signs of acute cardiopulmonary disease.[facility] BrookaPTT2020-10-29 21:18:00 Test Item Value Reference Range Interpretation Comments APTT Patient (test See_Comment [Automat ed code = 3173-2) message] The system which generated this result transmitted reference range : 23 - 38 Seconds . The reference range was not used to interpr et this result as normal/abnormal . ZELALEM (test code = ZELALEM) The [facility] patient population mean normal value for aPTT is 30 seconds. Lab Interpretation Normal (test code = 47901-9) [facility] (NA, K, CL, CO2, GLUCOSE, BUN, CREATININE, CA)2020-04-07 21:17:00 Test Item Value Reference Range Interpretation Comments NA (test code = 127 mmol/L 135-145 L 7857471033) K (test code = 5.0 mmol/L 3.5-5 4163492959) CL (test code = 96 mmol/L 98-108 L 6432059328) CO2 TOTAL (test code = 27 mmol/L 23-31 3260287986) AGAP (test code = 2-16 4940635797) BUN (test code = 18 mg/dL 7-23 7371450435) GLUCOSE (test code = 100 mg/dL 70-110 8655808294) CREATININE (test code = 0.67 mg/dL 0.5-1.04 2287584531) CALCIUM (test code = 9.9 mg/dL 8.6-10.6 2369348526) eGFR Calculation mL/min/1.73m2 (Non-) (test code = 4755667367) eGFR Calculation mL/min/1.73m2 () (test code = 4804633745) ZELALEM (test code = ZELALEM) Association of Glomerular Filtration Rate (GFR) and Staging of Kidney Disease* + --+ --+ ------+| GFR (mL/min/1.73 m2) ?| With Kidney Damage ?| ?Without Kidney Damage+ --------+ --------+ +| ?>90 ?| ?Stage one ?| ? Normal ?+ ---+ ---+ -------+| ?60-89 ?| ?Stage two ?| ? Decreased GFR ? + --+ --+ ------+| ?30-59 ?| ?Stage three ?| ? Stage three ? + --+ --+ ------+| ?15-29 ?| ?Stage four ? | ? Stage four ?+ ---+ ---+ -------+| ?<15 (or dialysis) ? ?| ?Stage five ? | ? Stage five ?+ ---+ ---+ -------+ *Each stage assumes the associated GFR level has been in effect for at least three months. ?Stages 1 to 5, with or without kidney disease, indicate chronic kidney disease. Notes: Determination of stages one and two (with eGFR >59mL/min/1.73 m2) requires estimation of kidney damage for at least three months as defined by structural or functional abnormalities of the kidney, manifested by either:Pathological abnormalities or Markers of kidney damage (including abnormalities in the composition of the blood or urine or abnormalities in imaging tests). Lab Interpretation Abnormal (test code = 72015-5) [facility] (ALB, T.PRO, BILI T, BU/BC, ALT, AST, ALK PHOS)2020-04-07 21:17:00 Test Item Value Reference Range Interpretation Comments TOTAL BILI (test code = 4230542299) 0.5 mg/dL 0.1-1.1 BILI UNCON (test code = 2476003602) 0.3 mg/dL 0.1-1.1 BILI CONJ (test code = 8034604761) 0.0 mg/dL 0-0.3 T PROTEIN (test code = 3635330729) 7.3 g/dL 6.3-8.2 ALBUMIN (test code = 4193954918) 3.8 g/dL 3.5-5 ALK PHOS (test code = 2992875953) 40 U/L 34-122 ALTv (test code = 1742-6) 10 U/L 5-35 AST(SGOT) (test code = 3796226683) 24 U/L 13-40 Lab Interpretation (test code = Normal 26081-8) [facility] BrookLipase [id number] 21:17:00 Test Item Value Reference Range Interpretation Comments LIPASE (test code = 8095369767) 168 U/L 0-220 Lab Interpretation (test code = Normal 82374-8) [facility] BrookProthrombin Time (PT) / [id number] 21:16:00 Test Item Value Reference Range Interpretation Comments PROTIME PATIENT (test See_Comment [Auto mated message] code = 5964-2) The system [employer] generated this result transmitted ref erence range: 12.0 - 1 4.7 Seconds. The re ference range was not u sed to interpret this result as normal/abnor mal. INR (test code = 6301-6) Nor mal INR <1.1; Warfarin Therap eutic range 2.0 to 3. 0 or 2.5 to 3.5, dep ending upon the indica tions. Lab Interpretation (test Normal code = 28642-0) [facility] with [id number] 21:03:00 Test Item Value Reference Range Interpretation Comments WBC (test code = See_Comment [Automated 3390-2) message] The sy stem which generated this result transmitted reference range : 4.30 - 11.10 10*3/?L. The reference range was not used to interpret this result as normal/abnormal . RBC (test code = See_Comment [Automated 789-8) message] The sy stem which generated this result transmitted reference range : 3.93 - 5.25 10*6/?L. The reference range was not used to interpret this result as normal/abnormal . HGB (test code = 12.2 g/dL 11.6-15 718-7) HCT (test code = 36.4 % 35.7-45.2 4544-3) MCV (test code = 91.0 fL 80.6-95.5 787-2) MCH (test code = 30.5 pg 25.9-32.8 785-6) MCHC (test code = 33.5 g/dL 31.6-35.1 786-4) RDW-SD (test code = 44.7 fL 39-49.9 41787-1) RDW-CV (test code = 13.2 % 12-15.5 788-0) PLT (test code = See_Comment H [Automated 777-3) message] The sy stem which generated this result transmitted reference range : 166 - 358 10*3/ ?L. The reference r alison was not used to interpret this result as normal/abnormal . MPV (test code = 8.9 fL 9.5-12.9 L 36578-9) NRBC/100 WBC (test See_Comment [Automat ed code = 0583194251) message] The system which generated this result transmitted reference range : 0.0 - 10.0 /100 WBCs. The refer ence range was not u sed to interpret th is result as normal/abnormal . NRBC x10^3 (test code <0.01 See_Comment [Auto mated = 9628106366) message] The s ystem which generated this result transmitted reference range : 10*3/?L. The reference range was not used to interpret this result as normal/abnormal . GRAN MAT (NEUT) % 73.7 % (test code = 770-8) IMM GRAN % (test code 0.30 % = 0472372223) LYMPH % (test code = 9.9 % 736-9) MONO % (test code = 10.7 % 5905-5) EOS % (test code = 4.1 % 713-8) BASO % (test code = 1.3 % 706-2) GRAN MAT x10^3(ANC) 5.22 10*3/uL 1.88-7.09 (test code = 2061172928) IMM GRAN x10^3 (test <0.03 0-0.06 code = 9210721125) LYMPH x10^3 (test code 0.70 10*3/uL 1.32-3.29 L = 731-0) MONO x10^3 (test code 0.76 10*3/uL 0.33-0.92 = 742-7) EOS x10^3 (test code = 0.29 10*3/uL 0.03-0.39 711-2) BASO x10^3 (test code 0.09 10*3/uL 0.01-0.07 H = 704-7) Lab Interpretation Abnormal (test code = 40452-9) [facility] Metabolic Panel (NA, K, CL, CO2, GLUCOSE, BUN, CREATININE, CA)2019-02-05 11:13:00 Test Item Value Reference Range Interpretation Comments NA (test code = 134 mmol/L 135-145 L 9626862804) K (test code = 4.2 mmol/L 3.5-5 7532253765) CL (test code = 102 mmol/L 98-108 6848956684) CO2 TOTAL (test code = 25 mmol/L 23-31 8858072972) AGAP (test code = 2-16 3412036359) BUN (test code = 12 mg/dL 7-23 7633350365) GLUCOSE (test code = 110 mg/dL 70-110 3386244963) CREATININE (test code = 0.56 mg/dL 0.5-1.04 6544692573) CALCIUM (test code = 9.6 mg/dL 8.6-10.6 4635778709) eGFR Calculation mL/min/1.73m2 (Non-) (test code = 2652242447) eGFR Calculation mL/min/1.73m2 () (test code = 2206197780) ZELALEM (test code = ZELALEM) Association of Glomerular Filtration Rate (GFR) and Staging of Kidney Disease*+ + + +| GFR (mL/min/1.73 m2)?| With Kidney Damage?|?Without Kidney Damage+ --------+ --------+ +|?>90?|?S tage one?|? Normal?+ ---------+ ---------+ +|?60-89? |?Stage two?|? Decreased GFR? + --+ --+ ------+|?30-59?|?Stage three?|? Stage three? + --+ --+ ------+|?15-29?|?Stage four? |? Stage four?+ -------+ -------+ +|?<15 (or dialysis)?|?Stage five? |? Stage five?+ -------+ -------+ +*Each stage assumes the associated GFR level has been in effect for at least three months.?Stages 1 to 5, with or without kidney disease, indicate chronic kidney disease.Notes: Determination of stages one and two (with eGFR >59mL/min/1.73 m2) requires estimation of kidney damage for at least three months as defined by structural or functional abnormalities of the kidney, manifested by either:Pathological abnormalities or Markers of kidney damage (including abnormalities in the composition of the blood or urine or abnormalities in imaging tests). Lab Interpretation Abnormal (test code = 72751-9) [facility] WITH [id number] 11:04:00 Test Item Value Reference Range Interpretation Comments WBC (test code = See_Comment [Automated 8613-2) message] The sy stem which generated this result transmitted reference range : 4.30 - 11.10 10*3/?L. The reference range was not used to interpret this result as normal/abnormal . RBC (test code = See_Comment L [Automated 9-8) message] The sy stem which generated this result transmitted reference range : 3.93 - 5.25 10*6/?L. The reference range was not used to interpret this result as normal/abnormal . HGB (test code = 9.1 g/dL 11.6-15 L 718-7) HCT (test code = 29.4 % 35.7-45.2 L 4544-3) MCV (test code = 80.5 fL 80.6-95.5 L 787-2) MCH (test code = 24.9 pg 25.9-32.8 L 785-6) MCHC (test code = 31.0 g/dL 31.6-35.1 L 786-4) RDW-SD (test code = 52.0 fL 39-49.9 H 37894-8) RDW-CV (test code = 17.8 % 12-15.5 H 788-0) PLT (test code = See_Comment [Automated 777-3) message] The sy stem which generated this result transmitted reference range : 166 - 358 10*3/ ?L. The reference r alison was not used to interpret this result as normal/abnormal . MPV (test code = 10.4 fL 9.5-12.9 13688-7) IPF % (test code = 4.5 % 1.3-7.7 Platelet count 8179526941) measured by fluorescence method. NRBC/100 WBC (test See_Comment [Automat ed code = 0031491983) message] The system which generated this result transmitted reference range : 0.0 - 10.0 /100 WBCs. The refer ence range was not u sed to interpret th is result as normal/abnormal . NRBC x10^3 (test code <0.01 See_Comment [Auto mated = 5665594943) message] The s ystem which generated this result transmitted reference range : 10*3/?L. The reference range was not used to interpret this result as normal/abnormal . GRAN MAT (NEUT) % 72.2 % (test code = 770-8) IMM GRAN % (test code 0.30 % = 0825312786) LYMPH % (test code = 11.8 % 736-9) MONO % (test code = 10.9 % 5905-5) EOS % (test code = 3.9 % 713-8) BASO % (test code = 0.9 % 706-2) GRAN MAT x10^3(ANC) 4.63 10*3/uL 1.88-7.09 (test code = 2641947783) IMM GRAN x10^3 (test <0.03 0-0.06 code = 4985167355) LYMPH x10^3 (test code 0.76 10*3/uL 1.32-3.29 L = 731-0) MONO x10^3 (test code 0.70 10*3/uL 0.33-0.92 = 742-7) EOS x10^3 (test code = 0.25 10*3/uL 0.03-0.39 711-2) BASO x10^3 (test code 0.06 10*3/uL 0.01-0.07 = 704-7) Lab Interpretation Abnormal (test code = 70607-5) [facility] [id number] 20:52:13 HISTORY: History of DVT, abnormal endoscopy study with GI bleeding. Patientis not a candidate for anticoagulation therapy. COMPARISON: None. TECHNIQUE: Initial ultrasound study of the right groin was done by myselfwhich showed no DVT in the right common femoral vein. Using aseptic precautions and local anesthesia, right common femoral veinwas punctured using an 18-gauge single wall needle. Over the wire, a longdilator provided with the IVC kit was advanced into common iliac vein andvenacavogram was performed. FINDINGS: Venacavogram showed no IVC thrombus and the caliber of the IVCwas less than 20 mm below the level of renal veins. Entrance sites of therenal veins were identified. FILTER DEPLOYMENT: [place] option Elite retrievable filter was advanced overguidewire and was deployed just below the level of renal veins. Due tolumbar levoscoliosis, there is a slight curve in the IVC and, as a result,the filter appears to be slightly tilted. The sheath was removed and external finger pressure was applied over theright femoral puncture site and hemostasis was achieved without anydifficulty. The patient was transferred to the floor in stable condition and wasrequested to remain flat for the next 2 hours and not sit up or cannot bendthe right leg. CONCLUSIONS: [place] "Option Elite" retrievable filter placed in inferior venacava just below the entrance sites of renal veins. [facility] Inft User - 02/04/2019 3:54 PM CDTHISTORY: History of DVT, abnormal endoscopy study with GI bleeding. Patientis not a candidate for anticoagulation therapy.COMPARISON: None.TECHNIQUE: Initial ultrasound studyof the right groin was done by myselfwhich showed no DVT in the right common femoral vein.Using aseptic precautions and local anesthesia, right common femoral veinwas punctured using an 18-gauge singlewall needle. Over the wire, a longdilator provided with the IVC kit was advanced into common iliac vein andvenacavogram was performed.FINDINGS: Venacavogram showed no IVC thrombus and the caliber of the IVCwas less than 20 mm below the level of renal veins. Entrance sites of therenal veins were identified.FILTER DEPLOYMENT: [place] option Elite retrievable filter was advanced overguidewire and was deployed just below the level of renal veins. Due tolumbar levoscoliosis, there is a slight curve in theIVC and, as a result,the filter appears to be slightly tilted.The sheath was removed and external finger pressure was applied over theright femoral puncture site and hemostasis was achieved without anydifficulty.The patient was transferred to the floor in stable condition and wasrequested to remain flat for the next 2 hours and not sit up or cannot bendthe right leg.CONCLUSIONS: [place] "Option Elite" retrievable filter placed in inferior venacava just below the entrance sites of renal veins.[facility] (NA, K, CL, CO2, GLUCOSE, BUN, CREATININE, CA)2019-02-04 11:29:00 Test Item Value Reference Range Interpretation Comments NA (test code = 137 mmol/L 135-145 6018555640) K (test code = 4.1 mmol/L 3.5-5 1875107651) CL (test code = 109 mmol/L 98-108 H 4075615625) CO2 TOTAL (test code = 22 mmol/L 23-31 L 8283686373) AGAP (test code = 2-16 1338236926) BUN (test code = 14 mg/dL 7-23 2447484205) GLUCOSE (test code = 87 mg/dL 70-110 3340997500) CREATININE (test code = 0.61 mg/dL 0.5-1.04 4888884665) CALCIUM (test code = 8.6 mg/dL 8.6-10.6 3845461963) eGFR Calculation mL/min/1.73m2 (Non-) (test code = 8719116038) eGFR Calculation mL/min/1.73m2 () (test code = 3500928609) ZELALEM (test code = ZELALEM) Association of Glomerular Filtration Rate (GFR) and Staging of Kidney Disease*+ + + +| GFR (mL/min/1.73 m2)?| With Kidney Damage?|?Without Kidney Damage+ --------+ --------+ +|?>90?|?S tage one?|? Normal?+ ---------+ ---------+ +|?60-89? |?Stage two?|? Decreased GFR? + --+ --+ ------+|?30-59?|?Stage three?|? Stage three? + --+ --+ ------+|?15-29?|?Stage four? |? Stage four?+ -------+ -------+ +|?<15 (or dialysis)?|?Stage five? |? Stage five?+ -------+ -------+ +*Each stage assumes the associated GFR level has been in effect for at least three months.?Stages 1 to 5, with or without kidney disease, indicate chronic kidney disease.Notes: Determination of stages one and two (with eGFR >59mL/min/1.73 m2) requires estimation of kidney damage for at least three months as defined by structural or functional abnormalities of the kidney, manifested by either:Pathological abnormalities or Markers of kidney damage (including abnormalities in the composition of the blood or urine or abnormalities in imaging tests). Lab Interpretation Abnormal (test code = 79969-1) [facility] WITH [id number] 11:26:00 Test Item Value Reference Range Interpretation Comments WBC (test code = See_Comment [Automated 4690-2) message] The sy stem which generated this result transmitted reference range : 4.30 - 11.10 10*3/?L. The reference range was not used to interpret this result as normal/abnormal . RBC (test code = See_Comment L [Automated 949-8) message] The sy stem which generated this result transmitted reference range : 3.93 - 5.25 10*6/?L. The reference range was not used to interpret this result as normal/abnormal . HGB (test code = 8.1 g/dL 11.6-15 L 718-7) HCT (test code = 25.4 % 35.7-45.2 L 4544-3) MCV (test code = 80.6 fL 80.6-95.5 787-2) MCH (test code = 25.7 pg 25.9-32.8 L 785-6) MCHC (test code = 31.9 g/dL 31.6-35.1 786-4) RDW-SD (test code = 52.5 fL 39-49.9 H 85540-7) RDW-CV (test code = 17.8 % 12-15.5 H 788-0) PLT (test code = See_Comment H [Automated 777-3) message] The sy stem which generated this result transmitted reference range : 166 - 358 10*3/ ?L. The reference r alison was not used to interpret this result as normal/abnormal . MPV (test code = 9.9 fL 9.5-12.9 48800-1) NRBC/100 WBC (test See_Comment [Automat ed code = 1311544125) message] The system which generated this result transmitted reference range : 0.0 - 10.0 /100 WBCs. The refer ence range was not u sed to interpret th is result as normal/abnormal . NRBC x10^3 (test code <0.01 See_Comment [Auto mated = 6444095254) message] The s ystem which generated this result transmitted reference range : 10*3/?L. The reference range was not used to interpret this result as normal/abnormal . GRAN MAT (NEUT) % 66.7 % (test code = 770-8) IMM GRAN % (test code 0.40 % = 9759791446) LYMPH % (test code = 15.8 % 736-9) MONO % (test code = 13.7 % 5905-5) EOS % (test code = 2.3 % 713-8) BASO % (test code = 1.1 % 706-2) GRAN MAT x10^3(ANC) 3.81 10*3/uL 1.88-7.09 (test code = 2599768288) IMM GRAN x10^3 (test <0.03 0-0.06 code = 3001946694) LYMPH x10^3 (test code 0.90 10*3/uL 1.32-3.29 L = 731-0) MONO x10^3 (test code 0.78 10*3/uL 0.33-0.92 = 742-7) EOS x10^3 (test code = 0.13 10*3/uL 0.03-0.39 711-2) BASO x10^3 (test code 0.06 10*3/uL 0.01-0.07 = 704-7) Lab Interpretation Abnormal (test code = 94542-0) [facility] [id number] 04:46:00 Test Item Value Reference Range Interpretation Comments TSH (test code = See_Comment H [Automated message] 6950229635) The system [employer] generated this result transmitted ref erence range: 0.45 - 4 .70 mIU/L. The refe rence range was not u sed to interpret this result as normal/abnor mal. Lab Interpretation (test Abnormal code = 77544-4) [facility]2019-08-28 01:42:00 Test Item Value Reference Range Interpretation Comments HGB (test code = 718-7) 6.7 g/dL 11.6-15 L Lab Interpretation (test code = Abnormal 50134-7) [facility] Brook[facility] Packed RBC (in units), 1 Units 2019-02-03 21:38:53 Test Item Value Reference Range Interpretation Comments Cross Match Result Compatible (test code = 4409) ISBT Blood Type Code (test code = 065752) Unit Blood Type (test A Pos code = 4410) Unit Number (test [id number] code = 4411) Blood Expiration Date & Time (test code = 120692) Status Information Issued (test code = 4412) Product Red Blood Cells Identification (test code = 4413) Product Code (test U4102Y71 Performed at [facility] code = 4414) Laboratory Services - [facility] Blood [address] [place] [id number] Free: [phone] A No. [id number] [facility] BrookMagnesium [id number] 19:43:00 Test Item Value Reference Range Interpretation Comments MAGNESIUM (test code = 2.1 mg/dL 1.7-2.4 Sligh t hemolysis 3355455214) Lab Interpretation (test Normal code = 83063-9) [facility]2019-08-27 18:28:00 Test Item Value Reference Range Interpretation Comments APPEARANCE (test code Clear Clear = 3989135551) COLOR (test code = Yellow Yellow 2764651360) PH (test code = 4.8-8.0 7252834172) SP GRAVITY (test code <=1.005 1.003-1.030 = 2241993375) GLU U QUAL (test code Negative Negative = 0155978144) BLOOD (test code = Negative Negative 0711473540) KETONES (test code = Negative Negative 6808207775) PROTEIN (test code = Negative Negative 2887-8) UROBILIN (test code = 0.2 mg/dL See_Comment [Auto mated message] 5721877720) The system [employer] generated this result transmitted ref erence range: 0-1.0 mg /dL. The reference r alison was not used to interpret this result as normal/abnor mal. BILIRUBIN (test code = Negative Negative 4765487779) NITRITE (test code = Negative Negative 5947224295) LEUK DARBY (test code Negative Negative = 2685453619) RBC/HPF (test code = See_Comment [Autom ated message] 2650645600) The system [employer] generated this result transmitted ref erence range: 0 - 3 HP F. The reference range was not used to int erpret this result as normal/abnormal . WBC/HPF (test code = See_Comment [Autom ated message] 0725867368) The system [employer] generated this result transmitted ref erence range: 0 - 5 HP F. The reference range was not used to int erpret this result as normal/abnormal . BACTERIA (test code = Negative Negative 9198511055) AMORPHOUS (test code = Few HPF 1073232887) SQ EPITH (test code = HPF 0337388331) [facility] BrookType and Screen - ONCE [id number] 18:20:57 Test Item Value Reference Range Interpretation Comments ABO & RH (test code A Positive Performe d at [facility] = 20) Laboratory [facility] Blood [facility] [place] [phone] Free: [phone] A No. [id number] IAT (test code = Negative Performed a t [facility] 1185) Laboratory [facility] [address] [place] [id number] Free: [phone] A No. [id number] [facility] BrookTROPONIN [id number] 16:56:00 Test Item Value Reference Range Interpretation Comments TROPONIN I (test <0.012 See_Comment [Automated code = 1030366667) message] The system which generated this result transmitted reference range : <=0.034 ng/mL. The reference range was not used to interpr et this result as normal/abnormal . ZELALEM (test code = Equal or Less than ZELALEM) 0.034 ng/ml---Normal?Not e: Cardiac troponin begins to rise 3-4 hours after the onset of ischemia. Repeat in 4-6 hours if the sample was drawn within 3-4 hours of the onset of the symptom and found normal. Between 0.035 and 0.120 ng/mL--- Borderline. Questionable myocardial injury or necrosis?Note: Serial measurement may be necessary to confirm or exclude the diagnosis of myocardial injury or necrosis; Clinical correlation (symptoms, EKGs, imaging studies, and others) required; Repeat in 4-6 hours if clinically indicated.? Equal or Higher than 0.121 ng/mL---Abnormal. Myocardial Injury or Necrosis Likely? Biotin has been reported to cause a negative bias, interpret results relative to patient's use of biotin.? ?? Lab Interpretation Normal (test code = 54931-4) [facility]. METABOLIC PANEL (53142)2019-02-03 16:44:00 Test Item Value Reference Range Interpretation Comments NA (test code = 132 mmol/L 135-145 L 6985800633) K (test code = 4.5 mmol/L 3.5-5 1317811830) CL (test code = 100 mmol/L 98-108 5573463583) CO2 TOTAL (test code = 23 mmol/L 23-31 6371841842) AGAP (test code = 2-16 3201693818) BUN (test code = 14 mg/dL 7-23 4361965188) GLUCOSE (test code = 107 mg/dL 70-110 6438566199) CREATININE (test code = 0.52 mg/dL 0.5-1.04 1846033510) TOTAL BILI (test code = 0.4 mg/dL 0.1-1.5 4209632282) CALCIUM (test code = 8.9 mg/dL 8.6-10.6 8545839175) T PROTEIN (test code = 7.0 g/dL 6.3-8.2 4209906704) ALBUMIN (test code = 3.7 g/dL 3.5-5 3630787873) ALK PHOS (test code = 42 U/L 34-122 8347377063) ALT(SGPT) (test code = 16 U/L 9-51 6199158922) AST(SGOT) (test code = 33 U/L 13-40 2096362623) eGFR Calculation mL/min/1.73m2 (Non-) (test code = 9245734609) eGFR Calculation mL/min/1.73m2 () (test code = 6990176045) ZELALEM (test code = ZELALEM) Association of Glomerular Filtration Rate (GFR) and Staging of Kidney Disease*+ + + +| GFR (mL/min/1.73 m2)?| With Kidney Damage?|?Without Kidney Damage+ --------+ --------+ +|?>90?|?S tage one?|? Normal?+ ---------+ ---------+ +|?60-89? |?Stage two?|? Decreased GFR? + --+ --+ ------+|?30-59?|?Stage three?|? Stage three? + --+ --+ ------+|?15-29?|?Stage four? |? Stage four?+ -------+ -------+ +|?<15 (or dialysis)?|?Stage five? |? Stage five?+ -------+ -------+ +*Each stage assumes the associated GFR level has been in effect for at least three months.?Stages 1 to 5, with or without kidney disease, indicate chronic kidney disease.Notes: Determination of stages one and two (with eGFR >59mL/min/1.73 m2) requires estimation of kidney damage for at least three months as defined by structural or functional abnormalities of the kidney, manifested by either:Pathological abnormalities or Markers of kidney damage (including abnormalities in the composition of the blood or urine or abnormalities in imaging tests). Lab Interpretation Abnormal (test code = 00345-6) [facility] WO [id number] 16:42:02 No acute intracranial abnormality. Left superior frontal convexity extra-axial densely calcified lesion likelyrepresents meningioma.* * * * * * * * ORIGINAL REPORT * * * * * * * *EXAM: CT HEAD WO CONTRAST HISTORY: Stroke suspected, ataxia TECHNIQUE: CT of the head was performed without intravenous con trast.Sagittal and coronal reformats were generated. COMPARISON: None. FINDINGS: An extra-axial hyperdense lesion with extensive mineralization is noted atthe left superior frontal convexity measures approximately 2 x 1 cm likelyrepresents calcified meningioma. No significant mass effect on theunderlying cerebral parenchyma. The ventricles and sulci are normal in caliber and configuration. Nohydrocephalus, midline shift or pathological extra-axial fluid collection.Basal cisterns are unremarkable. Scattered hypodensities in the bilateralcerebral white matter, nonspecific likely present microvascular ischemicchanges. The calvarium and skull base are unremarkable. The paranasal sinuses and mastoid air cells are clear. [facility], Radiant Results Inft User - 02/03/2019 11:44 AM CDT* * * * * * * * ORIGINAL REPORT * * * * * * * *EXAM: CT HEAD WO CONTRASTHISTORY: Stroke suspected, ataxia TECHNIQUE: CT of thehead was performed without intravenous contrast.Sagittal and coronal reformats were generated.COMPARISON: None.FINDINGS: An extra-axial hyperdense lesion with extensive mineralization is noted atthe left superior frontal convexity measures approximately 2 x 1 cm likelyrepresents calcified meningioma. No significant mass effect on theunderlying cerebral parenchyma.The ventricles and sulci are normal in caliber and configuration. Nohydrocephalus, midline shift or pathological extra-axial fluid collection.Basal cisterns are unremarkable. Scattered hypodensities in the bilateralcerebral white matter, nonspecific likely present microvascular ischemicchanges.The calvarium and skull base are unremarkable.The paranasal sinuses and mastoid air cells are clear.IMPRESSIONNo acute intracranial abnormality.Left superior frontal convexity extra-axial densely calcified lesion likelyrepresents meningioma.[facility] BrookCBC WITH [id number] 16:32:00 Test Item Value Reference Range Interpretation Comments WBC (test code = See_Comment [Automated 9590-2) message] The sy stem which generated this result transmitted reference range : 4.30 - 11.10 10*3/?L. The reference range was not used to interpret this result as normal/abnormal . RBC (test code = See_Comment L [Automated 698-8) message] The sy stem which generated this result transmitted reference range : 3.93 - 5.25 10*6/?L. The reference range was not used to interpret this result as normal/abnormal . HGB (test code = 5.9 g/dL 11.6-15 L 718-7) HCT (test code = 19.9 % 35.7-45.2 L 4544-3) MCV (test code = 78.3 fL 80.6-95.5 L 787-2) MCH (test code = 23.2 pg 25.9-32.8 L 785-6) MCHC (test code = 29.6 g/dL 31.6-35.1 L 786-4) RDW-SD (test code = 53.0 fL 39-49.9 H 07894-0) RDW-CV (test code = 18.3 % 12-15.5 H 788-0) PLT (test code = See_Comment H [Automated 777-3) message] The sy stem which generated this result transmitted reference range : 166 - 358 10*3/ ?L. The reference r alison was not used to interpret this result as normal/abnormal . MPV (test code = 9.5 fL 9.5-12.9 29159-9) NRBC/100 WBC (test See_Comment [Automat ed code = 8188026831) message] The system which generated this result transmitted reference range : 0.0 - 10.0 /100 WBCs. The refer ence range was not u sed to interpret th is result as normal/abnormal . NRBC x10^3 (test code <0.01 See_Comment [Auto mated = 1238969224) message] The s ystem which generated this result transmitted reference range : 10*3/?L. The reference range was not used to interpret this result as normal/abnormal . GRAN MAT (NEUT) % 75.6 % (test code = 770-8) IMM GRAN % (test code 0.40 % = 1471121179) LYMPH % (test code = 10.7 % 736-9) MONO % (test code = 11.7 % 5905-5) EOS % (test code = 0.9 % 713-8) BASO % (test code = 0.7 % 706-2) GRAN MAT x10^3(ANC) 4.15 10*3/uL 1.88-7.09 (test code = 8832995746) IMM GRAN x10^3 (test <0.03 0-0.06 code = 3380458131) LYMPH x10^3 (test code 0.59 10*3/uL 1.32-3.29 L = 731-0) MONO x10^3 (test code 0.64 10*3/uL 0.33-0.92 = 742-7) EOS x10^3 (test code = 0.05 10*3/uL 0.03-0.39 711-2) BASO x10^3 (test code 0.04 10*3/uL 0.01-0.07 = 704-7) Lab Interpretation Abnormal (test code = 68133-7) [facility] BrookXR CHEST 1 [id number] 16:20:45HISTORY: Dizziness. TECHNIQUE: Portable AP erect view of the chest is obtained. Comparison madewith 12/10/2018 study. FINDINGS: Mild obstructive lung disease suspected. Calcified granulomanoted in the medial right lower lung. No acute pneumonia. No pneumothoraxor pleural effusion or pulmonary congestiondetected. Cardiac size iswithin normal limits. CONCLUSIONS: No signs of acute cardiopulmonary disease.[facility], Radiant Results Inft User - 02/03/2019 11:22 AM CDTHISTORY: Dizziness.TECHNIQUE: Portable AP erect view of the chest is obtained. Comparison madewith 12/10/2018 study.FINDINGS: Mild obstructive lung disease suspected. Calcified granulomanoted in the medial right lower lung. No acute pneumonia. Nopneumothoraxor pleural effusion or pulmonary congestion detected. Cardiac size iswithin normal limits. CONCLUSIONS: No signs of acute cardiopulmonary disease.[facility]
[2022-02-05] MEDS ORDERED: METHYLPREDNISOLONE 125 MG INJ ONE (19:02)
[2022-02-05] MEDS ORDERED: LEVALBUTEROL 1.25 MG/3 ML NEB ONE (19:02)
[2022-02-05 19:18] LABS: Absolute Lymphocytes (CBC) 1.8 K/uL (0.7-4.9); MCV 61.5 fL (80-100); MPV 7.2 fL (7.6-11.3); RBC Red Blood Cell Count 2.72 M/uL (3.86-4.86)
[2022-02-05 19:25] LABS: Protime INR 1.19
[2022-02-05 19:34] LABS: Hematocrit 16.7 % (36.0-45.0)
[2022-02-05 19:39] LABS: Potassium 4.1 mmol/L (3.5-5.1); Troponin High Sensitivity 19.3 pg/mL (<58.9)
--- NOTE | 2022-02-05 19:56 | ER ---
Nurse's Notes [facility] Name: Velia Fernandez Age: 81 yrs Sex: Female : 1940 Arrival Date: 02/05/2022 Time: 18:47 Bed 18 Private MD: Diagnosis: COPD/ Chronic obstructive pulmonary disease with (acute) exacerbation;Anemia, unspecified;GI Bleed/ Gastrointestinal hemorrhage, unspecified;Chest pain, unspecified Presentation: 02/05 19:06 Chief complaint: EMS states: toned out for sharp, intermittent chest pain rated 4/10 tp1 that radiates down to ABD and tingling in left arm that started at 1800. BP 167/65 L arm, 193/71 R arm, FBS 97, T 98.3, HR 73, 95% RA. reports weakness in the left arm from previous TIA. 19:09 Coronavirus screen: Vaccine status: Patient reports being unvaccinated. Ebola Screen: tp1 Patient negative for fever greater than or equal to 101.5 degrees Fahrenheit, and additional compatible Ebola Virus Disease symptoms Patient denies exposure to infectious person. Initial Sepsis Screen: Does the patient meet any 2 criteria? RR > 20 per min. No. Patient's initial sepsis screen is negative. Does the patient have a suspected source of infection? No. Patient's initial sepsis screen is negative. Risk Assessment: Do you want to hurt yourself or someone else? Patient reports no desire to harm self or others. Onset of symptoms was February 05, 2022 at 18:00. 19:09 Method Of Arrival: EMS: [facility] tp1 19:09 Acuity: SHAYLA 2 tp1 Triage Assessment: 18:38 General: Appears in no apparent distress. uncomfortable, Behavior is calm, cooperative. tp1 Pain: Complains of pain in chest Pain radiates to abdomen Pain currently is 4 out of 10 on a pain scale. Quality of pain is described as sharp, Pain began 30 min ago. Is intermittent. EENT: Lid(s) pale. Neuro: Level of Consciousness is awake, alert, obeys commands, Oriented to person, place, time, situation. Cardiovascular: Reports chest pain, Patient's skin is warm and dry. Respiratory: Reports shortness of breath cough that is Airway is patent Respiratory effort is even, unlabored, Breath sounds are clear. GI: Abdomen is flat, non-distended, Reports nausea. : No signs and/or symptoms were reported regarding the genitourinary system. Derm: Skin is pink, warm \T\ dry. Musculoskeletal: Circulation, motion, and sensation intact. Historical: - Allergies: 19:11 Codeine; tp1 19:11 Iodine; tp1 - PMHx: 19:11 TIA; Hypertensive disorder; Hypercholesterolemia; COPD; Anemia; tp1 - Immunization history:: Client reports having NOT received the Covid vaccine. - Social history:: Smoking status: Patient reports the use of cigarette tobacco products, less than a half a pack . - Family history:: not pertinent. - Hospitalizations: : No recent hospitalization is reported. Screenin:30 Abuse screen: Denies threats or abuse. Nutritional screening: No deficits noted. kl Tuberculosis screening: No symptoms or risk factors identified. Fall Risk None identified. Assessment: 19:30 General: Appears in no apparent distress. comfortable, Behavior is calm, cooperative. kl Pain: Denies pain. Neuro: No deficits noted. Level of Consciousness is awake, alert, obeys commands. Cardiovascular: Heart tones S1 S3 Capillary refill is > 3 seconds Rhythm is sinus rhythm with unifocal PVCs. Respiratory: Airway is patent Trachea midline Respiratory effort is labored, Breath sounds are diminished bilaterally. Parent/caregiver reports the patient having history of COPD. GI: No deficits noted. Patient currently denies rectal bleeding. : No deficits noted. No signs and/or symptoms were reported regarding the genitourinary system. 02/06 01:05 Reassessment: blood transfusion started, see paper charting. aa9 03:35 Reassessment: blood transfusion complete, see paper charting. aa9 Vital Signs: 02/05 19:09 BP 166 / 75; Pulse 78; Resp 27; Temp 98.3; Pulse Ox 96% on R/A; tp1 19:30 BP 128 / 53; Pulse 88; Resp 22; Pulse Ox 99% ; kl ED Course: 18:38 Patient has correct armband on for positive identification. Placed in gown. Bed in low tp1 position. Call light in reach. Side rails up X 1. Client placed on continuous cardiac and pulse oximetry monitoring. NIBP monitoring applied. 18:38 Arm band placed on. tp1 18:47 Patient arrived in ED. rn 18:47 Jordin Soto MD is Attending Physician. rn 19:05 EKG done, by ED staff. Inserted saline lock: 22 gauge in left antecubital area, using tp1 aseptic technique. ,using aseptic technique. completed by Rachel DIAMOND Blood collected. 19:11 Triage completed. tp1 19:17 Attending Physician role handed off by Jordin Soto MD oneyda 19:17 Jefferson Rocha MD is Attending Physician. oneyda 19:25 XRAY Chest (1 view) In Process Unspecified. EDMS 19:54 Tarun Riddle is Hospitalizing Provider. oneyda 22:39 No provider procedures requiring assistance completed. kl 23:23 Marielle Shell, DARA is Primary Nurse. aa9 02/06 07:12 Primary Nurse role handed off by Marielle Shell RN tw2 07:12 Estee Gill, DARA is Primary Nurse. tw2 12:31 Joy Garcia, DARA is Primary Nurse. [facility] Administered Medications: 02/05 16:57 Drug: Xopenex (levalbuterol) 1.25 mg Route: Inhalation; tp1 17:04 Drug: SOLU-Medrol (methylPrednisoLONE) 125 mg Route: IVP; Site: left antecubital; tp1 20:09 Drug: ProTONIX (pantoprazole) 80 mg Route: IVP; Site: left antecubital; kl 20:09 Drug: ProTONIX (pantoprazole) 8 mg/hr Route: IV; Rate: 25 ml/hr; Site: left antecubital;kl Medication: 22:39 VIS not applicable for this client. kl Outcome: 19:55 Decision to Hospitalize by Provider. oneyda 22:39 Condition: stable kl 02/06 14:19 Patient left the ED. iw Signatures: Dispatcher [employer] EDMS Jessica Altman RN RN kl Anderson, Corey, MD MD cha Williams, Irene, RN RN Jordin Soto MD MD rn Wise, Tara, RN RN 2 Joy Garcia RN RN [facility] Marah Walter RN RN 1 Marielle Shell RN RN aa9 Corrections: (The following items were deleted from the chart) 02/05 19:06 19:06 Patient has correct armband on for positive identification. Placed in gown. Bed tp1 in low position. Call light in reach. Side rails up X 1. tp1 19:09 16:38 Patient has correct armband on for positive identification. Placed in gown. Bed tp1 in low position. Call light in reach. Side rails up X 1. tp1 19: 16:38 Client placed on continuous cardiac and pulse oximetry monitoring. NIBP tp1 monitoring applied. tp1 19:13 19:11 Allergies: No Known Allergies; tp1 tp1 19:17 19:05 Inserted saline lock: 22 gauge in left antecubital area, using aseptic technique. tp1 Blood collected. tp1 02/06 03:41 01:05 Reassessment: blood transfusion started aa9 aa9
--- NOTE | 2022-02-05 19:57 | EDPHYS ---
Physician Documentation [facility] Name: Velia Fernandez Age: 81 yrs Sex: Female : 1940 Arrival Date: 02/05/2022 Time: 18:47 Bed 18 Private MD: ED Physician Jefferson Rocha HPI: 02/05 18:50 This 81 yrs old Female presents to ER via Unassigned with complaints of chest pain. rn 18:50 The patient or guardian reports chest pain that is located primarily in the chest rn diffusely. Onset: today. The pain does not radiate. Associated signs and symptoms: Pertinent positives: cough, shortness of breath, Pertinent negatives: abdominal pain, syncope. The chest pain is described as aching, sharp. Duration: The patient or guardian reports multiple episodes, that are intermittent. Modifying factors: The symptoms are alleviated by nothing. the symptoms are aggravated by nothing. Severity of pain: At its worst the pain was mild in the emergency department the pain has improved. The patient has not experienced similar symptoms in the past. The patient has not recently seen a physician. Historical: - Allergies: 19:11 Codeine; tp1 19:11 Iodine; tp1 - PMHx: 19:11 TIA; Hypertensive disorder; Hypercholesterolemia; COPD; Anemia; tp1 - Immunization history:: Client reports having NOT received the Covid vaccine. - Social history:: Smoking status: Patient reports the use of cigarette tobacco products, less than a half a pack . - Family history:: not pertinent. - Hospitalizations: : No recent hospitalization is reported. ROS: 18:50 Constitutional: Negative for fever, chills, and weight loss, Eyes: Negative for injury, rn pain, redness, and discharge, Cardiovascular: Negative for palpitations, and edema, Respiratory: + for shortness of breath, cough, wheezing, and pleuritic chest pain, Abdomen/GI: Negative for abdominal pain, nausea, vomiting, diarrhea, and constipation, MS/Extremity: Negative for injury and deformity, Skin: Negative for injury, rash, and discoloration, Neuro: Negative for headache, weakness, numbness, tingling, and seizure. Exam: 18:50 Constitutional: This is a well developed, well nourished patient who is awake, alert, rn and in no acute distress. Head/Face: Normocephalic, atraumatic. ENT: dry MM, no stridor Cardiovascular: Regular rate and rhythm. No pulse deficits. Respiratory: + mild tachypnea with faint wheezing, no retractions Abdomen/GI: Soft, non-tender Skin: Warm, dry MS/ Extremity: Pulses equal, no cyanosis. Neuro: Awake and alert, GCS 15 19:52 ECG was reviewed by the Attending Physician. oneyda Vital Signs: 19:09 BP 166 / 75; Pulse 78; Resp 27; Temp 98.3; Pulse Ox 96% on R/A; tp1 19:30 BP 128 / 53; Pulse 88; Resp 22; Pulse Ox 99% ; kl MDM: 18:47 Patient medically screened. rn 19:17 Patient medically screened. oneyda 19:49 Differential diagnosis: abnormal EKG, acute myocardial infarction, acute pericarditis, oneyda anxiety, chest wall pain, cholecystitis, Cholelithiasis costochondritis, esophagitis, hiatal hernia, pancreatitis, peptic ulcer disease, pneumonia, pulmonary embolus, stable angina, unstable angina. HEART Score: ECG: Non specific repolarization disturbance / LBTB / PM (1), Age: > or = 65 years (2), Risk Factors: > or = 3 Risk factors for atherosclerotic disease (2), [Hypercholesterolemia] [Hypertension] [+ Family HX] Troponin: < or = 1 x Normal Limit (0). The patient was not given aspirin in the Emergency Department. Not indicated due to patient's past medical history. The patient's deep vein thrombosis risk score was calculated as follows: Total Score: 0. This patient was found to be at low risk for a deep vein thrombosis by using the Well's assessment criteria. The patient's pulmonary embolism risk score was calculated as follows: Total Score: 0-2 points. This patient was found to be at low risk for a pulmonary embolism by using the Well's assessment criteria. ALEX Risk Score: 1 - patient's age is greater or equal to 65 years, 1 - Three or more CAD risk factors, 1- Known CAD, 1 - ASA use in past 7 days, 1 - Recent [<24hrs] Severe Angina, TOTAL SCORE = 5. Data reviewed: vital signs, nurses notes, lab test result(s), EKG, radiologic studies, plain films. Data interpreted: security monitor: rate is 78 beats/min, rhythm is regular, Pulse oximetry: on room air is 96 %. Test interpretation: by ED physician or midlevel provider: ECG, plain radiologic studies. Counseling: I had a detailed discussion with the patient and/or guardian regarding: the historical points, exam findings, and any diagnostic results supporting the discharge/admit diagnosis, lab results, radiology results, the need for further work-up and treatment in the hospital. 02/05 18:47 Order name: Basic Metabolic Panel; Complete Time: 19:46 rn 02/05 18:47 Order name: CBC with Diff; Complete Time: 21:08 rn 02/05 18:47 Order name: NT PRO-BNP; Complete Time: 19:46 rn 02/05 18:47 Order name: PT-INR; Complete Time: 19:46 rn 02/05 18:47 Order name: Troponin HS; Complete Time: 19:46 rn 02/05 18:48 Order name: SARS-COV-2 RT PCR (Document "Date of Onset" if Symptomatic); Complete Time: rn 21:02/05 19:46 Order name: Type And Screen oneyda 02/05 19:46 Order name: SARS RAPID oneyda 02/05 20:44 Order name: CBC Smear Scan; Complete Time: 21:08 EDOK 02/06 00:57 Order name: Troponin High Sensitivity EDOK 02/06 04:58 Order name: CBC with Automated Diff EDOK 02/06 05:15 Order name: Troponin High Sensitivity EDOK 02/05 18:47 Order name: XRAY Chest (1 view); Complete Time: 21:08 rn 02/05 18:47 Order name: EKG; Complete Time: 18:48 rn 02/05 18:47 Order name: Cardiac monitoring; Complete Time: 19:14 rn 02/05 18:47 Order name: EKG - Nurse/Tech; Complete Time: 19:14 rn 02/05 18:47 Order name: IV Saline Lock; Complete Time: 19:14 rn 02/06 05:16 Order name: Basic Metabolic Panel EDOK 02/06 05:16 Order name: Phosphorus EDMS 02/06 05:16 Order name: Lipid Profile EDMS 02/06 05:16 Order name: Magnesium EDMS 02/06 05:16 Order name: Thyroid Stimulating Hormone EDMS 02/06 05:30 Order name: Manual Differential EDOK 02/06 07:37 Order name: Glucose, Ancillary Testing EDMS 02/05 18:47 Order name: Labs collected and sent; Complete Time: 19:14 rn 02/05 18:47 Order name: O2 Per Protocol; Complete Time: 19:14 rn 02/05 18:47 Order name: O2 Sat Monitoring; Complete Time: 19:14 rn 02/05 19:46 Order name: Transfuse; Complete Time: 03:41 oneyda 02/05 20:28 Order name: IV Saline Lock - Large Bore; Complete Time: 03:41 oneyda EC:52 Rate is 68 beats/min. Rhythm is regular. QRS Macy is Normal. CT interval is normal. QRS oneyda interval is normal. QT interval is normal. No Q waves. T waves are Normal. No ST changes noted. Clinical impression: Abnormal EKG without significant change, LVH, and No evidence of ischemia. Interpreted by me. Reviewed by me. Administered Medications: 16:57 Drug: Xopenex (levalbuterol) 1.25 mg Route: Inhalation; tp1 17:04 Drug: SOLU-Medrol (methylPrednisoLONE) 125 mg Route: IVP; Site: left antecubital; tp1 20:09 Drug: ProTONIX (pantoprazole) 80 mg Route: IVP; Site: left antecubital; 20:09 Drug: ProTONIX (pantoprazole) 8 mg/hr Route: IV; Rate: 25 ml/hr; Site: left antecubital; Disposition Summary: 02/05/22 19:55 Hospitalization Ordered Hospitalization Status: Inpatient Admission oneyda Provider: Tarun Riddle cha Condition: Stable oneyda Problem: new oneyda Symptoms: have improved oneyda Bed/Room Type: Standard [facility] Location: [facility] ER HOLD(02/05/22 20:19) Room Assignment: ERHOLD-(02/05/22 20:19) Diagnosis - COPD/ Chronic obstructive pulmonary disease with (acute) exacerbation oneyda - Anemia, unspecified oneyda - GI Bleed/ Gastrointestinal hemorrhage, unspecified oneyda - Chest pain, unspecified oneyda Forms: - Medication Reconciliation Form oneyda - SBAR form oneyda Signatures: Dispatcher [employer] EDMS Jessica Altman RN RN kl Webb, Martha, RN RN mw Anderson, Corey, MD MD cha Nieto, Roman, MD MD rn Parker, Tiffany, RN RN tp1 Lainey Raymond PA PA sb3 Corrections: (The following items were deleted from the chart) : 19:11 Allergies: No Known Allergies; tp1 tp1 : 19:55 Telemetry/MedSurg (observation) oneyda trevino : 19:55 oneyda trevino
[2022-02-05] MEDS ORDERED: PANTOPRAZOLE 40 MG INJ ONE (20:06)
[2022-02-05] MEDS ORDERED: NA CHLORIDE 0.9% 250 ML ONE (20:06)
--- NOTE | 2022-02-05 20:33 | RAD REPORT ---
EXAM DESCRIPTION: RAD - Chest Single View - 02/05/2022 7:23 pm CLINICAL HISTORY: CHEST PAIN COMPARISON: Two view chest May 2017 TECHNIQUE: AP portable chest image was obtained 02/05/2022 7:23 pm . FINDINGS: Lungs are extensively fibrotic as a baseline. Lung volumes are decreased from the prior st udy which accentuates the baseline pattern. No consolidation is seen. Early edema or infiltrate in ei ther lung base could be masked. Heart and vasculature are normal. No measurable pleural effusion and no pneumothorax. No acute bony abnormality seen. Dense aortic calcifications are present without aneurysm. IMPRESSION: Extensive COPD with lung base markings accentuated by shallow inspiration. Mild interstitial edema or infiltrate in either lung base could be masked.
[2022-02-05 20:43] LABS: Anisocytosis 1+; Blood Morphology Comment NOTED (NOT SEEN); Hypochromasia 2+; Platelet Estimate ADEQ; White Blood Cell Scan OK (OK)
--- NOTE | 2022-02-05 22:55 | P.HP ---
Certification for Inpatient Patient admitted to: Inpatient With expected LOS: >2 Midnights Patient will require the following post-hospital care: None Practitioner: I am a practitioner with admitting privileges, knowledge of patient current condition, hospital course, and medical plan of care. Services: Services provided to patient in accordance with Admission requirements found in Title 42 Section 412.3 of the Code of Federal Regulations <Lainey Raymond - Last Filed: 02/06/22 02:24> Patient History Date of Service: 02/06/22 Reason for admission: Chest Pain, GIB, Anemia History of Present Illness: Patient is an 81-year-old female with history of COPD, chronic anemia, TIA, hypothyroidism, hypertension, and hyperlipidemia who presented to the ED via EMS with complaints of chest pain. She states it is intermittent, rated as a 4/10, and says it associated with tingling in her left arm. She was found to have a sodium of 132, hemoglobin of 4.8, hematocrit 16.7, BNP 2171, troponin 19.3. Hemmocult positive. Chest x-ray showed "Extensive COPD with lung base markings accentuated by shallow inspiration." She was given a breathing treatment and Solu-Medrol and started on Protonix drip. 2 units PRBC transfusing. During my assessment, patient is pale but awake, alert, and oriented x 4. She reports that she has felt weak and had very dark stools. States her chest pain has resolved. She reports that she had EGD at [facility] about 3 months ago and they found a "leak" but did not do anything about it. She sees Dr. Eaton outpatient as she has chronic anemia and had several transfusions in the past. Vital signs stable. She is admitted for further evaluation and treatment. Home medications list reviewed: Yes - Past Medical/Surgical History Diabetic: No -: hypertension -: hyperlipidemia -: anemia -: hypothyroid -: GERD -: COPD -: TIA -: hysterectomy -: cholecystectomy Psychosocial/ Personal History: Patient lives at home with her son. - Family History Father -: Cancer - Social History Smoking Status: Current every day smoker Alcohol use: No CD- Drugs: No Caffeine use: No Place of Residence: Home <Qi Raymondia - Last Filed: 02/06/22 02:24> Date of Service: 02/06/22 <Rangel Kim - Last Filed: 02/06/22 18:46> Allergies codeine Allergy (Verified 03/08/17 10:40) Hives iodine Adverse Reaction (Mild, Verified 02/06/22 14:37) HOT FLUSHING Home Medications: Levothyroxine Sodium 100 mcg PO DAILY 09/19/16 Metoprolol Tartrate 50 mg PO BID 09/19/16 Omeprazole 1 tab PO DAILY 09/19/16 Simvastatin 40 mg PO BEDTIME 09/19/16 Aspirin [Aspirin EC 81 MG] 1 tab PO DAILY 02/06/22 Review of Systems General: Weakness Respiratory: Shortness of Breath Cardiovascular: Chest Pain <Lainey Raymond - Last Filed: 02/06/22 02:24> Physical Examination - Physical Exam General: Alert, In no apparent distress, Other (pale) HEENT: Atraumatic, PERRLA, EOMI, Sclerae nonicteric Neck: Supple, 2+ carotid pulse no bruit, No LAD, Without JVD or thyroid abnormality Respiratory: Crackles/rales, Expiratory wheezes Cardiovascular: Regular rate/rhythm, Normal S1 S2 Gastrointestinal: Normal bowel sounds, No tenderness Musculoskeletal: No tenderness Integumentary: No rashes Neurological: Normal speech, Normal strength at 5/5 x4 extr, Normal tone, Normal affect - Studies Laboratory Data (last 24 hrs) 02/05/22 19:02: PT 13.1 H, INR 1.19 02/05/22 19:02: WBC 3.80 L, Hgb 4.8 L*, Hct 16.7 L*, Plt Count 419 H 02/05/22 19:02: Sodium 132 L, Potassium 4.1, BUN 18, Creatinine 0.74, Glucose 93 <Lainey Raymond - Last Filed: 02/06/22 02:24> - Studies Laboratory Data (last 24 hrs) 02/05/22 19:02: PT 13.1 H, INR 1.19 02/05/22 19:02: WBC 3.80 L, Hgb 4.8 L*, Hct 16.7 L*, Plt Count 419 H 02/05/22 19:02: Sodium 132 L, Potassium 4.1, BUN 18, Creatinine 0.74, Glucose 93 <Rangel Kim - Last Filed: 02/06/22 18:46> Assessment and Plan - Problems (Diagnosis) (1) Acute on chronic anemia Current Visit: Yes Status: Acute (2) Upper GI bleed Current Visit: Yes Status: Acute (3) Chest pain Current Visit: Yes Status: Acute Qualifiers: Chest pain type: unspecified Qualified Code(s): R07.9 - Chest pain, unspecified (4) COPD (chronic obstructive pulmonary disease) Current Visit: Yes Status: Chronic Qualifiers: COPD type: unspecified COPD Qualified Code(s): J44.9 - Chronic obstructive pulmonary disease, unspecified (5) Hypertension Current Visit: Yes Status: Chronic Qualifiers: Hypertension type: primary hypertension Qualified Code(s): I10 - Essential (primary) hypertension (6) Hypothyroidism Current Visit: Yes Status: Chronic Qualifiers: Hypothyroidism type: unspecified Qualified Code(s): E03.9 - Hypothyroidism, unspecified - Plan -2 units PRBC transfusing. Continue protonix drip. Recheck CBC following. -NPO at midnight. GI consulted. -Patient states she had an endoscopy 3 months ago a [facility] but has not had a colonoscopy in quite a few years. -Patient no longer complaining of chest pain. EKG without abnormalities. Initial troponin negative. Will check 2 more and consult cardiology. -Aspirin and atorvastatin daily. -Monitor and replete electrolytes per protocol -Reconcile and continue home medications -SCDs for VTE ppx -Full code Discharge Plan: Home Plan to discharge in: Greater than 2 days - Advance Directives Does patient have a Living Will: No Does patient have a Durable POA for Healthcare: No - Code Status/Comfort Care Code Status Assessed: Yes (Full) Critical Care: No Time Spent Managing Pts Care (In Minutes): 50 <Lainey Raymond - Last Filed: 02/06/22 02:24> Physician Review: Patient Assessed, Agree with Above Assessment and Plan <Rangel Kim - Last Filed: 02/06/22 18:46>
[2022-02-05] MEDS ORDERED: ALBUTEROL 2.5 MG/3 ML NEB SOL NEB PRN (23:48)
[2022-02-05] MEDS ORDERED: ONDANSETRON 4 MG/2 ML VIAL IV PRN (23:48)
[2022-02-05] MEDS: PANTOPRAZOLE INJ 80 MG in NA CHLORIDE 0.9% 250 ML IV SCH (23:48)
[2022-02-06] MEDS: ACETAMINOPHEN 500 MG TAB PO PRN ×3 (00:20→23:33)
[2022-02-06 04:55] LABS: Absolute Lymphocytes (CBC) 0.2 K/uL (0.7-4.9); Lymphocytes % 7.3 % (15.3-44.8); MCV 64.6 fL (80-100); MPV 7.2 fL (7.6-11.3); RBC Red Blood Cell Count 2.93 M/uL (3.86-4.86)
[2022-02-06 04:57] LABS: Hematocrit 18.9 % (36.0-45.0)
[2022-02-06 05:15] LABS: Magnesium 1.9 mg/dL (1.8-2.4); Phosphorus 2.4 mg/dL (2.5-4.9); Thyroid Stimulating Hormone 0.174 uIU/mL (0.360-3.740)
[2022-02-06 05:30] LABS: Anisocytosis 2+; Blood Morphology Comment NOTED (NOT SEEN); Hypochromasia 2+; Platelet Estimate ADEQ
--- NOTE | 2022-02-06 08:14 | EKG ---
Test Date: 2022-02-05 Test Time: 18:54:51 Tax Agent: THALIA MEASUREMENT RESULTS: Intervals: Rate: 68 MI: 208 QRSD: 110 QT: 394 QTc: 418 Pierre: P: 43 MI: 208 QRS: 67 T: 88 INTERPRETIVE STATEMENTS: Sinus rhythm with occasional premature ventricular complexes Left ventricular hypertrophy with repolarization abnormality Cannot rule out Septal infarct, age undetermined Abnormal ECG Compared to ECG 09/05/2010 09:25:06 Ventricular premature complex(es) now present Early repolarization now present Myocardial infarct finding now present Intraventricular conduction delay no longer present Electronically Signed On 02-06-22 08:12:02 CDT by Arnold Szymanski
[2022-02-06] MEDS ORDERED: ASPIRIN 81 MG CHEWABLE TABLET PO SCH (09:00)
[2022-02-06] MEDS: PANTOPRAZOLE INJ 80 MG in NA CHLORIDE 0.9% 250 ML IV SCH (10:00)
[2022-02-06] MEDS ORDERED: NA CHLORIDE 0.9% 250 ML ONE ×2 (11:51)
[2022-02-06] MEDS ORDERED: Ringers Lactate 1,000 ML IV ONE (13:58)
[2022-02-06] MEDS: LABETALOL 20 MG/4ML SYRINGE IV ONE ×2 (14:13→14:18)
[2022-02-06] MEDS ORDERED: LIDOCAINE 1% MPF 5 ML VIAL ONE (15:16)
[2022-02-06] MEDS ORDERED: propofoL 200 MG/20 ML VIAL IV ONE (15:16)
--- NOTE | 2022-02-06 16:35 | OP ---
Surgeon: Gómez Downey MD Procedure Performed: Esophagogastroduodenoscopy. Indication For Procedure: Severe anemia, history of gastric and small bowel AVMs. Plan For Anesthesia: Monitored anesthesia care. Complexity: Average. Technique: After obtaining informed consent from the patient, explaining the risks and complications , which include, but are not limited to bleeding, infection, perforation, and anesthesia complication , the patient was placed in a left lateral position and sedation was given. From then on, the scope was advanced to the mouth and carefully guided up to the third portion of the duodenum. After the co mpletion of examination, scope and equipment were withdrawn and procedure terminated in a safe manner . Findings: Esophagus: No gross lesion seen in the entire esophagus. Stomach: In the antral portion, there was evidence of multiple small AVMs that resembled a gaze appe arance. These were ablated by ablation. Duodenum: The bulb appeared normal. The second and third portion revealed multiple angiodysplasias that were not bleeding. Ablation was done. Complications: None. Tolerance To Anesthesia: Excellent. Estimated Blood Loss: Minimal. Plan: Continue current management. We will switch to oral PPI. We will need an outpatient endoscop y as a staged procedure in 4-6 weeks. Also, she would benefit from a capsule endoscopy and small bow el follow-through as she likely has multiple small bowel AVMs, which may need to be evaluated and add ressed at the medical center. US/MODL Voice ID: [id number] Report ID: [id number]
[2022-02-06] MEDS: PANTOPRAZOLE 40MG TABLET PO SCH (17:00)
[2022-02-06 17:35] LABS: Hematocrit 25.2 % (36.0-45.0)
[2022-02-06] MEDS: METOPROLOL TAR 50 MG TAB PO SCH ×2 (17:56→18:58)
--- NOTE | 2022-02-06 18:54 | P.PN ---
Subjective Date of Service: 02/06/22 Chief Complaint: Chest Pain, GIB, Anemia Subjective: No new changes No acute events since admission. She denies any recurrent episodes of hematochezia and/or melena. Her only complaint this morning is generalized weakness. She tells me that she is scheduled for EGD at 14:00. Review of Systems 10-point ROS is otherwise unremarkable General: Weakness Gastrointestinal: Melena Physical Examination - Vital Signs Temperature: 98.0 F Blood Pressure: 232/99 Pulse: 65 Respirations: 22 Pulse Ox (%): 97 - Physical Exam General: Alert, In no apparent distress, Oriented x3 HEENT: Atraumatic, PERRLA, Mucous membr. moist/pink, EOMI, Sclerae nonicteric Neck: Supple, JVD not distended Respiratory: Clear to auscultation bilaterally, Normal air movement Cardiovascular: No edema, Regular rate/rhythm, Normal S1 S2, No gallops, No rubs, No murmurs Gastrointestinal: Normal bowel sounds, Soft and benign, Non-distended, No tenderness, No rebound, No guarding Musculoskeletal: No clubbing Integumentary: No rashes Neurological: Normal speech, Cranial nerves 3-12 intact, Normal affect - Studies Laboratory Data (last 24 hrs) 02/05/22 19:02: PT 13.1 H, INR 1.19 02/05/22 19:02: WBC 3.80 L, Hgb 4.8 L*, Hct 16.7 L*, Plt Count 419 H 02/05/22 19:02: Sodium 132 L, Potassium 4.1, BUN 18, Creatinine 0.74, Glucose 93 Assessment And Plan - Plan # Acute on Chronic Blood Loss Anemia suspect due to Acute Upper Gastrointestinal Bleed # History of Gastric and Small Bowel Arteriovenous Malformations - Consulted Gastroenterology and spoke with Dr. Downey - recommendations appreciated - Plan for EGD at 14:00 - Type & Screen - q6hr H&H - Received 2 units of pRBCs - Transfuse for Hgb < 7.0 - 2 large bore IVs - Pantoprazole 40 mg IV BID - NPO # Chronic Obstructive Pulmonary Disease # Hypertension # Hypothyroidism - No evidence of acute exacerbation - Continue home meds as tolerated Rangel Kim M.D.
[2022-02-06] MEDS: HYDRALAZINE HCL 20 MG/ML VIAL IV PRN (19:16)
[2022-02-06] MEDS: ALBUTEROL 2.5 MG/3 ML NEB SOL NEB PRN (20:15)
[2022-02-07 04:59] LABS: MCV 66.8 fL (80-100); RBC Red Blood Cell Count 3.29 M/uL (3.86-4.86)
[2022-02-07 05:07] LABS: Potassium 3.8 mmol/L (3.5-5.1)
[2022-02-07] MEDS ORDERED: NA CHLORIDE 0.9% 250 ML IV SCH (07:00)
[2022-02-07] MEDS ORDERED: POTASSIUM 25 MEQ EFFERV TAB PO ONE (07:30)
[2022-02-07] MEDS: ALBUTEROL 2.5 MG/3 ML NEB SOL NEB PRN ×3 (07:33→20:00)
[2022-02-07] MEDS: METOPROLOL TAR 50 MG TAB PO SCH ×2 (07:41→20:18)
[2022-02-07] MEDS: PANTOPRAZOLE 40MG TABLET PO SCH ×2 (07:44→16:17)
[2022-02-07] MEDS: HYDRALAZINE HCL 20 MG/ML VIAL IV PRN (10:24)
[2022-02-07 11:41] LABS: Anisocytosis 3+; Blood Morphology Comment NOTED (NOT SEEN); Platelet Estimate ADEQ
[2022-02-07 11:43] LABS: Hypochromasia 1+
[2022-02-07 11:44] LABS: Poikilocytosis SLIGHT
[2022-02-07] MEDS: ACETAMINOPHEN 500 MG TAB PO PRN (13:18)
[2022-02-07 15:21] LABS: Hematocrit 27.1 % (36.0-45.0)
[2022-02-07 17:36] LABS: Specific Gravity 1.008 (1.005-1.030); Urine Bilirubin NEGATIVE (Negative); Urine Blood Negative (Negative); Urine Clarity Clear (Clear); Urine Color Light-Yellow (Yellow); Urine Glucose NEGATIVE (Negative); Urine Protein NEGATIVE (Negative); Urine Urobilinogen Normal (Normal)
--- NOTE | 2022-02-07 22:43 | CON ---
Date of Consultation: 02/06/2022 Reason For Consultation: Chest pain. History Of Present Illness: Ms. Fernandez is an 81-year-old woman, who has seen Dr. Salinas and Dr. Paola franco in the past and has had previous negative cardiac workup. She comes in with mid-epigastric pain, w hat appears to be some form of GI bleed. Her hemoglobin was 5.7. Her blood was 185 and h er BNP was 2100. Chest x-ray showed COPD. EKG showed PVCs. Her pain was really mid epigastric. No actual chest pain. Denies any nausea or vomiting. Has had some diaphoresis and a sense of dyspnea on exertion. Denied any PND, orthopnea, pedal edema, palpitations, or syncope. Past Medical History: Include hypothyroidism, COPD, gastroesophageal reflux disease, dyslipidemia, a nd hypertension. Allergies: TO CODEINE. Review of Systems: Negative. Social History: Negative. Family History: Noncontributory. Medications: Include Synthroid, Zocor, metoprolol, omeprazole, and inhalers. Physical Examination: General: She is very pleasant, no acute distress, sinus tachycardia. Vital Signs: Stable, otherwise afebrile. HEENT: Negative. Neck: Supple, no bruit. Chest: Clear. Cardiac: Revealed a regular rhythm and rate with an S4 gallops. Abdomen: Benign. Extremities: Revealed no clubbing, cyanosis, or edema. Diagnostic Data: As stated earlier. Impression And Plan: 1.Mid-epigastric pain secondary to gastroesophageal reflux disease, gastritis, or maybe ulcers. She is anemic with a hemoglobin of 5.7, status post transfusions. Her BNP elevation is secondary to ane moo and demand ischemia. She has chronic obstructive pulmonary disease on x-rays, PVCs on EKG. 2.Her hypothyroidism is well controlled. 3.Her blood pressure is fairly well controlled. 4.Her dyslipidemia is controlled on Zocor. Echocardiogram is pending. She does not need any further cardiac workup at this point. Once her hem oglobin is stable, she may be a candidate for an outpatient stress test. She normally follows up wit amador Fonseca and Dr. Salinas. I will continue to follow her. ELVIS/MODL Voice ID: [id number] Report ID: [id number]
--- NOTE | 2022-02-07 23:05 | P.PN ---
Subjective Date of Service: 02/07/22 Chief Complaint: Chest Pain, GIB, Anemia No acute events overnight. She denies any recurrent episodes of hematochezia and/or melena. She reports improvement in her generalized weakness. Hgb 6.9 this morning. Review of Systems 10-point ROS is otherwise unremarkable Gastrointestinal: Melena Physical Examination - Vital Signs Temperature: 97.2 F Blood Pressure: 123/82 Pulse: 74 Respirations: 19 Pulse Ox (%): 98 Assessment And Plan - Plan - Physical Exam General: Alert, In no apparent distress, Oriented x3 HEENT: Atraumatic, PERRLA, Mucous membr. moist/pink, EOMI, Sclerae nonicteric Neck: Supple, JVD not distended Respiratory: Clear to auscultation bilaterally, Normal air movement Cardiovascular: No edema, Regular rate/rhythm, Normal S1 S2, No gallops, No rubs, No murmurs Gastrointestinal: Normal bowel sounds, Soft and benign, Non-distended, No tenderness, No rebound, No guarding Musculoskeletal: No clubbing Integumentary: No rashes Neurological: Normal speech, Cranial nerves 3-12 intact, Normal affect # Acute on Chronic Blood Loss Anemia suspect due to Acute Upper Gastrointestinal Bleed # History of Gastric and Small Bowel Arteriovenous Malformations - Consulted Gastroenterology and spoke with Dr. Downey - recommendations appreciated - Noted extensive AVMs in gastric and small bowel, not ammenable to endoscopic treatment - Recommended discharge home for close outpatient follow-up once her Hgb have demonstrated stability > 7.0 - q6hr H&H - Received 2 units of pRBCs on 02/06 - Ordered 1 unit on 02/07 - Transfuse for Hgb < 7.0 - 2 large bore IVs - Pantoprazole 40 mg PO BID # Chronic Obstructive Pulmonary Disease # Hypertension # Hypothyroidism - No evidence of acute exacerbation - Continue home meds as tolerated Rangel Kim M.D.
--- NOTE | 2022-02-08 03:02 | PN ---
Date of Progress Note: 02/07/2022 Ms. Fernandez came in with mid-epigastric chest pain. Has a history of severe anemia at 5.7. She came in with an elevated troponin and BNP. I was asked to see the patient because of her elevated BNP. S he has severe COPD, hypothyroidism, gastroesophageal reflux disease. Echocardiogram, which was done showed mild aortic stenosis, mitral annular calcification with normal ejection fraction. No wall mot ion abnormalities. I will continue her evaluation and treatment for her anemia. I think her elevate d troponin and BNP are secondary to demand ischemia. Her aortic stenosis is only mild and needs to b e followed on a regular basis once in a year or two, but no need for any cardiac workup at this point . She normally sees Dr. Fonseca and Dr. Salinas as an outpatient and she will follow up with them. ELVIS/LANG Voice ID: [id number] Report ID: [id number]
[2022-02-08] MEDS: ACETAMINOPHEN 500 MG TAB PO PRN ×2 (03:18→10:31)
[2022-02-08 05:03] LABS: Hematocrit 24.4 % (36.0-45.0); MCV 68.5 fL (80-100); MPV 7.2 fL (7.6-11.3); RBC Red Blood Cell Count 3.57 M/uL (3.86-4.86)
[2022-02-08 05:46] LABS: Anisocytosis 3+; Blood Morphology Comment NOTED (NOT SEEN); Hypochromasia 2+; Platelet Estimate ADEQ
--- NOTE | 2022-02-08 06:32 | P.DS ---
Admission Date: 02/05/22 Discharge Date: 02/08/22 Disposition: ROUTINE DISCHARGE Discharge Condition: GOOD Reason for Admission: Chest Pain, GIB, Anemia Consultations: 1. Gastroenterology Procedures: - 02/06/2022: Esophagogastroduodenoscopy Hospital Course: DIAGNOSES: # Acute on Chronic Blood Loss Anemia suspect due to Acute Upper Gastrointestinal Bleed # History of Gastric and Small Bowel Arteriovenous Malformations # Chronic Obstructive Pulmonary Disease # Hypertension # Hypothyroidism HOSPITAL COURSE: Ms. 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 She was admitted to the Medicine service for further evaluation. Upon presentation, she was found to have a hemoglobin of 4.8. Gastroenterology was consulted and she was evaluated by Dr. Downey. On 02/06/2022, she underwent an esophagogastroduodenoscopy, which revealed gastric and small bowel arteriovenous malformations. These were not amenable to endoscopic intervention. Dr. Downey recommended that she be discharged and follow-up with him for an outpatient staged procedure endoscopy in about 4-6 weeks. He also recommended that she follow-up [facility] for a capsule endoscopy as well as a small bowel follow-through for further evaluation/management. He has cleared her for discharge as long as her hemoglobin remained above 7.0. She was observed in the intensive care unit, without any further episodes of melena. During her hospitalization, she required a total of 3 units of pRBCs. On 02/08/2022, she was seen on morning rounds and deemed medically stable for discharge. She was discharged with instructions to schedule follow-up appointments with her PCP in 3-5 days and with Gastroenterology (Dr. Downey) in 3-5 days. She was provided prescriptions for pantoprazole and lisinopril. She was given the opportunity to ask questions and reported no further questions. Furthermore, all questions were answered to the best of my ability. Today, I personally spent 25 minutes on her case, of which greater than 50% of the time was spent in patient education, counseling, and coordination of care as described above. - Physical Exam General: Alert, In no apparent distress, Oriented x3 HEENT: Atraumatic, PERRLA, Mucous membr. moist/pink, EOMI, Sclerae nonicteric Neck: Supple, JVD not distended Respiratory: Clear to auscultation bilaterally, Normal air movement Cardiovascular: No edema, Regular rate/rhythm, Normal S1 S2, No gallops, No rubs, No murmurs Gastrointestinal: Normal bowel sounds, Soft and benign, Non-distended, No tenderness, No rebound, No guarding Musculoskeletal: No clubbing Integumentary: No rashes Neurological: Normal speech, Cranial nerves 3-12 intact, Normal affect Vital Signs/Physical Exam: Temp Pulse Resp BP Pulse Ox 97.3 F 70 23 H 177/73 H 98 02/08/22 04:00 02/08/22 04:00 02/08/22 04:00 02/08/22 04:00 02/07/22 23:09 Laboratory Data at Discharge: WBC 5.70 K/uL (4.3-10.9) D 02/08/22 04:30 Hgb 7.8 g/dL (12.0-15.0) L 02/08/22 04:30 Hct 24.4 % (36.0-45.0) L 02/08/22 04:30 Plt Count 350 K/uL (152-406) 02/08/22 04:30 PT 13.1 SECONDS (9.5-12.5) H 02/05/22 19:02 INR 1.19 02/05/22 19:02 Sodium 133 mmol/L (136-145) L 02/08/22 04:30 Potassium 4.0 mmol/L (3.5-5.1) 02/08/22 04:30 BUN 12 mg/dL (7-18) 02/08/22 04:30 Creatinine 0.61 mg/dL (0.55-1.3) 02/08/22 04:30 Glucose 99 mg/dL (74-106) 02/08/22 04:30 Phosphorus 2.4 mg/dL (2.5-4.9) L 02/06/22 04:29 Magnesium 1.9 mg/dL (1.8-2.4) 02/06/22 04:29 Triglycerides 45 mg/dL (<150) 02/06/22 04:29 Cholesterol 98 mg/dL (<200) 02/06/22 04:29 HDL Cholesterol 30 mg/dL (40-60) L 02/06/22 04:29 Cholesterol/HDL Ratio 3.27 02/06/22 04:29 Home Medications: RX: Levothyroxine Sodium 100 mcg PO DAILY 09/19/16 RX: Metoprolol Tartrate 50 mg PO BID 09/19/16 RX: Simvastatin 40 mg PO BEDTIME 09/19/16 RX: Lisinopril [Zestril] 5 mg PO DAILY #30 tab 02/08/22 RX: Pantoprazole [Protonix Tab*] 40 mg PO BIDAC #60 tab 02/08/22 New Medications: RX: Pantoprazole [Protonix Tab*] 40 mg PO BIDAC #60 tab RX: Lisinopril [Zestril] 5 mg PO DAILY #30 tab Physician Discharge Instructions: PROBLEM:GI bleed GOAL: Clear understanding of disease process INSTRUCTIONS:1. Please schedule a follow-up appointment with your PCP in 3-5 days 2. Please schedule a follow-up appointment with Gastroenterology (Dr. Downey) in 3-5 days Diet: Regular Activity: Ad court DME DME: Date Ordered: Name of Company: [employer] Services Needed: Name of Company: Date or Referral: IMMUNIZATION Influenza Vaccine Indicated: Influenza Vaccine Given: Date Given: Pneumonia Vaccine Indicated: No Pneumonia Vaccine Given: Date Given: Follow up with a Revenue [employer] Consultant of your choice: GÓMEZ DOWNEY MD [address] [place] [address] Diet: Regular Activity: Ad court Followup: NONE,NONE [Primary Care Provider] - Gómez Downey MD [ACTIVE - CAN ADMIT] - Time spent managing pt's care (in minutes): 25
[2022-02-08] MEDS: ALBUTEROL 2.5 MG/3 ML NEB SOL NEB PRN ×2 (07:43→14:04)
[2022-02-08] MEDS: METOPROLOL TAR 50 MG TAB PO SCH (07:49)
[2022-02-08] MEDS: PANTOPRAZOLE 40MG TABLET PO SCH (07:49)
--- NOTE | 2022-02-08 07:58 | ECHO ---
HEIGHT: 5 ft 5 in WEIGHT: 120 lb 0 oz DATE OF STUDY: 02/07/[address]: Arnold Szymanski MD 2-DIMENSIONAL: YES M.MODE: YES DOPPLER: YES COLOR FLOW: YES TDS: NO PORTABLE: YES DEFINITY: NO BUBBLE STUDY: NO DIAGNOSIS: CHEST PAIN CARDIAC HISTORY: CATHERIZATION: NO SURGERY: NO PROSTHETIC VALVE: NO PACEMAKER: NO MEASUREMENTS (cm) DIASTOLIC (NORMALS) SYSTOLIC (NORMALS) IVSd 1.1 (0.6-1.2) LA Diam 2.6 (1.9-4.0) LVEF 66% LVIDd 3.9 (3.5-5.7) LVIDs 2.5 (2.0-3.5) %FS 36% LVPWd 1.2 (0.6-1.2) Ao Diam 3.0 (2.0-3.7) 2 DIMENSIONAL ASSESSMENT: RIGHT ATRIUM: NORMAL LEFT ATRIUM: NORMAL RIGHT VENTRICLE: NORMAL LEFT VENTRICLE: NORMAL TRICUSPID VALVE: NORMAL MITRAL VALVE: MITRAL ANNULAR CALCIFICATION PULMONIC VALVE: NORMAL AORTIC VALVE: STENOTIC PERICARDIAL EFFUSION: NONE AORTIC ROOT: NORMAL LEFT VENTRICULAR WALL MOTION: NORMAL. DOPPLER/COLOR FLOW: AORTIC STENOSIS - 1.7 CENTIMETERS SQUARED - MILD. MILD MITRAL AND TRICUSPID REGURGITATION. COMMENTS: NORMAL LEFT VENTRICULAR SIZE AND FUNCTION. MILD MITRAL AND TRICUSPID REGURGITATION. MITRAL ANNULAR CALCIFICATION. AORTIC STENOSIS - MILD. TECHNOLOGIST: FANY VÁZQUEZ
[2022-02-08 08:35] VITALS: O2SAT 100
[2022-02-08] MEDS ORDERED: lisinopriL 5 MG TAB PO SCH (09:00)
[2022-02-08 14:09] VITALS: BP 167/88; TEMP 97.7
== END 2022-02-08 16:30 | disposition home or self-care (01) | DRG 378 ==
LOC: ER 18:43 → ERHOLD 22:06 → 3RD-ICU 02-06 16:09
PROVIDERS: ADMIT Internal Medicine; ATTEND Internal Medicine
PROC: 30233N1 Transfusion of Nonautologous Red Blood Cells into Peripheral Vein, Percutaneous Approach (ICD-10-PCS; 2022-02-06)
PROC: 0W3P8ZZ Control Bleeding in Gastrointestinal Tract, Via Natural or Artificial Opening Endoscopic (ICD-10-PCS; principal; 2022-02-06 13:45)
DX: K31.811 Angiodysplasia of stomach and duodenum with bleeding (principal); D62 Acute posthemorrhagic anemia; I24.8 Other forms of acute ischemic heart disease; E03.9 Hypothyroidism, unspecified; R07.9 Chest pain, unspecified; J44.9 Chronic obstructive pulmonary disease, unspecified; E78.5 Hyperlipidemia, unspecified; K21.9 Gastro-esophageal reflux disease without esophagitis; I10 Essential (primary) hypertension; Q27.39 Arteriovenous malformation, other site; F17.210 Nicotine dependence, cigarettes, uncomplicated; Z86.73 Personal history of transient ischemic attack (TIA), and cerebral infarction without residual deficits; Z20.822 Contact with and (suspected) exposure to COVID-19
CPT/HCPCS: 36415; 36430; 71045; 80048; 80061; 81003; 82947; 83735; 83880; 84100; 84443; 84484; 85014; 85018; 85025; 85610; 86850; 86900; 86901; 93005; 93306; 94640; 94760; 96374; 96375; 97116; 97161; 97530; 99285; C9113; J0360; J2001; J2704; J2930; J7050; J7120; J7614; P9016; U0003